=== PATIENT | female | born 1950 | race Caucasian/White ===

== ENCOUNTER 2023-07-23 10:47 | Outpatient (AMB) | payer OTHER, SELFPAY ==
--- NOTE | 2023-07-23 11:19 | HO.SPINEOV ---
Intake Intake Visit Reasons: Neck pain Intake Note: Mrs. Foy is here today c/o neck pain. MRI done @ [facility]/brought disc. Director Of Strategic Programs Required: No Assessment & Plan Assessment & Plan (1) Degenerative disc disease, cervical: Code(s): M50.30 - Other cervical disc degeneration, unspecified cervical region (2) Deformity of cervical vertebra: Code(s): M43.9 - Deforming dorsopathy, unspecified (3) Spondylolisthesis, cervical region: Code(s): M43.12 - Spondylolisthesis, cervical region Plan Dear colleague Thank you for referring Angella Foy to the office today with a chief complaint of chronic progressive neck pain and bilateral hand numbness HPI: This 72-year-old female is suffering from chronic neck pain that recently has significantly increased. She feels her head is falling off. She does not there to extend her neck as this will cause a severe electric shock across the spine. Acute rotation also produces severe neck pain. The best position is sitting forward with slight flexion of the neck. She denies weakness. She denies dexterity loss. The following conservative treatment options were tried without success antiinflammatories, tylenol, physician physical therapy, cortisone shots PMH: Diabetes mellitus, arthritis, chronic heart failure? Medications: Lasix, anti-inflammatory drugs, aspirin, metformin, atenolol, simvastatin Allergies: NKDA Social history: , nonsmoker Review of systems: Shortness of breath when walking up stairs. She scheduled to undergo an advanced stress test on September 05. She denies chest pain. Physical Exam: Pleasant female in agony. Extension of the neck is performed very carefully and limited. There is pain on palpation of the posterior cervical spine. Tinel is negative over the wrist. Normal strength and sensation. No pathological reflexes. Radiological Studies: MRI of the cervical spine done at [facility] on 06/27/2023 shows a cervical kyphosis caused by a grade 2 C3-C4 anterolisthesis and severe degenerative disc disease C4-5 C5-6 and C6-7 . A dynamic cervical x-ray today shows again the grade 2 C3-4 spondylolisthesis that increases with flexion. In the spondylolisthesis is also increased compared to an x-ray of 12/30/1999. Impression/Plan: This patient is suffering from severe neck pain, increasing with extension caused by a progressive C3-4 anterolisthesis the produces a cervical deformity with a reverse lordosis. I offered her an anterior diskectomy fusion C3-C4 and C4-C5 to reduce the anterolisthesis and improve the cervical deformity. I the procedure and expected intraoperative and postoperative course and she wants to proceed. She is scheduled for 10/07/2023. She will need preoperative clearance from her deployment engineer Dr. Pearson at [facility] and Cortney Stone, JULIETA. Thank you for allowing me to participate in your patients care. total time spent was 50 minutes in counseling ,coordination of plan, personal review of imaging, surgical decision making and subsequent plan Dominic Tompkins MD, PhD Spine Fellowship Trained Neurosurgeon Director, [facility] Orders: Orders XR cervical spine 4V Today M43.12 - Spondylolisthesis, cervical region, M43.9 - Deforming dorsopathy, unspecified, M50.30 - Other cervical disc degeneration, unspecified cervical region Coding Level of Care Code New Pt Level 4 (05020) Diagnoses Degenerative disc disease, cervical M50.30 Deformity of cervical vertebra M43.9 Spondylolisthesis, cervical region M43.12
== END 2023-07-23 12:29 | disposition home or self-care (01) ==
PROVIDERS: Visit Provider Neurological Surgery
DX: M50.30 Other cervical disc degeneration, unspecified cervical region (principal); M43.9 Deforming dorsopathy, unspecified; M43.12 Spondylolisthesis, cervical region
CPT/HCPCS: 99204

== ENCOUNTER 2023-07-23 10:47 | Outpatient (REF) | payer OTHER, SELFPAY ==
--- NOTE | ~2023-07-23 | XR_ITS ---
EXAMINATION: XR CERVICAL SPINE CLINICAL INFORMATION: Cervical spondylolisthesis. COMPARISON: None available. TECHNIQUE: Frontal and lateral (neutral, flexion and extension) views of the cervical spine were obtained. FINDINGS: Vertebral body heights are normal. At C2-C3, there is a 3 mm anterolisthesis. At C3-C4, there is moderate posterior disc space narrowing, with a 4 mm anterolisthesis. There is marked disc space narrowing at C4-C5 through C6-C7, with accompanying spondylosis. No acute fracture or spondylolisthesis is seen. There is no significant instability with flexion or extension. The posterior elements are intact. There is multi-level facet arthropathy. The paravertebral soft tissues are unremarkable. XR/XR cervical spine 4V IMPRESSION: 1. There is multi-level cervical degenerative disc disease, spondylosis and facet arthropathy. Degenerative disease is most pronounced at C4-C5 through C6-C7, where it is severe. 2. No instability with flexion or extension.
== END 2023-07-23 10:48 | disposition home or self-care (01) ==
LOC: HO.HOSX 10:47
PROVIDERS: Visit Provider Neurological Surgery
DX: M50.30 Other cervical disc degeneration, unspecified cervical region (principal); M43.9 Deforming dorsopathy, unspecified; M43.12 Spondylolisthesis, cervical region
CPT/HCPCS: 72050

== ENCOUNTER 2024-09-27 08:23 | Outpatient (AMB) | payer OTHER, SELFPAY ==
--- NOTE | 2024-09-27 08:59 | HO.SPINEOV ---
Vital Signs 09/27/24 09:01 Height 5 ft 2 in Weight 177 lb BMI 32.4 Intake Visit Reasons: Review sx Intake Note: Mrs. Foy is here today for a F/u. 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 She has a spondylolisthesis at C3-4 and C4-5, her original plan last year was to have surgery to correct this to help her neck pain as well as her arm numbness. She ended up getting COVID and was sick from that and had to postpone. Ultimately was very nervous about undergoing neck surgery so she waited until she was completely recovered. Now it has got to the point to where the pain is present daily and she is very uncomfortable all the time with any movement of her head. She still has the numbness of her arms. On my exam, she has no focal weakness and no hyperreflexia. I reviewed her x-rays with her again today. I did not have a copy of her MRI from her lying. We discussed the procedure at length, risks, benefits etc.. I told her to stop her Motrin and aspirin 7 days prior to surgery. I will get an updated set of x-rays. We talked about the fact that her MRI was from last May but her symptoms have really not changed much. I did propose the idea of getting a new MRI, but she thinks that if she postpone the surgery again she will never do it and she really would like to go ahead. She will bring us a copy of last year's MRI to review before surgery. Although the original note from Dr. Tompkins did not suggest a plate, I think after reviewing the x-rays we should at least have 1 available as an option. I will contact our vendors to make sure they have one. Pt was given risk and benefits of surgery including but not limited to infection, hematoma , nerve injury,durotomy, weakness,bowel/bladder injury, persistent pain, vocal hoarseness as well as the option to continue with conservative treatment and patient wishes to proceed with surgery. Pt is aware they should stop their motrin, aspirin 7 days prior to surgery. All questions were answered to the best of our ability. Total amount of time spent in this visit was 20 minutes in discussion of symptoms, x-ray an MRI imaging results and subsequent plan of care Elvin Tompkins MD,PhD [facility] Orders: Orders XR cervical spine 4V Today M50.30 - Other cervical disc degeneration, unspecified cervical region Coding Level of Care Code Est Pt Level 3 (83407) Diagnoses Degenerative disc disease, cervical M50.30
[2024-09-27 09:01] VITALS: BMI 32.4
== END 2024-09-27 09:52 | disposition home or self-care (01) ==
PROVIDERS: Visit Provider Physician Assistant
DX: M50.30 Other cervical disc degeneration, unspecified cervical region (principal)
CPT/HCPCS: 99213

== ENCOUNTER 2024-09-27 08:23 | Outpatient (REF) | payer OTHER, SELFPAY ==
--- NOTE | ~2024-09-27 | XR_ITS ---
EXAMINATION: XR CERVICAL SPINE CLINICAL INFORMATION: Other cervical disc degeneration, unspecified cervical region M50.30. COMPARISON: XR Cervical spine 07/23/2023 TECHNIQUE: 5 views of the cervical spine, inclusive of flexion and extension views, were obtained. FINDINGS: Submitted for interpretation on October 05, 2024. Craniocervical junction is intact. Grade 1 anterolisthesis C3-4 without reduction or worsening during flexion and/or extension position. Grade 1 anterolisthesis C4-5 in neutral position which worsens in flexion position and reduces in extension. Multilevel marginal osteophyte formation and endplate sclerosis decreased intervertebral disc height more conspicuous at C5-6, C6-7 and to a lesser extent C4-5 and C3-4 levels. No lytic or blastic lesions. XR/XR cervical spine 4V IMPRESSION: Multilevel cervical spondylosis resulting in grade 1 anterolisthesis C4-5 and C5-6 levels with instability at C4-5. Electronically signed by: Lobo Freed MD 10/05/2024 07:21 AM DAVID
== END 2024-09-27 08:24 | disposition home or self-care (01) ==
LOC: HO.HOSX 08:23
PROVIDERS: Visit Provider Physician Assistant
DX: M50.30 Other cervical disc degeneration, unspecified cervical region (principal)
CPT/HCPCS: 72050

== ENCOUNTER → 2024-09-27 09:33 | Outpatient (BNV) | payer OTHER, SELFPAY | PROVIDERS: Visit Provider Radiology Diagnostic Radiology | DX: M43.12 Spondylolisthesis, cervical region (principal) | CPT/HCPCS: 72050 ==

== ENCOUNTER 2024-10-05 05:56 | Day surgery (SDC) | payer MEDICARE, SELFPAY ==
[2024-09-27 10:11] VITALS: BP 124/62; PULSE 78; RESP 20; O2SAT 97; BMI 32.9
[2024-10-05] VITALS (16 sets, daily range): BP systolic 137–187; BP diastolic 56–99; PULSE 79–95; RESP 16; TEMP 36.6–37.3; O2SAT 93–98; BMI 32.9
[2024-10-05] MEDS: Gabapentin 300 MG CAPSULE PO (06:45)
[2024-10-05] MEDS: methocarbamoL 750 MG TABLET PO (06:45)
[2024-10-05] MEDS: Lactated Ringers 1,000 ML 100 ML IVCONT (06:52)
[2024-10-05 07:00] LABS: Glucose, Whole Blood 139 mg/dL (60-115)
--- NOTE | 2024-10-05 07:01 | MHC.SHP ---
Pre-Procedural Eval Section A - 24 Hr Update-Section A only Date of Service: 10/05/24 The patient is an INPATIENT: No Changes since office visit: No Cold of Flu in the past 2 weeks, No New Medical Problems, No Changes in Medication and No Patient answered all questions The patient has been examined within 24 hours of the surgical procedure. The History & Physical has been completed within 30 days and I have reviewed it.: No Section B - Complete if H&P > 30 days Chief Complaint: Spondylolisthesis, cervical region,disc degenerati Allergies: Allergies Allergy/AdvReac Type Severity Reaction Status Date / Time Sulfa (Sulfonamide Allergy Intermediate Swelling Verified 09/27/24 10:04 Antibiotics) indomethacin [From Indocin] Allergy Unknown happened Verified 09/27/24 10:05 long ago-reaction unknown Review of Systems Sugical H&P ROS: Negative: Constitution, Cardiovascular, Respiratory, Neurological, Psychiatric, Hem-Onc, Allergic/Immunologic, Gastrointestinal, Genitourinary, Musculoskeletal, Integumentary, Endocrine and Eyes/Ears/Nose/Throat Exam Surgical H&P Exam: Normal: HEENT, Normal: Heart, Normal: Lungs, Normal: Extremities, Normal: Abdomen, Normal: Skin and Normal: Neurological (awake, alert,oriented x 3 ) Plan Diagnosis/Plan: Unchanged C3-4, C4-5 Anterior cervical diskectomy and fusion Time Spent With Patient Time: Total time managing care of this patient today __5__ minutes.
--- NOTE | 2024-10-05 07:25 | HO.ANESPROP2 ---
Documented by User: Bertha Rivas NP 10/04/24 08:28 HPI - Anesthesia Eval Consult details Narrative: 74yo F for C3-4,C4-5 Ant Cerv Discectomy w/ fusion Anesthesia unavilable for 09/27/24 PAT Dysautonomia dx'd via CPET and managed by pulmo with pyridostigmine. SOB has improved since 2020. Still some KNOTT, but walks regularly. No SOB noted by RN during PAT assessment. Follows outside cardiology for nonobstructive CAD. Stable at 03/2024 - any SOB or CP attributed to dysautonomia Case reviewed with Dr Darrell GURROLA Active Problems Active Problems: All Active Problems Degenerative disc disease, cervical (Acute) Deformity of cervical vertebra (Acute) Spondylolisthesis, cervical region (Acute) Past Medical History Medical History (Updated 09/27/24 @ 10:54 by Roseanna Parker RN) Dysautonomia Pneumonia Poor historian Fatty liver Chronic renal insufficiency CAD (coronary artery disease) Diabetes Lichen sclerosus Memory deficit Osteoarthritis Depression Anxiety Asthma Hypothyroid GERD (gastroesophageal reflux disease) Elevated cholesterol HTN (hypertension) Degenerative disc disease, cervical Surgical History Surgical History (Updated 09/27/24 @ 10:03 by Roseanna Parker RN) Hx of bilateral cataract extraction History of esophagogastroduodenoscopy (EGD) H/O colonoscopy History of back surgery History of total left knee replacement Hx of cardiac catheterization Hx of salpingo-oophorectomy, bilateral Hx of hysterectomy Hx of breast biopsy History of total right knee replacement Social History Social History Are you a primary personal care attendant to a significant other at home: No Do you presently have visiting nurse or other home services: No Patient Tobacco Use Status: Former Tobacco user Tobacco use type: Cigarette Years Smoked: 20 Use of substances other than those prescribed or required for medical reasons: No Have you been hit, kicked, punched, or otherwise hurt by someone within the past year? If so, by whom?: No Spiritual Healthcare Practices: none Zoroastrian Healthcare Practices: Yazidism Cultural Healthcare Practices: none Are you DNR?: No Advance Directives Information Provided: Yes (as above noted-advised to bring copy DOS) Advance Directives on File: No Recently lost weight without trying: No Eating poorly because of decreased appetite: No Nutrition Risks: No Nutritional Risk FDLMP: n/a Poor oral hygiene: No (dental crowns) Meds Allergies Allergy/AdvReac Type Severity Reaction Status Date / Time Sulfa (Sulfonamide Allergy Intermediate Swelling Verified 09/27/24 10:04 Antibiotics) indomethacin [From Indocin] Allergy Unknown happened Verified 09/27/24 10:05 long ago-reaction unknown Home Medications ?Medication ?Instructions ?Recorded ?Confirmed ?Last Taken ?Type amlodipine 2.5 mg tablet 2.5 mg PO QAM 09/16/23 10/05/24 Unknown History fluoxetine 20 mg capsule 20 mg PO QAM 09/16/23 10/05/24 Unknown History levothyroxine 100 mcg tablet 100 mcg PO QAM 09/16/23 10/05/24 Unknown History (Synthroid) metformin 500 mg tablet,extended 500 mg PO QAM 09/16/23 10/05/24 Unknown History release 24 hr omeprazole 40 mg capsule,delayed 40 mg PO QAM 09/16/23 10/05/24 Unknown History release aspirin 81 mg tablet,delayed 81 mg PO BEDTIME 09/24/24 10/05/24 Unknown History release coenzyme Q10 200 mg capsule (Co 200 mg PO QAM 09/24/24 10/05/24 Unknown History Q-10) cyclobenzaprine 10 mg tablet 10 mg PO BID PRN Muscle Spasm 09/24/24 10/05/24 Unknown History furosemide 20 mg tablet 40 mg PO QAM 09/24/24 10/05/24 Unknown History magnesium oxide 200 mg PO QAM 09/24/24 10/05/24 Unknown History multivitamin 1 tab PO QAM 09/24/24 10/05/24 Unknown History pyridostigmine bromide 60 mg 60 mg PO BID 09/24/24 10/05/24 Unknown History tablet (Mestinon) solifenacin 10 mg tablet 10 mg PO QAM 09/24/24 10/05/24 Unknown History atorvastatin 20 mg tablet 20 mg PO BEDTIME 09/27/24 10/05/24 Unknown History Exam Height,Weight and Vital Signs: Height 5 ft 2 in Weight 81.647 kg Last Vital Signs Pulse 78 09/27/24 10:11 Resp 20 09/27/24 10:11 BP 124/62 09/27/24 10:11 Pulse Ox 97 09/27/24 10:11 O2 Del Method Room Air 09/27/24 10:11 Pertinent Lab Results Pertinent Lab Results: BMP and CBC 04/2024 from outsice facility [place] Narrative Narrative: EKG 03/2024 NSR @ 65 ECHO 2021 Nml LV sys function Mild LVH Mild Aortic stenosis with mild aortic insufficiency Nml RV function Assessment and Plan Assessment Anesthesia Assessment: Chart Reviewed Documented by User: Elaine Summers DO 10/05/24 07:26 HPI - Anesthesia Eval Consult details Narrative: 74yo F for C3-4,C4-5 Ant Cerv Discectomy w/ fusion Dysautonomia dx'd via CPET and managed by pulamol with pyridostigmine. SOB has improved since 2020. Still some KNOTT, but walks regularly. No SOB noted by RN during PAT assessment. Follows outside cardiology for nonobstructive CAD. Stable at 03/2024 - any SOB or CP attributed to dysautonomia. [facility] Past Medical History Medical History (Updated 09/27/24 @ 10:54 by Roseanna Parker RN) Dysautonomia Pneumonia Poor historian Fatty liver Chronic renal insufficiency CAD (coronary artery disease) Diabetes Lichen sclerosus Memory deficit Osteoarthritis Depression Anxiety Asthma Hypothyroid GERD (gastroesophageal reflux disease) Elevated cholesterol HTN (hypertension) Degenerative disc disease, cervical Family History Family history of problems with anesthesia: No Surgical History Surgical History (Updated 09/27/24 @ 10:03 by Roseanna Parker RN) Hx of bilateral cataract extraction History of esophagogastroduodenoscopy (EGD) H/O colonoscopy History of back surgery History of total left knee replacement Hx of cardiac catheterization Hx of salpingo-oophorectomy, bilateral Hx of hysterectomy Hx of breast biopsy History of total right knee replacement History of Problems with Anesthesia: No Social History Social History Are you a primary personal care attendant to a significant other at home: No Do you presently have visiting nurse or other home services: No Patient Tobacco Use Status: Former Tobacco user Tobacco use type: Cigarette Years Smoked: 20 Use of substances other than those prescribed or required for medical reasons: No Have you been hit, kicked, punched, or otherwise hurt by someone within the past year? If so, by whom?: No Spiritual Healthcare Practices: none Zoroastrian Healthcare Practices: Yazidism Cultural Healthcare Practices: none Are you DNR?: No Advance Directives Information Provided: Yes (as above noted-advised to bring copy DOS) Advance Directives on File: No Recently lost weight without trying: No Eating poorly because of decreased appetite: No Nutrition Risks: No Nutritional Risk FDLMP: n/a Poor oral hygiene: No (dental crowns) Meds Allergies Allergy/AdvReac Type Severity Reaction Status Date / Time Sulfa (Sulfonamide Allergy Intermediate Swelling Verified 09/27/24 10:04 Antibiotics) indomethacin [From Indocin] Allergy Unknown happened Verified 09/27/24 10:05 long ago-reaction unknown Home Medications ?Medication ?Instructions ?Recorded ?Confirmed ?Last Taken ?Type amlodipine 2.5 mg tablet 2.5 mg PO QAM 09/16/23 10/05/24 Unknown History fluoxetine 20 mg capsule 20 mg PO QAM 09/16/23 10/05/24 Unknown History levothyroxine 100 mcg tablet 100 mcg PO QAM 09/16/23 10/05/24 Unknown History (Synthroid) metformin 500 mg tablet,extended 500 mg PO QAM 09/16/23 10/05/24 Unknown History release 24 hr omeprazole 40 mg capsule,delayed 40 mg PO QAM 09/16/23 10/05/24 Unknown History release aspirin 81 mg tablet,delayed 81 mg PO BEDTIME 09/24/24 10/05/24 Unknown History release coenzyme Q10 200 mg capsule (Co 200 mg PO QAM 09/24/24 10/05/24 Unknown History Q-10) cyclobenzaprine 10 mg tablet 10 mg PO BID PRN Muscle Spasm 09/24/24 10/05/24 Unknown History furosemide 20 mg tablet 40 mg PO QAM 09/24/24 10/05/24 Unknown History magnesium oxide 200 mg PO QAM 09/24/24 10/05/24 Unknown History multivitamin 1 tab PO QAM 09/24/24 10/05/24 Unknown History pyridostigmine bromide 60 mg 60 mg PO BID 09/24/24 10/05/24 Unknown History tablet (Mestinon) solifenacin 10 mg tablet 10 mg PO QAM 09/24/24 10/05/24 Unknown History atorvastatin 20 mg tablet 20 mg PO BEDTIME 09/27/24 10/05/24 Unknown History Exam Exam Date and Time: 10/05/24 0725 Height,Weight and Vital Signs: Height 5 ft 2 in Weight 81.647 kg Last Vital Signs Pulse 78 09/27/24 10:11 Resp 20 09/27/24 10:11 BP 124/62 09/27/24 10:11 Pulse Ox 97 09/27/24 10:11 O2 Del Method Room Air 09/27/24 10:11 Vital Signs Pulse Rate 78 09/27/24 10:11 Respiratory Rate 20 09/27/24 10:11 Blood Pressure 124/62 09/27/24 10:11 Pulse Oximetry 97 09/27/24 10:11 Oxygen Delivery Method Room Air 09/27/24 10:11 Temperature 99.2 F 10/05/24 06:36 Pulse Rate 79 10/05/24 06:36 Respiratory Rate 16 10/05/24 06:36 Blood Pressure 137/63 10/05/24 06:36 Pulse Oximetry 98 10/05/24 06:36 Oxygen Delivery Method Room Air 10/05/24 06:36 Airway Mallampati Class: I TM Dist: >3cm Neck ROM: Limited Loose/Missing/Broken Teeth: Yes (broken crown right lower jaw) Heart: S1S2 Lungs: CTAB Assessment and Plan Assessment Anesthesia Assessment: Anesthesia Plan Discussed and Chart Reviewed Final Anesthetic Review Family History of Problems with Anesthesia: No History of Problems with Anesthesia: No NPO: Yes ASA Class: III Final Preanesthetic Review: No Changes in Pt Med Stat, Meds/Allgs Chart Reviewed, Consent Obtained/Reviewed and Anes Risks/Benef Reviewed Patient Risk: Intermediate Procedure Risk: Intermediate Anesthetic Plan Anesthetic Plan: MAC: and Agree w/ Assess. and Plan Disposition: Standard PACU
--- NOTE | 2024-10-05 07:32 | P.DS_ITS ---
DS: Providers Provider Date of Service: 10/05/24 Date of discharge: 10/05/24 Primary care physician: Unknown Physician Admitting clinician: Dominic Tompkins DS: Diagnosis Discharge Diagnosis (1) Degenerative disc disease, cervical: Status: Acute DS: Summary Time Attestation Discharge Coordination Time (in mins): 5 Quality: Safe Use of Opioids Does Pt have an Active Cancer Diagnosis on the Problem List?: No Quality: Stroke Does the patient have a stroke diagnosis?: No Physical Exam Vital Signs: Vital Signs: Last Vital Signs Temp 99.2 F 10/05/24 06:36 Pulse 79 10/05/24 06:36 Resp 16 10/05/24 06:36 BP 137/63 10/05/24 06:36 Pulse Ox 98 10/05/24 06:36 O2 Del Method Room Air 10/05/24 06:36 BMI result Body Mass Index 32.9 DS: Data Data Completed and Pending Labs on day of discharge: Laboratory Results - last 24 hr 10/05/24 06:56 POC Glucose 139 H Discharge Plan Discharge Patient Disposition: Home, Self-Care Referrals: Physician,Unknown J [Primary Care Provider] - 1 Week Discharge Medications: New docusate sodium [Colace] 100 mg capsule 100 mg PO BID Qty: 20 0RF oxycodone 5 mg tablet 5 mg PO Q4H PRN (Reason: pain) Qty: 40 0RF Rx Instructions: Partial Fill upon patient request. Continued amlodipine 2.5 mg tablet 2.5 mg PO QAM omeprazole 40 mg capsule,delayed release(DR/EC) 40 mg PO QAM levothyroxine [Synthroid] 100 mcg tablet 100 mcg PO QAM fluoxetine 20 mg capsule 20 mg PO QAM metformin 500 mg tablet extended release 24 hr 500 mg PO QAM furosemide 20 mg tablet 40 mg PO QAM solifenacin 10 mg tablet 10 mg PO QAM multivitamin Tablet 1 tab PO QAM cyclobenzaprine 10 mg Tablet 10 mg PO BID PRN (Reason: Muscle Spasm) coenzyme Q10 [Co Q-10] 200 mg Capsule 200 mg PO QAM pyridostigmine bromide [Mestinon] 60 mg Tablet 60 mg PO BID magnesium oxide 200 mg magnesium Tablet 200 mg PO QAM atorvastatin 20 mg Tablet 20 mg PO BEDTIME Held aspirin 81 mg Tablet,Delayed Release (Dr/Ec) 81 mg PO BEDTIME Hold Instructions: Resume on 10/12/24. You may resume aspirin 7 days after surgery Discharge Orders: Discharge Order (Routine); Ordered 10/05/24 Ordered By: Elvin Duke Diet: Advance to usual diet Activity on Discharge: As tolerated Activity Restrictions/Additional Instructions: After your spinal surgery we ask you to observe the following restrictions/guidelines: Activity: It is normal to feel some discomfort as you increase your activity, but that will improve with time. We ask you avoid heavy lifting or acitivities that cause pain. As a general rule, 8lbs is a safe limit for lifting right after surgery. Walk as much as you feel comfortable but not to exhaustion. You will feel extra tired the first few days after surgery. Stay well hydrated. It is OK to walk up and down stairs You may return to driving when you are off narcotics (such as vicodin, oxycodone, dilaudid, etc), and you are back to normal functional capacity. If you have any concerns please check with office before driving. Return to work is specific to each patient and each surgery, so please speak with your doctor/PA at first follow up. Please bring paperwork such as FMLA at that time if you need it filled out. Medications: You may resume asprin one week after surgery For optimum pain control, it is best to start with a combination of 500 mg of Tylenol every 4 hours with 600 mg of Motrin every 8 hours, and use narcotics as needed in between for breakthrough pain. We will give you a short supply of narcotics after surgery (usually one weeks worth). If you need more please call the office but do not use more than prescribed. You will need to give our office 48 hours notice if you need narcotics refilled and we do not fill narcotics on weekends or evenings. If you are on a narcotic, it is a good idea to take a stool softener such as colace or senna to avoid constipation If you take blood thinner such as aspirin, Plavix, Coumadin, Effient, Eliquis etc for conditions such as Afib, DVT, Pulmonary embolus, coronary disease, stents etc please speak with your surgeon about specific details as to when you can resume these medications. You can resume NSAIDs on post op day 1 (eg: Motrin, Naproxen, etc). Follow up: Please call the office, , after surgery to arrange a 3 week follow up for wound check. Wound Care: You may remove your dressing on the first day after surgery. ?You may ?leave open to air. Please do not remove the steri strips underneath. they will fall off on their own in one week. IT IS NORMAL FOR THE WOUND TO OOZE OR BE BLOODY FOR A FEW DAYS AFTER SURGERY. ?IF THIS HAPPENS JUST PLACE NEW DRESSING OVER IT TO AVOID STAINING CLOTHES. You may shower on post op day # 1 We ask that you do not let the water soak the wound. If it does get wet, just towel dry lightly. Please do not scrub your incision or place any type of chemical/ointment on the wound. No tub baths, pools or jacuzzis for one month. If you have any leaking or redness from your wound, or fevers, please call office Print Language: Maldivian
--- NOTE | 2024-10-05 09:40 | P.OP_ITS ---
Operative Note Operative Note Date of Service: 10/05/24 Narrative: Preoperative Diagnosis: C3-4 anterolisthesis, C4-5 degenerative disc disease; neck pain Procedure: C3-C4, C4-C5 Anterior discectomy, arthrodesis and implantation cage ; C3-C5 anterior instrumentation ; local autograft; microscope Informed Consent was obtained for this operation. I have explained the nature, purpose and benefits of the operation. I have discussed the risks and benefit of the operation including possible complications or adverse events with patient/family. Alternative(s) were discussed with the patient with their relative benefits and risks as well as the consequences of not accepting the operation were included in obtaining consent. Surgeon: NAYELY GIBSON MD, PHD Procedure Assisted By: Elvin arriaga Description of Procedure: This patient is suffering from severe neck pain. Imaging reviews a grade 2 C3-4 anterolisthesis and severe degenerative disc disease C4-5. The patient was offered an anterior diskectomy fusion C3-4 and C4-5 to restore the alignment. The procedure complications were explained. The patient was consented. The patient was brought to the operating room and endotracheally intubated. The patient was put in supine position with slight extension of the neck. Prep and drape was done followed by timeout. A mid cervical incision was made followed by opening of the platysma. The prevertebral fascia was reached following the natural planes while the physician environmental services assistant provided manual retraction. The prevertebral fascia was opened to expose the disc spaces. A spinal needle was placed in the C3-C4 disk space to confirm the correct level with xray. The longus colli muscles were released bilaterally and a self retaining retractor was inserted. Two Camden pins were placed in the C3 and C4 vertebral bodies and distraction was give over the interspace. The discectomy was completed toward the posterior annulus of the disc. The microscope was brought in. The remainder of the discectomy was completed. The posterior ligament was opened and resected to expose the underlying dura. Osteophytes were resected from the body of C3 and C4 and saved for autograft. The endplates were prepared after which a 6 mm cage filled with autograft was inserted into the disc space. A separate attached plate was locked down with 2 x 12 mm screws as anterior instrumentation. Then attention was turned to the C4-5 disc space. Severe degeneration was encountered. The diskectomy was completed and posterior osteophytes were resected and saved for autograft. Again a 6 mm cage was inserted after which a separate attached plate was locked with 2 x 12 mm screws. Finally a 12 mm plate was laid over the C3-4 disc space and locked down with 4 times 14 mm screws Final x-rays in AP and lateral projection showed a satisfactory position of the implants and anterior instrumentation. The physician environmental services assistant took over. The Camden pin was removed. Hemostasis was done. He closed the incision in 2 layers with a 3-0 Vicryl. Steri-Strips used to approximate incision. An OpSite with Tegaderm was used to cover the incision. All sponge and needle counts were correct. Patient was extubated and transported in stable is to recovery room. Anesthesia: General Estimated Blood Loss (ml): 25 mL Duration of Surgery: 90 minutes Postoperative Plan: Discharge home Complications: None
[2024-10-05] MEDS: Haloperidol Lactate 5 MG/ML VIAL IVPUSH (13:09)
[2024-10-05] MEDS: Ondansetron ODT 4 MG TAB.RAPDIS TRANSLINGU (13:46)
--- NOTE | 2024-10-05 14:07 | PC.NURSE ---
PATIENT GIVEN ZOFRAN SL PER ORDER FOR REPORT OF NAUSEA. PATIENT ADAMENT ABOUT WANTING TO GO HOME. AT SIDE AND AWARE.
== END 2024-10-05 14:10 | disposition home or self-care (01) ==
PROVIDERS: Visit Provider Neurological Surgery
PROC: (CPT 22551; principal; 2024-10-05 07:30)
DX: M43.12 Spondylolisthesis, cervical region (principal); G89.29 Other chronic pain; M50.321 Other cervical disc degeneration at C4-C5 level; M43.9 Deforming dorsopathy, unspecified; R20.0 Anesthesia of skin; I10 Essential (primary) hypertension; E78.00 Pure hypercholesterolemia, unspecified; E11.9 Type 2 diabetes mellitus without complications; J45.909 Unspecified asthma, uncomplicated; Z79.84 Long term (current) use of oral hypoglycemic drugs; Z79.82 Long term (current) use of aspirin; Z79.899 Other long term (current) drug therapy; Z88.8 Allergy status to other drugs, medicaments and biological substances; Z88.2 Allergy status to sulfonamides; Z98.890 Other specified postprocedural states; Z87.891 Personal history of nicotine dependence
CPT/HCPCS: 22551; 22552; 22853; 20936; 22845; 82947; C1713; C1889; J0131; J0690; J1100; J1171; J1630; J2003; J2250; J2371; J2405; J2704; J3010; L8699

== ENCOUNTER → 2024-10-05 05:56 | Outpatient (BNV) | payer MEDICARE, SELFPAY | PROVIDERS: Visit Provider Physician Assistant | DX: M50.820 Other cervical disc disorders, mid-cervical region, unspecified level (principal); M50.321 Other cervical disc degeneration at C4-C5 level | CPT/HCPCS: 20936; 22551; 22552; 22845; 22853; 99499 ==

== ENCOUNTER 2024-10-29 11:00 | Outpatient (REF) | payer OTHER, SELFPAY ==
--- NOTE | ~2024-10-29 | XR_ITS ---
EXAMINATION: XR CERVICAL SPINE 2-3 VIEWS HISTORY: Z98.1 - Arthrodesis status COMPARISON: Comparison is made with the prior examination dated 09/27/2024. FINDINGS: AP and lateral views of the cervical spine are submitted. In the interval since the prior study, the patient is status post anterior fusion of C3 and C4 with plate and screws. The patient is also status post arthrodesis at C3-4 and C4-5. The hardware is intact. Again seen is anterolisthesis of C3 on C4. There is severe degenerative disc disease at the C5-6 and C6-7 levels, with disc space narrowing and osteophyte formation. Calcifications in the neck bilaterally are likely related to the internal carotid arteries. There is no prevertebral soft tissue swelling. XR/XR cervical spine 2V IMPRESSION: Status post anterior fusion of C3 and C4, and arthrodesis at C3-4 and C4-5. Degenerative disc disease. Electronically signed by: Dutch Hanson MD 10/29/2024 03:46 PM DAVID
== END 2024-10-29 11:01 | disposition home or self-care (01) ==
LOC: HO.HOSX 11:00
PROVIDERS: Visit Provider Neurological Surgery
DX: Z98.1 Arthrodesis status (principal)
CPT/HCPCS: 72040

== ENCOUNTER 2024-10-29 11:00 | Outpatient (AMB) | payer OTHER, SELFPAY ==
--- NOTE | 2024-10-29 11:24 | HO.SPINEOV ---
Intake Visit Reasons: 1st post op Intake Note: Mrs. Foy is here today for her 1st post op visit. Hose Tender Required: No Allergies Sulfa (Sulfonamide Antibiotics) Allergy (Intermediate, Verified 10/29/24 11:25) Swelling indomethacin [From Indocin] Allergy (Unknown, Verified 10/29/24 11:25) happened long ago-reaction unknown Assessment & Plan Assessment & Plan (1) Status post cervical spinal fusion: Code(s): Z98.1 - Arthrodesis status Category: Medical Plan: Dear colleague, On 10/29/2024, I saw for 1st postoperative visit Angella Foy. She underwent a C3-4 and C4-5 anterior diskectomy and fusion to correct a cervical deformity on 10/05/2024. She is doing quite well. She has minor discomfort on the right side of her anterior neck, which is most likely related to the procedure. On exam, the incision is healed. Today's x-rays show a stable construct. Overall, she is recovering as expected. We would like to follow-up in 6 weeks. Thank you for allowing me take care of your patient. Dominic Tompkins MD, PhD Spine Fellowship Trained Neurosurgeon Director, [facility] (2) Spondylolisthesis, cervical region: Code(s): M43.12 - Spondylolisthesis, cervical region Category: Medical Plan: s Orders: Orders XR cervical spine 2V Today Z98.1 - Arthrodesis status Coding Level of Care Code Global (33055) Diagnoses Status post cervical spinal fusion Z98.1 Spondylolisthesis, cervical region M43.12
--- OUTSIDE RECORDS SUMMARY | 2024-10-29 11:47 | XMS_ITS | Encounter Summary ---
Author Organization [facility] Address [address] [place] [address] Care Team Providers Care Roll Edge Stitcher Hand Name Role Phone Cortney Stone NP Primary Care Provider [phone] Christina Estevez MD Primary Care Provider [phone] Encounter Details Date Type Department Care Team ([facility] st Contact Info) Description 04/09/2024 Orders Only [facility] Cardiology [address] [phone] Lolita Barnett MD [address] [place] [address] Social History Tobacco Use Types Packs/Day Years Used Date Smoking Tobacco: Former Cigarettes 2 17 0 03/02/1975 - 03/02/1992 Passive Smoke Exposure: Never Smokeless Tobacco: Never Alcohol Use Standard Drinks/Week Comments Yes 0 (1 standard drink = 0.6 oz pur e alcohol) rare PHQ-2 Answer Date Recorded PHQ-2 Score 0 01/07/2024 PHQ-9 Answer Date [facility] SE[facility]ITY SCORE (Range 0-27) 0 01/07/2024 Intimate Partner Violence Answer Date R ecorded Fear of Current or Ex-Partner Not on file Emotionally Abused Not on file 05/08/2023 Physically Abused Not on file 05/08/2023 Sexually Abused Not on file 05/08/2023 Feel Safe at Home Not on file 05/08/2023 Comments No Sex and Gender Information Value Date Recorded Sex Assigned at Female 03/06/2020 2:59 PM EDT Legal Sex Female 1:41 PM EST Gender Identity Female 03/06/2020 2:59 PM EDT Sexual Orientation Not on file documented as of this encounter Miscellaneous Notes * Result Encounter Note - Lolita Barnett MD - 04/09/2024 10:59 AM EDT The results of Your test are Stable and acceptable -- as always if you have any questions/problems please let me know - * Result Encounter Note - Lolita Barnett MD - 04/09/2024 10:59 AM EDT [facility] (List[facility])t message sent documented in this encounter Plan of Treatment Upcoming Encounters Date Type Department Care Team (Latest Contact Info) Description 01/10/2025 8:00 AM EDT Office Visit [facility] [address] [place] [phone] Christina Estevez MD [address] [place] [address] medication refill follow up 03/18/2025 1:15 PM EDT Office Visit [facility] Cardiology [address] [phone] Lolita Barnett MD [address] [place] [id number] routine f/u 04/05/2025 9:15 AM EDT Radiology [facility]. Mammography [address] [place] [address] 05/02/2025 1:00 PM EDT Office Visit [facility] Cardiology [address] [phone] Lolita Barnett MD [address] [place] [address] 1 year 06/07/2025 9:15 AM EDT CPE - Comprehensive Physical Exam [facility] [address] [place] [id number] Christina Estevez MD [address] [place] [address] NPP documented as of this encounter Goals Goal Patient Goal Type Associated Problems Recent Progress Patient-Stated? Author Blood Pressure < 140/90 Blood Pressure 134/79(08/06 2:38 PM EST) No Lashonda Ambrosio CMA Note: Above is your goal for blood pressure control. You may be able to prevent, reduce or eliminate the medication required for your blood pressure by regular measurement of your blood pressure at home, since home readings are often more reliable than measurements at the doctor? s office. You can also improve your blood pressure by getting regular exercise, keeping a normal weight, reducing your sodium/salt intake to 2000 mg/day, reducing caffeine and by limiting your alcohol intake. Men should limit consumption to no more than 2 drinks per day (beer, wine, or mixed drinks) and women should limit to one drink per day. Follow the DASH diet, a diet low in fat, cholesterol, red meat, and sweets. It emphasizes fruits, vegetables, and low-fat dairy foods. The DASH diet also includes whole-grain products, fish, poultry, and nuts. Quit smoking / using tobacco Lifestyle No Mirza Almanza Note: Smoking can cause cancer, heart attacks, hardening of the arteries, bronchitis, emphysema, cough, shortness of breath, wrinkles, and premature aging and premature births. Some benefits of quitting smoking begin right away. Your risk of heart disease begins to decrease as soon as you quit. Your general health may also start to improve immediately because you are not irritating your lungs and more oxygen gets to your body organs. Your blood circulation is likely to get better. Other benefits may include fewer colds and lung infections as well as reduced risk of high blood pressure, stroke, and cancer. Interested in quitting smoking? Discuss medication options with your provider or contact the Quit To Win program at . Any insurance accepted. Quit smoking resources-http://makesmoNutricate.org HEMOGLOBIN A1C % < 7 Result Component 6.3(03/22/20 7:57 AM EDT) Lashonda Alex CMA Note: Above is your goal for sugar control. Your risk for future diabetic complications such as blindness and amputation can be reduced by following your diabetic diet plan, and paying careful attention to self-monitoring your blood sugar and blood pressure at home. Please plan to check your blood sugar and blood pressure at the frequency suggested, and bring these numbers with you to your next scheduled visit. If you have difficulty reaching the goals which you have set for your diabetes your PCP can refer to one of our diabetes self-management support programs. A fasting blood sugar below 120 is ideal. documented as of this encounter Procedures * Due to [place] law, this organization might not be sharing negative HIV tests. Procedure Name Priority Date/Time Associated Diagnosis Comments B-TYPE NATRIURETIC PEPTIDE (BNP) ([facility]) Same Day Results 04/09/2024 10:59 AM EDT Shortness of breath PROBNP, N TERMINAL Routine 04/09/2024 10 :59 AM EDT Shortness of breath BASIC METABOLIC PANEL WITH (GFR) Routine 04/09/2024 10:59 AM EDT Shortness of breath documented in this encounter Results * Due to [place] law, this organization might not be sharing negative HIV tests. * (ABNORMAL) BASIC METABOLIC PANEL WITH (GFR) (04/09/2024 10:59 AM EDT) Glucose 128(H) 65 - 99 mg/dL [facility] Comment: ? Fasting reference interval For someone without known diabetes, a glucose value >125 mg/dL indicates that they may have diabetes and this should be confirmed with a follow-up test. Urea Nitrogen Blood (BUN) 19 7 - 25 mg/dL [facility] Creatinine 1.04(H) 0.60 - 1.00 mg/dL [facility] EGFR 57(L) > OR = 60 mL/min/1.7 3m2 [facility] BUN/Creatinine Ratio 18 6 - 22 (calc) [facility] Sodium 138 135 - 146 mmol/L [facility] Potassium 4.0 3.5 - 5.3 mmol/L [facility] Chloride 100 98 - 110 mmol/L [facility] Carbon dioxide 31 20 - 32 mmol/L [facility] Calcium 9.5 8.6 - 10.4 mg/dL [facility] 04/09/2024 10:5 9 AM EDT 04/09/2024 3:16 PM EDT Narrative [facility] - 04/09/2024 4:17 PM EDT Please note that this estimated GFR does not include an adjustment for the patient's height or weight, and can therefore, be viewed as reliable only for patients with heights between 60 and 72 . More precise quantification using a 24-hour urine sample or height-based algorithm is recommended for patients outside of this range of height and for those individuals with more precise needs for GFR calculation. Resulting Agency Comment [id number] us Lolita Barnett MD LABORATORY Final Result Performing Organization Address City/[facility] Co de Phone Number [facility] [address] [place] [address] * B-TYPE NATRIURETIC PEPTIDE (BNP) ([facility]) (04/09/2024 10:59 AM EDT) Pathologist [facility] Natriuretic peptide.B 32 <100 pg/mL [facility] Comment: BNP levels increase with age in the general population with the highest values seen in individuals greater than 75 years of age. Reference: J. Am. Claudia. Cardiol. 2002; 40:976-982. 04/09/2024 10:5 9 AM EDT 04/09/2024 3:16 PM EDT Narrative Resulting Agency Comment [id number] us Lolita Barnett MD LAB SAME DAY RESULT Final Result Performing Organization Address [facility]/ZIP Co de Phone Number [facility] [address] [place] [address] * (ABNORMAL) PROBNP, N TERMINAL (04/09/2024 10:59 AM EDT) Natriuretic peptide.B prohormone 197(H) <125 pg/mL [facility] 04/09/2024 10:5 9 AM EDT 04/09/2024 3:16 PM EDT Narrative Resulting Agency Comment [id number] Lolita Barnett MD LABORATORY Final Result [facility] [address] [place] [address] documented in this encounter Visit Diagnoses Diagnosis Shortness of breath documented in this encounter Care Teams Roll Edge Stitcher Hand Relationship Specialty Start Date End Date Cortney Stone NP [address] [place] [address] PCP - General Internal Medicine 03/29/22 09/15/24 Christina Estevez MD [address] [place] [address] PCP - General Family Medicine 09/16/24 documented as of this encounter
--- OUTSIDE RECORDS SUMMARY | 2024-10-29 11:47 | XMS_ITS | Encounter Summary ---
Author Organization [facility] Address [address] [place] [address] Care Team Providers Care Dog Behaviorist Name Role Phone Cortney Stone NP Primary Care Provider [phone] Chrsitina Estevez MD Primary Care Provider [phone] Encounter Details Date Type Department Care Team (Late st Contact Info) Description 01/27/2024 Orders Only [facility] [address] [place], [place] [id number] Cortney Stone NP [address] [place] [address] Social History Tobacco Use Types Packs/Day Years Used Date Smoking Tobacco: Former Cigarettes 2 17 0 03/02/1975 - 03/02/1992 Passive Smoke Exposure: Never Smokeless Tobacco: Never Alcohol Use Standard Drinks/Week Comments Yes 0 (1 standard drink = 0.6 oz pur e alcohol) rare PHQ-2 Answer Date Recorded PHQ-2 Score 0 01/07/2024 PHQ-9 Answer Date Recorded [facility] PHQ-9 SEVERITY SCORE (Range 0-27) 0 01/07/2024 [...] Miscellaneous Notes * Result Encounter Note - Cortney Stone NP - 01/27/2024 3:20 PM EDT Reward[employer] message sent documented in this encounter Plan of Treatment Upcoming Encounters Date Type Department Care Team (Latest Contact Info) Description 01/10/2025 8:00 AM EDT Office Visit [address] [address] Christina Estevez MD [address] [place] [address] medication refill follow up 03/18/2025 1:15 PM EDT Office Visit [facility] Cardiology [address] [facility] [address] [place] [address] Lolita Barnett MD [address] [place] [address] routine f/u 04/05/2025 9:15 AM EDT Radiology [facility]. [address] [address] 05/02/2025 1:00 PM EDT Office Visit [facility] Cardiology [address] [facility] [address] [place] [address] Lolita Barnett MD [address] [place] [address] 1 year 06/07/2025 9:15 AM EDT CPE - Comprehensive Physical Exam [address] [address] Christina Estevez MD [address] [place] [address] NPP documented as of this encounter Goals [...] at . Any insurance accepted. Quit smoking resources-[email or web address] HEMOGLOBIN A1C % < 7 Result Component [...] of this encounter Procedures * Due to [place] [employer] law, this organization might not be sharing negative HIV tests. Procedure Name Priority Date/Time Associated Diagnosis Comments PAIN MANAGEMENT PROFILE WITH FENTANYL, URINE (PAINM2+) STAT (All results called to provider) 01/27/2024 3:20 PM EDT Encounter for drug therapy documented in this encounter Results * Due to [place] [employer] law, this organization might not be sharing negative HIV tests. * (ABNORMAL) PAIN MANAGEMENT PROFILE WITH FENTANYL, URINE (PAINM2+) (01/27/2024 3:20 PM EDT) Fentanyl Screen (Urine) NEGATIVE <0.5 ng/mL [facility] Comment:See Note 1 COMMENT SEE NOTE [facility] Comment:See Note 2 Creatinine (Urine) 74.9 > or = 20.0 mg/dL [facility] pH (Urine) 5.3 4.5 - 9.0 [facility] OXIDANT NEGATIVE <200 mcg/mL [facility] Amphetamines (Screen) NEGATIVE <500 ng/mL [facility] Barbiturates (Urine) NEGATIVE <300 ng/mL [facility] Benzodiazepine And Metabolites, Urine NEGATIVE <100 ng/mL [facility] Buprenorphine (Suboxone) (Urine) NEGATIVE <5 ng/mL [facility] Benzoylecgonine (Cocaine Metabolite) (Urine) NEGATIVE <150 ng/mL [facility] 6-Monoacetylmorphine (Heroin Metabolite) (Urine) NEGATIVE <10 ng/mL [facility] Tetrahydrocannabinol (Urine) NEGATIVE <20 ng/mL [facility] MDMA/MDA NEGATIVE <500 ng/mL [facility] EDDP ( Methadone Metabolite) NEGATIVE <100 ng/mL [facility] Opiates (Urine) POSITIVE(A) <100 ng/mL [facility] Codeine (Urine) NEGATIVE <50 ng/mL [facility] Comment:See Note 1 Hydrocodone (Urine) 1264(H) <50 ng/mL [facility] Comment:See Note 1 Hydromorphone (Urine) NEGATIVE <50 ng/mL [facility] Comment:See Note 1 Morphine (Urine) NEGATIVE <50 ng/mL [facility] Comment:See Note 1 Norhydrocodone (Urine) 1233(H) <50 ng/mL [facility] Comment:See Note 1 Oxycodone (Urine) NEGATIVE <100 ng/mL [facility] Phencyclidine (Urine) NEGATIVE <25 ng/mL [facility] COMMENT SEE NOTE [facility] Comment: See Note 2 Note 1 This test was developed and its analytical performance characteristics have been determined by [facility]. It has not been cleared or approved by the FDA. This assay has been validated pursuant to the CLIA regulations and is used for clinical purposes. Note 2 This drug testing is for medical treatment only. ?? Analysis was performed as non-forensic testing and these results should be used only by healthcare providers to render diagnosis or treatment, or to monitor progress of medical conditions. For assistance with interpreting these drug results, please contact a [facility] Toxicology Specialist: [phone] ( ), M-F, 8am-6pm EST. 01/27/2024 3:20 PM EDT 01/27/2024 5:32 PM EDT Narrative Resulting Agency Comment [id number] Cortney Stone NP LABORATORY Final Resu lt [facility] [address] [place] [address] documented in this encounter Visit Diagnoses Diagnosis Encounter for drug therapy Encounter for long-term (current) use of other medications documented in this encounter Care Teams Dog Behaviorist Relationship Specialty Start Date End Date Cortney Stone NP [address] [place] [address] PCP - General Internal Medicine 03/29/22 09/15/24 Christina Estevez MD [address] [place] [address] PCP - General Family Medicine 09/16/24 documented as of this encounter
--- OUTSIDE RECORDS SUMMARY | 2024-10-29 11:47 | XMS_ITS | Encounter Summary ---
Author Organization [facility] Address [address] [place] [address] Care Team Providers Care Tree Trimming Line Technician Name Role Phone Cortney Stone NP Primary Care Provider [phone] Christina Estevez MD Primary Care Provider [phone] Reason for Visit * Reason Comments E-prescribing Refill Request Encounter Details Date Type Department Care Team (Late st Contact Info) Description 02/18/2024 Refill [facility] [address] [place] [address] Cortney Stone, REVENUE ENFORCEMENT AGENT [address] [place] [address] E-prescribing Refill Request Social History Tobacco Use Types Packs/Day Years Used Date Smoking Tobacco: Former Cigarettes 2 17 0 03/02/1975 - 03/02/1992 Passive Smoke Exposure: Never Smokeless Tobacco: Never Alcohol Use Standard Drinks/Week Comments Yes 0 (1 standard drink = 0.6 oz pur e alcohol) rare PHQ-2 Answer Date Recorded PHQ-2 Score 0 01/07/2024 PHQ-9 Answer Date [facility]ed [facility] SEVERITY SCORE (Range 0-27) 0 [...] as of this encounter Miscellaneous Notes * Telephone Encounter - Elo Robles, Pharmacy Navigator - 02/19/2024 11:35 AM EDT Concerns for Provider Review: None Pharmacy Confirmed? The most recent pharmacy on file was used. When is the medication needed? within 48 hours, will send routine message Past and Future Appointments in Auth Provider Departments: Recent Visits Date Type Provider Dept 01/27/24 Office Visit Cortney Stone, [facility] 01/07/24 CPE - Comprehensive Physical Exam Cortney Stone, [facility] 10/30/23 Office Visit Cortney Stone, REVENUE ENFORCEMENT AGENT [facility] 10/23/23 Office Visit Cortney Stone, REVENUE ENFORCEMENT AGENT [facility] 09/10/23 Office Visit Cortney Stone, REVENUE ENFORCEMENT AGENT [facility] 06/20/23 Office Visit Cortney Stone, REVENUE ENFORCEMENT AGENT [facility] 03/21/23 Office Visit Cortney Stone, REVENUE ENFORCEMENT AGENT [facility] 03/19/23 Appointment Cortney Stone, [facility] 01/16/23 Office Visit Cortney Stone, [facility] 09/05/22 CPE - Comprehensive Physical Exam Cortney Stone, REVENUE ENFORCEMENT AGENT [facility] Showing recent visits within past 720 days in an active department and meeting all other requirements Future Appointments Date Type Provider Dept 09/14/24 Appointment Cortney Stone, [facility] Showing future appointments within next 400 days in an active department and meeting all other requirements Requested Medication Details Requested NSAIDs: Diclofenac Sodium (VOLTAREN) 75 MG EC tablet [Pharmacy Med Name: DICLOFENAC SOD DR 75 MG TAB], TAKEONE TABLET BY MOUTH TWICE A DAY NEEDED FOR PAIN DO NOT TAKE WITH IBUPROFEN OR NAPROXEN Max Fill Guidance: Prescription should be prepared as previously filled (No Changes) if the previous fill is less than the maximum fill guidance. Max Fill: 9 month supply: 90 days plus 2 refills. If pharmacy requests a 100 Day Supply as covered by insurance, may fill [address] of 90 days. PRNs: If medication is PRN, Prescription should be prepared as previously filled (No Changes) if the previous fill is less than the maximum fill guidance. Visit Needs: None Lab Needs: None Pertinent Labs: Lab Results Component Value Date CREATININE 1.17 (H) 10/30/2023 GFR 50 (L) 10/30/2023 Estimated Creatinine Clearance: 41.9 mL/min (A) (by C-G formula based on SCr of 1.17 mg/dL (H)). Pertinent Lab Results and Recommendations Lab Results Component Value Date SODIUM 136 10/30/2023 POTASSIUM 3.7 10/30/2023 CHLOR 100 10/30/2023 CO2 26 10/30/2023 BUN 23 10/30/2023 CREATININE 1.17 (H) 10/30/2023 GFR 50 (L) 10/30/2023 GLUCOSE 162 (H) 10/30/2023 PALOMO 9.2 10/30/2023 Pended medication order(s) and sent to provider. Patient expects medication renewal unless notifiedotherwise. documented in this encounter Plan of Treatment Upcoming Encounters Date Type Department Care Team (Latest Contact Info) Description 01/10/2025 8:00 AM EDT Office Visit [facility] [address] [place] [address] Christina Estevez MD [address] [place] [address] medication refill follow up 03/18/2025 1:15 PM EDT Office Visit [facility] Cardiology [address] [facility] [address] [place] [address] Lolita Barnett MD [address] [place] [address] routine f/u 04/05/2025 9:15 AM EDT Radiology [facility]. Mammography [address] [place] [address] 05/02/2025 1:00 PM EDT Office Visit [facility] Cardiology [address] [facility] [address] [place] [address] Lolita Barnett MD [address] [place] [address] 1 year 06/07/2025 9:15 AM EDT CPE - Comprehensive Physical Exam [facility] [address] [place] [address] Christina Estevez MD [address] [place] [address] NPP documented as of this encounter Goals [...] nuts. Quit smoking / using tobacco Lifestyle Mirza Cottrell Note: Smoking can cause cancer, heart attacks, [...] at . Any insurance accepted. Quit smoking resources-http://[email or web address] HEMOGLOBIN A1C % < 7 Result Component [...] is ideal. documented as of this encounter Visit Diagnoses Not on filedocumented in this encounter Care Teams Tree Trimming Line Technician Relationship Specialty Start Date End Date Cortney Stone NP [address] [place] [address] PCP - General Internal Medicine 03/29/22 09/15/24 Christina Estevez MD [address] [place] [address] PCP - General Family Medicine 09/16/24 documented as of this encounter
--- OUTSIDE RECORDS SUMMARY | 2024-10-29 11:47 | XMS_ITS | Encounter Summary ---
Author Organization [facility] Address [address] [place] [address] Care Team Providers Care Laser Set Up Operator Name Role Phone Cortney Stone NP Primary Care Provider [phone] Christina Estevez MD Primary Care Provider [phone] Encounter Details Date Type Department Care Team (Late st Contact Info) Description 04/09/2024 Orders Only [facility] Pulmonary [address] [facility] [address] [place] [address] Ulisses Mackenzie MD [address] [place], [place] [phone] Social History Tobacco Use Types Packs/Day Years Used Date Smoking Tobacco: Former Cigarettes 2 17 0 03/02/1975 - 03/02/1992 Passive Smoke Exposure: Never Smokeless Tobacco: Never Alcohol Use Standard Drinks/Week Comments Yes 0 (1 standard drink = 0.6 oz pur e alcohol) rare PHQ-2 Answer Date Recorded PHQ-2 Score 0 01/07/2024 PHQ-9 Answer Date [facility] SEVERITY SCORE (Range 0-27) 0 [...] Miscellaneous Notes * Result Encounter Note - Ulisses Mackenzie MD - 04/09/2024 10:59 AM EDT Negative for vasculitis which is good news but doesn't answer anything * Result Encounter Note - Mary Daigle RN - 04/09/2024 10:59 AM EDT See tms documented in this encounter Plan of Treatment Upcoming Encounters Date Type Department Care Team (Latest Contact Info) Description 01/10/2025 8:00 AM EDT Office Visit [facility] [address] [place] [address] Christina Estevez MD [address] [place] [address] medication refill follow up 03/18/2025 1:15 PM EDT Office Visit [facility] Cardiology [address] [address] Lolita Barnett MD [address] [place] [address] routine f/u 04/05/2025 9:15 AM EDT Radiology [facility]. Mammography [address] [place] [address] 05/02/2025 1:00 PM EDT Office Visit [facility] Cardiology [address] [address] Lolita Barnett MD [address] [place] [address] 1 year 06/07/2025 9:15 AM EDT CPE - Comprehensive Physical Exam [facility] [address] [place] [phone] Christina Estevez MD [address] [place] [address] NPP documented as of this encounter Goals [...] at . Any insurance accepted. Quit smoking resources-http://makesAltobe[employer].org HEMOGLOBIN A1C % < 7 Result Component [...] of this encounter Procedures * Due to [place] [employer] law, this organization might not be sharing negative HIV tests. Procedure Name Priority Date/Time Associated Diagnosis Comments NEUTROPHIL CYTOPLASMIC ANTIBODY SCREEN WITH MPO AND PR3, WITH REFLEX TO ANCA TITER Routine 04/09/2024 10:59 AM EDT LPRD (laryngopharyngeal reflux disease) Subglottic stenosis documented in this encounter Results * Due to [place] [employer] law, this organization might not be sharing negative HIV tests. * NEUTROPHIL CYTOPLASMIC ANTIBODY SCREEN WITH MPO AND PR3, WITH REFLEX TO ANCA TITER (04/09/2024 10:59 AM EDT) ANCA Screen NEGATIVE NEGATIVE [facility] Comment: ANCA Screen includes evaluation for p-ANCA, c-ANCA and atypical p-ANCA. A positive ANCA screen reflexes to titer and pattern(s), e.g., cytoplasmic pattern (c-ANCA), perinuclear pattern (p-ANCA), or atypical p-ANCA pattern. ??c-ANCA and p-ANCA are observed in vasculitis, whereas atypical p-ANCA is observed in IBD (Inflammatory Bowel Disease). Atypical p-ANCA is detected in about 55% to 80% of patients with ulcerative colitis but only 5% to 25% of patients with Crohn's disease. Myeloperoxidase Ab <1.0 AI Q [facility] Comment: ? Value ?Interpretation ? ----- ? <1.0 ? No Antibody Detected ? > or = 1.0 ?? Antibody Detected Autoantibodies to myeloperoxidase (MPO) are commonly associated with the following small-vessel vasculitides: microscopic polyangiitis, polyarteritis nodosa, Churg-Janki syndrome, necrotizing and crescentic glomerulonephritis and occasionally granulomatosis with polyangiitis (GPA, Amy's). The perinuclear IFA pattern, (p-ANCA) is based largely on autoantibody to myeloperoxidase which serves as the primary antigen. These autoantibodies are present in active disease. Proteinase 3 Ab <1.0 [facility] Comment: ? Value ?Interpretation ? ----- ? <1.0 ? No Antibody Detected ? > or = 1.0 ?? Antibody Detected Autoantibodies to proteinase-3 (MS-3) are accepted as characteristic for granulomatosis with polyangiitis (GPA, Amy's), and are detectable in 95% of the histologically proven cases. The cytoplasmic IFA pattern, (c-ANCA), is based largely on autoantibody to MS-3 which serves as the primary antigen. These autoantibodies are present in active disease. 04/09/2024 10:5 9 AM EDT 04/09/2024 11:51 PM EDT Narrative Resulting Agency Comment [id number] Ulisses Mackenzie MD LABORATORY Final Result [employer] [address] [place] [address] documented in this encounter Visit Diagnoses Diagnosis LPRD (laryngopharyngeal reflux disease) Other diseases of larynx Subglottic stenosis Stenosis of larynx documented in this encounter Care Teams Laser Set Up Operator Relationship Specialty Start Date End Date Cortney Stone NP [address] [place] [address] PCP - General Internal Medicine 03/29/22 09/15/24 Christina Estevez MD [address] [place] [address] PCP - General Family Medicine 09/16/24 documented as of this encounter
--- OUTSIDE RECORDS SUMMARY | 2024-10-29 11:47 | XMS_ITS | Encounter Summary ---
Author Organization [facility] Address [address] [place] [address] Care Team Providers Care Nuclear Fuels Reclamation Engineer Name Role Phone Cortney Stone NP Primary Care Provider [phone] Christina Estevez MD Primary Care Provider [phone] Encounter Details Date Type Department Care Team (Late st Contact Info) Description 03/22/2024 Orders Only [facility] [address] [place], [place] [phone] Cortney Stone NP [address] [place] [address] Social History Tobacco Use Types Packs/Day Years Used Date Smoking Tobacco: Former Cigarettes 2 17 0 03/02/1975 - 03/02/1992 Passive Smoke Exposure: Never Smokeless Tobacco: Never Alcohol Use Standard Drinks/Week Comments Yes 0 (1 standard drink = 0.6 oz pur e alcohol) rare PHQ-2 Answer Date Recorded PHQ-2 Score 0 01/07/2024 PHQ-[address] [facility] PHQ-9 SEVERITY SCORE (Range 0-27) 0 01/07/2024 [...] Encounter Note - Cortney Stone NP - 03/22/2024 7:42 AM EDT Please let patient know that labs are overall normal/stable but she does have some changes in her liver function test. I would like to repeat this in 1 week. * Result Encounter Note - Nazia Ayers RN - 03/22/2024 7:42 AM EDT Telephone encounter initiated 03 23 24 documented in this encounter Plan of Treatment Upcoming Encounters Date Type Department Care Team (Latest Contact Info) Description 01/10/2025 8:00 AM EDT Office Visit [facility] [address] [place] [phone] Christina Estevez MD [address] [place] [address] medication refill follow up 03/18/2025 1:15 PM EDT Office Visit [facility] Cardiology [address] [address] Lolita Barnett MD [address] [place] [address] routine f/u 04/05/2025 9:15 AM EDT Radiology [facility] [address] [place] [address] 05/02/2025 1:00 PM EDT Office Visit [facility] Cardiology [address] [address] Lolita Barnett MD [address] [place] [address] 1 year 06/07/2025 9:15 AM EDT CPE - Comprehensive Physical Exam [facility] [address] [place] [phone] Christina Estevez MD [address] [place] [address] NPP documented as of this encounter Goals [...] at . Any insurance accepted. Quit smoking resources-http://TaDaweb.org HEMOGLOBIN A1C % < 7 Result Component 6.3(03/22/20 7:57 AM EDT) No Lashonda Ambrosio CMA Note: Above is [...] of this encounter Procedures * Due to [place] state law, this organization might not be sharing negative HIV tests. 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 * (ABNORMAL) HEMOGLOBIN A1C (03/22/2024 7:57 AM EDT) Hemoglobin A1C 6.3(H) <5.7 % of total Hgb [facility] Comment: For someone without known diabetes, a hemoglobin A1c value between 5.7% and 6.4% is consistent with prediabetes and should be confirmed with a follow-up test. For someone with known diabetes, a value <7% indicates that their diabetes is well controlled. A1c targets should be individualized based on duration of diabetes, age, comorbid conditions, and other considerations. This assay result is consistent with an increased risk of diabetes. Currently, no consensus exists regarding use of hemoglobin A1c for diagnosis of diabetes for children. Estimated Average Glucose 147 mg/dL (calc) [facility] 03/22/2024 7:57 AM EDT 03/22/2024 7:14 PM EDT Narrative Resulting Agency Comment [id number] us Cortney Stone EXCAVATOR OPERATOR LABORATORY Final Resu lt [facility] [address] [place] [address] * (ABNORMAL) HEPATIC FUNCTION PANEL (ALT,AST,ALK PH,BILI'S,TP,ALB) (03/22/2024 7:57 AM EDT) Protein Total (Serum) 5.8(L) 6.1 - 8.1 g/dL [facility] Albumin 4.0 3.6 - 5.1 g/dL [facility] Globulin 1.8(L) 1.9 - 3.7 g/dL (calc) [facility] Albumin/Globulin 2.2 1.0 - 2.5 (calc) [facility] Bilirubin Total 1.4(H) 0.2 - 1.2 mg/dL [facility] Bilirubin Direct 0.3(H) < OR = 0.2 mg/dL [facility] Bilirubin Indirect 1.1 0.2 - 1.2 mg/dL (calc) [facility] Alkaline phosphatase 53 37 - 153 U/L [facility] AST (SGOT) 16 10 - 35 U/L [facility] ALT (SGPT) 16 6 - 29 U/L [facility] 03/22/2024 7:57 AM EDT 03/22/2024 7:14 PM EDT Narrative Resulting Agency Comment [id number] Cortney Stone EXCAVATOR OPERATOR LABORATORY Final Resu lt Performing Organization Address [facility] de Phone Number [facility] [address] [place] [address] * (ABNORMAL) LIPID PANEL WITH REFLEX TO DIRECT LDL (03/22/2024 7:57 AM EDT) Cholesterol 149 <200 mg/dL [facility] HDL Cholesterol 47(L) > OR = 50 mg/dL [facility] Triglyceride 113 <150 mg/dL [facility] LDL Cholesterol 81 mg/dL (calc) [facility] Comment: Reference range: <100 Desirable range <100 mg/dL for primary prevention; ?? <70 mg/dL for patients with CHD or diabetic patients with > or = 2 CHD risk factors. LDL-C is now calculated using the Gurdeep-Brett calculation, which is a validated novel method providing better accuracy than the Friedewald equation in the estimation of LDL-C. Gurdeep SS et al. NANDO. 2013;310(19): 7341-7408 (http://education.Whisper.Vertishear/faq/UPE012) CHOL/HDL Ratio 3.2 <5.0 (calc) [facility] Cholesterol Non-HDL 102 <130 mg/dL (calc) [facility] Comment: For patients with diabetes plus 1 major ASCVD risk factor, treating to a non-HDL-C goal of <100 mg/dL (LDL-C of <70 mg/dL) is considered a therapeutic option. 03/22/2024 7:57 AM EDT 03/22/2024 7:14 PM EDT Narrative Resulting Agency Comment [id number] Cortney Stone EXCAVATOR OPERATOR LABORATORY Final Resu lt Performing Organization Address [facility] Co de Phone Number [facility] [address] [place] [address] * PARATHYROID HORMONE (PTH), INTACT WITH CALCIUM, SERUM (03/22/2024 7:57 AM EDT) Parathyroid Hormone (PTH), Intact 71 16 - 77 pg/mL [facility] Comment: Interpretive Guide ?Intact PTH ? Calcium ? ------- Normal Parathyroid ?Normal ? Normal Hypoparathyroidism ?Low or Low Normal ?Low Hyperparathyroidism ?? Primary ?Normal or High ? High ?? Secondary ?High ? Normal or Low ?? Tertiary ? High ? High Non-Parathyroid ?? 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
--- OUTSIDE RECORDS SUMMARY | 2024-10-29 11:47 | XMS_ITS | Encounter Summary ---
Author Organization [facility] Address [address] [place] [address] Care Team Providers Care Brim Edge Trimmer Name Role Phone Cortney Stone NP Primary Care Provider [phone] Christina Estevez MD Primary Care Provider [phone] Reason for Visit * Reason Comments Prescription Assistance Encounter Details Date Type Department Care Team (Late st Contact Info) Description 08/07/2024 Telephone [facility] Night Triage [address] [place] [address] Cortney Stone, JULIETA [address] [place] [address] Prescription Assistance Social History Tobacco Use Types Packs/Day Years Used Date Smoking Tobacco: Former Cigarettes 2 17 0 03/02/1975 - 03/02/1992 Passive Smoke Exposure: Never Smokeless Tobacco: Never Alcohol Use Standard Drinks/Week Comments Yes 0 (1 standard drink = 0.6 oz pur e alcohol) rare PHQ-2 Answer Date Recorded PHQ-2 Score 0 01/07/2024 PHQ-9 Answer Date Recorded [facility] PHQ-9 SEVERITY SCORE (Range 0-27) 0 01/07/2024 [...] encounter Miscellaneous Notes * Telephone Encounter - Jailyn Courtney - 08/07/2024 9:32 AM EST Pt was prescribed prednisone and levalbuterol tartrate inhaler yesterday in office and she is unable to get it filled at the pharmacy. When looking at the order, it appears the prescription was sent to the correct pharmacy. After calling the pharmacy to verify, they did receive the prescription butcannot fill it since it was originally sent to [facility] and they've already filed a claim for it with her insurance. Called pt back and advised to call [facility] and request to reverse the claim for those medications. Advised to call afterhours back if continuing to have issues with prescription after reversing claim. documented in this encounter Plan of Treatment Upcoming Encounters Date Type Department Care Team (Latest Contact Info) Description 01/10/2025 8:00 AM EDT Office Visit [facility] [address] [place] [phone] Christina Estevez MD [address] [place] [address] medication refill follow up 03/18/2025 1:15 PM EDT Office Visit [facility] Cardiology [address] [facility] [address] [place] [address] Lolita Barnett MD [address] [place] [address] routine f/u 04/05/2025 9:15 AM EDT Radiology [facility] [address] [place] [address] 05/02/2025 1:00 PM EDT Office Visit [facility] Cardiology [address] [facility] [address] [place] [address] Lolita Barnett MD [address] [place] [address] 1 year 06/07/2025 9:15 AM EDT CPE - Comprehensive Physical Exam [facility] [address] [place] [address] Christina Estevez MD [address] [place] [address] NPP documented as of this encounter Goals [...] at . Any insurance accepted. Quit smoking resources-[email or web address].org HEMOGLOBIN A1C % < 7 Result Component [...] on filedocumented in this encounter Care Teams Brim Edge Trimmer Relationship Specialty Start Date End Date Cortney Stone NP [address] [place] [address] PCP - General Internal Medicine 03/29/22 09/15/24 Christina Estevez MD [address] [place] [address] PCP - General Family Medicine 09/16/24 documented as of this encounter
--- OUTSIDE RECORDS SUMMARY | 2024-10-29 11:47 | XMS_ITS | Encounter Summary ---
Author Organization [facility] Address [address] [place] [address] Care Team Providers Care Nurse Advisor Name Role Phone Cortney Stone NP Primary Care Provider [phone] Christina Estevez MD Primary Care Provider [phone] Reason for Visit * Reason Comments Return Call Encounter Details Date Type Department Care Team ([facility] st Contact Info) Description 08/12/2024 Telephone [facility] Orthopedic Surgery [address] [facility] [address] [place] [phone] Jamin Pagan PA [address] [place] [address] Return Call Social History Tobacco Use Types Packs/Day Years Used Date Smoking Tobacco: Former Cigarettes 2 17 0 03/02/1975 - 03/02/1992 Passive Smoke Exposure: Never Smokeless Tobacco: Never Alcohol Use Standard Drinks/Week Comments Yes 0 (1 standard drink = 0.6 oz pur e alcohol) rare PHQ-2 Answer Date Recorded PHQ-2 Score 0 01/07/2024 PHQ-9 Answer Date Recorded [facility] PHQ-9 SEVERITY SCORE (Range 0-27) 0 01/07/2024 [...] encounter Miscellaneous Notes * Telephone Encounter - Lisandra Diaz - 08/18/2024 2:14 PM EST Patient already scheduled Future Appointments Date Time Provider Department Phone 08/24/24 7:45 AM Jamin Pagan PA [facility] Orthopedic Surgery [address] 09/14/24 9:00 AM Cortney Stone LUNCHROOM WORKER [facility] [phone] 09/14/24 1:00 PM Lolita Barnett MD [facility] [phone] 04/05/25 9:15 AM SEMI TRUCK DRIVER MAMMOGRAPHY [id number] [facility] Mammography [phone] 05/02/25 1:00 PM Lolita Barnett MD [facility] Cardiology [address] * Telephone Encounter - Luis Alberto Farley LVN LPN - 08/13/2024 9:56 AM EST Please assist with scheduling patient with provider for injection/ OV. * Telephone Encounter - Jamin Pagan PA - 08/13/2024 9:51 AM EST Ok for injection. Please assist with scheduling. * Telephone Encounter - Luis Alberto Farley LVN LPN - 08/13/2024 9:33 AM EST Informed patient of results, she stated her surgeon is not ok with her doing PT or pharmacy customer care specialist at this time but would be ok with a cortisone injection. She wants to know if provider would be inagreement to do this so she can have some pain relief as she cannot do the PT at this time. * Telephone Encounter - Jamin Pagan PA - 08/12/2024 11:04 AM EST Per my review and report, MRI of shoulder shows tendinosis (chronic wear and tear)/partial tear of rotator cuff tendon but does not suggest a full-thickness tear of the rotator cuff which may otherwise have indicated need for surgical repair. Tendinosis and partial tears can be appropriately addressed with physical therapy and, occasionally with cortisone injections if PT fails to influence earlyimprovements. She does have an upcoming surgery in September and may wish to pause on any further treatment for her shoulder. With that said, if she would like, we could place a referral to PT on her behalf. * Telephone Encounter - Luis Alberto Farley LVN LPN - 08/12/2024 9:58 AM EST MRI results in chart for review. * Telephone Encounter - Flavia Matos - 08/12/2024 9:56 AM EST The patient called to go over MRI results for right shoulder pain. Call back number is [phone]. documented in this encounter Plan of Treatment Upcoming Encounters Date Type Department Care Team (Latest Contact Info) Description 01/10/2025 8:00 AM EDT Office Visit [facility] [address] [place] [address] Christina Estevez MD [address] [place] [address] medication refill follow up 03/18/2025 1:15 PM EDT Office Visit [facility] Cardiology [address] [facility] [address] [place] [address] Lolita Barnett MD [address] [place] [address] routine f/u 04/05/2025 9:15 AM EDT Radiology [facility]. Mammography [address] [place] [address] 05/02/2025 1:00 PM EDT Office Visit [facility] Cardiology [address] [address] Lolita Barnett MD [address] [place] [address] 1 year 06/07/2025 9:15 AM EDT CPE - Comprehensive Physical Exam [facility] [address] [place] [address] Christina Estevez MD [address] [place] [address] NPP documented as of this encounter Goals Goal Patient Goal Type Associated Problems Recent Progress Patient-Stated? Author Blood Pressure < 140/90 Blood Pressure 134/79(08/06 2:38 PM EST) Lashonda Alex CMA Note: Above is your [...] at . Any insurance accepted. Quit smoking resources-[email or web address] HEMOGLOBIN A1C % < 7 Result Component [...] on filedocumented in this encounter Care Teams Nurse Advisor Relationship Specialty Start Date End Date Cortney Stone NP [address] [place] [address] PCP - General Internal Medicine 03/29/22 09/15/24 Christina Estevez MD [address] [place] [address] PCP - General Family Medicine 09/16/24 documented as of this encounter
--- OUTSIDE RECORDS SUMMARY | 2024-10-29 11:47 | XMS_ITS | Encounter Summary ---
Author Organization [facility] Address [address] [place] [address] Care Team Providers Care Payroll Accounting Specialist Name Role Phone Cortney Stone NP Primary Care Provider [phone] Christina Estevez MD Primary Care Provider [phone] Encounter Details Date Type Department Care Team (Late st Contact Info) Description 05/21/2024 Orders Only [facility] [address] [place], [place] [phone] Cortney Stone NP [address] [place] [address] Social History Tobacco Use Types Packs/Day Years Used Date Smoking Tobacco: Former Cigarettes 2 17 0 03/02/1975 - 03/02/1992 Passive Smoke Exposure: Never Smokeless Tobacco: Never Alcohol Use Standard Drinks/Week Comments Yes 0 (1 standard drink = 0.6 oz pur e alcohol) rare PHQ-2 Answer Date Recorded PHQ-2 Score 0 01/07/2024 PHQ-9 Answer Date Recorded [facility] PHQ-9 SEVERITY SCORE (Range 0-27) 0 [...] Miscellaneous Notes * Result Encounter Note - Cortnye Stone NP - 05/21/2024 7:34 AM EDT Normal/stable, mychart message sent. documented in this encounter Plan of Treatment Upcoming Encounters Date Type Department Care Team (Latest Contact Info) Description 01/10/2025 8:00 AM EDT Office Visit [address] [address] Christina Estevez MD [address] [place] [address] medication refill follow up 03/18/2025 1:15 PM EDT Office Visit [facility] Cardiology [address] [address] Lolita Barnett MD [address] [place] [address] routine f/u 04/05/2025 9:15 AM EDT Radiology [facility]. Mammography [address] [place] [phone] 05/02/2025 1:00 PM EDT Office Visit [facility] Cardiology [address] 123 [facility] [address] [place] [address] Lolita Barnett MD [address] [place] [address] 1 year 06/07/2025 9:15 AM EDT CPE - Comprehensive Physical Exam [address] [phone] Christina Estevez MD [address] [place] [address] NPP documented as of this encounter Goals [...] at . Any insurance accepted. Quit smoking resources-http://makesmoSweet [email or web address].org HEMOGLOBIN A1C % < 7 Result Component [...] of this encounter Procedures * Due to [place] [employer] law, this organization might not be sharing negative HIV tests. Procedure Name Priority Date/Time Associated Diagnosis Comments HEPATIC FUNCTION PANEL (ALT,AST,ALK PH,BILI'S,TP,ALB) Routine 05/21/2024 7:34 AM EDT Elevated bilirubin documented in this encounter Results * Due to [place] [employer] law, this organization might not be sharing negative HIV tests. * HEPATIC FUNCTION PANEL (ALT,AST,ALK PH,BILI'S,TP,ALB) (05/21/2024 7:34 AM EDT) Protein Total (Serum) 6.2 6.1 - 8.1 g/dL [facility] Albumin 4.3 3.6 - 5.1 g/dL [facility] Globulin 1.9 1.9 - 3.7 g/dL (calc) [facility] Albumin/Globulin 2.3 1.0 - 2.5 (calc) [facility] Bilirubin Total 1.1 0.2 - 1.2 mg/dL [facility] Bilirubin Direct 0.2 < OR = 0.2 mg/dL [facility] Bilirubin Indirect 0.9 0.2 - 1.2 mg/dL (calc) [facility] Alkaline phosphatase 65 37 - 153 U/L [facility] AST (SGOT) 12 10 - 35 U/L [facility] ALT (SGPT) 13 6 - 29 U/L [facility] 05/21/2024 7:34 AM EDT 05/21/2024 10:15 PM EDT Narrative Resulting Agency Comment [id number] Cortney Stone NP LABORATORY Final Resu lt [facility] [address] [place] [address] documented in this encounter Visit Diagnoses Diagnosis Elevated bilirubin Jaundice, unspecified, not of documented in this encounter Care Teams Payroll Accounting Specialist Relationship Specialty Start Date End Date Cortney Stone, JULIETA [address] [place] [address] PCP - General Internal Medicine 03/29/22 09/15/24 Christina Estevez MD [address] [place] [address] PCP - General Family Medicine 09/16/24 documented as of this encounter
--- OUTSIDE RECORDS SUMMARY | 2024-10-29 11:47 | XMS_ITS | Encounter Summary ---
Author Organization [facility] Address [address] [place] [address] Care Team Providers Care Channeling Machine Runner Name Role Phone Cortney Stone NP Primary Care Provider [phone] Christina Estevez MD Primary Care Provider [phone] Encounter Details Date Type Department Care Team ([facility] st Contact Info) Description 05/21/2024 Orders Only [facility] Cardiology [address] [address] Lolita Barnett MD [address] [place] [address] Social History Tobacco Use Types Packs/Day Years Used Date Smoking Tobacco: Former Cigarettes 2 17 0 03/02/1975 - 03/02/1992 Passive Smoke Exposure: Never Smokeless Tobacco: Never Alcohol Use Standard Drinks/Week Comments Yes 0 (1 standard drink = 0.6 oz pur e alcohol) rare PHQ-2 Answer Date Recorded PHQ-2 Score 0 01/07/2024 PHQ-9 Answer Date [facility] SEVERITY SCORE (Range 0-27) 0 [...] Encounter Note - Lolita Barnett MD - 05/21/2024 7:34 AM EDT The results of Your test are Stable and acceptable except glucose is high for which recommend follow-up with PCP-- as always if you have any questions/problems please let me know - documented in this encounter Plan of Treatment Upcoming Encounters Date Type Department Care Team (Latest Contact Info) Description 01/10/2025 8:00 AM EDT Office Visit [address] [address] Christina Estevez MD [address] [place] [address] medication refill follow up 03/18/2025 1:15 PM EDT Office Visit [facility] Cardiology [address] [address] Lolita Barnett MD [address] [place] [address] routine f/u 04/05/2025 9:15 AM EDT Radiology [facility]. [facility] [address] [place] [address] 05/02/2025 1:00 PM EDT Office Visit [facility] Cardiology [address] [address] Lolita Barnett MD [address] [place] [address] 1 year 06/07/2025 9:15 AM EDT CPE - Comprehensive Physical Exam [facility] [address] [place] [address] Christina Estevez MD [address] [place] [address] NPP documented as of this encounter Goals [...] at . Any insurance accepted. Quit smoking resources-http://makesmokinghistory.org HEMOGLOBIN A1C % < 7 Result Component [...] of this encounter Procedures * Due to [place] law, this organization might not be sharing negative HIV tests. Procedure Name Priority Date/Time Associated Diagnosis Comments CBC INCLUDES DIFFERENTIAL AND PLATELET COUNT Routine 05/21/2024 7:34 AM EDT SOB (shortness of breath) B-TYPE NATRIURETIC PEPTIDE (BNP) ([facility]) Same Day Results 05/21/2024 7:34 AM EDT SOB (shortness of breath) PROBNP, N TERMINAL Routine 05/21/2024 7: 34 AM EDT SOB (shortness of breath) BASIC METABOLIC PANEL WITH (GFR) Routine 05/21/2024 7:34 AM EDT SOB (shortness of breath) documented in this encounter Results * Due to [place] law, this organization might not be sharing negative HIV tests. * PROBNP, N TERMINAL (05/21/2024 7:34 AM EDT) Natriuretic peptide.B prohormone 79 <125 pg/mL [facility] 05/21/2024 7:34 AM EDT 05/21/2024 12:11 PM EDT Narrative Resulting Agency Comment [id number] Lolita Barnett MD LABORATORY Final Result [facility] [address] [place] [address] * B-TYPE NATRIURETIC PEPTIDE (BNP) ([facility]) (05/21/2024 7:34 AM EDT) Natriuretic peptide.B 12 <100 pg/mL [facility] Comment: BNP levels increase with age in the general population with the highest values seen in individuals greater than 75 years of age. Reference: J. Am. Claudia. Cardiol. 2002; 40:976-982. 05/21/2024 7:34 AM EDT 05/21/2024 12:11 PM EDT Narrative Resulting Agency Comment [id number] Lolita Barnett MD LAB SAME DAY RESULT Final Result [facility] [address] [place] [address] * CBC INCLUDES DIFFERENTIAL AND PLATELET COUNT (05/21/2024 7:34 AM EDT) Pathologist [facility] WBC 5.3 3.8 - 10.8 Thousand/u L [facility] RBC 4.07 3.80 - 5.10 Million/uL [facility] Hemoglobin 12.7 11.7 - 15.5 g/dL [facility] Hematocrit 37.4 35.0 - 45.0 % [facility] MCV 91.9 80.0 - 100.0 fL [facility] MCH 31.2 27.0 - 33.0 pg [facility] MCHC 34.0 32.0 - 36.0 g/dL [facility] RDW 11.7 11.0 - 15.0 % [facility] PLT 183 140 - 400 Thousand/u L [facility] MPV 9.8 7.5 - 12.5 fL [facility] Neutrophils # 3673 1500 - 7800 cells/uL [facility] Lymphocytes # 1171 850 - 3900 cells/uL [facility] Monocytes # 254 200 - 950 cells/uL [facility] Eosinophils # 170 15 - 500 cells/uL [facility] Basophils # 32 0 - 200 cells/uL [facility] Neutrophils % 69.3 % [facility] Lymphocytes % 22.1 % [facility] Monocytes % 4.8 % [facility] Eosinophils % 3.2 % [facility] Basophils % 0.6 % [facility] 05/21/2024 7:34 AM EDT 05/21/2024 12:11 PM EDT Narrative Resulting Agency Comment [id number] us Lolita Barnett MD LAB SAME DAY RESULT Final Result Performing Organization Address City/[facility]/ZIP Co de Phone Number [facility] [address] [place] [address] * (ABNORMAL) BASIC METABOLIC PANEL WITH (GFR) (05/21/2024 7:34 AM EDT) Glucose 138(H) 65 - 99 mg/dL [facility] Comment: ? Fasting reference interval For someone without known diabetes, a glucose value >125 mg/dL indicates that they may have diabetes and this should be confirmed with a follow-up test. Urea Nitrogen Blood (BUN) 22 7 - 25 mg/dL [facility] Creatinine 0.97 0.60 - 1.00 mg/dL [facility] EGFR 62 > OR = 60 mL/min/1. 73m2 [facility] BUN/Creatinine Ratio SEE NOTE: 6 - 22 (calc) [facility] Comment: ?? Not Reported: BUN and Creatinine are within ?? reference range. Sodium 138 135 - 146 mmol/L [facility] Potassium 4.1 3.5 - 5.3 mmol/L [facility] Chloride 104 98 - 110 mmol/L [facility] Carbon dioxide 28 20 - 32 mmol/L [facility] Calcium 9.1 8.6 - 10.4 mg/dL [facility] 05/21/2024 7:34 AM EDT 05/21/2024 12:11 PM EDT Narrative [facility] - 05/21/2024 12:39 PM EDT Please note that this estimated [...] needs for GFR calculation. Resulting Agency Comment [id number] us Lolita Barnett MD LABORATORY Final Result Performing Organization Address City/[facility]/ZIP Co de Phone Number [facility] [address] [place] [address] documented in this encounter Visit Diagnoses Diagnosis SOB (shortness of breath) Shortness of breath documented in this encounter Care Teams Channeling Machine Runner Relationship Specialty Start Date End Date Cortney Stone NP [address] [place] [address] PCP - General Internal Medicine 03/29/22 09/15/24 Christina Estevez MD [address] [place] [address] PCP - General Family Medicine 09/16/24 documented as of this encounter
--- OUTSIDE RECORDS SUMMARY | 2024-10-29 11:47 | XMS_ITS | Encounter Summary ---
Author Organization [facility] Address [address] [place] [address] Care Team Providers Care Yeast Tender Name Role Phone Cortney Stone NP Primary Care Provider [phone] Christina Estevez MD Primary Care Provider [phone] Encounter Details Date Type Department Care Team (Late st Contact Info) Description 03/31/2024 Orders Only [facility] [address] [place], [place] [phone] Cortney Stone NP [address] [place] [address] Social History Tobacco Use Types Packs/Day Years Used Date Smoking Tobacco: Former Cigarettes 2 17 0 03/02/1975 - 03/02/1992 Passive Smoke Exposure: Never Smokeless Tobacco: Never Alcohol Use Standard Drinks/Week Comments Yes 0 (1 standard drink = 0.6 oz pur e alcohol) rare PHQ-2 Answer Date Recorded PHQ-2 Score 0 01/07/2024 PHQ-9 Answer Date Recorded [facility] PHQ-9 SEVERITY SCORE (Range 0-27) [...] Encounter Note - Cortney Stone NP - 03/31/2024 7:49 AM EDT Please let patient know she continues to have a mild elevation in bilirubin which is happened in the past. For now I would recommend to repeat in 4 weeks. She did recently have a procedure which sometimes can allow for a spike. * Result Encounter Note - Hamida Yusuf RN - 03/31/2024 7:49 AM EDT TM initiated 04/02/24 documented in this encounter Plan of Treatment Upcoming Encounters Date Type Department Care Team (Latest Contact Info) Description 01/10/2025 8:00 AM EDT Office Visit [facility] [address] [place] [address] Christina Estevez MD [address] [place] [address] medication refill follow up 03/18/2025 1:15 PM EDT Office Visit [facility] Cardiology [address] [facility] [address] [place] [address] Lolita Barnett MD [address] [place] [address] routine f/u 04/05/2025 9:15 AM EDT Radiology [facility]. Mammography [address] [place] [address] 05/02/2025 1:00 PM EDT Office Visit [facility] Cardiology [address] [facility] [address] [place] [address] Lolita Barnett MD [address] [place] [address] 1 year 06/07/2025 9:15 AM EDT CPE - Comprehensive Physical Exam [facility] [address] [place] [phone] Christina Estevez MD [address] [place] [address] NPP documented as of this encounter Goals [...] at . Any insurance accepted. Quit smoking resources-[email or web address] HEMOGLOBIN A1C % < 7 Result Component [...] this encounter Procedures * Due to [place] [employer] law, this organization might not be sharing negative HIV tests. Procedure Name Priority Date/Time Associated Diagnosis Comments HEPATIC FUNCTION PANEL (ALT,AST,ALK PH,BILI'S,TP,ALB) Routine 03/31/2024 7:49 AM EDT Elevated bilirubin documented in this encounter Results * Due to [place] [employer] law, this organization might not be sharing negative HIV tests. * (ABNORMAL) HEPATIC FUNCTION PANEL (ALT,AST,ALK PH,BILI'S,TP,ALB) (03/31/2024 7:49 AM EDT) Protein Total (Serum) 6.3 6.1 - 8.1 g/dL [facility] Albumin 4.3 3.6 - 5.1 g/dL [facility] Globulin 2.0 1.9 - 3.7 g/dL (calc) [facility] Albumin/Globulin 2.2 1.0 - 2.5 (calc) [facility] Bilirubin Total 1.8(H) 0.2 - 1.2 mg/dL [facility] Bilirubin Direct 0.4(H) < OR = 0.2 mg/dL [facility] Bilirubin Indirect 1.4(H) 0.2 - 1.2 mg/dL (calc) [facility] Alkaline phosphatase 66 37 - 153 U/L [facility] AST (SGOT) 16 10 - 35 U/L [facility] ALT (SGPT) 14 6 - 29 U/L [facility] 03/31/2024 7:49 AM EDT 03/31/2024 11:56 PM EDT Narrative Resulting Agency Comment [id number] us Cortney Stone NP LABORATORY Final Resu lt [facility] [address] [place] [address] documented in this encounter Visit Diagnoses Diagnosis Elevated bilirubin Jaundice, unspecified, not of documented in this encounter Care Teams Yeast Tender Relationship Specialty Start Date End Date Cortney Stone NP [address] [place] [address] PCP - General Internal Medicine 03/29/22 09/15/24 Christina Estevez MD [address] [place] [address] PCP - General Family Medicine 09/16/24 documented as of this encounter
--- OUTSIDE RECORDS SUMMARY | 2024-10-29 11:47 | XMS_ITS | Encounter Summary ---
Author Organization [facility] Address [address] [place] [address] Care Team Providers Care Early Breastfeeding Care Specialist Name Role Phone Cortney Stone NP Primary Care Provider [phone] Christina Estevez MD Primary Care Provider [phone] Encounter Details Date Type Department Care Team (Latest Contact Info) Description 03/25/2024 Professional Billing [facility] Pulmonary [address] [facility] [address] [place] [address] Ulisses Mackenzie MD [address] [place] [address] LPRD (laryngopharyngeal reflux disease); Subglottic stenosis Social History Tobacco Use Types Packs/Day Years Used Date Smoking Tobacco: Former Cigarettes 2 17 0 03/02/1975 - 03/02/1992 Passive Smoke Exposure: Never Smokeless Tobacco: Never Alcohol Use Standard Drinks/Week Comments Yes 0 (1 standard drink = 0.6 oz pur e alcohol) rare PHQ-2 Answer Date Recorded PHQ-2 Score 0 01/07/2024 PHQ-9 Answer Date Recorded [facility] PHQ-9 SEVERITY SCORE (Range 0-27) 0 [...] on file documented as of this encounter Progress Notes * Ulisses Mackenzie MD - 03/25/2024 11:59 PM EDT She should probably see me sooner to discuss with the understanding that not all results will be back for 6-8 weeks. * Elisabet Figueroa - 03/25/2024 11:59 PM EDT See te 03/26 documented in this encounter Plan of Treatment Upcoming Encounters Date Type Department Care Team (Latest Contact Info) Description 01/10/2025 8:00 AM EDT Office Visit [facility] [address] [place] [phone] Christina Estevez MD [address] [place] [address] medication refill follow up 03/18/2025 1:15 PM EDT Office Visit [facility] Cardiology [address] [address] Lolita Barnett MD [address] [place] [address] routine f/u 04/05/2025 9:15 AM EDT Radiology [facility]. Mammography [address] [place] [address] 05/02/2025 1:00 PM EDT Office Visit [facility] Cardiology [address] [address] Lolita Barnett MD [address] [place] [address] 1 year 06/07/2025 9:15 AM EDT CPE - Comprehensive Physical Exam [facility] [address] [place] [phone] Christina Estevez MD [address] [place] [address] NPP documented as of this encounter Goals [...] at . Any insurance accepted. Quit smoking resources-[email or web address]://[email or web address] HEMOGLOBIN A1C % < 7 Result Component [...] documented as of this encounter Visit Diagnoses Diagnosis LPRD (laryngopharyngeal reflux disease) Other diseases of larynx Subglottic stenosis Stenosis of larynx documented in this encounter Care Teams Early Breastfeeding Care Specialist Relationship Specialty Start Date End Date Cortney Stone NP [address] [place] [address] PCP - General Internal Medicine 03/29/22 09/15/24 Christina Estevez MD [address] [place] [address] PCP - General Family Medicine 09/16/24 documented as of this encounter
--- OUTSIDE RECORDS SUMMARY | 2024-10-29 11:48 | XMS_ITS | Continuity of Care Document ---
Author Organization [facility] Address [address] [place] [address] Care Team Providers Care Chairman And Chief Executive Officer Name Role Phone Christina Estevez MD Primary Care Provider [phone] Encounters Date Type Department Care Team Description 10/25/[address] [address] Christina Estevez MD Refill Request 10/20/2024 Refill [facility] [address] [place] [address] Christina Estevez MD E-prescribing Refill Request; New Patient Visit ; Records 09/21/2024 Telephone [facility] Orthopedic Surgery [address] [place] [address] [place] [phone] Jamin Pagan PA Return Call 09/21/2024 Refill [facility] [address] [place] [address] Cortney Grant NP E-prescribing Refill Request 09/20/2024 Refill [facility] [address] [place] [address] Cortney Grant NP Refill Request 09/16/[address] [phone] Christina Estevez MD Refill Request 09/16/2024 Telephone [facility] [address] [place] [address] Cortney Grant NP Prescription Assistance (fesoterodine) 09/16/2024 Refill [facility] [address] [place] [address] Cortney Grant NP E-prescribing Refill Request 08/25/2024 Refill [facility] [address] [place] [address] Cortney Grant SANDER HAND Refill Request 08/24/2024 7:45 AM EST Office Visit [facility] Orthopedic Surgery [address] [place] [phone] Jamin Pagan PA Rotator cuff dysfunction, right (Primary Dx) 08/23/2024 Patient Outreach [facility] [address] [place] [address] Cortney Grant, JULIETA Diabetes (DM labs needed) 08/20/2024 Telephone [facility] [address] [place] [address] Cortney Grant NP Medication Check 08/16/2024 Refill [facility] [address] [place] [address] Cortney Grant, SANDER HAND Refill Request 08/14/2024 Refill [facility] [address] [place] [address] Cortney Grant NP E-prescribing Refill Request 08/12/2024 Telephone [facility] Orthopedic Surgery [address] [phone] Jamin Pagan PA Return Call 2024 10:15 PM EST Radiology [facility]. Magnetic Resonance Imaging [address] [place] [address] Chronic right shoulder pain 08/07/2024 Telephone [facility] Night Triage [address] [place] [address] Cortney Grant NP Prescription Assistance 08/06/2024 2:30 PM EST Office Visit [facility] [address] [place] [address] Cortney Grant NP Post-COVID chronic cough (Primary Dx); Bronchitis with bronchospasm 08/05/2024 Professional Billing [facility] Neurology [address] [facility] [address] [place] [address] Skyler Ren MD Carotid stenosis, bilateral 08/05/2024 Telephone [facility] [address] [place] [address] Cortney Grant NP Covid ; Sore Throat; Fatigue ; Cough 08/05/2024 Minor Procedure/Test NON [facility] [address] [place] [address] Cortney Grant NP Discharge Disposition: Discharged to home or self care (routine discharge) 08/05/2024 Minor Procedure/Test NON [facility] [address] [place] [address] [facility], Unknown Provider 08/03/2024 Telephone [facility] Rheumatology [address] [place] [phone] Jr Dandre Vasquez, DO Patient Questions 07/26/2024 Orders Only [facility] Orthopedic Surgery [address] [facility] [address] [place] [address] Jamin Pagan PA 07/26/2024 Telephone CALL [facility] [address] [place] [address] Jamin Pagan PA Other ; Imaging Study 07/23/2024 Refill [facility] Pulmonary [address] [facility] [address] [place] [address] Ulisses Mackenzie MD Refill Request 07/20/[address] [facility] [facility] [address] [place] [phone] Jr Dandre Vasquez, F/u From OV 07/19/2024 Orders Only [facility] Rheumatology [address] [place] [address] Jr Dandre Vasquez DO 07/19/2024 11:05 AM EDT Consult (Initial) [facility]ology [address] [place] [address] Jr Dandre Vasquez, Polyarthralgia (Primary Dx); Primary osteoarthritis involving multiple joints; Reactive arthritis, unspecified site (HCC); Myalgia 07/19/2024 5:00 PM EDT Office Visit [facility] Cardiology [address] [facility] [address] [place] [address] Lolita Ott MD Shortness of breath (Primary Dx); Hyperlipidemia, unspecified hyperlipidemia type; Hypertension, unspecified type; Aortic valve stenosis, etiology of cardiac valve disease unspecified 07/14/2024 Refill [facility] [address] [place] [address] Cortney Grant NP Refill Request 07/14/2024 10:40 AM EDT Radiology [facility] Xray 123 [facility] [address] [place] [address] Right shoulder pain, unspecified chronicity 07/14/2024 11:00 AM EDT Consult (Initial) [facility] Orthopedic Surgery [address] [facility] [address] [place] [address] Jamin Pagan PA Rotator cuff dysfunction, right (Primary Dx) 07/13/2024 Orders Only [facility] Orthopedic Surgery [address] 123 [facility] [address] [place] [address] Jamin Pagan PA 07/07/2024 Telephone [facility] [address] [place] [address] Cortney Grant NP Prescription Assistance 07/07/2024 3:00 PM EDT Office Visit [facility] [address] [place] [address] Praveena Sahu, JULIETA Thrush, oral (Primary Dx); Pneumonia due to infectious organism, unspecified laterality, unspecified part of lung 07/07/2024 Telephone [facility] [address] [place] [address] Cortney Grant, SANDER HAND Mouth Lesions 07/06/2024 Telephone [facility] [address] [place] [address] Cortney Grant, SANDER HAND Imm/Inj 07/05/2024 Telephone [facility] Cardiology [address] [facility] [address] [place] [address] Lolita Ott MD Results 07/02/2024 Minor Procedure/Test [facility] [address] [place] [address] Lolita Ott MD [facility], Unknown Provider 06/29/2024 Consult (Initial) DERMATOLOGY UNSPEC Gilda Billingsley MD 06/25/2024 Telephone [facility] [address] [place] [address] Cortney Grant, SANDER HAND Covid ; Cough ; Shortness of Breath 06/22/2024 Telephone [facility] Cardiology [address] [address] Lolita Ott MD Appointment 06/08/2024 Telephone [facility] Cardiology [address] [facility] [address] [place] [address] Lolita Ott MD Results (Echo and ZIO ) 06/07/2024 Telephone [facility] [address] [place] [address] Cortney Grant, SANDER HAND Refill Request 06/07/2024 Refill [facility] Cardiology [address] [facility] [address] [place] [address] Lolita Ott MD E-prescribing Refill Request 06/02/2024 Telephone [facility] Pulmonary [address] [facility] [address] [place] [address] Ulisses Mackenzie MD Patient Questions 06/02/2024 2:15 PM EDT Minor Procedure/Test [facility] [address] [place] [address] Jo Welsh, RDCS Shortness of breath (Primary Dx) 05/26/2024 11:30 AM EDT Telephone [facility] Cardiology [address] [facility] [address] [place] [address] Event Monitor 05/24/2024 Refill [facility] Pulmonary [address] [facility] [address] [place] [address] Ulisses Mackenzie MD E-prescribing Refill Request 05/21/2024 Orders Only [facility] [address] [place] [address] Cortney Grant, SANDER HAND 05/21/2024 Orders Only [facility] [address] [address] Lolita Ott MD 05/18/2024 Telephone [facility] [address] [place] [address] Cortney Grant, SANDER HAND Appointment 05/18/2024 Refill [facility] [address] [place] [address] Cortney Grant, SANDER HAND Refill Request 05/17/2024 Refill [facility] [address] [place] [address] Cortney Grant NP E-prescribing Refill Request 05/14/2024 3:00 PM EDT Office Visit [facility] Cardiology [address] [address] Lolita Ott MD SOB (shortness of breath) (Primary Dx); Hypertension, unspecified type; Nonrheumatic aortic valve stenosis; Coronary artery disease, unspecified vessel or lesion type, unspecified whether angina present, unspecified whether barrow or transplanted heart 05/07/2024 Telephone [facility] Pulmonary [address] [facility] [address] [place] [address] Ulisses Mackenzie MD Results 05/07/2024 Refill [facility] Pulmonary [address] [facility] [address] [place] [address] Ulisses Mackenzie MD Refill Request 05/05/2024 Erroneous Encounter [facility] Cardiology [address] [facility] [address] [place] [address] Lolita Ott MD 05/04/2024 Orders Only [facility] [address] [place] [address] Cortney Grant NP 05/03/2024 Telephone [facility] Cardiology [address] [facility] [address] [place] [address] Lolita Ott MD Follow Up; Medication Problem ; Chest Pain 04/26/2024 Refill [facility] [address] [place] [address] Cortney Grant NP E-prescribing Refill Request 04/09/2024 Orders Only [facility] Cardiology [address] [facility] [address] [place] [address] Lolita Ott MD 04/09/2024 Orders Only [facility] Pulmonary [address] [facility] [address] [place] [address] Ulisses Mackenzie MD 04/09/2024 9:45 AM EDT Office Visit [facility] Cardiology [address] [facility] [address] [place] [address] Lolita Ott MD Shortness of breath (Primary Dx); SOB (shortness of breath); Chest pain, unspecified type 04/07/2024 9:15 AM EDT Office Visit [facility] Pulmonary [address] [facility] [address] [place] [address] Ulisses Mackenzie MD Globus sensation (Primary Dx); LPRD (laryngopharyngeal reflux disease); Subglottic stenosis 04/02/2024 Telephone [facility] [address] [place] [address] Cortney Grant SANDER HAND Results 03/31/2024 Orders Only [facility] [address] [place] [address] Cortney Grant SANDER HAND 03/29/2024 Telephone [facility] [address] [place] [address] Cortney Grant SANDER HAND Labs/orders 03/26/2024 Telephone [facility] Pulmonary [address] [address] Ulisses Mackenzie MD Results 03/25/2024 Professional Billing [facility] Pulmonary [address] [address] Ulisses Mackenzie MD LPRD (laryngopharyngeal reflux disease); Subglottic stenosis 03/25/2024 Hospital/Inpatient NON FC [facility] [address] [place] [address] Ulisses Mackenzie MD Edema of larynx; Stenosis of larynx; Hypothyroidism, unspecified; Hormone replacement therapy; Personal history of nicotine dependence Discharge Disposition: Discharged to home or self care (routine discharge) 03/25/2024 Orders Only NON FC [facility] [address] [place] [address] Ulisses Mackenzie MD 03/23/2024 Telephone [facility] [address] [place] [address] Cortney Grant, SANDER HAND Results 03/22/2024 10:30 AM EDT Office Visit [facility]. Optometry [address] [place] [id number] Tomas Siu, OD Vitreous floaters of right eye; PVD (posterior vitreous detachment), right 03/22/2024 Orders Only [facility] [address] [place] [address] Cortney Grant NP 03/19/2024 Refill [facility] [address] [place] [address] Cortney Grant NP E-prescribing Refill Request 03/10/2024 Telephone [facility] Cardiology [address] [facility] [address] [place] [address] Lolita Ott MD Patient Questions 03/03/2024 Telephone [facility] [address] [place] [address] Cortney Grant SANDER HAND Letter/form Request 03/02/2024 Refill [facility] [address] [place] [address] Cortney Grant NP E-prescribing Refill Request 02/24/2024 Erroneous Encounter [facility] Pulmonary [address] [facility] [address] [place] [address] Ulisses Mackenzie MD 02/19/2024 Telephone [facility] Pulmonary [address] [facility] [address] [place] [address] Ulisses Mackenzie MD Procedure 02/19/2024 9:15 AM EDT Radiology [facility]. Mammography [address] [place] [phone] Breast cancer screening by mammogram 02/19/2024 10:30 AM EDT Office Visit [facility] Pulmonary [address] [facility] [address] [place] [address] Ulisses Mackenzie MD LPRD (laryngopharyngeal reflux disease) (Primary Dx) 02/18/2024 Refill [facility] [address] [place] [address] Cortney Grant SANDER HAND E-prescribing Refill Request 02/11/2024 10:20 AM EDT Radiology [facility]. CT Scan [address] [place] [address] Abnormal findings on diagnostic imaging of lung 01/27/2024 Orders Only [facility] [address] [place] [address] Cortney Grant NP 01/27/2024 2:30 PM EDT Office Visit [facility] [address] [place] [address] Cortney Grant, SANDER HAND Chronic neck pain (Primary Dx); Violation of narcotic use agreement; Encounter for drug therapy; Spondylolisthesis of cervical region; Spinal stenosis of lumbar region without neurogenic claudication 01/26/2024 Telephone [facility] [address] [place] [address] Cortney Grant, JULIETA Results 01/25/2024 Refill [facility] [address] [place] [address] Cortney Grant NP E-prescribing Refill Request 01/22/2024 Telephone [facility] [address] [place] [address] Cortney Grant NP Prescription Assistance (Diclofenac ) 01/21/[address] [address] Cortney Grant NP Refill Request 01/20/2024 Orders Only [facility] [address] [place] [address] Cortney Grant NP 01/20/2024 2:30 PM EDT Radiology [facility] [address] [place] [address] Chronic pain in right foot 01/20/2024 3:00 PM EDT Office Visit [facility] [address] [place] [address] Nancy Carr, SALMA Plantar fasciitis (Primary Dx) 01/19/2024 Orders Only [facility] [address] [place] [address] Nancy Carr DPM 01/17/2024 Telephone [facility] [address] [place] [address] Cortney Grant NP Drug Management Agreement (Due for Random Drug Screen) 01/16/2024 Refill [facility] Pulmonary [address] [facility] [address] [place] [address] Ulisses Mackenzei MD Refill Request 01/09/2024 Telephone [facility] [address] [facility], [address] Cortney Grant NP Letter/form Request 01/09/2024 Telephone [facility], [address] Cortney Grant NP Letter/form Request 01/09/2024 10:45 AM EDT Consult (Initial) [facility] Otolaryngology [address] [facility] [address] [place] [address] Durga Aceves MD Tongue lesion (Primary Dx) 01/07/2024 Telephone [facility] [address] [place] [address] Cortney Grant NP Letter/form Request 01/07/2024 9:30 AM EDT CPE - Comprehensive Physical Exam [facility] [address] [place] [address] Cortney Grant NP Routine history and physical examination of adult (Primary Dx); Tongue lesion; Chronic cough; Atypical mole; Bilateral carotid artery stenosis; Hypothyroidism, unspecified type; Essential hypertension; Mixed hyperlipidemia due to type 2 diabetes mellitus (HCC); Coronary artery disease, unspecified vessel or lesion type, unspecified whether angina present, unspecified whether barrow or transplanted heart; Type 2 diabetes mellitus with stage 3a chronic kidney disease, unspecified whether half-way insulin use (HCC); Cardiomyopathy, primary; Atherosclerosis of aorta; Gastroesophageal reflux disease with esophagitis, unspecified whether hemorrhage; Nonalcoholic fatty liver disease; Chronic kidney disease, stage 3a (HCC); Anxiety and depression; Other psychoactive substance dependence, uncomplicated (HCC); History of bilateral knee replacement; Renal angiomyolipoma; S/P lumbar laminectomy; Class 1 obesity with serious comorbidity and body mass index (BMI) of 34.0 to 34.9 in adult, unspecified obesity type 01/02/2024 Orders Only [facility] [address] [place] [address] Cortney Grant, SANDER HAND 01/01/2024 Refill [facility] Pulmonary [address] [facility] [address] [place] [address] Ulisses Mackenzie MD E-prescribing Refill Request 12/26/2023 Refill [facility] [address] [place] [address] Cortney Grant, SANDER HAND Refill Request 12/22/2023 Telephone [facility] [address] [place] [address] Cortney Grant, SANDER HAND Results 12/22/2023 Refill [facility] [address] [place] [address] Cortney Grant, SANDER HAND E-prescribing Refill Request 12/17/2023 Telephone [facility] [address] [place] [address] Cortney Grant, SANDER HAND Results 12/15/2023 Professional Billing [facility] Neurology [address] [facility] [address] [place] [address] Skyler Ren MD Carotid stenosis, left 12/15/2023 Minor Procedure/Test NON FC [facility] [address] [place] [address] [facility], Unknown Provider 12/15/2023 Minor Procedure/Test NON FC [facility] [address] [place] [address] Cortney Grant, SANDER HAND Discharge Disposition: Discharged to home or self care (routine discharge) 12/08/2023 Telephone [facility] [address] [place] [address] Cortney Grant, SANDER HAND Error 12/07/2023 Refill [facility] Pulmonary [address] [facility] [address] [place] [address] Ulisses Mackenzie MD E-prescribing Refill Request 12/05/2023 Orders Only [address] [address] Cortney Grant, SANDER HAND 12/04/2023 Telephone [facility] [address] [place] [address] Cortney Grant, SANDER HAND Cough ; Labs/orders 11/26/2023 Refill [facility] [address] [place] [address] Cortney Gratn, SANDER HAND Refill Request 11/26/[address] [address] Cortney Grant, SANDER HAND Cough 11/25/2023 Telephone [facility] [address] [place] [address] Cortney Grant, SANDER HAND Prescription Assistance 11/25/2023 Orders Only [address] [address] Cortney Grant, SANDER HAND 11/25/2023 Refill [facility] [address] [address] Cortney Grant, SANDER HAND E-prescribing Refill Request 11/24/2023 Refill [facility] [address] [place] [address] Cortney Grant, SANDER HAND Refill Request 11/18/2023 Telephone [facility] Pulmonary [address] [address] Ulisses Mackenzie MD Imaging Study 11/14/2023 Refill [facility] [address] [place] [address] Cortney Grant, SANDER HAND Refill Request 11/11/2023 Telephone [facility] Pulmonary [address] [facility] [address] [place] [address] Ulisses Mackenzie MD F/u From OV 11/11/2023 Telephone [facility] Neurology [address] [facility] [address] [place] [address] Vibha Casanova CRNP Medication Check (Mestinon) 11/10/2023 Refill [facility] Pulmonary [address] [facility] [address] [place] [address] Ulisses Mackenzie MD Refill Request 11/10/2023 Telephone [facility] [address] [place] [address] Cortney Grant, SANDER HAND Cough 11/05/2023 Telephone [facility] [address] [place] [address] Cortney Grant, SANDER HAND Results 11/05/2023 10:00 AM EST Radiology [facility]. CT Scan [address] [place] [address] Chronic cough 11/04/2023 Telephone [facility] [address] [place] [address] Cortney Grant, SANDER HAND Patient Questions 10/30/2023 Telephone [facility] [address] [place] [address] Cortney Grant, SANDER HAND Refill Request 10/30/2023 Refill [facility] [address] [place] [address] Cortney Grant, SANDER HAND Refill Request 10/30/2023 Orders Only [facility] Neurology [address] [facility] [address] [place] [address] Vibha Casanova CRNP 10/30/2023 Orders Only [facility] [address] [place] [address] Cortney Grant, SANDER HAND 10/30/2023 Refill [facility] [address] [place] [address] Cortney Grant NP Refill Request 10/30/2023 1:45 PM EST Office Visit [facility] [address] [place] [address] Cortney Grant NP Chronic cough (Primary Dx); Dry mouth; Mouth pain; Encounter for laboratory test 10/23/2023 12:45 PM EST Office Visit [facility] [address] [place] [address] Cortney Grant NP Community acquired pneumonia, unspecified laterality (Primary Dx); Chronic cough; Shortness of breath; CORONARY ARTERY DISEASE WITH STABLE Angina xx0.14xx; Cardiomyopathy, primary; Chronic kidney disease, stage 3a (HCC); Type 2 diabetes mellitus with stage 3a chronic kidney disease, unspecified whether half-way insulin use (HCC); Diabetes Type 2 associated with hyperlipidemia (HCC); Substance dependence (HCC); Mood disorder (HCC) 10/17/2023 Refill [facility] Pulmonary [address] [facility] [address] [place] [address] Ulisses Mackenzie MD Prescription Assistance 10/16/2023 Orders Only [facility] [address] [place] [address] Cortney Grant NP 10/16/2023 Orders Only [facility] Neurology [address] [facility] [address] [place] [address] Vihba Casanova CRNP 10/16/2023 8:30 AM EST Office Visit [facility] Neurology [address] [facility] [address] [place] [address] Vibha Casanova CRNP Neuropathy (Primary Dx); SOB (shortness of breath) on exertion; Cognitive deficits 10/14/2023 Telephone [facility] Pulmonary [address] [facility] [address] [place] [address] Ulisses Mackenzie MD Imaging Study 10/14/2023 Telephone [facility] Pulmonary [address] [facility] [address] [place] [address] Ulisses Mackenzie MD FYI 10/13/2023 Telephone [facility] [address] [place] [address] Cortney Grant, SANDER HAND E-prescribing Refill Request 10/10/2023 9:15 AM EST Office Visit [facility] Pulmonary [address] [facility] [address] [place] [address] Ulisses Mackenzie MD LPRD (laryngopharyngeal reflux disease) (Primary Dx); Abnormal findings on diagnostic imaging of lung 10/06/2023 Refill [facility] [address] [place] [address] Cortney Grant, SANDER HAND E-prescribing Refill Request 10/03/2023 Refill [facility] [address] [place], [place] [address] Cortney Grant, SANDER HAND E-prescribing Refill Request 09/28/2023 Refill [facility] [address] [place] [address] Cortney Grant, JULIETA E-prescribing Refill Request 09/24/2023 Refill [facility] [address] [place] [address] Cortney Grant, SANDER HAND Refill Request 09/15/2023 Letter/Form RADIOLOGY UNSPECIFIED Provider, Unknown 09/15/2023 Telephone [facility] [address] [place] [address] Cortney Grant, SANDER HAND Results 09/15/2023 3:40 PM EST Radiology [facility]. CT Scan [address] [place] [address] Abnormal respiratory function 09/11/2023 Telephone [facility] Cardiology [address] [facility] [address] [place] [address] Lolita Ott MD Results 09/10/2023 Telephone [facility] Night Triage [address] [place] [address] Cortney Grant NP Patient Questions 09/10/2023 2:45 PM EST Office Visit [facility] [address] [place] [address] Cortney Grant NP Acute bronchiolitis with bronchospasm (Primary Dx) 09/09/2023 Erroneous Encounter [facility] [address] [place] [address] Cortney Grant NP 09/08/2023 Telephone [facility] Cardiology [address] 123 [facility] 290 [place] [address] Lolita Ott MD Results 09/05/2023 4:00 PM EST Radiology [facility] Xray 123 [facility] [address] [place] [address] 09/05/2023 Orders Only [facility] Cardiology [address] [facility] [address] [place] [address] Lolita Ott MD 09/05/2023 Telephone [facility] Cardiology [address] [facility] [address] [place] [address] Lolita Ott MD Appointment 09/05/[address] [address] Cortney Grant NP Cough 09/05/2023 2:00 PM EST Office Visit [facility] Cardiology [address] [facility] [address] [place] [address] Lolita Ott MD SOB (shortness of breath) (Primary Dx); Hypertension, unspecified type; Hyperlipidemia, unspecified hyperlipidemia type; Aortic valve stenosis, etiology of cardiac valve disease unspecified 09/03/2023 Refill [facility] [address] [place] [address] Cortney Grant NP Refill Request 09/03/2023 Orders Only [facility] [address] [place] [address] Cortney Grant, SANDER HAND 09/01/2023 Refill [facility] [address] [place] [address] Cortney Grant, SANDER HAND Refill Request 08/29/2023 Telephone [facility] [address] [place] [address] Cortney Grant, JULIETA Pre Op Exam 08/26/2023 9:00 AM EST Radiology [facility] [address] [place] [address] Left foot pain 08/26/2023 9:40 AM EST Office Visit [facility] [address] [place] [address] Nancy Carr, DPM 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 (Primary Dx) 08/24/2023 Refill [facility] [address] [place] [address] Cortney Grant, SANDER HAND E-prescribing Refill Request 08/24/2023 Refill [facility] [address] [place] [address] Cortney Grant, SANDER HAND E-prescribing Refill Request 08/19/2023 Refill [facility] [address] [place] [address] Cortney Grant, SANDER HAND Refill Request 08/19/2023 Telephone [facility] [address] [place] [address] Cortney Grant SANDER HAND Labs/orders 08/14/2023 Minor Procedure/Test CARDI UNSPECIFIED Provider, Unknown 08/14/2023 Telephone [facility] Cardiology [address] [place] [address] [address] [place] [address] Lolita Ott MD Results 07/29/2023 Telephone [facility] [address] [place] [address] Cortney Grant NP Appointment 07/28/2023 Refill [facility] [address] [place] [address] Cortney Grant NP Refill Request 06/27/2023 9:15 PM EDT Radiology [facility]. Magnetic Resonance Imaging [address] [place] [address] Chronic neck pain; Cervical radiculopathy 06/25/2023 Minor Procedure/Test OPHTHAL UNSPECIFIED Mingo Vaughan 06/24/2023 Refill [facility] [address] [place] [address] Cortney Grant NP Refill Request 06/20/2023 Consult (Initial) DERMATOLOGY UNSPEC Gilda Billingsley MD 06/20/2023 1:45 PM EDT Office Visit [address] [address] Cortney Grant NP Chronic neck pain (Primary Dx); Cervical radiculopathy; Chronic pain syndrome; DDD (degenerative disc disease), cervical; Cervical spinal stenosis; Type 2 diabetes mellitus without complication, without long-term current use of insulin ([facility]) 06/17/2023 Telephone [facility] [address] [place] [address] Cortney Grant NP Neck Pain ; Imaging Study 05/23/2023 Refill [facility] [address] [place] [address] Mirza Almanza NP E-prescribing Refill Request 05/22/2023 Telephone [facility] Cardiology [address] [place] [phone] Lolita Ott MD Other ([facility] pulmonary referral) 05/22/2023 Refill [facility] [address] [place] [address] Cortney Grant NP Refill Request 04/29/2023 2:30 PM EDT Office Visit [facility] [address] [place] [address] Lolita Ott MD SOB (shortness of breath) (Primary Dx); Hypertension, unspecified type; Hyperlipidemia, unspecified hyperlipidemia type 04/25/2023 8:30 AM EDT Minor Procedure/Test [facility] [address] [facility] [address] [place] [address] Shannon Arroyo, CALVIN Aortic valve stenosis, etiology of cardiac valve disease unspecified (Primary Dx) 04/23/2023 Refill [facility] [address] [place] [address] Mirza Almanza NP E-prescribing Refill Request 04/21/2023 Refill [facility] [address] [place] [address] Cortney Grant NP Refill Request 04/18/2023 Telephone [facility] Cardiology [address] [address] Lolita Ott MD Appointment 04/17/2023 Professional Billing [facility] Cardiology [address] [address] Lolita Ott MD Chest pain, unspecified type; SOB (shortness of breath) 04/17/2023 Consult (Initial) NON FC [facility] [address] [place] [address] Durga Anaya MD 04/17/2023 Professional Billing [facility] Cardiology [address] [address] Durga Anaya MD Coronary artery disease, unspecified vessel or lesion type, unspecified whether angina present, unspecified whether barrow or transplanted heart 04/15/2023 Telephone [facility] Cardiology [address] [address] Lolita Ott MD Results (CTA) 04/15/2023 Telephone [facility] [address] [place] [address] Cortney Grant NP Imaging Study; Follow Up 04/15/2023 Telephone [facility] Cardiology [address] [phone] Lolita Ott MD Results 04/15/2023 Minor Procedure/Test NON FC [address] [address] Lolita Ott MD Discharge Disposition: Discharged to home or self care (routine discharge) 04/14/2023 10:40 AM EDT Office Visit [facility] Ophthalmology [address] [place] [phone] Bartolo Petit MD Presence of intraocular lens; Photopsia of left eye 04/11/2023 11:45 AM EDT Office Visit [facility] Cardiology [address] [place] [phone] Lolita Ott MD CORONARY ARTERY DISEASE WITH STABLE Angina xx0.14xx (Primary Dx); SOB (shortness of breath); Chest pain, unspecified type; Hypertension, unspecified type; Hyperlipidemia, unspecified hyperlipidemia type; Difficulty breathing 03/21/2023 Telephone [facility] [address] [place] [address] Cortney Grant NP Refill Request 03/21/2023 8:30 AM EDT Office Visit [facility] [address] [place] [address] Cortney Grant NP Synovial cyst of left popliteal space (Primary Dx); Pain of left calf; Leg swelling 03/20/2023 Minor Procedure/Test NON FC [facility] [address] [address] Sv, Unknown Provider 03/20/2023 Minor Procedure/Test NON FC [address] [address] Cortney Grant NP Discharge Disposition: Discharged to home or self care (routine discharge) 03/18/2023 Telephone [facility] [address] [place] [address] Cortney Grant NP Leg Pain (Calf ) 03/13/2023 7:10 AM EDT Office Visit [facility]. Ophthalmology [address] [place] [phone] Bartolo Petit MD Presence of intraocular lens 03/10/2023 Telephone [facility] [address] [phone] Bartolo Petit MD Prescription Assistance; Return Call ; Cataract Surgery 02/28/2023 Orders Only [facility] [address] [place] [phone] Nancy Carr, DPM 02/28/2023 Telephone [facility] [address] [place] [phone] Nancy Carr, DPM Appointment 02/28/2023 8:30 AM EDT Office Visit [facility] [address] [place] [phone] Nancy Carr, DPM 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 Ophthalmology [address] [place] [phone] Bartolo Petit MD Presence of intraocular lens 02/20/2023 Telephone [facility]. Ophthalmology [address] [place] [phone] Bartolo Petit MD Surgery 02/20/2023 7:30 AM EDT Office Visit [facility]. Ophthalmology [address] [place] [phone] Bartolo Petit MD Presence of intraocular lens 02/19/2023 8:15 AM EDT Office Visit [facility]. Optometry [address] [place] [phone] Poornima Mcnulty, OD Status post right cataract extraction (Primary Dx) 02/18/2023 1:30 PM EDT Office Visit [facility] [address] [place] [phone] Poornima Mcnulty, OD Status post right cataract extraction (Primary Dx); Abrasion of right cornea, initial encounter 02/18/2023 6:00 AM EDT Surgery/Major Procedure [facility] [address] [place] [address] Bartolo Petit MD Nuclear senile cataract of right eye 02/13/2023 Orders Only [facility] [address] [place] [address] Cortney Grant NP 02/13/2023 7:00 AM EDT Office Visit [facility] Ophthalmology [address] [place] [phone] Bartolo Petit MD Presence of intraocular lens 02/12/2023 Orders Only [facility] [address] [place] [address] Cortney Grant NP 02/12/2023 Refill [facility] [address] [place] [address] Cortney Grant, JULIETA Refill Request 02/06/2023 9:10 AM EDT Office Visit [facility] Ophthalmology [address] [place] [phone] Bartolo Petit MD Presence of intraocular lens 02/05/2023 6:15 AM EDT Surgery/Major Procedure [facility] [address] [place] [phone] Bartolo Petit MD Nuclear senile cataract of left eye 02/01/2023 Telephone [facility] [address] [place] [address] Cortney Grant, JULIETA Drug Management Agreement (Due for Random Drug Screen) 01/24/2023 8:30 AM EDT Radiology [facility]. Mammography [address] [place] [phone] Breast cancer screening by mammogram 01/21/2023 Minor Procedure/Test [facility]. Ophthalmology [address] [place] [phone] Bartolo Petit MD 01/21/2023 Telephone [facility] [address] [place] [address] Cortney Grant NP Prescription Assistance 01/21/2023 8:00 AM EDT Minor Procedure/Test [facility]. Ophthalmology [address] [place] [phone] Senile nuclear sclerosis, bilateral 01/20/2023 Refill [facility] [address] [place] [address] Cortney Grant NP Refill Request 01/17/2023 Telephone [facility] [address] [place] [address] Ligia Ghotra NP New Patient Visit 01/16/2023 Orders Only [facility] Cardiology [address] [place] [phone] Nancy Ojeda MD 01/16/2023 Refill [facility] [address] [place] [address] Cortney Grant SANDER HAND Prescription Assistance 01/16/2023 10:30 AM EDT Office Visit [facility] [address] [place] [address] Cortney Grant NP Preop examination (Primary Dx); Cataract of both eyes, unspecified cataract type; Essential hypertension; Mixed hyperlipidemia due to type 2 diabetes mellitus (HCC); CORONARY ARTERY DISEASE WITH STABLE Angina xx0.14xx; Cardiomyopathy, primary; Nonalcoholic fatty liver disease; Gastroesophageal reflux disease, unspecified whether esophagitis present; Hypothyroidism, unspecified type; Spondylolisthesis of cervical region; S/P lumbar laminectomy; Primary osteoarthritis involving multiple joints; Chronic, continuous use of opioids; Spinal stenosis of lumbar region without neurogenic claudication; Type 2 diabetes mellitus without complication, without long-term current use of insulin ([facility]); Other psychoactive substance dependence, uncomplicated ([facility]); Chronic kidney disease, stage 3a ([facility]); Mood disorder ([facility]); Neck tightness; Substance dependence ([facility]) 01/01/2023 Refill [facility] [address] [place] [phone] Jamal Bergman MD E-prescribing Refill Request 12/20/2022 Refill [facility] [address] [place] [address] Cortney Grant, JULIETA Refill Request 12/20/2022 Refill [facility] [address] [place] [phone] Cortney Grant NP Refill Request 12/19/2022 Telephone [facility] Ophthalmology [address] [place] [phone] Bartolo Petit MD Cataract Surgery 12/09/2022 7:10 AM EDT Consult (Initial) [facility] [address] [place] [phone] Bartolo Petit MD Senile nuclear sclerosis, bilateral; Type 2 diabetes mellitus without complication, without long-term current use of insulin ([facility]); Dermatochalasis of both upper eyelids; Dry eyes, bilateral; Floaters, bilateral; Cobblestone retinal degeneration, bilateral 11/25/2022 Telephone [facility] [address] [place] [phone] Bartolo Petit MD Appointment 11/22/2022 Telephone [facility] [address] [place] [address] Cortney Garnt NP Refill Request ; Prescription Assistance 11/22/2022 Orders Only [facility] [address] [place] [address] Cortney Grant NP 11/20/2022 Refill [facility] [address] [place] [address] Cortney Grant NP Refill Request 11/15/2022 Minor Procedure/Test OPHTHAL UNSPECIFIED Mingo Vaughan 11/15/2022 Orders Only [facility] [address] [address] Cortney Grant NP 11/05/2022 Orders Only [facility] [address] [place] [address] Cortney Grant NP 10/22/2022 Telephone [facility] [address] [place] [phone] Fernando Hinton PA Medication Check 10/16/[address] [phone] Cortney Grant NP E-prescribing Refill Request 10/10/2022 Refill [facility] [address] [place] [phone] Jamal Bergman MD Results 10/08/[address] [address] Mirza Almanza NP E-prescribing Refill Request 10/07/2022 Telephone [facility] [address] [place] [phone] Jamal Bergman MD Follow Up 10/04/2022 9:30 AM EST Minor Procedure/Test [facility] [address] [place] [phone] Jamal Bergman MD Abnormal radiographic examination (Primary Dx); Diarrhea, unspecified type; Internal hemorrhoids 10/02/2022 Refill [facility] [address] [address] Cortney Grant NP Refill Request 10/02/2022 Orders Only [facility] [address] [place] [address] Fernando Hinton PA Medications 10/02/2022 Telephone [facility] [address] [place] [phone] Fernando Hinton PA Medication Problem 10/02/2022 9:30 AM EST Consult (Initial) [facility] [address] [place] [address] Fernando Hinton PA Abnormal finding on GI tract imaging (Primary Dx) 09/30/2022 Refill [facility] Cardiology [address] [place] [address] [address] [place] [address] Lolita Ott MD E-prescribing Refill Request 09/24/2022 Refill [facility] [address] [place] [address] Cortney Grant NP E-prescribing Refill Request 09/20/2022 Telephone [facility] [address] [place] [address] Cortney Grant NP Results 09/19/2022 1:00 PM EST Radiology [facility]. CT Scan [address] [place] [address] LLQ pain; Bowel habit changes 09/16/2022 Telephone [facility] [address] [address] Cortney Grant NP Urinary incontinence 09/16/2022 Refill [facility] [address] [place] [address] Cortney Grant NP Refill Request 09/11/[address] [phone] Cortney Grant NP E-prescribing Refill Request 09/06/2022 Telephone [facility] [address] [place] [address] Cortney Grant NP Medication Check 09/05/2022 2:00 PM EST CPE - Comprehensive Physical Exam [facility] [address] [place] [address] Cortney Grant NP Routine history and physical examination of adult (Primary Dx); Bowel habit changes; LLQ pain; Gastroesophageal reflux disease, unspecified whether esophagitis present; Type 2 diabetes mellitus without complication, without long-term current use of insulin (HCC); Cardiomyopathy, primary; Mixed hyperlipidemia due to type 2 diabetes mellitus (HCC); Essential hypertension; Chronic right shoulder pain; Hypothyroidism, unspecified type; Mood disorder (HCC); Nonalcoholic fatty liver disease; CORONARY ARTERY DISEASE WITH STABLE Angina xx0.14xx; S/P lumbar laminectomy; Spinal stenosis of lumbar region without neurogenic claudication; Chronic kidney disease, stage 3a ([facility]); Chronic, continuous use of opioids 08/30/2022 Refill [facility] [address] [place] [address] Mirza Almanza NP E-prescribing Refill Request 08/28/2022 Orders Only [facility] [address] [place] [address] Cortney Grant NP 08/16/2022 Refill [facility] [address] [place] [address] Cortney Grant NP Refill Request 08/08/2022 Orders Only [facility] Cardiology [address] [facility] [address] [place] [address] Lolita Ott MD 08/07/2022 Refill [facility] Cardiology [address] [facility] [address] [place] [address] Lolita Ott MD E-prescribing Refill Request 08/07/2022 Refill [facility] [address] [place] [address] Mirza Almanza NP E-prescribing Refill Request 08/06/2022 [facility] [address] [phone] Cortney Grant NP Refill Request 08/02/[address] [facility] [address] [place] [phone] Cortney Grant, JULIETA Refill Request 07/12/2022 Refill [facility] Cardiology [address] [facility] [address] [place] [address] Lolita Ott MD E-prescribing Refill Request 07/12/2022 Refill [facility] [address] [place] [address] Cortney Grant NP Refill Request 07/09/2022 Refill [facility] [address] [place] [phone] Sarika Olivo, Pharmacy Navigator Refill Request 07/03/2022 9:45 AM EDT Radiology [facility] Xray [address] [facility] [address] [place] [address] Right shoulder pain, unspecified chronicity 07/03/2022 9:40 AM EDT Consult (Initial) [facility] Orthopedic Surgery [address] [facility] [address] [place] [address] Jamin Pagan PA Rotator cuff dysfunction, right (Primary Dx) 07/02/2022 Orders Only [facility] Orthopedic Surgery [address] [facility] [address] [place] [address] Jamin Pagan PA 06/14/2022 Minor Procedure/Test DERMATOLOGY UNSPEC Gilda Billingsley MD 06/10/2022 Refill [facility] [address] [place] [address] Cortney Grant NP Refill Request 05/28/2022 Refill [facility] [address] [place] [address] Mirza Almanza NP E-prescribing Refill Request 05/27/2022 4:00 PM EDT Office Visit [facility] Cardiology [address] [place] [address] 290 [place] [address] Lolita Ott MD Shortness of breath (Primary Dx); Nonrheumatic aortic valve stenosis; CORONARY ARTERY DISEASE WITH STABLE Angina xx0.14xx; Hyperlipidemia, unspecified hyperlipidemia type; Hypertension, unspecified type 05/13/2022 Refill [facility] [address] [place] [address] Cortney Grant, SANDER HAND Refill Request 04/29/2022 Refill [facility] [address] [address] Mirza Almanza NP E-prescribing Refill Request 04/16/2022 3:20 PM EDT Consult (Initial) [facility] [address] [place] [phone] Nancy Carr DPM 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 (Primary Dx) 04/15/2022 9:45 AM EDT Nurse Visit [address] [address] Janessa Gould RN Spinal stenosis of lumbar region without neurogenic claudication (Primary Dx) 04/11/[address] [address] Mirza Almanza NP E-prescribing Refill Request 04/09/2022 Refill [facility] [address] [place] [address] Cortney Grant, SANDER HAND Refill Request 04/03/2022 Refill [facility] [address] [place] [phone] Cortney Grant, SANDER HAND Refill Request 04/02/2022 Refill [facility] [address] [place] [address] Cortney Grant, SANDER HAND Refill Request 03/27/2022 Telephone [facility] [address] [place] [address] Charu Jimenez MD Change of PCP 03/22/2022 2:45 PM EDT Radiology [facility] [address] [place] [address] Left foot pain 03/22/2022 Orders Only [facility]. Podiatry [address] [place] [phone] Nancy Carr, DPM 03/22/[address] [address] Charu Jimenez MD Referral Request 03/12/[address] [address] Mirza Almanza, JULIETA Follow Up 03/12/[address] [address] Mirza Almanza, JULIETA Follow Up 03/11/2022 Telephone [facility] Otolaryngology [address] [place] [address] [address] [place] [address] Fernando Farmer MD Patient Questions 03/11/[address] [address] Mirza Almanza NP Results (UDS) 03/11/2022 Telephone [facility] [address] [address] Mirza Almanza NP Results 03/11/2022 Telephone [facility] [address] [address] Charu Jimenez MD Results 03/09/2022 Letter/Form RADIOLOGY UNSPECIFIED Provider, Unknown 03/09/2022 12:20 PM EDT Radiology [facility] [address] [place] [address] Neck mass 03/08/2022 Orders Only [facility] [address] [place] [address] Mirza Almanza NP 03/08/2022 Orders Only [facility] [address] [place] [address] Charu Jimenez MD 03/08/2022 3:00 PM EDT Office Visit [facility] [address] [address] Mirza Almanza, JULIETA Neck mass (Primary Dx); Chronic, continuous use of opioids; Chronic kidney disease, stage 3a (HCC); Mixed hyperlipidemia due to type 2 diabetes mellitus (HCC); Mood disorder (HCC); Diabetes Type 2 associated with hyperlipidemia (HCC); Other psychoactive substance dependence, uncomplicated (HCC) 03/07/2022 Telephone [facility] [address] [address] Charu Jimenez MD Mouth/Lip Problem 03/07/2022 Refill [facility] [address] [place] [address] Charu Jimenez MD Refill Request 03/05/2022 [facility]ill [facility] [address] [place] [address] Charu Jimenez MD Refill Request 02/26/2022 8:30 AM EDT Minor Procedure/Test [facility] [address] [place] [phone] Sonja Scales Tech Shortness of breath (Primary Dx) 02/22/2022 Refill [facility] [address] [place] [address] Charu Jimenez MD Refill Request 02/12/2022 Orders Only [facility] [address] [place] [address] Charu Jimenez MD 02/11/2022 Telephone [facility] Cardiology [address] [place] [phone] Lolita Ott MD Patient Questions ; Medication Check 02/06/2022 Refill [facility] [address] [place] [address] Charu Jimenez MD Refill Request 01/28/[address] [address] Charu Jimenez MD Covid ; Cough 01/22/2022 2:30 PM EDT Radiology [facility]. Mammography [address] [place] [address] Breast cancer screening by mammogram 12/28/[address] [address] Charu Jimenez MD Pain 12/27/[address] [address] Charu Jimenez MD Labs/orders 12/24/2021 9:00 AM EDT Office Visit [address] [address] Charu Jimenez MD Chronic pain syndrome (Primary Dx); Spinal stenosis of lumbar region without neurogenic claudication 12/10/2021 Refill [facility] [address] [address] Charu Jimenez MD Medication Problem 12/01/2021 Refill [facility] Cardiology [address] [facility] [address] [place] [address] Lolita Ott MD E-prescribing Refill Request 11/30/2021 Refill [facility] [address] [place] [address] Charu Jimenez MD Refill Request 11/26/2021 1:45 PM EST Office Visit [facility] Cardiology [address] [facility] [address] [place] [address] Lolita Ott MD Chest pain, unspecified type (Primary Dx); Cardiomyopathy, primary; Hyperlipidemia, unspecified hyperlipidemia type; Hypertension, unspecified type; SOB (shortness of breath); Nonrheumatic aortic valve stenosis 11/20/2021 Letter/Form RADIOLOGY UNSPECIFIED Provider, Unknown 11/19/2021 Orders Only [address] [address] Juanpablo Louis MD 11/09/2021 Telephone [facility] Cardiology [address] [address] Lolita Ott MD Medication Problem 11/06/2021 Orders Only [address] [address] Juanpablo Louis MD 11/05/2021 Refill [facility] [address] [place] [address] Mirza Almanza NP Refill Request 10/25/2021 Minor Procedure/Test NON [facility] [address] [place] [address] [facility], Unknown Provider 10/25/2021 Consult (Initial) NON [facility] [address] [place] [address] [facility], Unknown Provider 10/25/2021 [facility] Cardiology [address] [address] Lolita Ott MD Results 10/25/2021 Professional Billing [facility] Cardiology [address] [address] Lolita Ott MD CORONARY ARTERY DISEASE WITH STABLE Angina xx0.14xx; SOB (shortness of breath) 10/25/2021 Hospital/Inpatient NON [facility] [address] [place] [address] Lolita Ott MD 10/19/2021 Telephone [facility] Cardiology [address] [address] Lolita Ott MD Patient Questions 10/18/2021 Orders Only [facility] Cardiology [address] [address] Lolita Ott MD 10/12/2021 11:15 AM EST Office Visit [facility] Cardiology [address] 123 [facility] [address] [place] [address] Lolita Ott MD SOB (shortness of breath) (Primary Dx); Chest pain, unspecified type; CORONARY ARTERY DISEASE WITH STABLE Angina xx0.14xx; Hypertension, unspecified type; Hyperlipidemia, unspecified hyperlipidemia type 10/09/2021 Telephone [facility] Cardiology [address] [facility] [address] [place] [address] Lolita Ott MD Follow Up 10/05/2021 Refill [facility] [address] [place] [address] Mirza Almanza NP Refill Request 10/04/2021 9:00 AM EST Minor Procedure/Test [facility] Cardiology [address] 123 [facility] [address] [place] [address] Ling Foy Tech Palpitations (Primary Dx) 10/01/2021 8:00 AM EST Minor Procedure/Test [facility] Cardiology [address] [facility] [address] [place] [address] Andria Taylor PA Dyspnea, unspecified type (Primary Dx) 09/26/2021 Telephone [facility] Pulmonary [address] [facility] [address] [place] [address] Ulisses Mackenzie MD Unable To Schedule 09/14/2021 Orders Only [facility] [address] [place] [address] Mirza Almanza NP 09/14/2021 Orders Only [facility] Cardiology [address] 123 [facility] [address] [place] [address] Lolita Ott MD 09/13/2021 Orders Only [facility] Cardiology [address] [facility] [address] [place] [address] Lolita Ott MD 09/13/2021 Telephone [facility] Cardiology [address] 123 [facility] [address] [place] [address] Lolita Ott MD Back Pain (Neck pain) 09/03/2021 Telephone [facility] Cardiology [address] 123 [facility] [address] [place] [address] Lolita Ott MD Appointment 09/03/2021 Refill [facility] [address] [place] [address] Juanpablo Louis MD Refill Request 09/03/2021 2:00 PM EST Office Visit [facility] Cardiology [address] 123 [facility] [address] [place] [address] Lolita Ott MD SOB (shortness of breath) (Primary Dx); Hypertension, unspecified type; Hyperlipidemia, unspecified hyperlipidemia type; Bradycardia 08/15/2021 2:00 PM EST Consult (Initial) [facility] Pulmonary [address] 123 [facility] [address] [place] [address] Ulisses Mackenzie MD KNOTT (dyspnea on exertion) (Primary Dx); Cough 08/13/2021 Orders Only [facility] [address] [place] [address] Juanpablo Louis MD 08/10/2021 9:30 AM EST Office Visit [facility] Neurology [address] [facility] [address] [place] [address] Vibha Casanova CRNP MCI (mild cognitive impairment) (Primary Dx); Word finding difficulty; Sleep disturbance; Memory difficulties; Hallucinations, visual; Anxiety 08/03/2021 Telephone [facility] [address] [address] Mirza Almanza NP Patient Questions 08/03/2021 Telephone [facility] [address] [address] Juanpablo Louis MD Error 08/03/2021 9:20 AM EDT Office Visit [facility] [address] [place] [address] Mirza Almanza NP Type 2 diabetes mellitus without complication, without long-term current use of insulin (HCC) (Primary Dx); Hypothyroidism, unspecified type; Essential hypertension; Chronic kidney disease, stage 3a (HCC); Mood disorder (HCC); Need for vaccination; Chest pain, unspecified type; SOB (shortness of breath); Bruising 07/31/2021 Orders Only [facility] [address] [place] [address] Mirza Almanza NP 07/31/2021 Refill [facility] [address] [place] [address] Mirza Almanza NP Refill Request 07/30/2021 Telephone [facility] Cardiology [address] [facility] [address] [place] [address] Lolita Ott MD Results ; Shortness of Breath 07/26/2021 Telephone [facility] Cardiology [address] [facility] [address] [place] [address] Lolita Ott MD Results ; Shortness of Breath 07/24/2021 2:00 PM EDT Minor Procedure/Test [facility] Echo [address] [facility] [address] [place] [address] Alona Putnam, CALVIN Heart murmur (Primary Dx) 07/16/2021 Refill [facility] [address] [place] [address] Mirza Almanza NP Refill Request 07/16/2021 Orders Only [facility] [address] [place] [address] Mirza Almanza NP 07/09/2021 Telephone [facility] Cardiology [address] [facility] [address] [place] [address] Lolita Ott MD Shortness of Breath 07/03/2021 Refill [facility] [address] [place] [address] Mirza Almanza NP Refill Request 07/03/2021 [facility] [address] [address] Mirza Almanza NP Results 07/03/[address] [address] Juanpablo Louis MD Results 07/01/2021 Letter/Form RADIOLOGY UNSPECIFIED Provider, Unknown 07/01/2021 10:20 AM EDT Radiology [address] [address] Echogenic kidneys on renal ultrasound; Abnormal finding on radiology exam 06/27/2021 7:45 AM EDT Office Visit [facility] [address] [place] [address] Alondra Garcia MD Arthralgia, unspecified joint (Primary Dx) 06/21/[address] [address] Mirza Almanza NP Imaging Study 06/18/2021 Refill [facility] [address] [address] Juanpablo Louis MD Refill Request 06/11/[address] [address] Mirza Almanza NP Imaging Study 06/11/[address] [address] Mirza Almanza NP 06/08/[address] [address] Mirza Almanza NP Results ; Imaging Study 06/05/2021 Orders Only [facility] [address] [address] Mirza Almanza NP 06/01/2021 Refill [facility] [address] [place] [address] Juanpablo Louis MD Refill Request 05/31/2021 Telephone [facility] [address] [place] [address] Mirza Almanza NP Results 05/31/2021 Refill [facility] [address] [place] [address] Juanpablo Louis MD Refill Request 05/22/2021 Telephone [facility] Pulmonary [address] [facility] [address] [place] [address] Ulisses Mackenzie MD Appointment 05/21/2021 Refill [facility] [address] [place] [address] Mirza Almanza NP Refill Request 05/17/2021 Minor Procedure/Test GASTRO UNSPECIFIED Evangelina Taylor MD 05/12/2021 10:00 AM EDT Radiology [facility]. Ultrasound [address] [place] [address] Abdominal pain, LUQ 05/10/2021 Consult (Initial) GASTRO UNSPECIFIED Evangelina Taylor MD 05/03/2021 Refill [facility] [address] [address] Mirza Almanza NP Refill Request 04/16/2021 Refill [facility] [address] [place] [address] Mirza Almanza NP Refill Request 04/13/2021 1:15 PM EDT Office Visit [facility] Cardiology [address] [facility] [place] [address] Lolita Ott MD Nonspecific chest pain (Primary Dx); Hyperlipidemia, unspecified hyperlipidemia type; Hypertension, unspecified type; Nonrheumatic aortic valve insufficiency 04/12/2021 Telephone [facility] [address] [place] [address] Mirza Almanza, JULIETA Appointment 04/11/2021 Orders Only NON FC [facility] [address] [place] [address] Fernando Farmer MD 04/09/2021 Orders Only [facility] [address] [place] [address] Juanpablo Louis MD 04/09/2021 Telephone [facility] [address] [place] [address] Mirza Almanza, SANDER HAND Referrals 04/09/2021 Refill [facility] [address] [address] Mirza Almanza NP Refill Request 04/08/2021 Refill [facility] [address] [address] Mirza Almanza NP E-prescribing Refill Request 04/04/2021 Refill [facility] [address] [address] Mirza Almanza NP E-prescribing Refill Request 04/03/[address] [address] Mirza Almanza, SANDER HAND Results 04/03/2021 Telephone [facility] [address] [place] [address] Juanpablo Louis MD Appointment 04/03/2021 Telephone [facility] Otolaryngology [address] [facility] [address] [place] [address] Fernando Farmer MD Patient Questions 04/03/2021 Refill [facility] [address] [place] [address] Mirza Almanza, JULIETA E-prescribing Refill Request 03/30/2021 Telephone [facility] [address] [place] [address] Mirza Almanza NP Referral Request 03/29/2021 Refill [facility] [address] [place] [address] Mirza Almanza NP Refill Request 03/29/2021 Refill [facility] [address] [place] [address] Mirza Almanza NP E-prescribing Refill Request 03/29/2021 9:30 AM EDT Radiology [facility] Xray [address] [facility] [address] [place] [address] Cough 03/29/2021 9:00 AM EDT Consult (Initial) [facility] Otolaryngology [address] [facility] [address] [place] [address] Fernando Farmer MD Globus sensation (Primary Dx); Cough; Chronic seasonal allergic rhinitis; Hoarseness; LPRD (laryngopharyngeal reflux disease) 03/28/2021 Orders Only [facility]. Rheumatology [address] [place] [phone] Alondra Garcia MD 03/23/2021 Telephone [facility] [address] [place] [address] Mirza Almanza NP Cough 03/22/[address] [facility] [address] [place] [address] Alondra Garcia MD 03/21/2021 Orders Only [facility] [address] [place] [phone] Alondra Garcia MD 03/21/2021 7:45 AM EDT Office Visit [address] [address] Alondra Garcia MD Arthralgia, unspecified joint (Primary Dx) 03/12/[address] [address] Alondra Garcia MD E-prescribing Refill Request 03/05/2021 Telephone [facility] [address] [place] [address] Mirza Almanza NP Results 03/02/2021 4:15 PM EDT [facility] [address] [place] [address] Cough 03/02/2021 3:40 PM EDT Office Visit [facility] [address] [place] [address] Mirza Almanza NP Seasonal allergies (Primary Dx); Type 2 diabetes mellitus without complication, unspecified whether half-way insulin use (HCC) 03/02/2021 Travel 03/01/2021 Telephone [facility] [address] [place] [address] Mirza Almanza NP Cough ; Throat Problem 02/28/2021 Refill [facility] [address] [place] [address] Mirza Almanza NP E-prescribing Refill Request 02/20/2021 Refill [facility] [address] [place] [address] Juanpablo Louis MD Refill Request 02/19/2021 Refill [facility] [address] [place] [address] Mirza Almanza NP E-prescribing Refill Request 01/31/2021 6:45 AM EDT Minor Procedure/Test [facility] Cardiology [address] [facility] [address] [place] [address] Catalina Florez NP Nonspecific chest pain (Primary Dx) 01/29/2021 Travel 01/26/2021 Refill [facility] [address] [place] [address] Mirza Almanza NP Refill Request 01/25/2021 Orders Only [facility] Cardiology [address] 123 [facility] [address] [place] [address] Lolita Ott MD 01/25/2021 Refill [facility] [address] [place] [address] Juanpablo Louis MD Refill Request 01/23/2021 Telephone [facility] Cardiology [address] [facility] [address] [place] [address] Lolita Ott MD Appointment 01/22/2021 Refill [facility] [address] [place] [address] Juanpablo Louis MD Refill Request 01/17/2021 Travel 01/17/2021 8:05 AM EDT Office Visit [facility] [address] [place] [phone] Alondra Garcia MD Arthralgia, unspecified joint (Primary Dx) 01/15/2021 Refill [facility] [address] [address] Lolita Ott MD Refill Request 01/08/2021 Telephone [facility] [address] [address] Cher Richards [facility] 01/05/2021 Orders Only [facility] [address] [place] [address] Mirza Almanza NP 01/05/2021 10:40 AM EDT Office Visit [facility] [address] [place] [address] Mirza Almanza NP Spinal stenosis of lumbar region without neurogenic claudication (Primary Dx); Spondylolisthesis of cervical region; Primary osteoarthritis involving multiple joints; History of bilateral knee replacement; Protrusion of cervical intervertebral disc; Neural foraminal stenosis of cervical spine; S/P lumbar laminectomy; Mixed hyperlipidemia due to type 2 diabetes mellitus (HCC); Type 2 diabetes mellitus without complication, without long-term current use of insulin (HCC); Mood disorder (HCC) 01/05/2021 Travel 01/04/2021 Travel 01/03/2021 Refill [facility] [address] [place] [address] Mirza Almanza NP Refill Request ; Refill Request 12/18/2020 Orders Only [facility] Cardiology [address] [facility] [address] [place] [address] Lolita Ott MD 12/08/2020 Travel 12/06/2020 Telephone [facility] [address] [place] [phone] Alondra Garcia MD Results 12/06/2020 Travel 11/20/2020 Telephone [facility] [address] [place] [address] Mirza Almanza NP Results 11/20/[address] [address] Alondra Garcia MD Results 11/10/2020 Orders Only [facility] [address] [place] [phone] Alondra Garcia MD 11/10/2020 Orders Only [facility] [address] [place] [address] Juanpablo Louis MD 11/10/2020 Orders Only [facility] Cardiology [address] [facility] [address] [place] [address] Lolita Ott MD 11/10/2020 Orders Only [facility] [address] [place] [phone] Alondra Garcia MD 11/08/2020 Travel 11/08/2020 7:45 AM EST Consult (Initial) [facility] [address] [place] [phone] Alondra Garcia MD Arthralgia, unspecified joint (Primary Dx) 11/07/2020 Travel 11/02/2020 Orders Only [facility] [address] [place] [address] Juanpablo Louis MD 10/16/2020 Refill [facility] Cardiology [address] [facility] [address] [place] [address] Lolita Ott MD Refill Request 10/13/2020 Orders Only [facility] Cardiology [address] [address] Lolita Ott MD 10/13/2020 Orders Only [facility] [address] [place] [address] Ulisses Newman DO 10/13/2020 Orders Only [facility] [address] [place] [address] Mirza Almanza, JULIETA 09/06/2020 Refill [facility] [address] [place] [address] Juanpablo Louis MD Refill Request 08/31/2020 Orders Only [facility] Cardiology [address] [address] Lolita Ott MD 08/30/2020 Travel 08/28/2020 Telephone [facility] [address] [place] [address] Mirza Almanza, JULIETA Follow Up 08/28/2020 Travel 08/28/2020 Orders Only [facility] Cardiology [address] [address] Lolita Ott MD 08/28/2020 1:15 PM EST Office Visit [facility] Cardiology [address] [address] Lolita Ott MD Chest pain, unspecified type (Primary Dx); Hyperlipidemia, unspecified hyperlipidemia type; Hypertension, unspecified type; Preoperative clearance 08/04/2020 Travel 08/03/2020 Telephone [facility] [address] [place] [address] Mirza Almanza, JULIETA Patient Questions 07/28/2020 Travel 07/28/2020 10:45 AM EDT Radiology [facility] [place] [facility] [address] [place] [phone] Breast cancer screening by mammogram 07/27/[address] [address] Ulisses Newman DO Patient Questions 07/25/2020 Refill [facility] [address] [place] [address] Mirza Almanza NP Refill Request 07/25/2020 3:45 PM EDT Office Visit [address] [address] Mirza Almanza NP Cold feeling (Primary Dx); Type 2 diabetes mellitus without complication, without long-term current use of insulin (HCC); Chronic kidney disease, stage 3a (HCC); Mood disorder (HCC) 07/25/2020 Travel 07/19/2020 Orders Only [address] [address] Ulisses Newman DO 07/17/[address] [address] Ulisses Newman DO Cold; Thyroid Problem 06/27/2020 Orders Only [address] [address] Ulisses Newman DO 06/27/2020 Travel 06/27/2020 11:00 AM EDT Office Visit [address] [address] Ulisses Newman DO Chest pain, unspecified type (Primary Dx); Abnormal bruising; Need for vaccination; Need for hepatitis C screening test 06/23/2020 Telephone [facility] Neurology [address] [facility] [address] [place] [address] Vibha Casanova CRNP Results 06/19/2020 Minor Procedure/Test [facility] Neurology [address] [facility] [address] [place] [address] Vibha Casanova CRNP 06/14/2020 Refill [facility] Cardiology [address] [facility] [address] [place] [address] Lolita Ott MD Refill Request 06/13/2020 Telephone [facility] Cardiology [address] [facility] [address] [place] [address] Lolita Ott MD Medication Problem 06/07/2020 Minor Procedure/Test [facility] Cardiology [address] [facility] [address] [place] [address] Ling Foy Tech Palpitations (Primary Dx) 05/30/2020 Minor Procedure/Test OPHTHAL UNSPECIFIED Mingo Vaughan 05/16/2020 Orders Only [facility] [address] [address] Lolita Ott MD 05/05/2020 Telephone [facility] [address] [place] [address] Ulisses Newman DO Medication Problem ; Joint Pain 05/01/2020 11:00 AM EDT Office Visit [facility] [address] [address] Lolita Ott MD Chest pain, unspecified type (Primary Dx); Hyperlipidemia, unspecified hyperlipidemia type; Hypertension, unspecified type; Palpitations 04/25/2020 Travel 04/17/2020 Telephone [facility] Cardiology [address] [address] Lolita Ott MD Hospital F/U 04/17/2020 Travel 04/14/2020 Hospital/Inpatient NON [facility] [address] [place] [address] Lolita Ott MD 04/14/2020 Consult (Initial) NON [facility] [address] [place] [address] Lolita Ott MD 04/14/2020 Telephone [facility] CENTER [address] [address] Vibha Casanova CRNP 04/13/2020 Minor Procedure/Test Hospital Based Service Delivery Consultant Martha Gutierrez PA 04/13/2020 Orders Only NON FC SA [facility] [address] [place] [address] [facility], Unknown Provider 04/12/2020 Hospital/Inpatient NON FC [facility] [address] [place] [address] Rodriguez Frias MD 04/12/2020 Travel 04/12/2020 Telephone [facility] [address] [place] [address] Ulisses Newman DO Chest Pain 04/10/2020 Telephone [facility] Neurology [address] [facility] [address] [place] [address] Vibha Casanova CRNP Polysomnogram 04/10/2020 Telephone [facility] Neurology [address] [facility] [address] [place] [address] Vibha Casanova CRNP Prior Authorization Request 04/07/2020 Telephone [facility] Neurology [address] [facility] [address] [place] [address] Vibha Casanova CRNP Patient Questions (MRI) 04/07/2020 Orders Only [facility] [address] [place] [address] Ulisses Newman DO 04/07/2020 Orders Only [facility] Neurology [address] [facility] [address] [place] [address] Vibha Casanova CRNP 04/07/2020 8:00 AM EDT Consult (Initial) [facility] Neurology [address] [facility] [address] [place] [address] Vibha Casanova CRNP Memory difficulties; Headache disorder; Hallucinations, visual; Sleep disturbance 03/30/2020 Telephone [facility] [address] [place] [address] Ulisses Newman DO Results ; Patient Questions 03/29/2020 Telephone [facility] [address] [place] [address] Ulisses Newman DO Results 03/21/2020 Orders Only [facility] [address] [place] [id number] Ulisses Newman DO 03/21/2020 Orders Only [facility] [address] [place] [phone] Otoniel Churchill PA 03/20/2020 Travel 03/17/2020 Travel 03/14/2020 Minor Procedure/Test SHAREPOINT ADMINISTRATOR UNSPECIFIED Barrett Moore A 03/13/2020 Telephone [facility] [address] [place] [address] Elvin Espinoza MD Endoscopy Request (lower And/or Upper) 03/13/2020 [facility] [address] [place] [address] Unknown 03/10/2020 Orders Only [address] [address] Mirza Almanza, JULIETA Medications 03/09/[address] [address] Ulisses Newman DO Labs/orders 03/09/[address] [address] Ulisses Newman DO Prescription Assistance 03/09/2020 9:30 AM EDT CPE - Comprehensive Physical Exam [address] [address] Ulisses Newman DO Examination, medical, general (Primary Dx); Screening for endocrine disorder; Type 2 diabetes mellitus with complication, without long-term current use of insulin (HCC) 03/02/2020 Travel 03/01/2020 [facility] [address] [place] [address] Unknown 02/01/[address] [address] Cortney Grant NP New Patient Visit 01/19/[address] [address] Ulisses Newman DO Neurologic Problem 07/06/2019 Minor Procedure/Test SHAREPOINT ADMINISTRATOR UNSPECIFIED Barrett Moore 05/25/2019 Letter/Form [facility] [address] [place] [phone] Otoniel Churchill PA 04/25/2019 5:15 PM EDT Radiology [facility] Xray [address] [place] [address] 04/25/2019 5:00 PM EDT Office Visit [facility] [address] [place] [phone] Dalila Chatman PA Shortness of breath (Primary Dx) 01/04/2019 9:45 AM EDT Consult (Initial) [facility] Orthopedic Surgery [address] [phone] Andrez Garcia MD Facet arthropathy, cervical (Primary Dx) 12/25/2018 Orders Only [facility] [address] [place] [phone] Michael Cardona MD 12/25/2018 8:45 AM EDT Radiology [facility]. Bone Density [address] [place] [phone] Osteopenia of right hip 12/21/2018 Refill [facility] [address] [place] [phone] Otoniel Churchill PA E-prescribing Refill Request 12/18/2018 Telephone [facility] [address] [place] [phone] Michael Cardona MD Labs/orders 12/16/2018 Letter/Form [facility] [address] [place] [phone] Otoniel Churchill PA 12/15/2018 2:00 PM EDT Consult (Initial) [facility] Orthopedic Surgery [address] [facility] [address] [place] [phone] Lia Snyder MD Facet arthritis of cervical region (Primary Dx); Neck pain; Foraminal stenosis of cervical region 12/11/2018 9:15 AM EDT [facility] [address] [place] [address] Neck pain, chronic 12/11/2018 Orders Only [facility] [address] [place] [phone] Michael Cardona MD 12/09/2018 Telephone [facility] [address] [place] [phone] Michael Cardona MD Cough 12/07/2018 Orders Only [facility] Orthopedic Surgery [address] [place] [address] [address] [place] [address] Lai Snyder MD 12/07/2018 Telephone [facility] [address] [place] [phone] Michael Cardona MD Erroneous encounter-disregard 12/03/2018 Telephone [facility] [address] [place] [phone] Roslyn Norman RN Erroneous encounter-disregard 11/30/2018 Telephone [facility] [address] [place] [phone] Michael Cardona MD Erroneous encounter-disregard 11/30/2018 Telephone [facility] [address] [place] [phone] Micheal Cardona MD Results 11/25/2018 Orders Only [facility] [address] [place] [phone] Otoniel Churchill PA 11/25/2018 Orders Only [facility] [address] [place] [phone] Otoniel Churchill PA 11/25/2018 11:15 AM EST Office Visit [facility] [address] [place] [phone] Otoniel Churchill PA Cognitive deficits (Primary Dx); Other headache syndrome; Spondylolisthesis of cervical region; History of bilateral knee replacement; Osteopenia of right hip; Chronic right shoulder pain; Abnormal urine odor; Moderate persistent asthma without complication; Chronic diarrhea 11/20/2018 [facility] [address] [place] [address] Unknown 11/19/2018 11:15 AM EST Office Visit [facility] [address] [place] [phone] Otoniel Churchill PA Cough (Primary Dx); Acute upper respiratory infection; Hypothyroidism, unspecified type; Essential hypertension; Nonalcoholic fatty liver disease; Abnormal results of kidney function studies; Type 2 diabetes mellitus with complication, without long-term current use of insulin (HCC) 11/18/2018 1:00 PM EST Radiology [facility]. X-Ray [address] [place] [phone] 11/18/2018 Telephone [facility] [address] [place] [phone] Michael Cardona MD Cough 11/18/2018 Telephone [facility] [address] [place] [phone] Michael Cardona MD Cough 11/16/2018 [facility] [address] [place] [address] Unknown 10/11/2018 9:00 AM EST Office Visit [address] [address] Joy Rodriguez MD Community acquired pneumonia of right lower lobe of lung (HCC) (Primary Dx); Back spasm 09/13/2018 Orders Only INTER[facility] UNSPEC Mingo Perez 09/11/2018 Office Visit INTER[facility] UNSPEC Mingo Perez 07/17/2018 Minor Procedure/Test INTERNAL MED UNSPEC Mingo Perez 07/01/2018 Minor Procedure/Test SHAREPOINT ADMINISTRATOR UNSPECIFIED AversaBarrett 03/01/2018 Orders Only [facility] UNSPEC Mingo Perez 02/19/2018 Office Visit INTERNAL MED UNSPEC Mingo Perez 06/26/2017 Minor Procedure/Test SHAREPOINT ADMINISTRATOR UNSPECIFIED AversaBarrett 05/31/2017 Minor Procedure/Test NEPHRO UNSPECIFIED Deni Tompkins MD 02/10/2017 Minor Procedure/Test INTERNAL MED UNSPEC Igor Perezhussein Uriel 12/13/2016 Minor Procedure/Test INTERNAL MED UNSPEC Igor Perezhussein Uriel 06/25/2016 Minor Procedure/Test INTERNAL MED UNSPEC Mingo Perez 03/22/2016 Minor Procedure/Test INTERNAL MED UNSPEC Igor Perezhussein Uriel 01/02/2016 Minor Procedure/Test SHAREPOINT ADMINISTRATOR UNSPECIFIED Aversa, Barrett A 07/12/2015 Minor Procedure/Test SHAREPOINT ADMINISTRATOR UNSPECIFIED Aversa, Barrett A 06/23/2015 Minor Procedure/Test SHAREPOINT ADMINISTRATOR UNSPECIFIED Aversa, Barrett A 04/28/2015 Minor Procedure/Test INTERNAL MED UNSPEC Chris Mingo Trevino Allergies Active Allergy Reactions Criticality Noted Date Comments Sulfa Antibiotics 10/11/2018 Indomethacin 10/11/2018 Other reaction(s): Unknown Medications Clobetasol Propionate (TEMOVATE) 0.05 % ointment APPLY TWICE A DAY TO VULVA. 020 Active Acetaminophen 500 MG Cap Take 2 capsules by mouth if needed. Active Cyclobenzaprine HCl (FLEXERIL) 10 MG tablet Take one tablet (10 mg total) by mouth 2 (two) times a day if needed for muscle spasms 60 tablet 021 Active Magnesium 200 MG Tab One tablet daily 60 tablet 3 021 Active Aspirin (ST DURGA) 81 MG EC tablet Take one tablet (81 mg total) by mouth 1 (one) time each day 90 tablet 3 Active Coenzyme Q10 (CoQ10) 200 MG capsule Take one capsule (200 mg total) by mouth 1 (one) time each day 30 capsule 11 023 Active Multiple Vitamin (Multi Vitamin Daily) Tab Take by mouth 1 (one) time each day. Active Levothyroxine Sodium (SYNTHROID, LEVOTHROID) 100 MCG tablet TAKE 1 TABLET DAILY. 90 tablet 3 024 Active Atorvastatin Calcium (LIPITOR) 40 MG tabletIndication s:Mixed hyperlipidemia due to type 2 diabetes mellitus (HCC),Coronary artery disease, unspecified vessel or lesion type, unspecified whether angina present, unspecified whether barrow or transplanted heart Take one tablet (40 mg total) by mouth 1 (one) time each day (In place of simvastatin). 90 tablet 3 024 2024 Active metFORMIN ER (GLUCOPHAGE-XR) 500 MG 24 hr tablet TAKE ONE TABLET BY MOUTH EVERY MORNING AND AT BEDTIME 180 tablet 1 Active Empagliflozin (Jardiance) 10 MG tablet Take one tablet (10 mg total) by mouth 1 (one) time each day in the morning. 30 tablet 11 024 2024 Active Omeprazole (PriLOSEC) [address] capsuleIndicatio ns:Globus sensation,LPRD (laryngopharynge al reflux disease) Take one capsule (40 mg total) by mouth in the morning and at bedtime. 180 capsule 2 Active Sucralfate (CARAFATE) 1 g tablet Take one tablet (1 g total) by mouth 4 (four) times a day. 120 tablet 11 024 2024 Active Fluoxetine (PROzac) 20 MG capsule TAKE 1 CAPSULE DAILY IN THE MORNING 90 capsule 2 Active Furosemide (LASIX) 20 MG tablet take one tablet by mouth twice a day 60 tablet 11 Active Amoxicillin (AMOXIL) 500 MG tablet Take 4 tabs one hour prior to dental procedures.. 12 tablet Active Albuterol (PROVENTIL HFA;VENTOLIN HFA) 90 mcg/ACT inhaler Inhale 2 puffs every 4 hours by inhalation route. Active Naproxen (NAPROSYN) 500 MG tabletIndication s:Hypothyroidism , unspecified type TAKE ONE TABLET BY MOUTH TWICE A DAY NEEDED FOR MILD OR MODERATE PAIN. 60 tablet Active pyRIDostigmine [place] (MESTINON) 60 MG tablet Take one tablet (60 mg total) by mouth 2 (two) times a day. 60 tablet 3 Active Levalbuterol Tartrate (XOPENEX HFA) 45 MCG/ACT inhalerIndicatio ns:Post-COVID chronic cough Inhale two puffs every 4 (four) hours if needed for wheezing or shortness of breath. 1 each 024 2025 Active Spacer/Aero-Hold ing Chambers (AeroChamber MV) MiscIndications: Post-COVID chronic cough 1 Device - use as directed with inhalers. 1 each Active Ibuprofen (ADVIL,MOTRIN) 600 MG tablet Take one tablet (600 mg total) by mouth 3 (three) times a day if needed for mild pain or moderate pain. 60 tablet Active amLODIPine Besylate (NORVASC) 2.5 MG tablet Take one tablet (2.5 mg total) by mouth 1 (one) time each day. 90 tablet 3 024 Active Fesoterodine Fumarate 4 MG TABLET SR 24 HR TAKE 1 TABLET(4 MG) BY MOUTH 1 TIME EACH DAY 30 tablet Active Diclofenac Sodium (VOLTAREN) 75 MG EC tablet TAKE 1 TABLET BY MOUTH TWICE DAILY NEEDED FOR PAIN. DO NOT TAKE WITH IBUPROFEN OR NAPROXEN 60 tablet 1 Active Gabapentin (NEURONTIN) 300 MG capsuleIndicatio ns:Chronic neck pain Take one capsule (300 mg total) by mouth in the morning and at bedtime. 60 capsule 025 2024 Active COMPOUNDED MEDICATION:Indic ations:Thrush, oral SWITH, GARGLE AND SPIT 15CC EVERY 6 HOURS NEEDED FOR MOUTH PAIN 60 ml lidocaine, 60 ml Maalox, 60 ml diphenhydramine 12.5mg/5m. 180 mL 024 2024 Diclofenac Sodium (VOLTAREN) 75 MG EC tablet TAKE 1 TABLET BY MOUTH TWICE DAILY IF NEEDED FOR PAIN. DO NOT TAKE WITH IBUPROFEN OR NAPROXEN 60 tablet 024 2024 Discontinued Active Problems Patient Care Coordination No te Formatting of this note migh t be different from the original. Problem Noted Date Diagnosed Date Asymmetrical hearing loss 08/06/2024 Violation of narcotic use agreement 01/27/2024 Bilateral carotid artery stenosis 01/07/2024 Overview (01/07/2024): <50% right side, 50-69% left side. Repeat duplex in 1 year and testing ordered. Chronic cough 01/07/2024 Overview (01/07/2024): Past 6+ months. Treated with numerous medications including benzonatate, antibiotics x 2, prednisone, ICS/LABA & DEION inhaler, gabapentin, increase in PPI and magic mouth wash. Had abnormal CT chest in 08/2023 with resolution of consolidation in 10/2023. She was referred to pulmonary for management. Cough has improved but can have coughing fits throughout the day and wake her at night. She denies dyspnea or wheezing. Abdominal and chest wall muscles are sore with coughing. 1:1 support provided. She has follow up with pulmonary next month as well as follow up CT. Will trial lidocaine viscous as she found magic mouthwash to be helpful with some sleep. Coronary artery disease 01/07/2024 Overview (01/07/2024): Continues on simvastatin 40mg daily, furosemide 20mg BID and baby aspirin. Recent increase in LDL and not at goal of less than 70. Recommend transition to atorvastatin 40mg daily. Med sent. Follow up labs ordered. Reviewed conservative measures and lifestyle changes. Lab Results Component Value Date CHOLESTEROL 153 12/05/2023 HDL 49 (L) 12/05/2023 LDL 82 12/05/2023 CHOLNONHDL 104 12/05/2023 TRIGLYCERIDE 119 12/05/2023 Atherosclerosis of aorta 12/29/2023 Overview (01/07/2024): Found on imaging. On statin. Chronic neck pain 10/23/2023 Other psychoactive substance dependence, uncompl icated 01/16/2023 Overview (01/07/2024): On chronic hydrocodone/acetaminophen 5-325mg 1 tab BID for pain 56 tabs a month for many years. Chronic pain from disc disease throughout entire spine. Is awaiting cervical spine surgery but recently deferred due to persistent cough. Ultimate goal of decreasing use and other alternatives for management of pain. Due to current chronic cough I do not feel it would be appropriate to begin. Pain management agreement signed. Cardiomyopathy, primary 11/26/2021 Overview (01/07/2024): Follows with cardiology regularly. Echo 2022: Impression INTERPRETATION/IMPRESSION A complete two-dimensional transthoracic echocardiogram was performed (2D, M- mode, Doppler and color flow Doppler). See Echo narrative results for full report. Technical difficult study Compared to prior echocardiogram report from 02/26/2022 there is no significant change Normal left ventricular systolic function Mild LVH Mild aortic valve stenosis with trace aortic insufficiency. Normal RV function. Renal angiomyolipoma 07/03/2021 Overview (01/07/2024): US 2020: Likely 2 small angiomyolipomas in the right kidney. Repeat US in 2024. S/P lumbar laminectomy 01/05/2021 Overview (01/05/2021): Had initial surgery 2017 and another surgery in 2019. She has another disc protrusion now. Had done outside of [facility]. No records. Chronic kidney disease, stage 3a 11/26/2018 Overview (01/07/2024): Lab Results Component Value Date GFR 50 (L) 10/30/2023 GFR 51 (L) 09/05/2023 GFR 58 (L) 09/03/2023 Cognitive deficits 11/19/2018 Overview (01/24/2019): 11/25/2018 -- We reviewed the below findings in some detail. We agree that a referral to our neurology department for ongoing management is prudent. Consult placed today 11/19/2018 -- States she has noticed some progressive memory loss and word- finding difficulties over the past year. She was previous PCP for same in January 2018. She had an MRI through [facility] which is reviewed below. She saw neuro there in March 2018. She scored 26/30 on MOCA and there was some cogwheeling on exam. She had neuropsych eval with Dr. Catalina Medrano on 09/08/2018 (please refer to Neuropsych appt note in CareEverywhere). Plan to discuss further at upcoming visit, will need to refer to neuro Brain MRI [facility] 03/06/2018: FINDINGS: Few T2 and FLAIR hyperintensities in the cerebral white matter. Mild cerebral atrophy. No acute infarct, acute hemorrhage, intracranial neoplasm, or mass effect. Basilar cisterns are patent. The cervicomedullary junction is unremarkable. Major intracranial vessels are grossly unremarkable. Orbital and sellar/parasellar structures are unremarkable. Visualized paranasal sinuses are clear.The mastoid air cells are clear. IMPRESSION: 1. Few T2 and FLAIR hyperintensities in the cerebral white matter. This statistically represents chronic ischemic microvascular disease in this age group. 2. Mild cerebral atrophy. Neuro consult note 03/31/2018: She scores 26/30 on MOCA. Constructional ability and visual-spatial ability is intact. She was able to repeat 5 words on 2 trials and also I explained that the beginning of the trials that she needed to try to remember the words but not necessarily in order because I would ask her later, after we were done with the 2 trials she stated now I can forget these . After several minutes she was able to name 3 out of 5 and then remembered the fourth on a category cue. When asked for the body part which was face, she first said foot and then finger and when I said it was a word that started within half, it took her a delayed time to say face.. She was able to repeat 5 digits forward, but on repeating digits backward (742) she said 242 . She could not attend to a task of hearing letters. She culminated when a letter was not stated and then missed the last one. She did well on serial sevens except for one mistake. She was able to repeat 2 sentences correctly and name 11 words that started with F in 1 minute. However, after 7 she could not think of any when I told her to look around the room she brightly said phone . She did not catch her mistake. She correctly abstracted onto examples and she was oriented ? 6 , but when asked the year she first said 1918 , then corrected herself and said 2019 and quickly corrected herself and said '2018' COORDINATION: Finger to nose and heel to knee tapping are intact without dysmetria. However, on finger to nose she needed me to continuously repeat that she had to touch her nose. She became easily confused when I moved my finger and kept forgetting to touch her nose. This was especially difficult when she was using her left hand. Also, when asked to tap her knee 3 times with the opposite heel and then slide that he will down and upper perez, I needed to repeat and show her 3 times to maintain the heel along the perez. She was lifting it and not following. She had a noticeable hard time following my commands and understanding it. [facility] neuro consult note 06/30/2018: She scored 23/30 on SLUMS. It is a slightly different test than MOCA and she scored a few points lower. She is oriented to the day, year and the state. She could not repeat 5 words immediately always leaving out 1 but the same 1 on 2 occasions and a different word on the third occasion. After several minutes she was able to remember 4 of the 5 words. She added what was spent in a calculation problem, but then subtracted it wrong from 100. When I gave her a second chance, she was sure that she was correct with her incorrect answer. She was able to repeat 2 and 3 digits backward, but not for. She perseverated with the first number. She was able to name 23 animals in 1 minute and she was able to draw clock correctly and recognize shapes and sizes. On a short paragraph that was read aloud to her, she was able to answer 3 out of the 4 questions. The question was when the person went back to work and the answer would have been when the children were teenagers, she confused it and said when they were back in [place] and then when keep the kids went back to school . [T]his is not typical Alzheimer's dementia and there may be another type of dementia perhaps frontal temporal dementia or primary progressive aphasia. I did a different memory test today and she scored a little lower, but nothing significantly abnormal. Therefore, I think neuropsychology testing is going to be very helpful. It is scheduled for October 21 and she is very frightened that is going to show that she is stupid or needs to be locked away . I reassured her that that is not the issue and that we need to know what is going on so we can decide if there is treatment. I would rather not start her on acetylcholinesterase inhibitor because I am not sure that this is Alzheimer's dementia. Headache 11/19/2018 Overview (01/24/2019): 11/25/2018 -- See Cognitive deficits 11/19/2018 -- States headaches started around the same time as cognitive decline. She saw Dr. Catalina Torres, [facility] neuro, for same. She had been advised to continue OTC analgesics as they were mostly effective. At a f/up visit in June, neuro advised against daily preventive meds since they could accelerate confusion and cognitive decline. Will need neuro eval moving forward [facility] neuro consult note 03/31/2018: She also has been noticing headache in the past 7-8 months. It seems to start in the back of the head and then it comes around but stays mostly on the left side. It is a pressure sensation, there is sometimes nausea, but no vomiting. There is no photophobia or phonophobia and she can function. However she is getting at least one headache a day. She rarely takes medicine, but if she wanted to she would take ibuprofen. However it does not help. They will last a couple of hours. Sometimes they are there when she wakes up in the morning and other times they are there at the end of the day before she falls asleep. Hypothyroidism 11/19/2018 Overview (01/07/2024): Continue on levothyroxine 100mcg daily. Lab Results Component Value Date TSH 0.76 10/16/2023 Lumbar spinal stenosis 11/19/2018 Overview (09/06/2020): 11/25/2018 -- Reviewed as below. She reports drastic improvement s/p surgery. She was originally having pain and weakness with start-up but now she reports virtually no pain or weakness. She does state she was told there is a small bulging disc but this was not corrected during surgery. She presently denies any concerns. Will monitor 11/19/2018 -- Chronic issue. She had an MRI in November 2016 showing the same. A follow up MRI in May 2017 shows she is s/p bilateral L2-L3, L3-L4, L4-L5 laminotomy, partial facetectomy and foraminotomy L/S MRI May 2017: 1. Abnormal marrow signal sral L2-L3, L3-L4, L4-L5 laminotomy, partial faeen involving the inferior endplate of L2 and superior endplate of L3 with small amount of fluid seen in the intervertebral disc space and enhancement on the postcontrast sequences. In addition there is abnormal prevertebral soft tissue. 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 2. Patient is status bilatecetectomy and foraminotomy.There is postoperative soft tissue seen in the surgical bed with intense enhancement seen at the surgical site at L2-L3, L3-L4 and L4-L5 levels posteriorly, likely representing enhancing granulation tissue. 3. Multi level degenerative disc disease worst at L3-L4. Moderate vulvar dysplasia s/p vulvectomy 019 Overview (01/24/2019): 11/25/2018 -- Reviewed as below. She states that her lichen sclerosus was related to this. She had a vulvectomy through Dr. Moore, [facility], and the [facility] and states sx are well controlled. She continues to follow every 6 months for monitoring 11/19/2018 -- Noted by previous PCP. Unclear if this is related to lichen sclerosus. Will f/up with patient at next visit Spondylolisthesis of cervical region 11/19/2018 Overview (01/24/2019): 11/25/2018 -- Reviewed as below. She states the aforementioned injections were largely beneficial. She never had surgeries on her neck. She does still continue to struggle with neck pain. She is amenable to a referral to ortho surg/spine center to discuss injections again 11/19/2018 -- Chronic issue. Xrays and MRIs from [facility] show same. She had bilateral C3-4 intra-articular zygapophysial joint injection in May 2016 C-spine xray March 2016: FINDINGS:/ IMPRESSION: Moderate to severe degenerative changes at C4-C5, C5-C6 C6 and 7 and multiple facets. The mild anterior listhesis at the C2 and C3 is unchanged on flexion and extension. MIKA maintained at each motion. C-spine MRI February 2016: FINDINGS: There is cervical kyphosis. There is multilevel facet hypertrophy At the C2-C3 level, there is prominent asymmetric left facet hypertrophy associated with moderate to marked ipsilateral foraminal narrowing. At the C3-C4 level, there is advanced right facet arthropathy, with marrow and soft tissue edema. There is anterior subluxation of the right lateral mass of C3 with respect to C4. There is mild anterolisthesis of C3 vertebral body over C4 . There is approximately 0.2-0.3 cm of subluxation. There is moderate to severe bilateral foraminal narrowing. There is a left facet joint effusion. At the C4-C5 level, there is discogenic degeneration and anterior spurring. There is posterior disc osteophyte formation and uncovertebral spurring. There is severe bilateral foraminal narrowing. Disc osteophyte impresses the ventral thecal margin. At the C5-C6 level, there is discogenic degeneration and mild retrolisthesis of C5 over C6. There is anterior spurring. There is posterior disc osteophyte formation and uncovertebral spurring. There is severe bilateral foraminal narrowing. There is a small shallow broad-based protrusion contacting the ventral cord margin. There is mild central canal stenosis. At the C6-C7 level, there is slight retrolisthesis of C6 over C7. There is discogenic degeneration and anterior spurring. There is posterior disc osteophyte formation and uncovertebral spurring. There is severe left and moderate right foraminal narrowing. There is mild central canal stenosis. At the C7-T1 level, there is slight anterolisthesis of C7 over T1. There is a small shallow broad-based central protrusion. There is mild right and moderate to marked left foraminal narrowing. At the T1-T2 level, there are bilateral nerve root sleeve cysts within the intervertebral foramina. At the T2-T3 level, there are tiny bilateral foraminal protrusions At the T3-T4 level, there is bilateral facet hypertrophy associated with foraminal narrowing. No intramedullary signal abnormality is evident within the limitations of respiratory motion. History of bilateral knee replacement 11/19/2018 Overview (01/24/2019): 11/25/2018 -- Reviewed as below. Stable, will monitor 11/19/2018 -- Left knee in 2005 and right knee [place] [address] Rosa Anxiety and depression 11/19/2018 Overview (01/07/2024): Continues on fluoxetine 20mg daily. Generally beneficial but recent increased stress with health changes. 1:1 support provided. Essential hypertension 11/19/2018 Overview (01/24/2019): 11/25/2018 -- Remains stable. Will monitor 11/19/2018 -- On atenolol-chlorthalidone for same. Well controlled today. Will monitor BP Readings from Last 3 Encounters: 11/25/18 112/66 11/19/18 102/65 10/11/18 139/79 No results found for: SODIUM, POTASSIUM, CHLOR, CO2, BUN, CREATININE, GLUCOSE, PALOMO Type 2 diabetes mellitus 11/19/2018 Overview (01/07/2024): Recent spike in A1C but patients has had decrease in activity due to persistent cough. 1:1 support provided. Stressed importance of lifestyle changes. Follow up labs ordered. Continue on metformin ER 500mg BID. Lab Results Component Value Date A1C 6.3 (H) 12/05/2023 A1C 6.0 (H) 09/03/2023 A1C 5.7 (H) 11/22/2022 History of abnormal mammogram 11/19/2018 Overview (01/24/2019): 11/25/2018 -- Was re-examined by Dr. Moore, per patient, and felt benign. We briefly discussed risks of not following up on this. Will monitor with yearly mammograms and f/up accordingly 11/19/2018 -- States she has had multiple abnormal mammograms in the past requiring breast biopsies which were negative. She had a mammogram on 07/03/2018 which was normal. However, she reported a L sided lump for which u/s was recommended. When she received call back to book u/s, she declined stating lump had resolved. Will need to re-eval at f/up visit Mammogram 07/03/2018: FINDINGS The breasts are almost entirely fatty. Left Patient reports a palpable abnormality. There is no evidence of suspicious masses, calcifications, or other abnormal findings. Right There is no evidence of suspicious masses, calcifications, or other abnormal findings. IMPRESSION BI-RADS?? ATLAS category (left): 0 Need Additional Imaging Evaluation BI-RADS?? ATLAS category (right): 1 Negative MANAGEMENT Ultrasound is recommended for left Additional Projections is recommended for left Routine Screening Mammogram in 1 Year is recommended for right R breast biopsy pathology report 07/12/2015: Specimen #1 - Right Breast, Calcifications, Mammotomy: - Benign breast tissue with stromal fibrosis, fibroadenomatous changes and?associated microcalcifications. Specimen #2 - Right Breast, No Calcifications, Mammotomy: - Benign breast tissue, no specific pathologic change. Osteopenia of right hip 11/19/2018 Overview (01/24/2019): 11/25/2018 -- Reviewed as below, she is amenable to DEXA. Order placed 11/19/2018 -- Seen on R hip xray from [facility] on 09/08/2017. Will discuss DEXA at further visits Right shoulder pain 11/19/2018 Overview (01/24/2019): 01/24/2019 -- She does continue to have ongoing pains. Will refer to ortho for further management 11/19/2018 -- Noted by previous PCP. She had an xray in 2017 which was normal. She had a subacromial injection with Dr. Amor [place] on 08/03/2018. Since then she has noticed pains returning. Will discuss ortho surg referral at subsequent visits. She states she was told she has a small tear Xray R shoulder 06/19/2017: FINDINGS: The humeral head is well-rounded and properly located within the glenoid fossa.?The acromioclavicular joint surfaces appear smooth without spurring, no narrowing demonstrated.?There is no spur formation or soft tissue calcification.?The subjacent ribs appear intact. Osteopenia of right foot 11/19/2018 Overview (01/24/2019): 11/25/2018 -- As below. DEXA ordered today 11/19/2018 -- Seen on xray from [facility]. Reinforces need for DEXA R foot xray [facility] 08/19/2013: FINDINGS: Mild osteopenia and soft tissue swelling. Hallux valgus associated with the degenerative changes. Slightly progressive arthritic changes of the second and?the first tarsometatarsal region ,?more pronounced in the second tarsometatarsal region with the narrowing sclerosis and spurs and probable mild erosions and/or cystic changes in the medial cuneiform and mid cuneiform. Associated soft tissue swelling dorsally. No acute fractures dislocations or stress related changes. Mild valgus flatfoot Hallux valgus of right foot 11/19/2018 Overview (01/24/2019): 11/25/2018 -- As below 11/19/2018 -- Seen on xrays from [facility]. Apparently she was offered surgical correction but declined as it would require 4-6 weeks on a roller R foot xray [facility] 08/19/2013: FINDINGS: Mild osteopenia and soft tissue swelling. Hallux valgus associated with the degenerative changes. Slightly progressive arthritic changes of the second and?the first tarsometatarsal region ,?more pronounced in the second tarsometatarsal region with the narrowing sclerosis and spurs and probable mild erosions and/or cystic changes in the medial cuneiform and mid cuneiform. Associated soft tissue swelling dorsally. No acute fractures dislocations or stress related changes. Mild valgus flatfoot Primary osteoarthritis involving multiple joints 11/19/2018 Overview (01/24/2019): 01/24/2019 -- Stable, will monitor 11/19/2018 -- Multiple scans over the years showing OA in knees, R hip, R foot Hiatal hernia 11/19/2018 Overview (01/07/2024): Seen on barium swallow from 2008. Continues on omeprazole 40mg daily. Nonalcoholic fatty liver disease 11/19/2018 Overview (01/07/2024): Lab Results Component Value Date PROTEINTOTAL 6.2 09/05/2022 ALBUMIN 4.0 09/05/2022 BILI 0.8 09/05/2022 BILIDIRECT 0.2 09/05/2022 ALKPHOS 162 (H) 09/05/2022 AST 29 09/05/2022 ALT 12 04/11/2023 Lab Results Component Value Date FERRITIN 45 07/19/2020 U/S abdomen [facility] 2006: FINDINGS: There is diffuse fatty infiltration of the liver with some fatty sparing. There are no gallstones. The common bile duct is normal caliber. The pancreas appears normal. One notes an echogenic focus in the right kidney consistent with the previously described angiomyolipoma. Screening for colon cancer 11/19/2018 Overview (01/24/2019): 11/25/2018 -- Reviewed as below 11/19/2018 -- She had a colonoscopy 08/04/2018 at [facility] as part of w/up for chronic diarrhea which was normal and rec'd f/up in 10 yrs Colonoscopy [facility] 08/04/2018: Findings: The colon (entire examined portion) appeared normal. Biopsies were taken with a cold forceps for histology from right and left visually normal colon. Verification of patient identification for the specimen was done by the physician, nurse and collection systems technician using the patient's name, date and medical record number. Estimated blood loss: none. The exam was otherwise without abnormality on direct and retroflexion views. Impression - The entire examined colon is normal. Biopsied. - The examination was otherwise normal on direct and retroflexion views. Recommendation: - Repeat colonoscopy in 10 years for screening purposes, if average risk and no concerns on the bx's. Mixed hyperlipidemia due to type 2 diabetes rich itus 11/19/2018 Overview (01/07/2024): Continues on simvastatin 40mg daily. Recent increase in LDL and not at goal of less than 70. Recommend transition to atorvastatin 40mg daily. Med sent. Follow up labs ordered. Reviewed conservative measures and lifestyle changes. Lab Results Component Value Date CHOLESTEROL 153 12/05/2023 HDL 49 (L) 12/05/2023 LDL 82 12/05/2023 CHOLNONHDL 104 12/05/2023 TRIGLYCERIDE 119 12/05/2023 Presence of total knee joint prosthesis, right 0 11/07/2015 Reflux esophagitis 11/06/2005 Overview (01/07/2024): Continues on omeprazole 40mg daily. Resolved Problems Problem Noted Date Diagnosed Date Resolved Date Other chest pain 09/20/2020 01/07/2024 Overview (09/20/2020): Cath 03/2020 Showed only 30 % prox stenosis in rca .. other vessels clear Abnormal urine odor 01/24/2019 03/09/20 20 Overview (01/24/2019): 11/25/2018 -- Started within the past [id number]. No dysuria, hematuria, pyuria. Vague lower abdominal/suprapubic pressure but unclear if it's related to her GI sx. Will check urine panel and f/up accordingly Lichen sclerosus 11/19/2018 03/09/2020 Overview (01/24/2019): 11/25/2018 -- No complaints today, will monitor 11/19/2018 -- Noted by previous PCP. She is on clobetasol topical for same Gastroesophageal reflux disease 11/19/2018 01/07/2024 Overview (01/24/2019): 11/25/2018 -- As below. Remains on omeprazole with good control. 11/19/2018 -- Noted by previous PCP. She had a barium swallow with video fluoroscopy in 2012 which was normal. She had an EGD in 2008 which was also normal Barium swallow [facility] 09/02/2013: FINDINGS: The oral and pharyngeal phases of swallowing were normal. There was no aspiration, penetration, or nasal regurgitation identified. Esophageal motility was within the limits of normal. There was no gastroesophageal reflux noted during the course of the study by provocative maneuvers (siphon test). The esophagus was structurally normal. No intrinsic or extrinsic masses could be identified. The esophageal mucosa was unremarkable. IMPRESSION: Normal barium swallow examination with video fluoroscopy. EGD [facility] 09/11/2009: Findings: The examined esophagus was normal. Z line at 37 cm. The stomach was normal. The examined duodenum was normal. Impression: Normal esophagus, ... stomach, ... examined duodenum Chronic diarrhea 11/19/2018 03/09/2020 Overview (01/24/2019): 11/25/2018 -- States sx started about 1 year ago. Occurs intermittently. She has some baseline diarrhea but has spells where she has more frequent bowel movements. She has been having increased gassiness and bloating. No increased eructation. Stools are malodorous but non-bloody. No abdominal pain/cramping. She does have a sense of bowel urgency. She denies any bowel incontinence. Sx improve slightly after bowel movements. Given her frequent hospital courses, will check C. Diff. She will likely need GI moving forward 11/19/2018 -- States this has been a chronic issue. She had a colonoscopy for same in July which was normal. Will discuss further at upcoming visit Acute upper respiratory infection 11/19/2018 03/09/2020 Overview (01/24/2019): 11/25/2018 -- She is feeling much better. However, she stopped the prednisone about 3 days ago and she is feeling some heaviness and tightness in her chest. She does have a hx of asthma. She has been using Proair with good relief. Will add Qvar and monitor, likely just needs more time to continue healing 11/19/2018 -- She was seen at [facility] on 10/11/2018. She was noted to have rales on exam and was dx'd with CAP without CXR. She was given ZPack and supportive therapies but today she reports ongoing sx. She states cough has progressed. She now reports some worsening chest congestion and cough to the point where she feels she will gag and wants to vomit. She does state she has vomited at times because of it. Cough is rarely productive. She has moderate chest congestion. She reports associated ear pressure and R postauricular swelling, nasal congestion, SOB and wheezing. She does endorse some night sweats but no fever/chills. She has been using Robitussin OTC. She was given Tessalon and codeine-based cough syrup without much improvement. She does c/o diarrhea but states this is at baseline and denies worsening sx since onset of sx. CXR yesterday was normal. Plan doxy, pred taper, mucinex, robitussin DM and f/up in 1 week for re-eval Globus sensation 11/19/2018 01/07/2024 Overview (01/24/2019): 11/25/2018 -- No outright complaints today, will follow 11/19/2018 -- Noted by previous PCP. She had an air-barium swallow in 2008 which showed a mild defect and small hiatal hernia and a f/up EGD which was normal Barium swallow 2008: Findings: Following oral administration of effervescent granules and barium, the swallowing mechanism is noted to be intact. A slightly lobular filling defect is seen along the anterior the lower esophageal wall which may simply represent lacks mucosal folds over the ventral venous plexus. However, the patient planes of pressure in this area and if clinically indicated, further assessment with direct visualization is recommended. Small hiatal hernia was identified. Mild transient and distal esophageal spasm was observed. No gastroesophageal reflux was visualized. Positive MARITZA (antinuclear antibody) 11/19/2018 01/07/2024 Overview (01/24/2019): 11/25/2018 -- Not likely contributing to her overall clinical presentation, will follow 11/19/2018 -- She had MARITZA through Dr. Perez on 03/31/2018, positive 1:40 with centromere pattern. Will review further and consider rheum referral Immunizations Name Administration Dates Next Due COVID-19, mRNA (Pfizer Pre F all 2022) Monovalent, 30 mcg/0.3 ml 02/12/2022,07/03/2021,12/27/2020, 02 1 Covid-19, mRNA (Pfizer Pre F all 2022) Bivalent, 30 mcg/0.3 ml oscar-sucrose (12+) dose 08/06/2022 Influenza, Quad, Inactivated , Adjuvanted, Preser Fr 08/08/2022 Influenza,injectable,MDCK, P rsrv Fr,Quad 08/03/2021,06/27/2020 Family History Medical History Relation Name Comments Heart Disorder Father DC, CHF Cancer - Breast Maternal aunt 50'S Cancer - Breast Mother ONSET UNKNOW N Cancer - Breast Paternal grandmother PRE MEN Relation Name Status Comments Father Maternal aunt Maternal uncle Mother Paternal grandmother Social History Smoking Status as of 10/29/2024 Tobacco Use Types Packs/Day Years Used Date Smoking Tobacco: Never Assessed PHQ-2 Answer Date Recorded PHQ-2 Score 0 01/07/2024 PHQ-9 Answer Date [facility]ed [facility] SEVERITY SCORE (Range 0-27) 0 01/07/2024 Intimate Partner Violence Answer Date R ecorded Fear of Current or Ex-Partner Not on file Emotionally Abused Not on file 05/08/2023 Physically Abused Not on file 05/08/2023 Sexually Abused Not on file 05/08/2023 Feel Safe at Home Not on file 05/08/2023 Sex and Gender Information Value Date Recorded Sex Assigned at Female 03/06/2020 2:59 PM EDT Legal Sex Female 1:41 PM EST Gender Identity Female 03/06/2020 2:59 PM EDT Sexual Orientation Not on file Last Filed Vital Signs Vital Sign Reading Time Taken Comments Blood Pressure 134/79 08/06/2024 2:38 PM EST Pulse 82 08/06/2024 2:38 PM EST Temperature 36.7 ??C (98 ??F) 08/06/2024 2:38 PM EST Respiratory Rate 16 04/25/2019 4:40 PM EDT Oxygen Saturation 98% 04/09/2024 9:48 AM EDT Inhaled Oxygen Concentration - - Weight 80.7 kg (178 lb) 08/06/2024 2:38 PM EST Height 152.4 cm (5') 07/07/2024 2:27 PM EDT Body Mass Index 34.76 07/07/2024 2:27 PM EDT Plan of Treatment Upcoming Encounters Date Type Department Care Team (Latest Contact Info) Description 01/10/2025 8:00 AM EDT Office Visit [address] [phone] Christina Estevez MD [address] [place] [id number] medication refill follow up 03/18/2025 1:15 PM EDT Office Visit [facility] Cardiology [address] [facility] [address] [place] [address] Lolita Ott MD [address] [place] [address] routine f/u 04/05/2025 9:15 AM EDT Radiology [facility]. [address] [phone] 05/02/2025 1:00 PM EDT Office Visit [facility] Cardiology [address] [facility] [address] [place] [address] Lolita Ott MD [address] [place] [address] 1 year 06/07/2025 9:15 AM EDT CPE - Comprehensive Physical Exam [address] [phone] Christina Estevez MD [address] [place] [id number] NPP Procedures * Due to [place] state law, this organization might not be sharing negative HIV tests. Procedure Name Priority Date/Time Associated Diagnosis Comments MRI SHOULDER W/O CONTRAST - RIGHT MICHAEL (Only criticals called to provider) 2024 10:14 PM EST Chronic right shoulder pain CARDIOVASCULAR TEST/PROCEDURE, UNSPECIFIED 08/05/2024 CREATINE KINASE (CK), SERUM Routine 07/19/2024 11:33 AM EDT Reactive arthritis, unspecified site (HCC) Myalgia ALDOLASE Routine 07/19/2024 11:33 AM EDT Reactive arthritis, unspecified site (HCC) Myalgia RHEUMATOID FACTOR, SERUM Routine 024 11:33 AM EDT Polyarthralgia CYCLIC CITRULLINATEDPEPTIDE CCP AB IGG Routine 07/19/2024 11:33 AM EDT Polyarthralgia XRAY SHOULDER COMPLETE MIN 2 VWS- RIGHT (DX: SHOULDER PAIN *NO INJURY*) Routine 07/14/2024 10:39 AM EDT Right shoulder pain, unspecified chronicity CT FFRCT HEARTFLOW 07/03/2024 11:[address] LIMITED FOLLOW UP WO CONTRAST 07/02/2024 4:[address] CARDIAC CORONARY AND CALCIUM SCORING 07/02/2024 3:31 PM EDT EXTERNAL ECG RECORDING > 48 HRS < 7 DAYS BY CONTINUOUS RHYTHM RECORDING/STORAGE; REVIEW AND INTERP Routine 06/03/2024 SOB (shortness of breath) ECHOCARDIOGRAPHY, TRANSTHORACIC (TTE) WITH 2D IMAGE W/WO M-MODE RECORDING, COMPLETE, WITH DOPPLER Routine 06/02/2024 Shortness of breath HEPATIC FUNCTION PANEL (ALT,AST,ALK PH,BILI'S,TP,ALB) Routine 05/21/2024 7:34 AM EDT Elevated bilirubin PROBNP, N TERMINAL Routine 05/21/2024 7:34 AM EDT SOB (shortness of breath) B-TYPE NATRIURETIC PEPTIDE (BNP) ([facility]) Same Day Results 05/21/2024 7:34 AM EDT SOB (shortness of breath) CBC INCLUDES DIFFERENTIAL AND PLATELET COUNT Routine 05/21/2024 7:34 AM EDT SOB (shortness of breath) BASIC METABOLIC PANEL WITH (GFR) Routine 05/21/2024 7:34 AM EDT SOB (shortness of breath) BASIC METABOLIC PANEL WITH (GFR) Routine 04/09/2024 10:59 AM EDT Shortness of breath B-TYPE NATRIURETIC PEPTIDE (BNP) ([facility]) Same Day Results 04/09/2024 10:59 AM EDT Shortness of breath PROBNP, N TERMINAL Routine 04/09/2024 10:59 AM EDT Shortness of breath NEUTROPHIL CYTOPLASMIC ANTIBODY SCREEN WITH MPO AND PR3, WITH REFLEX TO ANCA TITER Routine 04/09/2024 10:59 AM EDT LPRD (laryngopharyngeal reflux disease) Subglottic stenosis EKG-USE ONLY IN READYMED/OCC MED/CARDIO Routine 04/09/2024 10:01 AM EDT Shortness of breath HEPATIC FUNCTION PANEL (ALT,AST,ALK PH,BILI'S,TP,ALB) Routine 03/31/2024 7:49 AM EDT Elevated bilirubin MANUAL DIFFERENTIAL BODY FLUID Routine 03/25/2024 9:50 AM EDT CELL COUNT BODY FLUID Routine 03/25/2024 9:50 AM EDT [facility] NON-MOLASSES COLORING OPERATOR CYTOLOGY REPORT Routine 03/25/2024 9:05 AM EDT FUNGAL CULTURE, CUTANEOUS Routine 2023 9:04 AM EDT AFB CULTURE Routine 03/25/2024 9:04 AM EDT RESPIRATORY CULTURE Routine 03/25/2024 9:04 AM EDT GLUCOSE POINT OF CARE Routine 03/25/2024 7:05 AM EDT BRONCHOSCOPY 03/25/2024 HEMOGLOBIN A1C Routine 03/22/2024 7:57 AM EDT Type 2 diabetes mellitus with stage 3a chronic kidney disease, unspecified whether half-way insulin use (HCC) HEPATIC FUNCTION PANEL (ALT,AST,ALK PH,BILI'S,TP,ALB) Routine 03/22/2024 7:57 AM EDT Mixed hyperlipidemia due to type 2 diabetes mellitus (HCC) Coronary artery disease, unspecified vessel or lesion type, unspecified whether angina present, unspecified whether barrow or transplanted heart LIPID PANEL WITH REFLEX TO DIRECT LDL Routine 03/22/2024 7:57 AM EDT Mixed hyperlipidemia due to type 2 diabetes mellitus (HCC) Coronary artery disease, unspecified vessel or lesion type, unspecified whether angina present, unspecified whether barrow or transplanted heart PARATHYROID HORMONE (PTH), INTACT WITH CALCIUM, SERUM Routine 03/22/2024 7:57 AM EDT Chronic kidney disease, stage 3a (HCC) MAMMOGRAM SCREENING TOMOSYNTHESIS, BILATERAL Routine 02/19/2024 9:48 AM EDT Breast cancer screening by mammogram CT CHEST W/O CONTRAST (DX: F/U ABNL CHEST CT) (3 MTHS FROM LAST) Routine 02/11/2024 10:06 AM EDT Abnormal findings on diagnostic imaging of lung PAIN MANAGEMENT PROFILE WITH FENTANYL, URINE (PAINM2+) STAT (All results called to provider) 01/27/2024 3:20 PM EDT Encounter for drug therapy XRAY FOOT COMPLETE MIN 3 VWS - RIGHT (DX: FOOT PAIN *NO INJURY*) Routine 01/20/2024 2:17 PM EDT Chronic pain in right foot PAIN MANAGEMENT PROFILE WITH FENTANYL, URINE (PAINM2+) Routine 01/20/2024 2:06 PM EDT Chronic neck pain CARDIOVASCULAR TEST/PROCEDURE, UNSPECIFIED 12/15/2023 ALBUMIN (MICROALBUMIN), RANDOM URINE, WITH CREATININE Routine 12/05/2023 8:33 AM EST Diabetes mellitus without complication LIPID PANEL WITH REFLEX TO DIRECT LDL Routine 12/05/2023 8:33 AM EST Diabetes mellitus without complication HEMOGLOBIN A1C Routine 12/05/2023 8:33 AM EST Diabetes mellitus without complication CT CHEST W/O CONTRAST STAT (All results called to provider) 11/05/2023 9:52 AM EST Chronic cough CREATINE KINASE (CK), SERUM Routine 10/30/2023 2:47 PM EST SOB (shortness of breath) on exertion BASIC METABOLIC PANEL WITH (GFR) STAT (All results called to provider) 10/30/2023 2:47 PM EST Chronic cough VITAMIN B12 (CYANOCOBALAMIN), SERUM Routine 10/16/2023 10:23 AM EST Neuropathy IMMUNOFIXATION, SERUM Routine 10/16/2023 10:23 AM EST Neuropathy SJOGRENS SYNDROME ANTIBODIES (SSA AND SSB) Routine 10/16/2023 10:23 AM EST Neuropathy MYASTHENIA GRAVIS PANEL 1 Routine 2023 10:23 AM EST SOB (shortness of breath) on exertion THYROID STIMULATING HORMONE (TSH) WITH FREE T4 REFLEX, SERUM Routine 10/16/2023 10:12 AM EST Hypothyroidism, unspecified type CTA CHEST W/ CONTRAST TO R/O PE (DX: SOB/CP) SAME DAY- CALL RADIOLOGY TO SCHED STAT (All results called to provider) 09/15/2023 3:19 PM EST Abnormal respiratory function XRAY CHEST, 2 VIEWS, PA & LATERAL (DX: DYSPNEA R06.00/ 786.09) FC Routine 09/05/2023 3:46 PM EST EKG-USE ONLY IN READYMED/OCC MED/CARDIO Routine 09/05/2023 3:21 PM EST SOB (shortness of breath) Hypertension, unspecified type Hyperlipidemia, unspecified hyperlipidemia type Aortic valve stenosis, etiology of cardiac valve disease unspecified BASIC METABOLIC PANEL WITH (GFR) Routine 09/05/2023 3:16 PM EST SOB (shortness of breath) Hyperlipidemia, unspecified hyperlipidemia type B-TYPE NATRIURETIC PEPTIDE (BNP) ([facility]) Same Day Results 09/05/2023 3:16 PM EST SOB (shortness of breath) Hyperlipidemia, unspecified hyperlipidemia type CBC INCLUDES DIFFERENTIAL AND PLATELET COUNT Routine 09/05/2023 3:16 PM EST SOB (shortness of breath) Hyperlipidemia, unspecified hyperlipidemia type PROBNP, N TERMINAL Routine 09/05/2023 3:16 PM EST SOB (shortness of breath) Hyperlipidemia, unspecified hyperlipidemia type BASIC METABOLIC PANEL WITH (GFR) Routine 09/03/2023 7:45 AM EST Type 2 diabetes mellitus without complication, without long-term current use of insulin (HCC) ALBUMIN (MICROALBUMIN), RANDOM URINE, WITH CREATININE Routine 09/03/2023 7:45 AM EST Type 2 diabetes mellitus without complication, without long-term current use of insulin (HCC) LIPID PANEL WITH REFLEX TO DIRECT LDL Routine 09/03/2023 7:45 AM EST Type 2 diabetes mellitus without complication, without long-term current use of insulin (HCC) HEMOGLOBIN A1C Routine 09/03/2023 7:45 AM EST Type 2 diabetes mellitus without complication, without long-term current use of insulin (HCC) XRAY FOOT COMPLETE MIN 3 VWS - LEFT Routine 08/26/2023 9:00 AM EST Left foot pain CARDIAC STRESS TEST 08/14/2023 MRI CERVICAL SPINE W/O CONTRAST Routine 06/27/2023 9:13 PM EDT Chronic neck pain Cervical radiculopathy COMPREHENSIVE EYE EXAM 06/25/2023 EKG-USE ONLY IN [facility]CC MED/CARDIO Routine 04/29/2023 2:24 PM EDT SOB (shortness of breath) ECHOCARDIOGRAPHY, TRANSTHORACIC (TTE) WITH 2D IMAGE W/WO M-MODE RECORDING, COMPLETE, WITH DOPPLER Routine 04/25/2023 Aortic valve stenosis, etiology of cardiac valve disease unspecified CARDIOVASCULAR TEST/PROCEDURE, UNSPECIFIED Routine 04/17/2023 12:29 PM EDT CARDIOVASCULAR TEST/PROCEDURE, UNSPECIFIED Routine 04/17/2023 12:29 PM EDT GLUCOSE POINT OF CARE Routine 04/17/2023 11:57 AM EDT CTA CHEST W/ CONTRAST Routine 04/15/2023 7:52 AM EDT CBC INCLUDES DIFFERENTIAL AND PLATELET COUNT Routine 04/11/2023 12:38 PM EDT CORONARY ARTERY DISEASE WITH STABLE Angina xx0.14xx ALANINE AMINOTRANSFERASE (ALT), SERUM Routine 04/11/2023 12:38 PM EDT CORONARY ARTERY DISEASE WITH STABLE Angina xx0.14xx BASIC METABOLIC PANEL WITH (GFR) Routine 04/11/2023 12:38 PM EDT CORONARY ARTERY DISEASE WITH STABLE Angina xx0.14xx LIPID PANEL WITH REFLEX TO DIRECT LDL Routine 04/11/2023 12:38 PM EDT CORONARY ARTERY DISEASE WITH STABLE Angina xx0.14xx B-TYPE NATRIURETIC PEPTIDE (BNP) ([facility]) Same Day Results 04/11/2023 12:38 PM EDT SOB (shortness of breath) EKG-USE ONLY IN [facility] MED/CARDIO Routine 04/11/2023 11:39 AM EDT CORONARY ARTERY DISEASE WITH STABLE Angina xx0.14xx CARDIOVASCULAR TEST/PROCEDURE, UNSPECIFIED 03/20/2023 CARDIOVASCULAR TEST/PROCEDURE, UNSPECIFIED 03/20/2023 OPHTHALMOLOGICAL TEST/PROCEDURE, UNSPECIFIED 03/13/2023 EXTRACAPSULAR CATARACT REMOVAL W/ INSERTION LENS PROSTHESIS W/O ENDOSCOPIC CYCLOPHOTOCOAG, REGULAR Routine 02/18/2023 7:47 AM EDT Nuclear senile cataract of right eye UNSPECIFIED MAJOR PROCEDURE 02/18/2023 UNSPECIFIED MAJOR PROCEDURE 02/18/2023 PAIN MANAGEMENT PROFILE WITH FENTANYL, URINE (PAINM2+) Routine 02/13/2023 11:51 AM EDT Spondylolisthesis of cervical region EXTRACAPSULAR CATARACT REMOVAL W/ INSERTION LENS PROSTHESIS W/O ENDOSCOPIC CYCLOPHOTOCOAG, REGULAR Routine 02/05/2023 9:56 AM EDT Nuclear senile cataract of left eye UNSPECIFIED MAJOR PROCEDURE 02/05/2023 MAMMOGRAM SCREENING TOMOSYNTHESIS, BILATERAL Routine 01/24/2023 8:29 AM EDT Breast cancer screening by mammogram OPHTHALMOLOGICAL TEST/PROCEDURE, UNSPECIFIED 01/21/2023 EKG-TO BE READ & BILLED BY ADULT OR PEDIATRIC CARDIOLOGY Routine 01/16/2023 10:18 AM EDT Essential hypertension OPHTHALMOLOGICAL TEST/PROCEDURE, UNSPECIFIED 12/09/2022 BASIC METABOLIC PANEL WITH (GFR) Routine 11/22/2022 7:58 AM EST Diabetes mellitus without complication ALBUMIN (MICROALBUMIN), RANDOM URINE, WITH CREATININE Routine 11/22/2022 7:58 AM EST Diabetes mellitus without complication LIPID PANEL WITH REFLEX TO DIRECT LDL Routine 11/22/2022 7:58 AM EST Diabetes mellitus without complication HEMOGLOBIN A1C Routine 11/22/2022 7:58 AM EST Diabetes mellitus without complication VITAMIN B12 (CYANOCOBALAMIN), SERUM Routine 11/22/2022 7:58 AM EST Type 2 diabetes mellitus without complication, without long-term current use of insulin (HCC) COMPREHENSIVE EYE EXAM 11/15/2022 COMPREHENSIVE EYE EXAM 11/15/2022 COLONOSCOPY, FLEXIBLE; WITH BIOPSY, SINGLE OR MULTIPLE Routine 10/04/2022 10:02 AM EST Abnormal radiographic examination Diarrhea, unspecified type Internal hemorrhoids TISSUE PATHOLOGY Routine 10/04/2022 GASTROENTEROLOGY TEST/PROCEDURE, UNSPECIFIED 10/04/2022 CT ABDOMEN AND PELVIS W/ CONTRAST (DX:CHRONIC ABDOMINAL PAIN) (WITHIN 1 MONTH) Routine 09/19/2022 1:11 PM EST LLQ pain Bowel habit changes CBC INCLUDES DIFFERENTIAL AND PLATELET COUNT Routine 09/05/2022 3:31 PM EST LLQ pain Bowel habit changes HEPATIC FUNCTION PANEL (ALT,AST,ALK PH,BILI'S,TP,ALB) Routine 09/05/2022 3:31 PM EST LLQ pain Bowel habit changes BASIC METABOLIC PANEL WITH (GFR) Routine 09/05/2022 3:31 PM EST LLQ pain Bowel habit changes THYROID STIMULATING HORMONE (TSH) WITH FREE T4 REFLEX, SERUM Routine 08/08/2022 8:41 AM EST Hyperlipidemia, unspecified hyperlipidemia type BASIC METABOLIC PANEL WITH (GFR) Routine 08/08/2022 8:41 AM EST Hyperlipidemia, unspecified hyperlipidemia type ALANINE AMINOTRANSFERASE (ALT), SERUM Routine 08/08/2022 8:41 AM EST Hyperlipidemia, unspecified hyperlipidemia type CBC INCLUDES DIFFERENTIAL AND PLATELET COUNT Routine 08/08/2022 8:41 AM EST Shortness of breath LIPID PANEL WITH REFLEX TO DIRECT LDL Routine 08/08/2022 8:41 AM EST Hyperlipidemia, unspecified hyperlipidemia type XRAY SHOULDER COMPLETE MIN 2 VWS - RIGHT Routine 07/03/2022 9:36 AM EDT Right shoulder pain, unspecified chronicity CYTOLOGY/PATHOLOGY/GENETI CS UNSPECIFIED 06/14/2022 EKG-USE ONLY IN [facility]CC MED/CARDIO Routine 05/27/2022 3:05 PM EDT Shortness of breath XRAY FOOT COMPLETE MIN 3 VWS - LEFT Routine 03/22/2022 2:53 PM EDT Left foot pain CT SOFT TISSUE NECK W/CONTRAST MICHAEL (Only criticals called to provider) 03/09/2022 12:07 PM EDT Neck mass VENIPUNCTURE Routine 03/08/2022 4:01 PM EDT Type 2 diabetes mellitus without complication, unspecified whether half-way insulin use (HCC) BASIC METABOLIC PANEL WITH (GFR) STAT (All results called to provider) 03/08/2022 3:59 PM EDT Neck mass PAIN MANAGEMENT PROFILE WITH FENTANYL, URINE (PAINM2+) Routine 03/08/2022 3:59 PM EDT Chronic, continuous use of opioids ECHOCARDIOGRAPHY, TRANSTHORACIC (TTE) WITH 2D IMAGE W/WO M-MODE RECORDING, COMPLETE, WITH DOPPLER Routine 02/26/2022 Shortness of breath MAMMOGRAPHY BILAT 3D MARKELL(DX:SCREENING FOR BREAST CA Z12.31)FC Routine 01/22/2022 2:30 PM EDT Breast cancer screening by mammogram ALBUMIN (MICROALBUMIN), RANDOM URINE, WITH CREATININE Routine 11/19/2021 7:40 AM EST Diabetes mellitus without complication LIPID PANEL WITH REFLEX TO DIRECT LDL Routine 11/19/2021 7:40 AM EST Diabetes mellitus without complication BASIC METABOLIC PANEL WITH (GFR) Routine 11/19/2021 7:40 AM EST Diabetes mellitus without complication VENIPUNCTURE Routine 11/19/2021 7:40 AM EST Diabetes mellitus without complication GLUCOSE Routine 10/25/2021 7:22 AM EST CARDIAC PROGRAM DIRECTOR SUBSTANCE ABUSE PROCEDURE 10/25/2021 CARDIAC PROGRAM DIRECTOR SUBSTANCE ABUSE PROCEDURE 10/25/2021 CARDIAC PROGRAM DIRECTOR SUBSTANCE ABUSE PROCEDURE 10/25/2021 SARS-COV-2, FLORENCIO Routine 10/23/2021 10:18 AM EST PROTHROMBIN TIME (PT) (INR), BLOOD Routine 10/18/2021 8:26 AM EST SOB (shortness of breath) CORONARY ARTERY DISEASE WITH STABLE Angina xx0.14xx CBC INCLUDES DIFFERENTIAL AND PLATELET COUNT Routine 10/18/2021 8:26 AM EST SOB (shortness of breath) CORONARY ARTERY DISEASE WITH STABLE Angina xx0.14xx VENIPUNCTURE Routine 10/18/2021 8:26 AM EST SOB (shortness of breath) CORONARY ARTERY DISEASE WITH STABLE Angina xx0.14xx EXTERNAL CONTINUOUS ECG RECORDING <=48 HRS W/ SCAN ANALYSIS REVIEW & INTERP BY SKILLED PROFESSIONAL Routine 10/08/2021 Palpitations CARDIOVASCULAR STRESS TEST W/TREADMILL, BICYCLE, AND/OR PHARMACOLOGICAL STRESS; W/ SUPERV/INTERP Routine 10/01/2021 Dyspnea, unspecified type HEMOGLOBIN A1C Routine 09/14/2021 9:04 AM EST Type 2 diabetes mellitus without complication, without long-term current use of insulin (HCC) THYROID STIMULATING HORMONE (TSH) WITH FREE T4 REFLEX, SERUM Routine 09/14/2021 9:04 AM EST SOB (shortness of breath) B-TYPE NATRIURETIC PEPTIDE (BNP) ([facility]) Same Day Results 09/14/2021 9:04 AM EST SOB (shortness of breath) VENIPUNCTURE Routine 09/14/2021 9:04 AM EST SOB (shortness of breath) EKG-TO BE READ & BILLED BY ADULT OR PEDIATRIC CARDIOLOGY Routine 09/03/2021 2:55 PM EST SOB (shortness of breath) PULMONARY FUNCTION TEST Routine 08/15/20 12:00 AM EST Cough SARS COV 2 RNA(COVID 19), QUALITATIVE NAAT Routine 08/13/2021 8:21 AM EST Encounter for preoperative screening laboratory testing for COVID-19 virus ECHOCARDIOGRAPHY, TRANSTHORACIC (TTE) WITH 2D IMAGE W/WO M-MODE RECORDING, COMPLETE, WITH DOPPLER Routine 07/24/2021 Heart murmur VENIPUNCTURE Routine 07/16/2021 8:[address] ABDOMEN W AND W/O CONTRAST Routine 07/01/2021 10:08 AM EDT Echogenic kidneys on renal ultrasound Abnormal finding on radiology exam HEMOGLOBIN A1C Routine 06/05/2021 12:20 PM EDT Type 2 diabetes mellitus without complication, unspecified whether buttermaker insulin use (HCC) VENIPUNCTURE Routine 06/05/2021 12:20 PM EDT Abnormal finding on radiology exam EGD (UPPER GI ENDOSCOPY) 05/17/2021 US ABDOMEN COMPLETE Routine 05/12/2021 10:09 AM EDT Abdominal pain, LUQ EKG-USE ONLY IN [facility]CC MED/CARDIO Routine 04/13/2021 1:29 PM EDT Nonspecific chest pain ESOPHAGUS Routine 04/11/2021 10:03 AM EDT XRAY SINUSES PARANASAL 3 OR MORE VWS - BILAT Routine 03/29/2021 9:40 AM EDT Cough LARYNGOSCOPY, FLEXIBLE; DIAGNOSTIC Routine 03/29/2021 9:23 AM EDT Cough VENIPUNCTURE Routine 03/28/2021 8:50 AM EDT Arthralgia, unspecified joint CBC INCLUDES DIFFERENTIAL AND PLATELET COUNT Routine 03/21/2021 8:14 AM EDT Arthralgia, unspecified joint VENIPUNCTURE Routine 03/21/2021 8:14 AM EDT Arthralgia, unspecified joint XRAY CHEST, 2 VIEWS, PA & LATERAL (DX: COUGH R05.9/ 786.2) FC Routine 03/02/2021 3:17 PM EDT Cough MYOCARDIAL PERFUSION TOMOGRAPY (SPECT)(INCLUDING EF IF DONE) MULTIPLE STUDIES AT REST AND/OR STRESS FOR CARDIOLOGY DEPT USE ONLY Routine 01/31/2021 7:40 AM EDT Nonspecific chest pain PAIN MANAGEMENT PROFILE WITH FENTANYL, URINE (PAINM2+) Routine 01/05/2021 11:50 AM EDT Spinal stenosis of lumbar region without neurogenic claudication Spondylolisthesis of cervical region Protrusion of cervical intervertebral disc Neural foraminal stenosis of cervical spine Primary osteoarthritis involving multiple joints LIPID PANEL WITH REFLEX TO DIRECT LDL Routine 12/18/2020 8:05 AM EDT Mixed hyperlipidemia due to type 2 diabetes mellitus (HCC) VENIPUNCTURE Routine 12/18/2020 8:05 AM EDT Mixed hyperlipidemia due to type 2 diabetes mellitus (HCC) CULTURE, BLOOD X 2 SETS/4 BOTTLES Routine 11/10/2020 7:57 AM EST Arthralgia, unspecified joint ALANINE AMINOTRANSFERASE (ALT), SERUM Routine 11/10/2020 7:57 AM EST Hyperlipidemia, unspecified hyperlipidemia type ALBUMIN (MICROALBUMIN), RANDOM URINE, WITH CREATININE Routine 11/10/2020 7:57 AM EST Diabetes mellitus without complication LIPID PANEL WITH REFLEX TO DIRECT LDL Routine 11/10/2020 7:57 AM EST Diabetes mellitus without complication BASIC METABOLIC PANEL WITH (GFR) Routine 11/10/2020 7:57 AM EST Diabetes mellitus without complication VENIPUNCTURE Routine 11/10/2020 7:57 AM EST Hyperlipidemia, unspecified hyperlipidemia type HLA-B27 ANITGEN Routine 11/10/2020 7:57 AM EST Arthralgia, unspecified joint RHEUMATOID ARTHRITIS DIAGNOSTIC PANEL Routine 11/10/2020 7:57 AM EST Arthralgia, unspecified joint ERYTHROCYTE SEDIMENTATION RATE (ESR) Routine 11/10/2020 7:57 AM EST Arthralgia, unspecified joint C-REACTIVE PROTEIN (CRP) - INFLAMMATION Routine 11/10/2020 7:57 AM EST Arthralgia, unspecified joint VENIPUNCTURE Routine 10/13/2020 8:08 AM EST Hyperlipidemia, unspecified hyperlipidemia type ASPARTATE AMINOTRANSFERASE (AST), SERUM Routine 10/13/2020 8:08 AM EST Mixed hyperlipidemia due to type 2 diabetes mellitus (HCC) ALANINE AMINOTRANSFERASE (ALT), SERUM Routine 10/13/2020 8:08 AM EST Mixed hyperlipidemia due to type 2 diabetes mellitus (HCC) HEMOGLOBIN A1C Routine 10/13/2020 8:08 AM EST Type 2 diabetes mellitus without complication, without long-term current use of insulin (HCC) VENIPUNCTURE Routine 08/28/2020 12:37 PM EST Mixed hyperlipidemia due to type 2 diabetes mellitus (HCC) MAMMOGRAM SCREENING , BILATERAL FC Routine 07/28/2020 10:47 AM EDT Breast cancer screening by mammogram THYROID STIMULATING HORMONE (TSH) WITH FREE T4 REFLEX, SERUM Routine 07/19/2020 9:13 AM EDT Hypothyroidism, unspecified type CBC INCLUDES DIFFERENTIAL AND PLATELET COUNT Routine 07/19/2020 9:13 AM EDT Cold intolerance IRON PROFILE (IRON/TIBC), SERUM Routine 07/19/2020 9:13 AM EDT Cold intolerance VENIPUNCTURE Routine 07/19/2020 9:13 AM EDT Cold intolerance HEPATITIS C AB WITH REFLEX TO RNA PCR, SERUM Routine 06/27/2020 12:00 PM EDT Need for hepatitis C screening test PROTHROMBIN TIME (PT) (INR), BLOOD Routine 06/27/2020 12:00 PM EDT Abnormal bruising VENIPUNCTURE Routine 06/27/2020 12:00 PM EDT Abnormal bruising MRI OF BRAIN W/WO CONTRAST 06/19/2020 MOBILE ECG TELEMETRY, 24+ HR PT-TRIGGERED EVENT RECORDING AND REMOTE REVIEW/INTERPRETATION <=30 DAYS Routine 06/07/2020 3:51 PM EDT Palpitations COMPREHENSIVE EYE EXAM 05/30/2020 LIPID PANEL WITH REFLEX TO DIRECT LDL Routine 05/16/2020 12:42 PM EDT Hyperlipidemia, unspecified hyperlipidemia type VENIPUNCTURE Routine 05/16/2020 12:42 PM EDT Hyperlipidemia, unspecified hyperlipidemia type EKG-USE ONLY IN [facility] MED/CARDIO Routine 05/01/2020 11:07 AM EDT Chest pain, unspecified type GLUCOSE Routine 04/14/2020 11:53 AM EDT GLUCOSE Routine 04/14/2020 6:33 AM EDT CARDIAC PROGRAM DIRECTOR SUBSTANCE ABUSE PROCEDURE 04/14/2020 GLUCOSE Routine 04/13/2020 11:48 PM EDT GLUCOSE Routine 04/13/2020 8:11 PM EDT GLUCOSE Routine 04/13/2020 4:23 PM EDT GLUCOSE Routine 04/13/2020 1:13 PM EDT MYOCARDIAL PERFUSION TOMOGRAPHY Routine 04/13/2020 12:13 PM EDT BASIC METABOLIC PANEL Routine 04/13/2020 8:35 AM EDT MAGNESIUM Routine 04/13/2020 8:35 AM EDT CPK Routine 04/13/2020 8:35 AM EDT GLUCOSE Routine 04/13/2020 6:04 AM EDT TROPONIN T Routine 04/13/2020 12:50 AM EDT ECHOCARDIOGRAM 04/13/2020 GLUCOSE Routine 04/12/2020 11:54 PM EDT GLUCOSE Routine 04/12/2020 8:18 PM EDT CPK Routine 04/12/2020 7:19 PM EDT TROPONIN T Routine 04/12/2020 7:19 PM EDT GLUCOSE Routine 04/12/2020 5:28 PM EDT BASIC METABOLIC PANEL Routine 04/12/2020 1:10 PM EDT CBC WITH 5 PART DIFF Routine 04/12/2020 1:10 PM EDT PHOSPHORUS Routine 04/12/2020 1:10 PM EDT MAGNESIUM Routine 04/12/2020 1:10 PM EDT CPK Routine 04/12/2020 1:10 PM EDT TROPONIN T Routine 04/12/2020 1:10 PM EDT VITAMIN D, 25-HYDROXY, TOTAL, IMMUNOASSAY Routine 04/07/2020 9:11 AM EDT Elevated parathyroid hormone VENIPUNCTURE Routine 04/07/2020 9:11 AM EDT Memory difficulties LIPID PANEL WITH REFLEX TO DIRECT LDL Routine 03/21/2020 8:24 AM EDT Type 2 diabetes mellitus with complication, without long-term current use of insulin (HCC) BASIC METABOLIC PANEL WITH (GFR) Routine 03/21/2020 8:24 AM EDT Type 2 diabetes mellitus with complication, without long-term current use of insulin (HCC) PARATHYROID HORMONE (PTH), INTACT WITH CALCIUM, SERUM Routine 03/21/2020 8:24 AM EDT Screening for endocrine disorder ALBUMIN (MICROALBUMIN), RANDOM URINE, WITH CREATININE Routine 03/21/2020 8:24 AM EDT Type 2 diabetes mellitus with complication, without long-term current use of insulin (HCC) HEMOGLOBIN A1C Routine 03/21/2020 8:24 AM EDT Type 2 diabetes mellitus with complication, without long-term current use of insulin (HCC) VENIPUNCTURE Routine 03/21/2020 8:24 AM EDT Hypothyroidism, unspecified type CT ABDOMEN W/O CONTRAST THEN W/CONTRAST AND MORE SECTIONS 03/14/2020 LIPID PANEL WITH REFLEX TO DIRECT LDL Routine 09/01/2019 SCREENING MAMMOGRAPHY BILATERAL, 2 VIEWS EACH BREAST, INCLUDING CAD 07/06/2019 COLONOSCOPY Routine 07/06/2019 HEMOGLOBIN A1C Routine 05/04/2019 EKG-USE ONLY IN [facility]CC MED/CARDIO STAT (All results called to provider) 04/25/2019 5:36 PM EDT Shortness of breath XRAY CHEST, 2 VIEWS, PA & LATERAL (DX: COUGH R05.9/ 786.2) FC STAT (All results called to provider) 04/25/2019 5:19 PM EDT DXA BONE DENSITY STUDY AXIAL (LSSPINE, HIP) (DX: OSTEOPENIA) Routine 12/25/2018 9:03 AM EDT Osteopenia of right hip BASIC METABOLIC PANEL WITH (GFR) Routine 12/25/2018 8:56 AM EDT Kidney disease XRAY SPINE, CERVICAL; 3 VIEWS OR LESS Routine 12/11/2018 9:23 AM EDT Neck pain, chronic BASIC METABOLIC PANEL WITH (GFR) Routine 12/11/2018 9:02 AM EDT Abnormal kidney function URINALYSIS, DIPSTICK ONLY STAT (All results called to provider) 11/25/2018 12:19 PM EST Abnormal urine odor CULTURE, URINE, ROUTINE Routine 11/25/19 19 12:19 PM EST Abnormal urine odor URINALYSIS, MICROSCOPIC Routine 11/25/19 19 12:19 PM EST Abnormal urine odor ALBUMIN (MICROALBUMIN), RANDOM URINE, WITH CREATININE Routine 11/25/2018 12:19 PM EST Type 2 diabetes mellitus with complication, without long-term current use of insulin (HCC) FERRITIN Routine 11/25/2018 12:19 PM EST Nonalcoholic fatty liver disease HEPATIC FUNCTION PANEL (ALT,AST,ALK PH,BILI'S,TP,ALB) Routine 11/25/2018 12:19 PM EST Nonalcoholic fatty liver disease BASIC METABOLIC PANEL WITH (GFR) Routine 11/25/2018 12:19 PM EST Abnormal results of kidney function studies XRAY CHEST, 2 VIEWS, PA & LATERAL (DX: COUGH R05.9/ 786.2) FC Routine 11/18/2018 12:52 PM EST UNSPECIFIED DIAGNOSTIC PROCE 09/13/2018 LIPID PANEL WITH REFLEX TO DIRECT LDL Routine 09/13/2018 SCREENING MAMMOGRAPHY BILATERAL, 2 VIEWS EACH BREAST, INCLUDING CAD 07/17/2018 SCREENING MAMMOGRAPHY BILATERAL, 2 VIEWS EACH BREAST, INCLUDING CAD 07/01/2018 UNSPECIFIED DIAGNOSTIC PROCE 03/01/2018 HEMOGLOBIN A1C Routine 03/01/2018 SCREENING MAMMOGRAPHY BILATERAL, 2 VIEWS EACH BREAST, INCLUDING CAD 06/26/2017 MRI SPINE 05/31/2017 XRAY CHEST 2 VIEWS PA & LAT 02/10/2017 MRI SPINE 12/13/2016 SCREENING MAMMOGRAPHY BILATERAL, 2 VIEWS EACH BREAST, INCLUDING CAD 06/25/2016 MRI SPINE 03/22/2016 MRI SPINE 03/22/2016 SCREENING MAMMOGRAPHY BILATERAL, 2 VIEWS EACH BREAST, INCLUDING CAD 01/02/2016 SCREENING MAMMOGRAPHY BILATERAL, 2 VIEWS EACH BREAST, INCLUDING CAD 07/12/2015 SCREENING MAMMOGRAPHY BILATERAL, 2 VIEWS EACH BREAST, INCLUDING CAD 06/23/2015 EKG 04/28/2015 Results * Due to [place] state law, this organization might not be sharing negative HIV tests. * MRI SHOULDER W/O CONTRAST - RIGHT (2024 10:14 PM EST) Anatomical Region Laterality Modality UPPER EXTREMITY Magnetic Resonan ce Narrative 08/12/2024 5:48 AM EST Patient History: chronic right shoulder rotator cuff dysfunction CONTRAST: MR right shoulder without gadolinium Comparison: None ?? Findings: No acute fractures. No pathologic bone lesions. Moderate acromioclavicular degenerative change. Type 2 acromion. Small amount of subdeltoid bursal fluid. Small joint effusion with synovitis. There is fraying of the undersurface of supraspinatus tendon with a probable interstitial tear distally near the footplate. Infraspinatus tendinopathy with probable partial bursal surface tear distally. Intact teres minor. Mild subscapularis tendinopathy. No tear. Tendinopathy of subscapularis and infraspinatus tendons. Torn long head of biceps tendon. Fluid in the tendon sheath. Short head biceps tendon is intact. Glenoid labrum is intact. IMPRESSION: 1. Torn long head of biceps tendon. 2. Partial tears of the supraspinatus and infraspinatus tendons. 3. Small joint effusion with synovitis. Small amount of subdeltoid fluid also noted. Procedure Note Riya Angel MD - 08/12/2024 Patient History: chronic right shoulder rotator cuff dysfunction CONTRAST: MR right shoulder without gadolinium Comparison: None Findings: No acute fractures. No pathologic bone lesions. Moderate acromioclavicular degenerative change. Type 2 acromion. Small amount of subdeltoid bursal fluid. Small joint effusion with synovitis. There is fraying of the undersurface of supraspinatus tendon with aprobable interstitial tear distally near the footplate. Infraspinatus tendinopathy with probable partial bursal surface teardistally. Intact teres minor. Mild subscapularis tendinopathy. No tear. Tendinopathy of subscapularis and infraspinatus tendons. Torn long head of biceps tendon. Fluid in the tendon sheath. Short head biceps tendon is intact. Glenoid labrum is intact. IMPRESSION: 1. Torn long head of biceps tendon. 2. Partial tears of the supraspinatus and infraspinatus tendons. 3. Small joint effusion with synovitis. Small amount of subdeltoid fluidalso noted. Electronically signed by: Riya Angel MD on 405:48:22 Jamin VUONG IMG MR NO CONTRAST ORDERABL ES Final Result * CARDIOVASCULAR TEST/PROCEDURE, UNSPECIFIED (08/05/2024) Only the most recent of5 resultswithin the time period is included. Narrative 08/05/2024 Ordered by an unspecified provider. Procedure Note Skyler Ren MD - 08/09/2024 9:11 AM EST Vascular Laboratory Report: Carotid [facility] History: Note: OP Indications: Stenosis Cerebrovascular Duplex Scan Report Right PSV EDV Spec Broa PlaqueStenosis CCA 72 16 CCA2 56 16 ICA 63 20 mild wall<50% ICA2 94 33 ECA 79 13 normal IC/CC Vert 49 18 Sub Left PSV EDV Spec Broa PlaqueStenosis CCA 67 16 CCA2 66 21 ICA 75 21 mild wall<50% ICA2 89 29 ECA 91 17 normal IC/CC Vert 50 19 Sub Plaque Morphology (Right): Plaque Morphology (Left): Surgery History: Impression: Common, internal, external carotid and vertebral arterieswere studied bilaterally. Doppler shows mild spectral broadening andvelocities compatible with a less than 50% stenosis in the internal carotidarteries bilaterally. The vertebral arteries are antegrade bilaterally. Final Comments: us Unknown Provider [facility] CARDIOVASCULAR-NO INBASKET RTG Final Result * RHEUMATOID FACTOR, SERUM (07/19/2024 11:33 AM EDT) Rheumatoid Factor (Quant) <10 <14 IU/mL [facility] 07/19/2024 11:3 3 AM EDT 07/19/2024 1:32 PM EDT Narrative Resulting Agency Comment [id number] Jr Dandre Vasquez DO LABORATORY Final Result [facility] [address] [place] [address] * CYCLIC CITRULLINATEDPEPTIDE CCP AB IGG (07/19/2024 11:33 AM EDT) CCP Ab, IgG <16 UNITS [facility] Comment: Reference Range Negative: ?<20 Weak Positive: ? 20-39 Moderate Positive: ?? 40-59 Strong Positive: ? >59 07/19/2024 11:3 3 AM EDT 07/19/2024 1:32 PM EDT Narrative Resulting Agency Comment [id number] Jr Dandre Vasquez DO LABORATORY Final Result Performing Organization Address [facility] Co de Phone Number [facility] [address] [place] [address] * CREATINE KINASE (CK), SERUM (07/19/2024 11:33 AM EDT) Only the most recent of2 resultswithin the time period is included. CPK 53 29 - 143 U/L [facility] 07/19/2024 11:3 3 AM EDT 07/19/2024 1:32 PM EDT Narrative Resulting Agency Comment [id number] Jr Dandre Vasquez DO LAB SAME DAY RESULT Final Resu lt Performing Organization Address [facility] Co de Phone Number [facility] [address] [place] [address] * ALDOLASE (07/19/2024 11:33 AM EDT) Aldolase 3.8 <=8.1 U/L [facility] 07/19/2024 11:3 3 AM EDT 07/19/2024 1:32 PM EDT Narrative Resulting Agency Comment [id number] Jr Dandre Carooso LABORATORY Final Result Performing Organization Address [facility] de Phone Number [facility] [address] [place] [address] * XRAY SHOULDER COMPLETE MIN 2 VWS- RIGHT (DX: SHOULDER PAIN *NO INJURY*) (07/14/2024 10:39 AM EDT) Anatomical Region Laterality Modality UPPER EXTREMITY Computed Radiogr aphy Narrative 07/16/2024 12:47 PM EDT Patient History: Shoulder Pain *No Injury* CONTRAST: 3 view right shoulder Comparison: CR/MT - XRAY SHOULDER COMPLETE MIN 2 VWS - RIGHT FC - 07/03/2022 09:36 AM EDT Findings: No fractures or dislocations. Moderate hypertrophic changes of the acromioclavicular joint. Moderate degenerative changes of the glenohumeral joint. No erosive or destructive osseous lesions. No erosions. No radiopaque foreign body. IMPRESSION: 1. No acute findings. Moderate degenerative changes of the shoulder. Procedure Note Ulisses Woodward MD - 07/16/2024 Patient History: Shoulder Pain *No Injury* CONTRAST: 3 view right shoulder Comparison: CR/MT - XRAY SHOULDER COMPLETE MIN 2 VWS - RIGHT FC -07/03/2022 09:36 AM EDT Findings: No fractures or dislocations. Moderate hypertrophic changes of the acromioclavicular joint. Moderatedegenerative changes of the glenohumeral joint. No erosive or destructiveosseous lesions. No erosions. No radiopaque foreign body. IMPRESSION: 1. No acute findings. Moderate degenerative changes of the shoulder. Jamin VUONG IMG XRAY NO CONTRAST ORDERA BLES Final Result * CT FFRCT HEARTFLOW (07/03/2024 11:13 AM EDT) 07/03/2024 11:1 3 AM EDT Narrative [facility] - 07/03/2024 11:13 AM EDT EXAM: ??FFRCT ANALYSIS FFRct analysis was performed on the original cardiac CT angiogram dataset. Diagrammatic representation of the FFRct analysis is provided in a separate PDF document ??in PACS. This dictation was created using the PDF document and an interactive 3D model of the analysis. 3D model is not available in the EMR/PACS. DETAILED FINDINGS: 1. ??Left Main - [normal FFRct extending to the distal segment with a value of ], [0.99 2. ??LAD - [normal FFRct extending to the distal segment with a value of ], [0.86 3. ??LCX - [normal FFRct extending to the distal segment with a value of ], [0.93 4. ??RCA - [normal FFRct extending to the distal segment with a value of ], [0.92 IMPRESSION: Normal FFRct analysis with no evidence for a hemodynamically significant lesion among the coronary artery stenosis If this radiology report contains a blank impression section, it is an incomplete radiology report. ??Please contact the interpreting radiologist or applicable radiology division as soon as possible to obtain the completed interpretation. ? Workstation ID: [id number] 5' 2 178 Procedure Note [facility], Unknown Provider - 07/04/2024 EXAM: FFRCT ANALYSIS FFRct analysis was performed on the original cardiac CT angiogram dataset.Diagrammatic representation of the FFRct analysis is provided in aseparate PDF document in PACS. This dictation was created using the PDFdocument and an interactive 3D model of the analysis. 3D model is not available in the EMR/PACS. DETAILED FINDINGS: 1. Left Main - [normal FFRct extending to the distal segment with a valueof ], [0.99 2. LAD - [normal FFRct extending to the distal segment with a value of ],[0.86 3. LCX - [normal FFRct extending to the distal segment with a value of ],[0.93 4. RCA - [normal FFRct extending to the distal segment with a value of ],[0.92 IMPRESSION: Normal FFRct analysis with no evidence for a hemodynamically significantlesion among the coronary artery stenosis If this radiology report contains a blank impression section, it is anincomplete radiology report. Please contact the interpreting radiologistor applicable radiology division as soon as possible to obtain thecompleted interpretation. Workstation ID: [id number] 5' 2 178 us Lolita Ott MD CARDIOVASCULAR IMAGING-[facility] Result [facility] [address] [place] [id number] * CT LIMITED FOLLOW UP WO CONTRAST (07/02/2024 4:04 PM EDT) Anatomical Region Laterality Modality Other 07/02/2024 4:04 PM EDT Narrative 07/02/2024 4:[address] LIMITED FOLLOW UP WO CONTRAST Indication: R06.02 - I10 - Shortness of breath. Technique: Prior to and during the administration of intravenous contrast material, ECG-gated CT of the heart was performed from the cardiac base to the apex without complication. ??A timing bolus was used. ??Please refer to the concurrent dictation for further details. Multiplanar and 3D reformatted images were rendered and reviewed on an advanced processing workstation to further define anatomy and possible pathology. ??Calcium scoring was performed. For radiation dose control at least one of the following techniques was used in this procedure (1) Automated exposure control (2) Adjustment of the mA and/or kV according to patient size (3) Use of iterative reconstruction technique. Comparison: 2 view chest x-ray 05/26/2019, CT chest without contrast 09/19/2009 Findings: Please refer to the high school social science teacher's dictation for further details on the coronary calcium score, CTA, and cardiac findings. EXTRA-CARDIAC FINDINGS: ?? Limited visualization of the thorax secondary to limited z-axis collimation. Included portion of the mediastinum and large vessels: ? Aorta Normal aortic diameter. Pulmonary arteries Unremarkable shape and diameter. Esophagus Nondilated. Other mediastinal findings No other abnormal mediastinal findings are present. INCLUDED LYMPH NODES: Mediastinal No enlarged lymph nodes. Hilar Normal sized lymph nodes, no enlarged lymph nodes. Others None. INCLUDED LUNG PARENCHYMA: Scattered bilateral peribronchiolar areas of focal groundglass and slight reticulation with some possible associated airway dilation. A few of these opacities are also in the peripheral aspects of the anterior lungs, with the most focal area near the lingula, as well as in the lower lobes. Included airways: Diffuse bronchiectasis with some areas of more focal airway dilation. Included pleura: No pleural effusion, thickening, or pneumothorax. Upper abdomen: No abnormality in the visualized upper abdominal structures, within the limitations of examination technique. Included portion of the chest wall and bones: Unremarkable chest wall. ??Moderate multilevel disc degeneration, otherwise normal thoracic vertebral body heights. IMPRESSION: Impression: * ??Diffuse bronchiectasis with multifocal peribronchiolar and peripheral groundglass opacities and slight reticulation. These opacities have features of organizing pneumonia. Please correlate with any more recent imaging and the prior workup with pulmonary medicine. Recommend at least short-term follow-up CT chest without contrast. * ??No other clinically significant extracardiac abnormality. If this radiology report contains a blank impression section, it is an incomplete radiology report. ??Please contact the interpreting radiologist or applicable radiology division as soon as possible to obtain the completed interpretation. ? Workstation ID: [id number] 5' 2 178 Procedure Note [facility], Unknown Provider - 07/02/2024 CT LIMITED FOLLOW UP WO CONTRAST Indication: R06.02 - I10 - Shortness of breath. Technique: Prior to and during the administration of intravenous contrastmaterial, ECG-gated CT of the heart was performed from the cardiac base tothe apex without complication. A timing bolus was used. Please refer tothe concurrent dictation for further details. Multiplanar and 3D reformatted images were rendered and reviewed on anadvanced processing workstation to further define anatomy and possiblepathology. Calcium scoring was performed. For radiation dose control at least one of the following techniques wasused in this procedure (1) Automated exposure control (2) Adjustment ofthe mA and/or kV according to patient size (3) Use of iterativereconstruction technique. Comparison: 2 view chest x-ray 05/26/2019, CT chest without guedyvwq09/22/2009 Findings: Please refer to the high school social science teacher's dictation for further details on thecoronary calcium score, CTA, and cardiac findings. EXTRA-CARDIAC FINDINGS: Limited visualization of the thorax secondary to limited z-axiscollimation. Included portion of the mediastinum and large vessels: Aorta Normal aortic diameter. Pulmonary arteries Unremarkable shape and diameter. Esophagus Nondilated. Other mediastinal findings No other abnormal mediastinal findings are present. INCLUDED LYMPH NODES: Mediastinal No enlarged lymph nodes. Hilar Normal sized lymph nodes, no enlarged lymph nodes. Others None. INCLUDED LUNG PARENCHYMA: Scattered bilateral peribronchiolar areas of focal groundglass and slightreticulation with some possible associated airway dilation. A few of theseopacities are also in the peripheral aspects of the anterior lungs, withthe most focal area near the lingula, as well as in the lower lobes. Included airways: Diffuse bronchiectasis with some areas of more focal airway dilation. Included pleura: No pleural effusion, thickening, or pneumothorax. Upper abdomen: No abnormality in the visualized upper abdominal structures, within thelimitations of examination technique. Included portion of the chest wall and bones: Unremarkable chest wall. Moderate multilevel disc degeneration, otherwisenormal thoracic vertebral body heights. IMPRESSION: Impression: * Diffuse bronchiectasis with multifocal peribronchiolar and peripheralgroundglass opacities and slight reticulation. These opacities havefeatures of organizing pneumonia. Please correlate with any more recentimaging and the prior workup with pulmonary medicine. Recommend at least short-term follow-up CT chestwithout contrast. * No other clinically significant extracardiac abnormality. If this radiology report contains a blank impression section, it is anincomplete radiology report. Please contact the interpreting radiologistor applicable radiology division as soon as possible to obtain thecompleted interpretation. Workstation ID: [id number] 5' 2 178 us Lolita Ott MD IMAGING-[facility] Final Result * CT CARDIAC CORONARY AND CALCIUM SCORING (07/02/2024 3:31 PM EDT) 07/02/2024 3:31 PM EDT Narrative [facility] - 07/02/2024 3:[address] CARDIAC CORONARY AND CALCIUM SCORING INDICATION: Shortness of breath [R06.02 (ICD-10-CM)] COMPARISON: None TECHNIQUE: Prior to and during the administration of intravenous contrast material, ECG-gated CT of the heart was performed from the cardiac base to the apex without complication using prospective gating. ??A timing bolus was used. ??The patient received the following medications prior to the coronary CTA acquisition: ??0.8 mg nitroglycerine SL Multiplanar and 3D reformatted images were rendered and reviewed on an advanced processing workstation to further define anatomy and possible pathology. ??Calcium scoring was performed. For radiation dose control at least one of the following techniques was used in this procedure (1) Automated exposure control (2) Adjustment of the mA and/or kV according to patient size (3) Use of iterative reconstruction technique. TECHNICAL QUALITY: excellent FINDINGS: Calcium Score: LMA=21.0 GUX=137.5 LCX=61.4 QQR=114.5 AWGFJ=839.[address] Coronary Calcium Score (Agatston Score): Utilizing data from the Multi-Ethnic Study of Atherosclerosis (https://www.walker-nhlbi.org/Calcium/input.aspx), based upon the patient's age, gender, and race/ethnicity: Percentage of people of the same gender, age and ethnicity/race with a calcium score greater than zero: 62 Percentage of people of the same gender, age and ethnicity/race with calcium scores less than the patient's: 96 Coronary CTA: The coronary arteries arise in normal position. There is right dominance. Left main: The left main coronary artery is patent. ??There is no ramus branch. LAD: The left anterior descending artery is patent. ??There is a mixed plaque after the first diagonal branch with at least moderate stenosis. It gives off 1 significant (>1.8 mm) diagonal branches. LCX: The left circumflex artery is patent. It gives off 1 significant (>1.8 mm) obtuse marginal branches. ??There is moderate stenosis in the circumflex due to calcified plaque. RCA: The right coronary artery is patent. ??There is a calcified plaque in the midportion with possible moderate stenosis. Other Cardiac Findings: Cardiac size Heart size is normal. Valves Mild aortic valve calcifications. Pericardium No abnormality. Extra-cardiac findings: ?? Please see separately reported limited CT of the chest for extra-cardiac findings. FFRct: FFRct coronary analysis will be ordered to define the extent of lesion-specific ischemia in the LAD . IMPRESSION: 1. CT coronary calcium score is ??906.4. 2. Moderate coronary atherosclerotic plaque identified with a maximal stenosis of 40-69% in the involved coronary arteries. 3. The study will be sent for FFRct analysis which will be reported separately. ?? I, Blu Meléndez, have reviewed the examination and concur with the findings as reported or so edited. Trainee: ??Sam Rider If this radiology report contains a blank impression section, it is an incomplete radiology report. ??Please contact the interpreting radiologist or applicable radiology division as soon as possible to obtain the completed interpretation. ? Workstation ID: [id number] 5' 2 178 Procedure Note [facility], Unknown Provider - 07/02/2024 CT CARDIAC CORONARY AND CALCIUM SCORING INDICATION: Shortness of breath [R06.02 (ICD-10-CM)] COMPARISON: None TECHNIQUE: Prior to and during the administration of intravenous contrastmaterial, ECG-gated CT of the heart was performed from the cardiac base tothe apex without complication using prospective gating. A timing boluswas used. The patient received the following medications prior to the coronary CTA acquisition: 0.8 mgnitroglycerine SL Multiplanar and 3D reformatted images were rendered and reviewed on anadvanced processing workstation to further define anatomy and possiblepathology. Calcium scoring was performed. For radiation dose control at least one of the following techniques wasused in this procedure (1) Automated exposure control (2) Adjustment ofthe mA and/or kV according to patient size (3) Use of iterativereconstruction technique. TECHNICAL QUALITY: excellent FINDINGS: Calcium Score: LMA=21.0 DKN=527.5 LCX=61.4 PTE=973.5 OVJOY=491.[address] Coronary Calcium Score (Agatston Score): Utilizing data from the Multi-Ethnic Study of Atherosclerosis(https://www.walker-nhlbi.org/Calcium/input.aspx), based upon the patient'sarahy, gender, and race/ethnicity: Percentage of people of the same gender, age and ethnicity/race with acalcium score greater than zero: 62 Percentage of people of the same gender, age and ethnicity/race withcalcium scores less than the patient's: 96 Coronary CTA: The coronary arteries arise in normal position. There is rightdominance. Left main: The left main coronary artery is patent. There is no ramusbranch. LAD: The left anterior descending artery is patent. There is a mixedplaque after the first diagonal branch with at least moderate stenosis. Itgives off 1 significant (>1.8 mm) diagonal branches. LCX: The left circumflex artery is patent. It gives off 1 significant(>1.8 mm) obtuse marginal branches. There is moderate stenosis in thecircumflex due to calcified plaque. RCA: The right coronary artery is patent. There is a calcified plaque inthe midportion with possible moderate stenosis. Other Cardiac Findings: Cardiac size Heart size is normal. Valves Mild aortic valve calcifications. Pericardium No abnormality. Extra-cardiac findings: Please see separately reported limited CT of the chest for extra- cardiacfindings. FFRct: FFRct coronary analysis will be ordered to define the extent oflesion- specific ischemia in the LAD . IMPRESSION: 1. CT coronary calcium score is 906.4. 2. Moderate coronary atherosclerotic plaque identified with a maximalstenosis of 40-69% in the involved coronary arteries. 3. The study will be sent for FFRct analysis which will be reportedseparately. I, Blu Meléndez, have reviewed the examination and concur with thefindings as reported or so edited. Trainee: Sma Rider If this radiology report contains a blank impression section, it is anincomplete radiology report. Please contact the interpreting radiologistor applicable radiology division as soon as possible to obtain thecompleted interpretation. Workstation ID: [id number] 5' 2 178 us Lolita Ott MD CARDIOVASCULAR IMAGING-[facility] Result [facility] [address] [place] [id number] * EXTERNAL ECG RECORDING > 48 HRS < 7 DAYS BY CONTINUOUS RHYTHM RECORDING/STORAGE; REVIEW AND INTERP (06/03/2024) Impressions Lolita Ott MD - 06/03/2024 Final impression: The monitoring was for 6 days and 18 hours starting on 05/20/2024. The predominant underlying rhythm was sinus rhythm with an average heart rate of 72 bpm, minimum heart rate of 85 bpm and a maximum heart rate of 130 bpm. There were 7 short episodes of PAT, the run with the fastest interval lasted 14.8 seconds with a maximum heart rate of 162 bpm and average heart rate of 134 bpm. ??This was also the longest. ??No symptoms were reported. ??The overall the fastest episode lasted for 14.8 seconds. ??It occurred on 05/22/2024 at 5:58 AM. There was no ventricular tachycardia or high-grade dysrhythmias seen. There is no pauses 3 seconds or longer or high-grade AV block seen. There is no atrial fibrillation seen. There were 7 total triggered events and 14 diary events which correlated with sinus rhythm with heart rate ranging from 62-106 bpm Symptoms included pounding shortness of breath and numbness, chest pain and pressure, lightheadedness, arm or neck pain tingling dizziness which all correlated with normal sinus rhythm. ??No significant dysrhythmias noted during the symptoms. Interpreted and electronically signed by: Dr. Lolita Black 06/04/2024 This note was produced using a voice recognition system. ??I have reviewed the notes but ??there may ??misrecognized words as well as grammatical errors that I did not see. Narrative Lolita Ott MD - 06/03/2024 Enrollment Period 05/20/24, 01:19pm to 05/27/24, 07:12am 6 days 18 hours Analysis Time 6 days 17 hours (after artifact removed) Overall Max 162 bpm 05:58am, 05/22 Min 55 bpm 04:47am, 05/22 Avg 72 bpm Sinus Max 130 bpm 08:36am, 05/25 Min 55 bpm 04:47am, 05/22 Avg 72 bpm Heart Rate Total Triggers: 7 Total Diaries: 14 Findings within ?? 45 sec of triggered events or diary entries: Range Trigger Diary Sinus 62-106 bpm Patient Events Patient had a min HR of 55 bpm, max HR of 162 bpm, and avg HR of 72 bpm. Predominant underlying rhythm was Sinus Rhythm. 7 Supraventricular Tachycardia runs occurred, the run with the fastest interval lasting 14.8 secs with a max rate of 162 bpm (avg 134 bpm); the run with the fastest interval was also the longest. Isolated SVEs were rare (<1.0%), SVE Couplets were rare (<1.0%), and SVE Triplets were rare (<1.0%). Isolated VEs were rare (<1.0%), and no VE Couplets or VE Triplets were present Lolita Ott MD CARDIOVASCULAR-WITH INBSKT RTG F inal Result * (ABNORMAL) ECHOCARDIOGRAPHY, TRANSTHORACIC (TTE) WITH 2D IMAGE W/WO M-MODE RECORDING, COMPLETE, WITH DOPPLER FOR CARDIOLOGY DEPT USE ONLY (06/02/2024) Only the most recent of4 resultswithin the time period is included. LV DIASTOLIC DIMENSION 3.9 3.8 - 5.2 cm LV SYSTOLIC DIMENSION 2.7 2.1 - 3.5 cm LV SEPTUM DIMENSION 1.2(A) 0.6 - 0.9 cm LV POSTERIOR WALL DIMENSION 1.2(A) 0.6 - 0.9 cm LV EJECTION FRACTION 56 54 - 74 % LA DIMENSION 3.6 2.7 - 3.8 cm LA VOLUME INDEX 25 16 - 34 ml/m2 RA VOLUME INDEX 25 15 - 27 ml/m2 RV BASAL DIMENSION RV TAPSE 2.0 RV s' 9.9 AORTIC ROOT DIAMETER 3.1 2.7 - 3.3 cm AORTIC ROOT INDEX ASCENDING AORTA DIAMETER 3.27 2.3 - 3.1 cm ASCENDING AORTA INDEX 1.77 1.3 - 1.9 cm/m2 LVOT DIAMETER 2.21 cm AV MAXIMUM VELOCITY 2.7 m/sec LVOT VELOCITY 0.95 m/sec V1/V2 RATIO 0.31 AV MAXIMUM GRADIENT 29 mmHg AV MEAN GRADIENT 17.7 mmHg AORTIC VALVE AREA 1.2 cm2 ECHO Stroke Volume ECHO Stroke Volume Index MV DIASTOLIC MEAN GRADIENT MV PRESSURE HALF-TIME MITRAL VALVE AREA TV REGURGITANT VELOCITY 1.8 <=2.8 m/sec PA PRESSURE 16 <=35 mmHg MITRAL E VELOCITY MITRAL DECELERATION TIME MITRAL E/A VELOCITY RATIO 0.8 SEPTAL E VELOCITY 5.9 cm/s SEPTAL E/E' VELOCITY RATIO 10 Impressions Lolita Ott MD - 06/02/2024 Impression INTERPRETATION/IMPRESSION A complete two-dimensional transthoracic echocardiogram was performed (2D, M- mode, Doppler and color flow Doppler). See Echo narrative results for full report. Technical difficult study Compared to prior echocardiogram report from 03/2023 there is no significant change. ??Minor progression of aortic valve disease but gradients were not much different Normal left ventricular systolic function. ?? Mild LVH Mild to moderate aortic valve stenosis with ??mild aortic insufficiency. Normal RV function. Mildly dilated ascending aorta, normal indexed to BSA Interpreted and electronically signed by: Dr. Lolita Black 06/06/2024 Narrative Lolita Ott MD - 06/02/2024 LEFT VENTRICLE: The left ventricle is normal in size. There is mild LVH left ventricular systolic function is normal. The LV ejection fraction is estimated to be 55 %. Diastolic function appears normal for age The left ventricular wall motion is normal. RIGHT VENTRICLE: The right ventricle is normal in size and function. TAPSE of 2.0 cm (normal > 1.7 cm) and S' of 9.9 cm/s (normal >9.5 cm/s) indicates normal RV systolic function. ATRIA: The left atrial size is grossly normal The right atrial size is grossly normal The interatrial septum is not well seen Limited Doppler examination did not reveal any significant shunt MITRAL VALVE: The mitral valve leaflets are mildly thickened. There is no mitral valve stenosis. There is trace mitral regurgitation. TRICUSPID VALVE: The tricuspid valve is normal in structure, leaflets appear thin and pliable.. There is no tricuspid valve stenosis. There is trace tricuspid regurgitation. Scribe l. ??Pulmonary artery systolic pressure could not be estimated because of incomplete tricuspid regurgitation Doppler jet envelope pressure AORTIC VALVE: The aortic valve is not well seen. The aortic cusps demonstrate nonspecific thickening.. Mild to moderate valvular aortic stenosis. ??The mean gradient is 17.7 mmHg and a calculated aortic valve area is 1.2 cm??. mild aortic valve regurgitation is present. PULMONIC VALVE: The pulmonic valve is not well seen-Doppler examination is limited There is no pulmonic valvular stenosis. There is no pulmonic valvular regurgitation. GREAT VESSELS: The aortic root is normal size. Ascending aorta is normal indexed to BSA - ??3.28 cm, 1.77 cm/m2 Inferior Vena Cava is normal suggesting a normal right atrial pressure. PERICARDIUM/PLEURAL: There is no pericardial effusion. ??Pericardial fat pad noted us Lolita Ott MD CARDIO-VASCULAR - OTHER Final Re sult * CBC INCLUDES DIFFERENTIAL AND PLATELET COUNT (05/21/2024 7:34 AM EDT) Only the most recent of8 resultswithin the time period is included. WBC 5.3 3.8 - 10.8 Thousand/u L [...] 12:11 PM EDT Narrative Resulting Agency Comment [id number] us Lolita Ott MD LAB SAME DAY RESULT Final Result Performing Organization Address [facility] de Phone Number [facility] [address] [place] [address] * B-TYPE NATRIURETIC PEPTIDE (BNP) (G) (05/21/2024 7:34 AM EDT) Only the most recent of5 resultswithin the time period is included. Natriuretic peptide.B 12 <100 pg/mL [facility] Comment: BNP levels increase with age in the general population with the highest values seen in individuals greater than 75 years of age. Reference: J. Am. Claudia. Cardiol. 2002; 40:976-982. 05/21/2024 7:34 AM EDT 05/21/2024 12:11 PM EDT Narrative Resulting Agency Comment [id number] us Lolita Ott MD LAB SAME DAY RESULT Final Result Performing Organization Address [facility] de Phone Number [facility] [address] [place] [address] * PROBNP, N TERMINAL (05/21/2024 7:34 AM EDT) Only the most recent of3 resultswithin the time period is included. Natriuretic peptide.B prohormone 79 <125 pg/mL [facility] 05/21/2024 7:34 AM EDT 05/21/2024 12:11 PM EDT Narrative Resulting Agency Comment [id number] us Lolita Ott MD LABORATORY Final Result Performing Organization Address [facility] Co de Phone Number [facility] [address] [place] [address] * HEPATIC FUNCTION PANEL (ALT,AST,ALK PH,BILI'S,TP,ALB) (05/21/2024 7:34 AM EDT) Only the most recent of5 resultswithin the time period is included. Protein Total (Serum) 6.2 6.1 - 8.1 [...] 10:15 PM EDT Narrative Resulting Agency Comment [id number] Cortney Grant [facility] Final Resu lt Performing Organization Address [facility] de Phone Number [facility] [address] [place] [address] * (ABNORMAL) BASIC METABOLIC PANEL WITH (GFR) (05/21/2024 7:34 AM EDT) Only the most recent of20 resultswithin the time period is included. Glucose 138(H) 65 - 99 mg/dL [facility] [...] needs for GFR calculation. Resulting Agency Comment [id number] Lolita Ott MD LABORATORY Final Result [facility] [address] [place] [address] * NEUTROPHIL CYTOPLASMIC ANTIBODY SCREEN WITH MPO [...] 1.0 ?? Antibody Detected Autoantibodies to proteinase-3 (MT-3) are accepted as characteristic for granulomatosis with polyangiitis (GPA, Amy's), and are detectable in 95% of the histologically proven cases. The cytoplasmic IFA pattern, (c-ANCA), is based largely on autoantibody to MT-3 which serves as the primary antigen. These autoantibodies are present in active disease. 04/09/2024 10:5 9 AM EDT 04/09/2024 11:51 PM EDT Narrative Resulting Agency Comment [id number] Ulisses Mackenzie MD LABORATORY Final Result [facility] [address] [place] [address] * EKG - READ BY ORDERING PROVIDER (04/09/2024 10:01 AM EDT) Only the most recent of8 resultswithin the time period is included. VENTRICULAR RATE 65 BPM MUS E EKG SYSTEM ATRIAL RATE 65 BPM MUSE EKG SYSTEM P-R INTERVAL 164 ms MUSE EK G SYSTEM QRS DURATION 84 ms MUSE EK G SYSTEM QT 404 ms MUSE EKG SYSTEM QTC 420 ms MUSE EKG SYSTEM P AXIS 52 degrees MUSE EKG SYSTEM R AXIS -18 degrees MUSE EKG SYSTEM T AXIS 8 degrees MUSE EKG SYSTEM EKG INTERPRETATION Normal sinus rhythm Normal ECG Confirmed by LOLITA OTT ([id number]), film editor STEPHANIE FOY ([id number]) on 04/12/2024 7:41:47 AM MUSE EKG SYSTEM 04/09/2024 10:0 1 AM EDT 04/12/2024 7:41 AM EDT Lolita Ott MD CARDIOVASCULAR-WITH INBSKT RTG F inal Result Performing Organization Address [facility]/ZIP Co de Phone Number MUSE EKG SYSTEM * (ABNORMAL) CELL COUNT BODY FLUID (03/25/2024 9:50 AM EDT) Fluid (Body fld) BAL-R upper L [facility] Appearance (Body fld) Clear Clear [facility] Color (Body fld) Colorless Colorless [facility] Erythrocytes (Body fld) <2000 [facility] Leukocytes other/100 leukocytes (Body fld) 149(H) 0 - 10 cells/mm3 [facility] Comment: May include White blood Cells, Mesothelial Cells, Histiocytes, Macrophages or Tumor Cells, if present. Please refer to Body Fluid differential for cell identification. 03/25/2024 9:50 AM EDT 03/25/2024 9:50 AM EDT Narrative [facility] - 03/25/2024 10:46 AM EDT PLEASE PERFORM DIFFERENTIAL NO MATTER HOW LOW CELL COUNT IS. DO NOT AUTOMATICALLY D/C DIFFERENTIAL. THANK YOU us Ulisses Mackenzie MD LABORATORY Final Result Performing Organization Address [facility]/ZIP Co de Phone Number [facility] [address] [place] [address] * (ABNORMAL) MANUAL DIFFERENTIAL BODY FLUID (03/25/2024 9:50 AM EDT) Cells counted.total (Body fld) 100 [facility] Neutrophils, % (Body Fluid) 2(H) 0 - 1 % [facility] Lymphocytes % (Body Fluid) 12(H) 0 - 1 % [facility] Monocytes+Macrop hages (Body fld) 84 % [facility] Eosinophils, % (Body Fluid) 0 0 - 1 % [facility] Other cells (Body fld) 2 % [facility] Comment: Bronchial lining cells. 03/25/2024 11:50:09 EDT 03/25/2024 9:50 AM EDT 03/25/2024 9:50 AM EDT us Ulisses Mackenzie MD LABORATORY Final Result [facility] [address] [place] [address] * [facility] NON-MOLASSES COLORING OPERATOR CYTOLOGY REPORT (03/25/2024 9:05 AM EDT) NON-MOLASSES COLORING OPERATOR CYTOLOGY REPORT Patient Name: ?ANUP ANGELLA : ??1950 ?Sex:Female ?Location: ??[facility] ?Medical ?Director(s): [address] [place] [address]. ?[place] [address]- Ordering Physician: ?ULISSES MACKENZIE MD ?Anatomic Pathology Results Accession: ?[id number] ?Collected ?03/25/2024 09:05 ?date/time: ? EDT Responsible ? CLAUDIA PANDYA, PRUDENCIO ?Received ? 03/25/2024 13:41 Pathologist: ?Date/Time: ? EDT ? NON-MOLASSES COLORING OPERATOR CYTOLOGY REPORT - 03/26/2024 13:55 EDT - Auth (Verified) DIAGNOSIS: LUNG, RIGHT UPPER LOBE, BRONCHOALVEOLAR LAVAGE: NEGATIVE FOR MALIGNANCY. Benign bronchial cells. Numerous alveolar macrophages. Player Development Executive:R B, ??YC ?03.26.2024 Signed on: ? PRUDENCIO TAYLOR MD ? (Electronic signature) ? 03.26.2024 13:55 EDT SPECIMEN(S) RECEIVED: right upper lobe BAL CLINICAL HISTORY: Clinical History/Pre-op Diagnosis: chronic cough, pulm micronodules Procedure: BAL GROSS DESCRIPTION: Received: ??42 mL clear colorless fluid in CytoLyt Cell Block: ??1 ThinPrep: ??1 Special Stains: [facility] 03/25/2024 9:05 AM EDT us Ulisses Mackenzie MD LABORATORY Final Result [facility] [address] [place] [address] * AFB CULTURE (03/25/2024 9:04 AM EDT) AFB CULTURE Patient Name: ? ANGELLA HEBERT : ??1950 ?Sex:Female ?Location: [facility] ? Medical ? Director(s): [address] [place] [address] ? [place] [address]- Ordering Physician: ?ULISSES MACKENZIE MD ? Microbiology Procedure: ?Acid Fast Bacilli ?? Accession: ? [id number] ?Culture [*1] Source: ? Bronchial Alveolar ??Body Site: ? Bronchial ?Lavage Collected ? 03/25/2024 09:04 ? Received ? 03/25/2024 10:11 Date/Time: ?EDT ? Date/Time: ? EDT Start Date/Time: ?03/25/2024 10:11 ? Free Text Source: ??rul ?EDT FINAL REPORTS Final Report ??[] Verified Date/Time: 05/25/2024 11:22 EDT Culture negative after 60 days incubation Drug susceptiblity testing will not be done on this culture STAINS ARS ??[] Verified Date/Time: 03/31/2024 07:38 EDT Method: Fluorochrome (250x): Acid-fast bacilli not found. __ TEST PERFORMED BY: ??[facility] Mycobacteriology Laboratory [address] [place] [address] AFS ??[] Verified Date/Time: 03/26/2024 10:10 EDT No Acid Fast Bacilli seen on direct smear. Performing Locations *1: ?? This test was performed at: ?[facility], [address] [place] [address], [address], , ?[phone] Legend: A = Abnormal, H = High, L = Low, ! = Critical, f = Footnote, r = Refere = Corrected, I = Interpretation [facility] 03/25/2024 9:04 AM EDT 03/25/2024 10:11 AM EDT us Ulisses Mackenzie MD LABORATORY Final Result [facility] [address] [place] [address] * FUNGAL CULTURE, CUTANEOUS (03/25/2024 9:04 AM EDT) FUNGAL CULTURE Patient Name: ? ANGELLA HEBERT : ??1950 ?Sex:Female ?Location: [facility] ? Medical ? Director(s): [address] [place] [address]. ? [place] [address]- Ordering Physician: ?GURDEEP PANDYA, ULISSES Oden ? Microbiology Procedure: ?Fungal Culture ?Accession: ? [id number] ?[*1] Source: ? Bronchial Alveolar ??Body Site: ? Bronchial ?Lavage Collected ? 03/25/2024 09:04 ? Received ? 03/25/2024 10:11 Date/Time: ?EDT ? Date/Time: ? EDT Start Date/Time: ?03/25/2024 10:11 ? Free Text Source: ??rul ?EDT FINAL REPORTS Final Report ??[] Verified Date/Time: 04/30/2024 13:20 EDT No fungus isolated at 4 weeks. PRELIMINARY REPORTS Preliminary Report ??[] Verified Date/Time: 04/22/2024 10:31 EDT No fungus isolated at 3 weeks. Preliminary Report ??[] Verified Date/Time: 04/15/2024 10:17 EDT No fungus isolated at 2 weeks. Preliminary Report ??[] Verified Date/Time: 04/08/2024 11:46 EDT No fungus isolated at 1 week. Preliminary Report ??[] Verified Date/Time: 03/31/2024 14:05 EDT No Fungus isolated after 2 days incubation Preliminary Report ??[] Verified Date/Time: 03/26/2024 13:35 EDT Culture in progress STAINS BRITTANY Prep ??[] Verified Date/Time: 03/26/2024 13:35 EDT No yeast or fungal elements seen. Performing Locations *1: ?? This test was performed at: ?[facility], [address] [place] [address], [address], [place], ?[phone] Legend: A = Abnormal, H = High, L = Low, ! = Critical, f = Footnote, r = Refere = Corrected, I = Interpretation [facility] 03/25/2024 9:04 AM EDT 03/25/2024 10:11 AM EDT us Ulisses Mackenzie MD LABORATORY Final Result [facility] [address] [place] [address] * RESPIRATORY CULTURE (03/25/2024 9:04 AM EDT) RESPRATORY CULT Patient Name: ? ANGELLA HEBERT : ??1950 ?Sex:Female ?Location: [facility] ? Medical ? Director(s): [address] [place] [address] ? [place] [address]- Ordering Physician: ?ULISSES MACKENZIE MD ? Microbiology Procedure: ?Respiratory ? Accession: ? [id number] ?Culture [*1] Source: ? Bronchial Alveolar ??Body Site: ? Bronchial ?Lavage Collected ? 03/25/2024 09:04 ? Received ? 03/25/2024 10:11 Date/Time: ?EDT ? Date/Time: ? EDT Start Date/Time: ?03/25/2024 10:11 ? Free Text Source: ??rul ?EDT FINAL REPORTS Final Report ??[] Verified Date/Time: 03/28/2024 07:40 EDT Rare growth of Usual respiratory pramod PRELIMINARY REPORTS Preliminary Report ??[] Verified Date/Time: 03/27/2024 11:22 EDT Culture in progress Preliminary Report ??[] Verified Date/Time: 03/26/2024 12:16 EDT Culture in progress STAINS GS ??[] Verified Date/Time: 03/25/2024 14:34 EDT Moderate White Blood Cells Rare epithelial cells No organisms seen. Performing Locations *1: ?? This test was performed at: ?[facility], [address] [place] [address], [address], , ?[phone] Legend: A = Abnormal, H = High, L = Low, ! = Critical, f = Footnote, r = Refere = Corrected, I = Interpretation [facility] 03/25/2024 9:04 AM EDT 03/25/2024 10:11 AM EDT Ulisses Mackenzie MD LABORATORY Final Result [facility] [address] [place] [address] * (ABNORMAL) GLUCOSE POINT OF CARE (03/25/2024 7:05 AM EDT) Only the most recent of2 resultswithin the time period is included. Glucose (Capillary Blood) 175(H) 70 - 105 mg/dL [facility] 03/25/2024 7:05 AM EDT 03/25/2024 7:05 AM EDT Ulisses Mackenzie MD LABORATORY Final Result [facility] [address] [place] [address] * BRONCHOSCOPY (03/25/2024) Narrative Procedure Note Ulisses Mackenzie MD - 03/26/2024 5:41 PM EDT Patient: ANGELLA HEBERT Age: 73 years Sex: Female : 1950 Associated Diagnoses: Laryngeal edema determined by laryngoscopy;Subglottic stenosis Author: ULISSES MACKENZIE MD Date of Service: 03/25/24 Procedure Bronchoscopy procedure: Indication, Bronchoscopy (diagnostic). . Performed by: Ulisses Mackenzie. Preparation: Pre-medications given ( Local anesthesia, (viscous lidocaine, benzocaine, 2% lidocaine) ), Midazolam 8 mg, fentanyl 100mcg. Moderate sedation began with first administration at 0829; please seenursing flowsheet for medications and dosage. Procedure completed at 0857.. During pre-op preparation period all mechanical & medical equipment was checked for proper function. Hand hygiene and appropriate measures for infection prevention was taken. After the risks, benefits and alternativesof the procedure were thoroughly explained, Informed consent was verified, confirmed and timeout was successfully executed by the treatment team. Technique and Findings: The patient received midazolam and fentanyl andwhen adequate sedation was achieved the flexible bronchoscope was introduced through the right nostril. Periarytenoid tissue was noted to moderately edematous with posterior cricoid bar. Local analgesia was applied to thevocal cords and the tracheobronchial tree. All lobes and segments of both lungswere then examined. There was mild smooth subglottic stenosis noted.Otherwise, normal airways were observed throughout. Broncho-alveolar lavage wasperformed or the right upper lobe x 80 cc of sterile saline and sent forchemistry, microbiology and cytology. The instrument was then slowly withdrawn and removed. Images Notes: See [facility] record. Post-Procedure Complications: none. Estimated blood loss: none. Specimens: micro and cytology. Impression and Plan Diagnosis Laryngeal edema determined by laryngoscopy : QRT04-FM J38.4, Discharge, Medical. 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 Counseled: Family. Patient Instructions: Flexible Bronchoscopy, Care After(VENICE),ULISSES MACKENZIE Within As scheduled. Discharge when criteria met. us Ulisses Mackenzie MD PROCEDURES Final Result * PARATHYROID HORMONE (PTH), INTACT WITH CALCIUM, SERUM (03/22/2024 7:57 AM EDT) Only the most recent of2 resultswithin the time period is included. Parathyroid Hormone (PTH), Intact 71 16 - 77 pg/mL [employer] [facility] Comment: Interpretive Guide ?Intact PTH ? Calcium ? ------- Normal Parathyroid ?Normal ? Normal Hypoparathyroidism ?Low or Low Normal ?Low Hyperparathyroidism ?? Primary ?Normal or High ? High ?? Secondary ?High ? Normal or Low ?? Tertiary ? High ? High Non-Parathyroid ?? Hypercalcemia ?Low or Low Normal ?High Calcium 9.1 8.6 - 10.4 mg/dL [facility] 03/22/2024 7:57 AM EDT 03/22/2024 7:14 PM EDT Narrative Resulting Agency Comment [id number] Cortney Grant [facility] Final Resu lt Performing Organization Address [facility] de Phone Number [facility] [address] [place] [address] * (ABNORMAL) HEMOGLOBIN A1C (03/22/2024 7:57 AM EDT) Only the most recent of13 resultswithin the time period is included. Hemoglobin A1C 6.3(H) <5.7 % of total [...] 7:14 PM EDT Narrative Resulting Agency Comment [id number] Cortney Vickie Grant [facility] Final Resu lt Performing Organization Address [facility] de Phone Number [facility] [address] [place] [address] * (ABNORMAL) LIPID PANEL WITH REFLEX TO DIRECT LDL (03/22/2024 7:57 AM EDT) Only the most recent of15 resultswithin the time period is included. Cholesterol 149 <200 mg/dL [facility] HDL [...] factors. LDL-C is now calculated using the Gurdeep-West calculation, which is a validated novel method providing better accuracy than the Friedewald equation in the estimation of LDL-C. Gurdeep SS et al. NANDO. 2013;310(19): 2543-0609 (http://education.[employer] Hero/faq/VYS260) CHOL/HDL Ratio 3.2 <5.0 (calc) [facility] Cholesterol Non-HDL 102 <130 mg/dL (calc) [facility] Comment: For patients with diabetes plus 1 major ASCVD risk factor, treating to a non-HDL-C goal of <100 mg/dL (LDL-C of <70 mg/dL) is considered a therapeutic option. 03/22/2024 7:57 AM EDT 03/22/2024 7:14 PM EDT Narrative Resulting Agency Comment [id number] Cortney Grant NP LABORATORY Final Resu lt [facility] [address] [place] [address] * MAMMOGRAM SCREENING TOMOSYNTHESIS, BILATERAL FC (02/19/2024 9:48 AM EDT) Only the most recent of2 resultswithin the time period is included. Anatomical Region Laterality Modality BREAST Bilateral Mammography Impressions 02/23/2024 1:21 PM EDT : No mammographic evidence of malignancy BI-RADS: 2 - Benign (overall) RECOMMENDATION: ?- Routine Screening Mammogram. A result letter has been sent to the patient. Narrative 02/23/2024 1:21 PM EDT EXAMINATION: SCREENING MAMMOGRAM HISTORY: Screening, mother, maternal aunt and paternal grandmother had breast cancer. ??Bilateral excisional biopsies. TECHNIQUE: Standard Bilateral 2D digital mammography and tomosynthesis were obtained and interpreted with CAD COMPARISON: Comparison is made to prior exams dated back to 2019 BREAST COMPOSITION: The breasts are almost entirely fatty. FINDINGS: There are no suspicious masses, calcifications or areas of unexplained architectural distortion. us Cortney Grant NP IMG MAMMO ORDERABLES Final Result * CT CHEST W/O CONTRAST (DX: F/U ABNL CHEST CT) (3 MTHS FROM LAST) (02/11/2024 10:06 AM EDT) Anatomical Region Laterality Modality CHEST Computed Tomogra phy 02/14/2024 11:2 4 AM EDT Narrative 02/14/2024 11:24 AM EDT Patient History: F/U Abnl Chest CT CONTRAST: CT chest without contrast Comparison: ??CT/SR - CT CHEST W/O CONTRAST FC - 11/05/23 09:[address]/SR - CTA CHEST W/ CONTRAST TO R/O PE (DX: SOB/CP 786.09) SAME DAY-MUS - 09/15/23 15:[address]/KO/OT/SR - CTA CHEST W/ CONTRAST - 04/15/23 07:42 EDT ?? Findings: Moderate coronary arterial calcifications. Heart size normal. The visualized thyroid and mediastinum are unremarkable. A few pulmonary micronodules, mostly in the right upper lobe and no larger than 3 mm ( example image 52 laterally), are unchanged on prior exams. No consolidation, effusion, or pneumothorax. Cholelithiasis. The bones are intact. IMPRESSION: 1. Pulmonary micronodules stable 4 approximately 10 months. Any further follow- up can be based on clinical assessment. 2. Cholelithiasis without acute cholecystitis. Procedure Note Riya Angel MD - 02/14/2024 Patient History: F/U Abnl Chest CT CONTRAST: CT chest without contrast Comparison: CT/SR - CT CHEST W/O CONTRAST - 11/05/23 09:[address]/SR - CTA CHEST W/ CONTRAST TO R/O PE (DX: SOB/CP 786.09) SAME DAY-MUS - 09/15/23 15:[address]/KO/OT/SR - CTA CHEST W/ CONTRAST - 04/15/23 07:42 EDT Findings: Moderate coronary arterial calcifications. Heart size normal. The visualized thyroid and mediastinum are unremarkable. A few pulmonary micronodules, mostly in the right upper lobe and no largerthan 3 mm ( example image 52 laterally), are unchanged on prior exams. No consolidation, effusion, or pneumothorax. Cholelithiasis. The bones are intact. IMPRESSION: 1. Pulmonary micronodules stable 4 approximately 10 months. Any furtherfollow-up can be based on clinical assessment. 2. Cholelithiasis without acute cholecystitis. Electronically signed by: Riya Angel MD on 1:24:35 Ulisses Mackenzie MD IMG CT NO CONTRAST ORDERABLES Fi nal Result * (ABNORMAL) PAIN MANAGEMENT PROFILE WITH FENTANYL, URINE (PAINM2+) (01/27/2024 3:20 PM EDT) Only the most recent of5 resultswithin the time period is included. Fentanyl Screen (Urine) NEGATIVE <0.5 ng/mL [facility] [...] <25 ng/mL [facility] COMMENT SEE NOTE [facility] Comment: See Note 2 Note 1 This test was developed and its analytical performance characteristics have been determined by [facility]. It has not been cleared or approved [...] interpreting these drug results, please contact a [facility] Toxicology Specialist: [phone] ( ), M-F, 8am-6pm EST. 01/27/2024 3:20 PM EDT 01/27/2024 5:32 PM EDT Narrative Resulting Agency Comment [id number] Cortney Grant [facility] Final Resu lt [facility] [address] [place] [address] * XRAY FOOT COMPLETE MIN 3 VWS - RIGHT (DX: FOOT PAIN *NO INJURY*) (01/20/2024 2:17 PM EDT) Anatomical Region Laterality Modality LOWER EXTREMITY Computed Radiogr aphy 01/22/2024 12:5 6 AM EDT Narrative 01/22/2024 12:56 AM EDT Patient History: Foot Pain *No Injury* CONTRAST: 3 ??view right foot Comparison: None ?? Findings: Bones intact. No dislocations. Hallux valgus 25 degrees. Small bunion. Mild 1st metatarsophalangeal degenerative change. Mild tarsometatarsal degenerative changes. Small calcaneal spurs. No erosions. No ankle effusion. No radiopaque foreign body. Small calcifications along the expected plantar fascia. IMPRESSION: Small calcaneal spurs, and small calcifications along the expected plantar fascia. Correlate with prior plantar fasciitis. Procedure Note Riya Angel MD - 01/22/2024 Patient History: Foot Pain *No Injury* CONTRAST: 3 view right foot Comparison: None Findings: Bones intact. No dislocations. Hallux valgus 25 degrees. Small bunion. Mild 1st metatarsophalangeal degenerative change. Mild tarsometatarsal degenerative changes. Small calcaneal spurs. No erosions. No ankle effusion. No radiopaque foreign body. Small calcifications along the expected plantar fascia. IMPRESSION: Small calcaneal spurs, and small calcifications along the expected plantarfascia. Correlate with prior plantar fasciitis. Electronically signed by: Riya Angel MD on 400:56:04 us Nancy Carr DPM IMG XRAY NO CONTRAST ORDERAB LES Final Result * ALBUMIN (MICROALBUMIN), RANDOM URINE, WITH CREATININE (12/05/2023 8:33 AM EST) Only the most recent of7 resultswithin the time period is included. Creatinine (Urine) 144 20 - 275 mg/dL [facility] Albumin (Urine) 0.6 mg/dL [facility] Comment: Reference Range Not established Albumin/Creatinine (Urine) 4 <30 mcg/mg creat [facility] Comment: The ADA defines abnormalities in albumin excretion as follows: Albuminuria Category ?Result (mcg/mg creatinine) Normal to Mildly increased ?? <30 Moderately increased ? 30-299 Severely increased ? > OR = 300 The ADA recommends that at least two of three specimens collected within a 3-6 month period be abnormal before considering a patient to be within a diagnostic category. 12/05/2023 8:33 AM EST 12/05/2023 7:30 PM EST Narrative Resulting Agency Comment [id number] us Cortney Grant [facility] Final Resu lt [facility] [address] [place] [address] * CT CHEST W/O CONTRAST (11/05/2023 9:52 AM EST) Anatomical Region Laterality Modality CHEST Computed Tomogra phy 11/05/2023 10:1 9 AM EST Narrative 11/05/2023 10:19 AM EST CONTRAST: CT chest without contrast. Comparison: CT/SR - CTA CHEST W/ CONTRAST TO R/O PE (DX: SOB/CP 786.09) SAME DAY-[facility] - 09/15/2023 03:17 PM EST Findings: The heart is not enlarged. Aortic annular calcifications. Calcific atherosclerosis, including the coronary arteries. No intrathoracic lymphadenopathy. Minimal centrilobular emphysema. The subsegmental airspace disease within the basilar left lower lobe has resolved. Bilateral sub 6 mm pulmonary nodules. No suspicious pulmonary nodules. The upper abdomen is unremarkable. Degenerative change of the spine. IMPRESSION: 1. Resolution of the left lower lobe basilar airspace disease. No suspicious pulmonary nodules. Procedure Note Buddy Ruby DO - 11/05/2023 CONTRAST: CT chest without contrast. Comparison: CT/SR - CTA CHEST W/ CONTRAST TO R/O PE (DX: SOB/CP 786.09)SAME DAY- [facility] - 09/15/2023 03:17 PM EST Findings: The heart is not enlarged. Aortic annular calcifications. Calcific atherosclerosis, including thecoronary arteries. No intrathoracic lymphadenopathy. Minimal centrilobular emphysema. The subsegmental airspace disease withinthe basilar left lower lobe has resolved. Bilateral sub 6 mm pulmonarynodules. No suspicious pulmonary nodules. The upper abdomen is unremarkable. Degenerative change of the spine. IMPRESSION: 1. Resolution of the left lower lobe basilar airspace disease. Nosuspicious pulmonary nodules. us Cortney Grant [facility] IMG CT NO CONTRAST ORDERAB LES Final Result * IMMUNOFIXATION, SERUM (10/16/2023 10:23 AM EST) Interpretation SEE NOTE [facility] Comment:Normal pattern. No m onoclonal proteins detected. 10/16/2023 10:2 3 AM EST 10/16/2023 6:19 PM EST Narrative Resulting Agency Comment [id number] Vibha [facility] Final Resul t Performing Organization Address [facility] de Phone Number [facility] [address] [place] [address] * SJOGRENS SYNDROME ANTIBODIES (SSA AND SSB) (10/16/2023 10:23 AM EST) Sjogrens syndrome-A extractable nuclear Ab <1.0 NEG <1.0 NEG AI [facility] Sjogrens syndrome-B extractable nuclear Ab <1.0 NEG <1.0 NEG AI [facility] 10/16/2023 10:2 3 AM EST 10/16/2023 6:19 PM EST Narrative Resulting Agency Comment [id number] Vibha [facility] Final Resul t Performing Organization Address [facility] Phone Number [facility] [address] [place] [address] * MYASTHENIA GRAVIS PANEL 1 (10/16/2023 10:23 AM EST) Striated Muscle AB NEGATIVE NEGATIVE [facility] Comment: This test was developed and its analytical performance characteristics have been determined by [facility]. It has not been cleared or approved by FDA. This assay has been validated pursuant to the CLIA regulations and is used for clinical purposes. Striated muscle Ab - Titer CANCELED titer [facility] Comment: Test Not Performed. Screening test Negative or Not Detected. Titer not performed. Result canceled by the ancillary. Acetylcholine Receptor Binding AB <0.30 nmol/L [facility] Comment: Reference Ranges for Acetylcholine Receptor ??Binding Antibody: Negative: < or =0.30 nmol/L Equivocal: ??0.31-0.49 nmol/L Positive: > or =0.50 nmol/L 10/16/2023 10:2 3 AM EST 10/16/2023 6:19 PM EST Narrative Resulting Agency Comment [id number] Vibha [facility] Final Resul t Performing Organization Address [facility] Co de Phone Number [facility] [address] [place] [address] * VITAMIN B12 (CYANOCOBALAMIN), SERUM (10/16/2023 10:23 AM EST) Only the most recent of3 resultswithin the time period is included. Vitamin B12 (Cobalamins) 676 200 - 1100 pg/mL [facility] 10/16/2023 10:2 3 AM EST 10/16/2023 6:19 PM EST Narrative Resulting Agency Comment [id number] [facility] Final Resul t Performing Organization Address [facility] de Phone Number [facility] [address] [place] [address] * THYROID STIMULATING HORMONE (TSH) WITH FREE T4 REFLEX, SERUM (10/16/2023 10:12 AM EST) Only the most recent of5 resultswithin the time period is included. TSH 0.76 0.40 - 4.50 mIU/L [facility] 10/16/2023 10:1 2 AM EST 10/16/2023 6:19 PM EST Narrative Resulting Agency Comment [id number] Cortney Grant [facility] Final Resu lt Performing Organization Address [facility] de Phone Number [facility] [address] [place] [address] * CTA CHEST W/ CONTRAST TO R/O PE (DX: SOB/CP) SAME DAY- CALL RADIOLOGY TO SCHED (09/15/2023 3:19 PM EST) Anatomical Region Laterality Modality CHEST Computed Tomogra phy 09/15/2023 3:46 PM EST Narrative 09/15/2023 3:46 PM EST CONTRAST: 100 mL Omnipaque 350 Exam: Contrast-enhanced chest CT pulmonary angiogram with coronal reformats. ?? Comparison: 04/15/2023. ?? Findings: There is no pulmonary embolism or thoracic aortic dissection. ??No mediastinal or hilar masses or adenopathy are appreciated. ??No pleural or pericardial effusions. ??Images below the diaphragms reveal no acute abnormalities. ?? Lungs reveal a new irregular left lower lobe nodular or consolidative opacity, measuring up to 16 x 12 mm (measured on 5; 160). ??Based on size criteria, consider follow-up CT in 3 months. There is trace left base atelectasis. No other focal consolidation or pulmonary parenchymal lesions. ??Airways are patent. ?? Osseous structures reveal no destructive osseous lesions. Impression: 1. No pulmonary embolism or aortic dissection. ?? 2. Irregular nodular or consolidative opacity within left lower lobe measuring up to 16 mm. This could represent small infectious/pneumonic focus. ??However, based on size criteria, three-month follow-up chest CT recommended. Procedure Note Aurelio Smyth MD - 09/15/2023 CONTRAST: 100 mL Omnipaque 350 Exam: Contrast-enhanced chest CT pulmonary angiogram with coronalreformats. Comparison: 04/15/2023. Findings: There is no pulmonary embolism or thoracic aortic dissection.No mediastinal or hilar masses or adenopathy are appreciated. No pleural or pericardial effusions. Images below the diaphragms reveal no acute abnormalities. Lungs reveal a new irregular left lower lobe nodular or consolidativeopacity, measuring up to 16 x 12 mm (measured on 5; 160). Based on size criteria, consider follow-up CT in 3 months. There is trace left base atelectasis.No other focal consolidation or pulmonary parenchymal lesions. Airways are patent. Osseous structures reveal no destructive osseous lesions. Impression: 1. No pulmonary embolism or aortic dissection. 2. Irregular nodular or consolidative opacity within left lower lobemeasuring up to 16 mm. This could represent small infectious/pneumonic focus.However, based on size criteria, three-month follow-up chest CT recommended. us Cortney Grant [facility] IMG CT WITH CONTRAST ORDER DIOGO Final Result * XRAY CHEST, 2 VIEWS, PA & LATERAL (DX: DYSPNEA R06.00/ 786.09) FC (09/05/2023 3:46 PM EST) Anatomical Region Laterality Modality CHEST Radiographic Janett ging 09/08/2023 12:0 9 PM EST Narrative 09/08/2023 12:09 PM EST CONTRAST: EXAM: ??CHEST, PA AND LATERAL Comparison: CR/MT - XRAY CHEST 2 VIEWS PA ??- 03/02/2021 02:50 PM EDT CR - XRAY CHEST 2 VIEWS PA ??- 04/25/2019 05:24 PM EDT FINDINGS: Frontal and lateral views of the chest show no evidence of air space consolidation. There is no pneumothorax, pleural effusion, or congestive changes. The cardiovascular silhouette is normal. No free air is seen beneath the diaphragm. The visualized soft tissue and osseous structures are unremarkable. IMPRESSION: No acute cardiopulmonary abnormality is identified. Procedure Note Elaina Reyes MD - 09/08/2023 CONTRAST: EXAM: CHEST, PA AND LATERAL Comparison: CR/MT - XRAY CHEST 2 VIEWS PA - 03/02/2021 02:50 PM EDT CR - XRAY CHEST 2 VIEWS PA - 04/25/2019 05:24 PM EDT FINDINGS: Frontal and lateral views of the chest show no evidence of air space consolidation. There is no pneumothorax, pleural effusion, or congestive changes. The cardiovascular silhouette is normal. No free air is seenbeneath the diaphragm. The visualized soft tissue and osseous structures are unremarkable. IMPRESSION: No acute cardiopulmonary abnormality is identified. Lolita Ott MD IMG XRAY NO CONTRAST ORDERABLES Final Result * XRAY FOOT COMPLETE MIN 3 VWS - LEFT FC (08/26/2023 9:00 AM EST) Only the most recent of2 resultswithin the time period is included. Anatomical Region Laterality Modality LOWER EXTREMITY Radiographic Janett ging 08/26/2023 12:5 4 PM EST Narrative 08/26/2023 12:54 PM EST CONTRAST: 3 views left foot Comparison: ??None. Findings: No fractures or dislocations. No joint effusion. There are tarsal metatarsal joint sclerotic degenerative changes with dorsal articular margin bone spurs. No radiopaque foreign body. Impression: Mild degenerative tarsal metatarsal sclerosis, otherwise unremarkable Procedure Note Jamal Garner MD - 08/26/2023 CONTRAST: 3 views left foot Comparison: None. Findings: No fractures or dislocations. No joint effusion. There are tarsal metatarsal joint sclerotic degenerative changes withdorsal articular margin bone spurs. No radiopaque foreign body. Impression: Mild degenerative tarsal metatarsal sclerosis, otherwise unremarkable us Nancy Carr DPM IMG XRAY NO CONTRAST ORDERAB LES Final Result * CARDIAC STRESS TEST (08/14/2023) us Unknown Provider CARDIOVASCULAR-NO INBASKET RTG Final Result * MRI CERVICAL SPINE W/O CONTRAST FC (06/27/2023 9:13 PM EDT) Anatomical Region Laterality Modality Spine Magnetic Resonan ce 06/30/2023 3:33 PM EDT Narrative 06/30/2023 3:33 PM EDT CONTRAST: MRI Cervical Spine without contrast Comparison: CR - SPINE CERVICAL-AP / LAT XRAY - 12/11/2018 09:13 AM EDT Findings: Severe multilevel disc space narrowing from C4-5 to C6-7, moderate C3-4 and mild C7-T1 disc space narrowing with multilevel anterior wedging and endplate spurring. Retrolisthesis of C4 through C6 and minimal anterolisthesis of C7. C4 through C7 degenerative endplate and vertebral body marrow edema. ??No destructive or suspicious bone lesions. ??No cerebellar tonsillar herniation, spinal cord lesions or syrinx. Paraspinal soft tissues are unremarkable. C2-3: Severe left facet arthropathy and neural foraminal stenosis. C3-4: C4 retrolisthesis mild right and severe left facet arthropathy. ??Severe left neural foraminal stenosis and mild right neural foraminal stenosis. Mild canal stenosis. C4-5: C5 retrolisthesis, endplate spurring, mild canal stenosis, moderate left facet arthropathy with severe left and moderate right neural foraminal stenosis due to spurring. C5-6: Generalized disc osteophyte complex. ??Moderate canal stenosis. Moderate right and severe left neural foraminal stenosis due to spurring. C6-7: C6 retrolisthesis, endplate spurring, mild canal stenosis mild right and moderate left neural foraminal stenosis. C7-T1: Small central disc protrusion and annular tear. Moderate bilateral facet arthropathy with small left facet joint synovial cysts impinging upon the canal. Mild canal stenosis. Mild bilateral neural foraminal stenosis. Impression: 1. Advanced multilevel degenerative disc disease as outlined above. Procedure Note Michael Irizarry MD - 06/30/2023 CONTRAST: MRI Cervical Spine without contrast Comparison: CR - SPINE CERVICAL-AP / LAT XRAY - 12/11/2018 09:13 AM EDT Findings: Severe multilevel disc space narrowing from C4-5 to C6-7, moderate C3-4and mild C7-T1 disc space narrowing with multilevel anterior wedging andendplate spurring. Retrolisthesis of C4 through C6 and minimal anterolisthesis ofC7. C4 through C7 degenerative endplate and vertebral body marrow edema. No destructive or suspicious bone lesions. No cerebellar tonsillarherniation, spinal cord lesions or syrinx. Paraspinal soft tissues are unremarkable. C2-3: Severe left facet arthropathy and neural foraminal stenosis. C3-4: C4 retrolisthesis mild right and severe left facet arthropathy.Severe left neural foraminal stenosis and mild right neural foraminal stenosis.Mild canal stenosis. C4-5: C5 retrolisthesis, endplate spurring, mild canal stenosis, moderateleft facet arthropathy with severe left and moderate right neural foraminalstenosis due to spurring. C5-6: Generalized disc osteophyte complex. Moderate canal stenosis.Moderate right and severe left neural foraminal stenosis due to spurring. C6-7: C6 retrolisthesis, endplate spurring, mild canal stenosis mild rightand moderate left neural foraminal stenosis. C7-T1: Small central disc protrusion and annular tear. Moderate bilateralfacet arthropathy with small left facet joint synovial cysts impinging upon the canal. Mild canal stenosis. Mild bilateral neural foraminal stenosis. Impression: 1. Advanced multilevel degenerative disc disease as outlined above. us Cortney Grant [facility] MR NO CONTRAST ORDERAB LES Final Result * COMPREHENSIVE EYE EXAM (06/25/2023) Only the most recent of4 resultswithin the time period is included. us Mingo Vaughan MINOR PROCEDURE Final Result * CTA CHEST W/ CONTRAST (04/15/2023 7:52 AM EDT) RADRPT Patient Name: ? ANGELLA HEBERT ?Location: [facility] - [address] ?[place] [id number]- ? Radiology ACCESSION ? EXAM DATE/TIME ??PROCEDURE ? ORDERING ? STATUS ?PROVIDER [id number] ??04/15/2023 ? CTA Chest w/ ?Lolita Ott MD Auth 03 ?08:08 EDT ? Contrast ? (Verified) Reason For Exam (CTA Chest w/ Contrast) DIFFICULT BREATHING Report CT CHEST WITH INTRAVENOUS CONTRAST, PULMONARY ARTERY EMBOLISM DETECTION PROTOCOL TECHNIQUE: CT scan of the chest was performed WITH intravenous contrast utilizing the pulmonary artery embolism detection protocol. 100 cc of Isovue 370 was rapidly administered. ??Coronal and sagittal reformatted images were generated, together with axial maximum intensity projection images of the lungs. Adaptive Iterative Dose Reduction (AIDR) and NEMA XR 25 DOSE Check software, were used to reduce radiation dose to the patient. COMPARISON: Chest radiograph, 04/12/2020. INDICATION: Difficulty breathing. FINDINGS: Pulmonary Arteries: This is ??a high quality study for evaluation of pulmonary embolism with good contrast bolus. No focal filling defect is seen in the pulmonary arteries up to subsegmental levels. Lungs and Large Airways: Patent central airways. Dependent subsegmental atelectasis. No consolidation. There are a few 2 to 3 mm pulmonary micronodules. Pleura: No pleural effusion. No pneumothorax. Mediastinum and Freida: Scattered subcentimeter mediastinal and hilar lymph nodes, without lymphadenopathy by size criteria. Small hiatal hernia small hiatal hernia. Homogeneous thyroid, without discrete nodule. Heart and Vessels: The heart is normal in size. Left ventricular hypertrophy. Trace pericardial effusion, likely physiological. Classic 3 vessel aortic arch anatomy. Nonaneurysmal thoracic aorta. Calcific atherosclerosis, including the aorta and coronary arteries. Normal caliber main pulmonary artery trunk. Admitting: ?Lolita Ott MD Consulting: Patient Name: ? ANGELLA HEBERT ?Location: [facility] - [address] [place] [address] [address] ?[place] [address]- ? Radiology Report Upper Abdomen: Cholelithiasis without signs of cholecystitis. Small hiatal hernia. Bones and Soft Tissues: No acute soft tissue abnormality. Multilevel degenerative changes of the visualized spine. IMPRESSION: 1.No evidence of pulmonary arterial embolism. 2.No acute intrathoracic abnormality to account for patient's symptoms. process. 3. Few 2 to 3 mm pulmonary nodules. See before for recommendations. According to 2017 Fleischner Society Guidelines for Incidental Pulmonary Nodules: ??New multiple solid pulmonary nodules measuring <6 mm in low risk patients do not require further imaging studies. ??However, patients with a history of smoking/asbestos/ra diation exposure or a 1st degree relative with lung cancer should consider having a follow-up non-contrast CT in 1 year. ??If unchanged, no further follow-up studies would be indicated. Recommendations do not apply to cancer screening, patient with immunosuppression or known primary cancer. One or more significant or potentially significant incidental findings are present on this study. ##FUP## Attending review by Dr. Silvestre Chirinos M.D. I have personally reviewed the study and agree with the reported findings. Final Report Dictated: 04/15/2023 8:03 am ?Dictated By: Giovani Brown Electronic Signature: ??04/15/2023 8:59 am ?? Signed By: Silvestre Chirinos MD Admitting: ?Lolita Ott MD Consulting: [facility] 04/15/2023 7:52 AM EDT Lolita Ott MD [facility] Final Result Performing Organization Address City/State/[facility] Co de Phone Number [facility] [address] [place] [address] * ALANINE AMINOTRANSFERASE (ALT), SERUM (04/11/2023 12:38 PM EDT) Only the most recent of6 resultswithin the time period is included. ALT (SGPT) 12 6 - 29 U/L [facility] 04/11/2023 12:3 8 PM EDT 04/12/2023 12:20 AM EDT us Lolita Ott MD LAB SAME DAY RESULT Final Result Performing Organization Address [facility]/State/ZIP Co de Phone Number [facility] [address] [facility] [address] * OPHTHALMOLOGICAL TEST/PROCEDURE, UNSPECIFIED (03/13/2023) Result Zane Petit MD PROCEDURES Final Result * UNSPECIFIED MAJOR PROCEDURE (02/18/2023) Result Zane Petit MD PROCEDURES Final Result * UNSPECIFIED MAJOR PROCEDURE (02/18/2023) Result Zane Petit MD PROCEDURES Final Result * UNSPECIFIED MAJOR PROCEDURE (02/05/2023) Result Zane Petit MD PROCEDURES Final Result * OPHTHALMOLOGICAL TEST/PROCEDURE, UNSPECIFIED (01/21/2023) Result Zane Petit MD PROCEDURES Final Result * EKG-TO BE READ & BILLED BY ADULT OR PEDIATRIC CARDIOLOGY (01/16/2023 10:18 AM EDT) Only the most recent of2 resultswithin the time period is included. VENTRICULAR RATE 67 BPM MUS E EKG SYSTEM ATRIAL RATE 67 BPM MUSE EKG SYSTEM P-R INTERVAL 172 ms MUSE EK G SYSTEM QRS DURATION 80 ms MUSE EK G SYSTEM QT 410 ms MUSE EKG SYSTEM QTC 433 ms MUSE EKG SYSTEM P AXIS 55 degrees MUSE EKG SYSTEM R AXIS -13 degrees MUSE EKG SYSTEM T AXIS -1 degrees MUSE EKG SYSTEM EKG INTERPRETATION Normal sinus rhythm Normal ECG When compared with ECG of 27-MAY-2022 15:05, No significant change was found Confirmed by Marleen OJEDA, NANCY Prakash ([id number]) on 01/16/2023 5:37:04 PM MUSE EKG SYSTEM 01/16/2023 10:1 8 AM EDT 01/16/2023 5:37 PM EDT us Cortney Grant NP CARDIOVASCULAR-WITH INBSKT RTG Final Result MUSE EKG SYSTEM * OPHTHALMOLOGICAL TEST/PROCEDURE, UNSPECIFIED (12/09/2022) Bartolo Petit MD PROCEDURES Final Result * TISSUE PATHOLOGY (10/04/2022) COLLECTION DATE 10/04/2022 [facility] SPECIMEN SOURCE . A . Colon RANDOM BX [facility] DIAGNOSIS . A . MILD-MODERATE CHRONIC ACTIVE COLITIS WITH ACUTE CRYPTITIS. SEE NOTE NOTE: THE CHANGES ARE SEEN IN SOME PIECES OF THE BIOPSY SUBMITTED. THE MOST LIKELY DIFFERENTIAL DIAGNOSIS IS IBD VS INFECTION. CLINICAL CORRELATION IS RECOMMENDED. [facility] Comment: REPORT COMMENTS: CC:CORTNEY GRANT Clinical Information None given [employer] Pathologist Gretel Tariq M.D. Board Certified in Anatomic Pathology and Dermatopathology (electronic signature) [facility] GROSS DESCRIPTION . A . SEE NOTE [facility] Comment: The container is labeled with patient's name and source random colon BX . ??Specimen is received in formalin and consists of 6 light felix pieces of soft tissue ranging from 0.2 x 0.2 x 0.1 cm up to 0.4 x 0.4 x 0.1 cm in size. ??The tissue is left intact and submitted entirely in cassettes A1-A2. KT 10/07/2022 ??Gross exam(s) performed at: [facility] [facility] ??[address] [place] [id number] ??Back Order Clerk: CRISTOPHER OTERO MD 10/04/2022 10/07/2022 3:5 4 AM EST Narrative [facility] - 10/09/2022 4:10 PM EST Report Comments: CC:CORTNEY GRANT The container is labeled with patient's name and source random colon BX . ??Specimen is received in formalin and consists of 6 light felix pieces of soft tissue ranging from 0.2 x 0.2 x 0.1 cm up to 0.4 x 0.4 x 0.1 cm in size. ??The tissue is left intact and submitted entirely in cassettes A1-A2. KT 10/07/2022 Gross exam(s) performed at: [facility] [address] [place] [phone] Back Order Clerk: CRISTOPHER OTERO MD Jamal Bergman MD PATHOLOGY-INTERFACED Final Re sult [facility] [address] [place] [address] * GASTROENTEROLOGY TEST/PROCEDURE, UNSPECIFIED (10/04/2022) Jamal Bergman MD PROCEDURES Final Result * CT ABDOMEN AND PELVIS W/ CONTRAST (DX: ABDOMINAL PAIN R10.9/ 789.00) (WITHIN 1 WK) FC (09/19/2022 1:11 PM EST) Anatomical Region Laterality Modality Computed Tomogra phy 09/20/2022 5:07 AM EST Narrative 09/20/2022 5:07 AM EST CONTRAST: [address] abdomen pelvis with contrast COMPARISON: None FINDINGS: Imaged heart is normal. ??Lung bases clear. Spleen, liver, pancreas and adrenal glands are normal. ??Chronic cholelithiasis. No acute findings or biliary dilatation. ??Chronic moderate diffuse atherosclerosis. ??No AAA or acute findings. ??Chronic small hiatal hernia. ??Mild diffuse colonic stool volume. ??Chronic mild right colonic wall thickening which is of low density suggestive of chronic colitis. ??No acute findings. ??No lymphadenopathy, ascites or fluid collections. ??Stable small right mid pole cortical cyst. ??Bladder is normal. ??Hysterectomy. ??No pelvic masses. ?? Incidental pelvic phleboliths. Chronic osteopenia, severe multilevel thoracic and lumbar spine disease with extensive reactive lumbar spine vertebral body sclerosis with facet arthropathy and moderate sized L3-4 calcified disc herniation. ??Moderate bilateral SI joint osteoarthritis. ??No destructive bone lesions. IMPRESSION: 1. ??No acute abdominal or pelvic findings. 2. ??Multiple chronic findings as above. Procedure Note Michael Irizarry MD - 09/20/2022 CONTRAST: [address] abdomen pelvis with contrast COMPARISON: None FINDINGS: Imaged heart is normal. Lung bases clear. Spleen, liver, pancreas and adrenal glands are normal. Chroniccholelithiasis. No acute findings or biliary dilatation. Chronic moderate diffuse atherosclerosis. No AAA or acute findings. Chronic small hiatal hernia.Mild diffuse colonic stool volume. Chronic mild right colonic wall thickeningwhich is of low density suggestive of chronic colitis. No acute findings. No lymphadenopathy, ascites or fluid collections. Stable small right midpole cortical cyst. Bladder is normal. Hysterectomy. No pelvic masses. Incidental pelvic phleboliths. Chronic osteopenia, severe multilevel thoracic and lumbar spine diseasewith extensive reactive lumbar spine vertebral body sclerosis with facetarthropathy and moderate sized L3-4 calcified disc herniation. Moderate bilateral SIjoint osteoarthritis. No destructive bone lesions. IMPRESSION: 1. No acute abdominal or pelvic findings. 2. Multiple chronic findings as above. Cortney Grant SANDER HAND IMG CT WITH CONTRAST ORDER DIOGO Final Result * XRAY SHOULDER COMPLETE MIN 2 VWS - RIGHT FC (07/03/2022 9:36 AM EDT) Anatomical Region Laterality Modality UPPER EXTREMITY Radiographic Janett ging 07/04/2022 5:28 PM EDT Narrative 07/04/2022 5:28 PM EDT CONTRAST: 3 view right shoulder Comparison: None Findings: No fractures or dislocations. Mild degenerative changes. No erosions. No radiopaque foreign body. IMPRESSION: Calcifications alongside the superior humeral head. Consider calcific tendinitis of the rotator cuff. Procedure Note Riya Angel MD - 07/04/2022 CONTRAST: 3 view right shoulder Comparison: None Findings: No fractures or dislocations. Mild degenerative changes. No erosions. No radiopaque foreign body. IMPRESSION: Calcifications alongside the superior humeral head. Consider calcific tendinitis of the rotator cuff. Electronically signed by: Riya Angel MD on 7:28:47 Jamin VUONG IMG XRAY NO CONTRAST ORDERA BLES Final Result * CYTOLOGY/PATHOLOGY/GENETICS UNSPECIFIED (06/14/2022) Gilda Billingsley MD PATHOLOGY Final Result * CT SOFT TISSUE NECK W/CONTRAST FC (03/09/2022 12:07 PM EDT) Anatomical Region Laterality Modality HEAD/BRAIN Computed Tomogra phy 03/09/2022 2:10 PM EDT Narrative 03/09/2022 2:10 PM EDT CONTRAST: [address] soft tissue neck with IV contrast. ?? COMPARISON: None FINDINGS: In the region of concern along the inferior aspect of the mandible on the right there are several adjacent normal sized lymph nodes. ??No enhancing mass or foreign body. ??No organizing fluid collection. No areas of abnormal enhancement. The major vascular structures enhance normally. Normal thyroid gland. Normal submandibular and parotid glands. Visualized orbital soft tissues are unremarkable. Parapharyngeal fat pads are normal bilaterally. Visualized paranasal sinuses are unremarkable. Abernathy tonsils are normal in size. ??No peritonsillar fluid collection or edema. ??Dental amalgams obscures portions of the oral cavity. Normal epiglottis. Visualized portions of the trachea and esophagus are unremarkable. No supraclavicular lymphadenopathy. Normal sized lymph nodes along the anterior and posterior internal jugular chain. Grade 1 anterolisthesis of C3 on C4 measuring 3 mm. ??Advanced mid to lower cervical spondylosis. Minimal patchy air trapping present at the lung apices. Visualized intracranial structures are unremarkable. IMPRESSION: 1. ??Several adjacent normal-sized right submandibular lymph nodes in the region of concern. ??Submandibular glands appear symmetric and normal in appearance. ?? No enhancing mass or organizing fluid collection. 3. ??Advanced mid to lower cervical spondylosis with grade 1 anterolisthesis of C3 on C4. Procedure Note Michael Mcnulty MD - 03/09/2022 CONTRAST: [address] soft tissue neck with IV contrast. COMPARISON: None FINDINGS: In the region of concern along the inferior aspect of the mandible on theright there are several adjacent normal sized lymph nodes. No enhancing mass or foreign body. No organizing fluid collection. No areas of abnormal enhancement. The major vascular structures enhance normally. Normal thyroid gland. Normal submandibular and parotid glands. Visualized orbital soft tissues are unremarkable. Parapharyngeal fat pads are normal bilaterally. Visualized paranasalsinuses are unremarkable. Abernathy tonsils are normal in size. No peritonsillar fluid collection or edema. Dental amalgams obscures portions of the oral cavity. Normal epiglottis. Visualized portions of the trachea and esophagus are unremarkable. No supraclavicular lymphadenopathy. Normal sized lymph nodes along the anterior and posterior internal jugular chain. Grade 1 anterolisthesis of C3 on C4 measuring 3 mm. Advanced mid to lower cervical spondylosis. Minimal patchy air trapping present at the lung apices. Visualized intracranial structures are unremarkable. IMPRESSION: 1. Several adjacent normal-sized right submandibular lymph nodes in theregion of concern. Submandibular glands appear symmetric and normal inappearance. No enhancing mass or organizing fluid collection. 3. Advanced mid to lower cervical spondylosis with grade 1anterolisthesis of C3 on C4. Mirza Almanza SANDER HAND IMG CT WITH CONTRAST ORDERA BLES Final Result * MAMMOGRAPHY BILAT 3D MARKELL (DX: SCREENING FOR BREAST CANCER Z12.31) (1 YR FROM LAST) FC (01/22/2022 2:30 PM EDT) Anatomical Region Laterality Modality BREAST Bilateral Mammography Impressions 01/23/2022 10:44 AM EDT : No specific mammographic evidence of malignancy. RECOMMENDATION: ? - Routine Screening Mammogram in 1 Year for both breasts. BI-RADS: 1 - Negative (overall) RESULTS COMMUNICATED TO PATIENT: In a letter Narrative 01/23/2022 10:44 AM EDT EXAMINATION: SCREENING MAMMOGRAM HISTORY: Routine screening mammogram. TECHNIQUE: Digital Bilateral, CAD ,tomosynthesis COMPARISON: Comparison is made to prior mammograms. BREAST COMPOSITION: ??The breasts have scattered areas of fibroglandular density. FINDINGS:No suspicious dominant mass lesions, clustered microcalcifications, or areas of unexplained architectural distortion are seen in either breast(s). us Mirza Almanza NP IMG MAMMO ORDERABLES Final Result * (ABNORMAL) GLUCOSE (10/25/2021 7:22 AM EST) Only the most recent of11 resultswithin the time period is included. Glucose (POC) 137(H) 70 - 99 mg/dL [facility] 10/25/2021 7:22 AM EST 10/25/2021 7:22 AM EST Lolita Ott MD LABORATORY Final Result [facility] [address] [place] [address] * CARDIAC PROGRAM DIRECTOR SUBSTANCE ABUSE PROCEDURE (10/25/2021) Only the most recent of4 resultswithin the time period is included. 10/25/2021 Narrative 10/25/2021 Ordered by an unspecified provider. Unknown Provider CARDIO-VASCULAR - OTHER Final R esult * SARS-COV-2, FLORENCIO (10/23/2021 10:18 AM EST) SARS-COV-2, FLORENCIO Not Detected Not Detected [facility] Comment: This nucleic acid amplification test was developed and its performance characteristics determined by [employer]. Nucleic acid amplification tests include RT-PCR and TMA. This test has not been FDA cleared or approved. This test has been authorized by FDA under an Emergency Use Authorization (EUA). This test is only authorized for the duration of time the declaration that circumstances exist justifying the authorization of the emergency use of in vitro diagnostic tests for detection of SARS-CoV-2 virus and/or diagnosis of COVID-19 infection under section 564(b)(1) of the Act, 21 U.S.C. 360bbb-3(b) (1), unless the authorization is terminated or revoked sooner. When diagnostic testing is negative, the possibility of a false negative result should be considered in the context of a patient's recent exposures and the presence of clinical signs and symptoms consistent with COVID-19. An individual without symptoms of COVID-19 and who is not shedding SARS-CoV-2 virus would expect to have a negative (not detected) result in this assay. 10/23/2021 10:1 8 AM EST 10/23/2021 10:18 AM EST Lolita Ott MD LABORATORY Final Result Performing Organization Address [facility]/ZIP Co de Phone Number [facility] [address] [place] [address] * PROTHROMBIN TIME (PT) (INR), BLOOD (10/18/2021 8:26 AM EST) Only the most recent of2 resultswithin the time period is included. INR 1.0 [facility] Comment: Reference Range ? 0.9-1.1 Moderate-intensity Warfarin Therapy 2.0-3.0 Higher-intensity Warfarin Therapy ?? 3.0-4.0 PT 10.5 9.0 - 11.5 sec [facility] Comment: For additional information, please refer to http://education.SellAnyCar.ru/faq/WWB228 (This link is being provided for informational/ educational purposes only.) 10/18/2021 8:26 AM EST 10/18/2021 2:06 PM EST Narrative Resulting Agency Comment [id number] Lolita Ott MD LAB SAME DAY RESULT Final Result [facility] [address] [place] [address] * EXTERNAL CONTINUOUS ECG RECORDING <=48 HRS W/ SCAN ANALYSIS REVIEW & INTERP BY SKILLED PROFESSIONAL (10/08/2021) Impressions Lolita Ott MD - 10/08/2021 IMPRESSION: A sinus mechanism averaging 82 beats per minute was recorded throughout the bulk of the monitoring period with a rate range of 63 to 132 BPM.. Single run of PAT was seen lasting for 13 beats at a heart rate about 60 bpm Rare PACs were seen. Single atrial couplet was seen Frequent premature ventricular complexes were noted, comprising 2% of total QRS complexes 1944 isolated PVCs were seen. 10 ventricular couplets were noted. No ST segment depression was seen. There were no prolonged pauses. There were no higher grades of dysrhythmia. The patient reported symptoms of heart pounding, tired, legs hurting, swollen During the monitoring period. ?? Her cardiac rhythm showed ??normal sinus rhythm, sinus tachycardia andat times single PVC during these periods of symptomology. Heart pounding correlated with sinus tachycardia with a maximum heart rate of 110bpm Interpreting Flavoring Maker: Lolita Ott MD on 10/10/2021 Lolita Peters MD - 10/08/2021 Angella Boles Anup completed a 24-hour holter monitor test. us Lolita Ott MD CARDIOVASCULAR-WITH INBSKT RTG F inal Result * CARDIOVASCULAR STRESS TEST W/TREADMILL, BICYCLE, AND/OR PHARMACOLOGICAL STRESS; W/ SUPERV/INTERP FOR CARDIOLOGY DEPT USE ONLY (10/01/2021) ETT BASELINE HR 72 beats/min ETT BASELINE SYSTOLIC BP 130 mmHg ETT BASELINE DIASTOLIC BP 70 mmHg ETT EXERCISE TIME MINUTES 4 minutes ETT EXERCISE TIME SECONDS 28 secs ETT METS 7.0 METS ETT PEAK HR 139 beats/min ETT % MAXIMAL PEAK HR 92 % ETT PEAK SYSTOLIC BP 160 mmHg ETT PEAK DIASTOLIC BP 70 [address] E[address] RESOLUTION OF ST SEGMENTS ETT RESOLUTION OF SYMPTOMS ETT PERSANTINE DOSE ETT LEXISCAN DOSE Impressions Lolita Ott MD - 10/01/2021 IV. Impression: Below average aerobic capacity for age. Exaggerated heart rate response to exercise. Normal BP response to exercise. There is symptomatic evidence of ischemia (chest pain correlating with sinus tachycardia) but no diagnostic electrocardiographic evidence of ischemia ??at moderate workload. ??Baseline EKG had nonspecific changes making it difficult to interpret peak EKG. ??If clinical suspicion is high please consider doing a stress test with imaging Sanders Treadmill Score: negative 3.5 - Intermediate Risk Interpreted and electronically signed by: Dr. Lolita Ott MDon 10/02/2021 Lolita Peters MD - 10/01/2021 I. Patient Overview Referring Physician: Juanpablo Louis MD ??Interpreting Flavoring Maker: Dr. Lolita Ott Performing Provider: CAROLANN Burrows ?? Type of Stress Test: Exercise Treadmill with Nathanael Protocol Indication for Test: dyspnea Baseline ECG: Normal Sinus Rhythm nonspecific ST-T wave changes Patient has been assessed by PA and is appropriate to proceed with testing and has consented to same- Yes. II. Exercise Test Data Reason Test Terminated:patient with chest pain ECG Response: No ECG changes ??Symptoms:chest pain correlating with sinus tachycardia at peak exercise, no diagnostic ekg changes. Arrhythmias: frequent PVC's and ventricular bigeminy III. ??Disposition: Patient was discharged in stable condition. us Lolita Ott MD CARDIOVASCULAR-WITH INBSKT RTG F inal Result * PULMONARY FUNCTION TEST (08/15/2021 12:00 AM EST) [facility] Pulmonary Function Test Report Test Interpretation ? Spirometry within normal limits. Response to inhaled albuterol does not meet criteria to be called significant. ??(This does not preclude the use of inhaled bronchodilators, if felt to be clinically indicated.) ? SPIROMETRY +/- ? Predicted Range ? Pre-Bronchodilato r ? Post-Bronchodilat or ? BRONCHODILATOR ? Mean ?LL ?UL ?Actual ?%Pred ?Actual ? %Pred ? %Change ? FVC ?2.40 ?1.54 ?3.26 ?2.05 (N) ?85 ? 2.39 (N) ? 100 ? 17 ? FEV 0.5 ?1.52 ?0.66 ?2.38 ?1.54 ?101 ?1.62 ? 107 ? 5 ? FEV1 ? 1.68 ?0.90 ?2.46 ?1.79 (N) ?107 ?1.98 (N) ? 118 ? 11 ? FEV3 ? 2.10 ?0.86 ?3.34 ?2.00 ?95 ? 2.25 ? 107 ? 13 ? FEV6 ? 2.05 ? 2.39 ? 17 ? FEV1/FVC ? 72 ?61 ?87 (N) ?121 ?83 (N) ? 115 ? -5 ? FEV1/FEV6 ?87 ? 83 ? -5 ? FET ?8.12 ? 7.57 ? -7 ? [id number] ? 2.08 ?0.63 ?3.53 ?2.62 ?126 ?2.27 ? 109 ? -13 ? FEF25 ?4.68 ?1.96 ?7.40 ?4.72 ?101 ?4.60 ? 98 ?-3 ? FEF50 ?1.48 ?3.08 ?2.70 ?182 ?2.57 ? 174 ? -5 ? FEF75 ?0.79 ?1.86 ?0.91 ?115 ?0.84 ? 106 ? -8 ? PEFR ? 4.99 ?2.14 ?7.84 ?5.02 ?101 ?4.75 ? 95 ?-5 ? PIFR ? 3.33 ?2.29 ?69 ? 2.46 ? 74 ?7 ? FEF50/FIF50 ?1.36 ? 1.09 ? -20 ? FIVC ? 2.40 ?1.54 ?3.26 ?2.04 ?85 ? 2.17 ? 90 ?6 ? [employer] [facility] FVC - Pre-Bronchodilato r 2.05 1.54 - 3.26 L [employer] FVC - Post-Bronchodilat or 2.39 1.54 - 3.26 L [facility] FVC - % Change Post-Bronchodilat or 17 % [employer] FVC - Lower Limit Predicted 1.54 L [employer] FVC - Mean Predicted 2.40 L [employer] FVC - Upper Limit Predicted 3.26 L [employer] FVC - % Predicted Pre-Bronchodilato r 85 % [employer] FVC - % Predicted Post-Bronchodilat or 100 % [employer] FEV0.5 - Pre-Bronchodilato r 1.54 0.66 - 2.38 L [facility] FEV0.5 - Post-Bronchodilat or 1.62 0.66 - 2.38 L [employer] FEV0.5 - % Change Post-Bronchodilat or 5 % [employer] FEV0.5 - Lower Limit Predicted 0.66 L [facility] FEV0.5 - Mean Predicted 1.52 L [employer] [facility] FEV0.5 - Upper Limit Predicted 2.38 L [employer] SPIR[employer] SYSTEM FEV0.5 - % Predicted Pre-Bronchodilato r 101 % [employer] [facility] FEV0.5 - % Predicted Post-Bronchodilat or 107 % [employer] [facility] FEV1 - Pre-Bronchodilato r 1.79 0.90 - 2.46 L [employer] [facility] FEV1 - Post-Bronchodilat or 1.98 0.90 - 2.46 L [employer] [facility] FEV1 - % Change Post-Bronchodilat or 11 % [employer] FEV1 - Lower Limit Predicted 0.90 L [employer] [facility] FEV1 - Mean Predicted 1.68 L [employer] [facility] [facility] FEV1 - Upper Limit Predicted 2.46 L [employer] [facility] FEV1 - % Predicted Pre-Bronchodilato r 107 % [employer] FEV1 - % Predicted Post-Bronchodilat or 118 % [employer] FEV3 - Pre-Bronchodilato r 2.00 0.86 - 3.34 L [employer] [facility] FEV3 - Post-Bronchodilat or 2.25 0.86 - 3.34 L [employer] [facility] FEV3 - % Change Post-Bronchodilat or 13 % [employer] FEV3 - Lower Limit Predicted 0.86 L [employer] [facility] FEV3 - Mean Predicted 2.10 L [employer] [facility] FEV3 - Upper Limit Predicted 3.34 L [employer] [facility] FEV3 - % Predicted Pre-Bronchodilato r 95 % [employer] FEV3 - % Predicted Post-Bronchodilat or 107 % [employer] FEV6 - Pre-Bronchodilato r 2.05 L [employer] FEV6 - Post-Bronchodilat or 2.39 L [employer] FEV6 - % Change Post-Bronchodilat or 17 % [employer] FEV1/FVC - Pre-Bronchodilato r 87 61- % [employer] FEV1/FVC - Post-Bronchodilat or 83 61- % [employer] FEV1/FVC - % Change Post-Bronchodilat or -5 % [employer] FEV1/FVC - Lower Limit Predicted 61 % [employer] FEV1/FVC - Mean Predicted 72 % [employer] FEV1/FVC - % Predicted Pre-Bronchodilato r 121 % [employer] FEV1/FVC - % Predicted Post-Bronchodilat or 115 % [employer] FEV1/FVC6 - Pre-Bronchodilato r 87 % [employer] FEV1/FVC6 - Post-Bronchodilat or 83 % [employer] FEV1/FVC6 - % Change Post-Bronchodilat or -5 % [employer] [id number] - Pre-Bronchodilato r 2.62 0.63 - 3.53 L/s [employer] [id number] - Post-Bronchodilat or 2.27 0.63 - 3.53 L/s [employer] [id number] - % Change Post-Bronchodilat or -13 % [employer] [id number] - Lower Limit Predicted 0.63 L/s [facility] [facility] [id number] - Mean Predicted 2.08 L/s [employer] [id number] - Upper Limit Predicted 3.53 L/s [employer] [id number] - % Predicted Pre-Bronchodilato r 126 % [employer] [id number] - % Predicted Post-Bronchodilat or 109 % [employer] FEF25 - Pre-Bronchodilato r 4.72 1.96 - 7.40 L/s [employer] FEF25 - Post-Bronchodilat or 4.60 1.96 - 7.40 L/s [employer] FEF25 - % Change Post-Bronchodilat or -3 % [employer] FEF25 - Lower Limit Predicted 1.96 L/s [employer] FEF25 - Mean Predicted 4.68 L/s [employer] FEF25 - Upper Limit Predicted 7.40 L/s [employer] FEF25 - % Predicted Pre-Bronchodilato r 101 % [employer] FEF25 - % Predicted Post-Bronchodilat or 98 % [employer] FEF50 - Pre-Bronchodilato r 2.70 -3.08 L/s [employer] FEF50 - Post-Bronchodilat or 2.57 -3.08 L/s [employer] FEF50 - % Change Post-Bronchodilat or -5 % [employer] FEF50 - Mean Predicted 1.48 L/s [employer] FEF50 - Upper Limit Predicted 3.08 L/s [employer] FEF50 - % Predicted Pre-Bronchodilato r 182 % [employer] FEF50 - % Predicted Post-Bronchodilat or 174 % [employer] FEF75 - Pre-Bronchodilato r 0.91 -1.86 L/s [employer] FEF75 - Post-Bronchodilat or 0.84 -1.86 L/s [employer] FEF75 - % Change Post-Bronchodilat or -8 % [employer] FEF75 - Mean Predicted 0.79 L/s [facility] [facility] FEF75 - Upper Limit Predicted 1.86 L/s [facility] [facility] SPIR[employer]RY SYSTEM FEF75 - % Predicted Pre-Bronchodilato r 115 % [employer] FEF75 - % Predicted Post-Bronchodilat or 106 % [employer] PEFR - Pre-Bronchodilato r 5.02 2.14 - 7.84 L/s [employer] PEFR - Post-Bronchodilat or 4.75 2.14 - 7.84 L/s [employer] PEFR - % Change Post-Bronchodilat or -5 % [employer] PEFR - Lower Limit Predicted 2.14 L/s [employer] PEFR - Mean Predicted 4.99 L/s [employer] PEFR - Upper Limit Predicted 7.84 L/s [employer] PEFR - % Predicted Pre-Bronchodilato r 101 % [employer] PEFR - % Predicted Post-Bronchodilat or 95 % [employer] FEF50/FIF50 - Pre-Bronchodilato r 1.36 [employer] FEF50/FIF50 - Post-Bronchodilat or 1.09 [employer] FEF50/FIF50 - % Change Post-Bronchodilat or -20 % [employer] FET - Pre-Bronchodilato r 8.12 s [employer] FET - Post-Bronchodilat or 7.57 s [employer] FET - % Change Post-Bronchodilat or -7 % [employer] FIVC - Pre-Bronchodilato r 2.04 1.54 - 3.26 L [employer] FIVC - Post-Bronchodilat or 2.17 1.54 - 3.26 L [employer] FIVC - % Change Post-Bronchodilat or 6 % [employer] FIVC - Lower Limit Predicted 1.54 L [employer] FIVC - Mean Predicted 2.40 L [employer] FIVC - Upper Limit Predicted 3.26 L [employer] FIVC - % Predicted Pre-Bronchodilato r 85 % [employer] FIVC - % Predicted Post-Bronchodilat or 90 % [employer] PIFR - Pre-Bronchodilato r 2.29 L/s [employer] PIFR - Post-Bronchodilat or 2.46 L/s [employer] PIFR - % Change Post-Bronchodilat or 7 % [employer] PIFR - Mean Predicted 3.33 L/s [employer] PIFR - % Predicted Pre-Bronchodilato r 69 % [employer] PIFR - % Predicted Post-Bronchodilat or 74 % [employer] Pulmonary Function Test Interpretation Spirometry within normal limits. Response to inhaled albuterol does not meet criteria to be called significant. (This does not preclude the use of inhaled bronchodilators, if felt to be clinically indicated.) [employer] [facility] [facility] 08/15/2021 us Ulisses Mackenzie MD PROCEDURES Final Result [employer] [facility] [facility] * SARS COV 2 RNA(COVID 19), QUALITATIVE NAAT (08/13/2021 8:21 AM EST) [facility] SARS-COV-2 RNA NOT DETECTED NOT DETECTED [facility] Comment: A Not Detected result means that SARS-CoV-2 RNA was not present in the specimen above the limit of detection. Test Method: Nucleic Acid Amplification Test including reverse strainer cleaner polymerase chain reaction (RT-PCR) and strainer cleaner mediated amplification (TMA). The test method meets the [place] Centers for Disease Control and prevention (CDC) pre departure and arrival requirement for viral test for COVID-19 dated October 26, 2020. Testing requirements for traveling may change with time. The patient is responsible for determining the test requirements for each nation while they are traveling. This test has been authorized by the FDA under an Emergency Use Authorization (EUA) for use by authorized laboratories. This patient specimen was tested using an FDA EUA pooling method. Patient specimens with low viral loads may not be detected in sample pools due to the decreased sensitivity of pooled testing. Please review the Fact Sheets and FDA authorized labeling available for health care providers and patients using the following websites: https://www.[employer]/home/Covid-19/HCP/QuestLDTP/ fact-sheet https://www.S[employer]Any[employer].ru/home/Covid-19/Patients/QuestLDTP/ fact-sheet.html A Not Detected result does not rule out the possibility of COVID-19 and should not be used as the sole basis for treatment or patient management decisions. If COVID-19 is still suspected, based on exposure history together with other clinical findings, re-testing should be considered in the context of clinical observations and epidemiological data for patient management decisions. Due to the current public health emergency, [facility] is accepting samples from appropriate clinical sources collected using wide variety of swabs and transport media for COVID-19. Not detected test results derived from specimens received in non- commercially manufactured viral collection kits or those not yet authorized by FDA for COVID-19 testing should be cautiously evaluated and take extra precautions such as additional clinical monitoring, including collection of an additional specimen. ?? Additional information about COVID-19 can be found at the [facility] website: www.[email or web address]/Covid19. [employer] 08/13/2021 8: 21 AM EST 08/13/2021 11:32 PM EST Narrative Resulting Agency Comment [id number] us Juanpablo Louis MD LABORATORY Final Result [facility] [address] [place] [address] * CT ABDOMEN W AND W/O CONTRAST FC (07/01/2021 10:08 AM EDT) Anatomical Region Laterality Modality Abdomen Computed Tomogra phy 07/02/2021 12:2 4 PM EDT Narrative 07/02/2021 12:24 PM EDT CONTRAST: [address] abdomen without and with intravenous contrast Comparison: ??US MT SD SR ??- GEN ABDOMEN MULT ORGAN SCAN ??- 05/12/2021 09:41 AM EDT Findings: The included thorax is unremarkable. The liver is unremarkable. ??Gas-containing gallstones are noted throughout the gallbladder. ??No biliary ductal dilatation. ??The spleen is unremarkable. The pancreas is within normal limits. The adrenal glands are unremarkable. There is a 14 mm fat density lesion in the upper to midportion of the right kidney on axial image 72 consistent with the angiomyolipoma described on recent ultrasonography. ??There is a 4 mm similar appearing lesion anteriorly in the right kidney on image 76. ??The lesion described in the upper pole the left kidney on sonography is not definitively visualized on the CT. ??There is no hydronephrosis or nephrolithiasis. There is a large amount of stool noted throughout the colon. ??The appendix is seen and is normal. The pelvic structures are unremarkable. No acute fracture or dislocation. ??Degenerative disc disease is noted at multiple lumbar levels. ??Mild levoconvex scoliosis. Impression: 1. 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 2. ??The left-sided lesion described on recent ultrasonography is not visualized on CT. 3. ??Cholelithiasis. 4. ??Other details as above. Procedure Note Carlos Crane MD - 07/02/2021 CONTRAST: [address] abdomen without and with intravenous contrast Comparison: US MT SD SR - GEN ABDOMEN MULT ORGAN SCAN - 109:41 AM EDT Findings: The included thorax is unremarkable. The liver is unremarkable. Gas-containing gallstones are noted throughoutthe gallbladder. No biliary ductal dilatation. The spleen is unremarkable.The pancreas is within normal limits. The adrenal glands are unremarkable. There is a 14 mm fat density lesion in the upper to midportion of theright kidney on axial image 72 consistent with the angiomyolipoma described onrecent ultrasonography. There is a 4 mm similar appearing lesion anteriorly inthe right kidney on image 76. The lesion described in the upper pole the left kidney on sonography is not definitively visualized on the CT. There isno hydronephrosis or nephrolithiasis. There is a large amount of stool noted throughout the colon. The appendixis seen and is normal. The pelvic structures are unremarkable. No acute fracture or dislocation. 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 Mild levoconvex scoliosis. Impression: 1. 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 2. The left-sided lesion described on recent ultrasonography is notvisualized on CT. 3. Cholelithiasis. 4. Other details as above. us Mirza Almanza SANDER HAND IMG CT WITH CONTRAST ORDERA BLES Final Result * EGD (UPPER GI ENDOSCOPY) (05/17/2021) Evangelina Taylor MD PROCEDURES Final Result * US ABDOMEN COMPLETE FC (05/12/2021 10:09 AM EDT) Anatomical Region Laterality Modality Abdomen Ultrasound 05/13/2021 1:24 PM EDT Narrative 05/13/2021 1:24 PM EDT CONTRAST: EXAM: COMPLETE ABDOMINAL ULTRASOUND Comparison: None FINDINGS: The liver is normal in size and echotexture. No masses are seen. The gallbladder is physiologically distended and demonstrates no evidence of cholelithiasis, sludge or wall abnormalities. ??No sonographic Abebe sign. ??The common duct is normal in diameter, and measures 3 mm. The pancreas appears normal where seen. The tail is obscured by bowel gas. The right kidney measures 9.8 cm. ??The right kidney appears without evidence of hydronephrosis or calculus. ??Echogenic structure within the midpole measuring 1.2 x 1.1 x 1.2 cm. The left kidney measures 9.5 cm. The left kidney appears without evidence of hydronephrosis, calculus, or mass. ??Indeterminate, hypoechoic structure within the upper pole measuring 1.3 x 1.4 x 1.3 cm. The spleen is normal in size and echotexture. ??No masses are seen. The aorta and vena cava appear normal. ??No free fluid or adenopathy is seen. IMPRESSION: Echogenic structure within the midpole of the right kidney, likely an angiomyolipoma. Indeterminant, hypoechoic structure within the upper pole of the left kidney. ?? Recommend renal mass protocol CT or MRI for further evaluation. No sonographic features of acute cholecystitis or obstructive uropathy. Procedure Note Elaina Reyes MD - 05/13/2021 CONTRAST: EXAM: COMPLETE ABDOMINAL ULTRASOUND Comparison: None FINDINGS: The liver is normal in size and echotexture. No masses are seen. The gallbladder is physiologically distended and demonstrates no evidenceof cholelithiasis, sludge or wall abnormalities. No sonographic Abebe sign.The common duct is normal in diameter, and measures 3 mm. The pancreas appears normal where seen. The tail is obscured by bowel gas. The right kidney measures 9.8 cm. The right kidney appears withoutevidence of hydronephrosis or calculus. Echogenic structure within the midpolemeasuring 1.2 x 1.1 x 1.2 cm. The left kidney measures 9.5 cm. The left kidney appears without evidenceof hydronephrosis, calculus, or mass. Indeterminate, hypoechoic structurewithin the upper pole measuring 1.3 x 1.4 x 1.3 cm. The spleen is normal in size and echotexture. No masses are seen. The aorta and vena cava appear normal. No free fluid or adenopathy isseen. IMPRESSION: Echogenic structure within the midpole of the right kidney, likely an angiomyolipoma. Indeterminant, hypoechoic structure within the upper pole of the leftkidney. Recommend renal mass protocol CT or MRI for further evaluation. No sonographic features of acute cholecystitis or obstructive uropathy. us Evangelina Taylor MD [facility] ORDERABLES Final Result * ESOPHAGUS (04/11/2021 10:03 AM EDT) RADIOLOGY REPORT [facility] Department of Radiology [address] [place] [address], [address] Name: ANGELLA HEBERT : 54 Date of Service: 04/11/21 1111 [facility] [id number] Order Number: ??[id number] ?Location: [facility] Report Number: [id number] ?Service: REG REF/ Requesting Physician: Fernando Farmer MD ([facility] [place] Category: FLUOROSCOPY ??[facility] Exam: ESOPHAGUS ?? Signs/Symptoms:GLOB US SENSATION, COUGH Report Status: Signed Study: Double contrast barium swallow Indication: Globus sensation Comparison: None Discussion: The patient swallowed gas-containing granules and barium without any difficulty. There is a prominent cricopharyngeal bar suggestive of gastroesophageal reflux. Initial swallowing otherwise appears unremarkable. The esophagus is normal in course and contour. There are tertiary contractions with weak primary peristalsis. 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 No hiatal hernia. No gastroesophageal reflux was elicited. In the visualized gastric fundus, the last retroverted. It mildly thickened. A 12 mm barium capsule passed easily and was visualized within the stomach. Total fluoroscopic time was 2:19 minutes. A total of 17 fluoroscopy spot images and cine sequences were saved in PACS. Impression: ?? 1. ??Prominent cricopharyngeal bar suggestive of reflux. 2. ??Findings in keeping with the reflux esophagitis. 3. ??Presbyesophagus. 4. ??Findings suggestive of gastritis. Correlate clinically. If indicated, endoscopy can be performed for further evaluation. Date/Time of Dictation: 04/11/21 0909 Cooler Deliverer (if applicable): Approved By Attending Radiologist: Malka Win MD 04/11/21 1139 [facility] Department of Radiology [address] [place] [address], [address] ? [phone] ? [facility] RAD Anatomical Region Laterality Modality Other 04/11/2021 10:0 3 AM EDT Narrative 04/11/2021 11:39 AM EDT Reason for Study/History: Department of Radiology TEST(S) PROCESSED BY [facility] XRAY Fernando Farmer MD IMAGING-[facility] Final Result * XRAY SINUSES PARANASAL 3 OR MORE VWS - BILAT FC (03/29/2021 9:40 AM EDT) Anatomical Region Laterality Modality HEAD/BRAIN Radiographic Janett ging 03/30/2021 4:56 PM EDT Narrative 03/30/2021 4:56 PM EDT CONTRAST: 3-view sinuses Comparison: None Findings: Paranasal sinuses and mastoid air cells are clear. No fractures. Impression: 1. Normal paranasal sinuses. Procedure Note Aurelio Smyth MD - 03/30/2021 CONTRAST: 3-view sinuses Comparison: None Findings: Paranasal sinuses and mastoid air cells are clear. No fractures. Impression: 1. Normal paranasal sinuses. Fernando Farmer MD IMG XRAY NO CONTRAST ORDERABLES Final Result * (ABNORMAL) COMPREHENSIVE METABOLIC PANEL WITH GFR (03/28/2021 8:50 AM EDT) Only the most recent of2 resultswithin the time period is included. Glucose 154(H) 65 - 99 mg/dL [facility] Comment: ? Fasting reference interval For someone without known diabetes, a glucose value >125 mg/dL indicates that they may have diabetes and this should be confirmed with a follow-up test. Urea Nitrogen Blood (BUN) 20 7 - 25 mg/dL [facility] Creatinine 1.16(H) 0.50 - 0.99 mg/dL [facility] Comment: For patients >49 years of age, the reference limit for Creatinine is approximately 13% higher for people identified as -Nepalese. EGFR 48(L) > OR = 60 mL/min/1. 73m2 [facility] GFR () 56(L) > OR = 60 mL/min/1. 73m2 [facility] BUN/Creatinine Ratio 17 6 - 22 (calc) [facility] Sodium 136 135 - 146 mmol/L [facility] Potassium 3.9 3.5 - 5.3 mmol/L [facility] Chloride 101 98 - 110 mmol/L [facility] Carbon dioxide 28 20 - 32 mmol/L [facility] Calcium 9.3 8.6 - 10.4 mg/dL [facility] Protein Total (Serum) 6.4 6.1 - 8.1 g/dL [facility] Albumin 4.4 3.6 - 5.1 g/dL [facility] Globulin 2.0 1.9 - 3.7 g/dL (calc) [facility] Albumin/Globulin 2.2 1.0 - 2.5 (calc) [facility] Bilirubin Total 1.4(H) 0.2 - 1.2 mg/dL [facility] Alkaline phosphatase 47 37 - 153 U/L [facility] AST (SGOT) 17 10 - 35 U/L [facility] ALT (SGPT) 14 6 - 29 U/L [facility] 03/28/2021 8:50 AM EDT 03/28/2021 10:35 AM EDT Narrative [facility] - 03/28/2021 5:35 PM EDT Please note that this estimated [...] needs for GFR calculation. Resulting Agency Comment [id number] us Alondra Garcia MD LABORATORY Final Result [facility] [address] [place] [address] * XRAY CHEST, 2 VIEWS, PA & LATERAL (DX: COUGH R05/ 786.2) FC (03/02/2021 3:17 PM EDT) Only the most recent of3 resultswithin the time period is included. Anatomical Region Laterality Modality CHEST Radiographic Janett ging 03/04/2021 2:15 PM EDT Narrative 03/04/2021 2:15 PM EDT CONTRAST: Chest radiograph PA and lateral views Comparison: ??CR ??- XRAY CHEST 2 VIEWS PA ?? - 04/25/2019 05:24 PM EDT Findings: Cardiomediastinal silhouette normal. ??Hypoinflation. ??Linear density left lung base. ??No consolidations. No pleural effusion. ??No pneumothorax. No free air under the diaphragms. No acute fracture. ??Mild degenerative changes of thoracic spine. Soft tissue is unremarkable. Impression: Hypoinflation without acute cardiopulmonary finding. Linear atelectasis or scarring of the left lung base. Procedure Note Diana Silva MD - 03/04/2021 CONTRAST: Chest radiograph PA and lateral views Comparison: CR - XRAY CHEST 2 VIEWS PA - 04/25/2019 05:24 PM EDT Findings: Cardiomediastinal silhouette normal. Hypoinflation. Linear density leftlung base. No consolidations. No pleural effusion. No pneumothorax. No free air under the diaphragms. No acute fracture. Mild degenerative changes of thoracic spine. Soft tissue is unremarkable. Impression: Hypoinflation without acute cardiopulmonary finding. Linear atelectasis or scarring of the left lung base. us Mirza Almanza NP IMG XRAY NO CONTRAST ORDERA BLES Final Result * MYOCARDIAL PERFUSION TOMOGRAPY (SPECT)(INCLUDING EF IF DONE) MULTIPLE STUDIES AT REST AND/OR STRESS(01/31/2021 7:40 AM EDT) ETT BASELINE HR 62 beats/min ETT BASELINE SYSTOLIC BP 140 mmHg ETT BASELINE DIASTOLIC BP 70 mmHg ETT EXERCISE TIME MINUTES 5 minutes ETT EXERCISE TIME SECONDS 0 secs ETT METS 7.0 METS ETT PEAK HR 125 beats/min ETT % MAXIMAL PEAK HR 82 % ETT PEAK SYSTOLIC BP 180 mmHg ETT PEAK DIASTOLIC BP [address]UTION OF ST SEGMENTS ETT RESOLUTION OF SYMPTOMS ETT PERSANTINE DOSE ETT LEXISCAN DOSE ETT AMINOPHYLINE DOSE ETT RESTING DOSE [id number] 10.1 mci ETT STRESS DOSE [id number] 30.6 mci ETT LV EJECTION FRACTION 58 55 - 75 % Impressions Durga Anaya MD - 01/31/2021 7:40 AM EDT IV. Impression: Average aerobic capacity for age. Blunted heart rate response to exercise. Normal BP response to exercise. Patient had symptoms of chest pressure without ECG evidence of ischemia at moderate workload at 82% MPHR Intermediate Risk Sanders Treadmill Score Myocardial perfusion imaging is normal. No evidence of inducible ischemia on exercise myocardial perfusion imaging. Normal systolic contractility-LVEF 58% Interpreted and electronically signed by: Durga Anaya MD on 01/31/2021 Narrative Durga Anaya MD - 01/31/2021 7:40 AM EDT I. Patient Overview Referring Physician: Juanpablo Louis MD ??Interpreting Flavoring Maker: Dr. Durga Anaya Performing Provider: Catalina Florez NP ?? Type of Stress Test: Exercise Nuclear Myocardial Perfusion Study Indication for Test: chest pain Baseline ECG: Normal Sinus Rhythm, nonspecific T abnormalities Patient has been assessed by [facility] and is appropriate to proceed with testing and has consented to same- Yes. II. Exercise Test Data Reason Test Terminated:SOB and patient fatigue ECG Response: Difficult to evaluate due to baseline wandering and motion artifact, however no EKG changes noted ??Symptoms:chest pressure Arrhythmias: none Sanders Treadmill Score: 1 ?? Patient was injected with TC-99m Sestamibi (I.V.) at rest and at peak stress and was studied with gated tomographic perfusion imaging resulting in processed short, vertical long, and horizontal long axis. The overall quality of the study is good. Left ventricular cavity is noted to be normal size on the rest and stress studies. The TID ratio is 0.97. LV end diastolic volume is 77 ml. SPECT images demonstrate physiologic tracer distribution throughout the myocardium. No evidence of inducible ischemia or myocardial infarction. Summed stress score = 0. ??Summed difference score = 0. ??TPD = 0% Gated SPECT imaging reveals preserved myocardial thickening and left ventricle wall motion. The left ventricular ejection fraction was calculated to be 58%. III. ??Disposition: Patient was discharged in stable condition. Lolita Ott MD CARDIOVASCULAR-WITH INBSKT RTG F inal Result * CULTURE, BLOOD X 2 SPECIMENS (11/10/2020 7:57 AM EST) Bacteria culture SEE NOTE [facility] Comment: ??CULTURE, BLOOD ??Micro Number: ?[id number] ??Test Status: ? Final ??Specimen Source: ?? BLOOD ??Specimen Quality: ??Adequate ??Result: ?No growth after 5 days ??TRANSPORT MEDIA: ?? Aerobic and anaerobic bottle received. Bacteria culture SEE NOTE [facility] Comment: ??CULTURE, BLOOD NO.2 ??Micro Number: ?[id number] ??Test Status: ? Final ??Specimen Source: ?? BLOOD ??Specimen Quality: ??Adequate ??Result: ?No growth after 5 days ??TRANSPORT MEDIA: ?? Aerobic and anaerobic bottle received. 11/10/2020 7:57 AM EST 11/10/2020 2:52 PM EST Narrative Resulting Agency Comment [id number] Alondra Garcia MD LABORATORY Final Result Performing Organization Address [facility] de Phone Number [facility] [address] [place] [address] * HLA-B27 ANITGEN (11/10/2020 7:57 AM EST) HLA-B27 Negative Negative [facility] 11/10/2020 7:57 AM EST 11/10/2020 2:52 PM EST Narrative Resulting Agency Comment [id number] Alondra Garcia MD LABORATORY Final Result Performing Organization Address [facility] de Phone Number [facility] [address] [place] [address] * (ABNORMAL) RHEUMATOID ARTHRITIS DIAGNOSTIC PANEL (11/10/2020 7:57 AM EST) Rheumatoid Factor (Quant) <14 <14 IU/mL [facility] CCP Ab, IgG 23(H) UNITS [facility] Comment: Reference Range Negative: ?<20 Weak Positive: ? 20-39 Moderate Positive: ?? 40-59 Strong Positive: ? >59 INTERPRETATION SEE NOTE [facility] Comment: Consistent with rheumatoid arthritis in a patient with polyarthritis. A positive anti-CCP result is frequently found in patients with early rheumatoid arthritis and may be associated with progression of joint destruction. 11/10/2020 7:57 AM EST 11/10/2020 2:52 PM EST Narrative Resulting Agency Comment [id number] us Alondra Garcia MD LABORATORY Final Result Performing Organization Address [facility] de Phone Number [facility] [address] [place] [address] * C-REACTIVE PROTEIN (CRP) - INFLAMMATION (11/10/2020 7:57 AM EST) C reactive protein 0.8 <8.0 mg/L [facility] 11/10/2020 7:57 AM EST 11/10/2020 2:52 PM EST Narrative Resulting Agency Comment [id number] us Alondra Garcia MD LABORATORY Final Result Performing Organization Address [facility] Co de Phone Number [facility] [address] [place] [address] * ERYTHROCYTE SEDIMENTATION RATE (ESR), WESTERGREN (11/10/2020 7:57 AM EST) Sedimentation Rate [place] (ESR) 9 < OR = 30 mm/h [facility] 11/10/2020 7:57 AM EST 11/10/2020 2:52 PM EST Narrative Resulting Agency Comment [id number] us Alondra Garcia MD LAB SAME DAY RESULT Final Result Performing Organization Address [facility]/ZIP Co de Phone Number [facility] [address] [place] [address] * ASPARTATE AMINOTRANSFERASE (AST), SERUM (10/13/2020 8:08 AM EST) AST (SGOT) 14 10 - 35 U/L [facility] 10/13/2020 8:08 AM EST 10/13/2020 8:36 AM EST Narrative Resulting Agency Comment [id number] Mirza Almanza [facility] LAB SAME DAY RESULT Final R esult Performing Organization Address [facility] Co de Phone Number [facility] [address] [place] [address] * MAMMOGRAM SCREENING , BILATERAL FC (07/28/2020 10:47 AM EDT) Anatomical Region Laterality Modality BREAST Bilateral Mammography Impressions 08/03/2020 1:32 PM EST : No specific mammographic evidence of malignancy. RECOMMENDATION: ? - Routine Screening Mammogram in 1 Year for both breasts. BI-RADS: 1 Negative (overall) RESULTS COMMUNICATED TO PATIENT: In a letter Narrative 08/03/2020 1:32 PM EST EXAMINATION: SCREENING MAMMOGRAM HISTORY: Routine screening mammogram. TECHNIQUE: Digital Bilateral, CAD ?? COMPARISON: Comparison is made to prior [facility] mammograms. BREAST COMPOSITION: ??The breasts are almost entirely fatty. FINDINGS:No suspicious dominant mass lesions, clustered microcalcifications, or areas of unexplained architectural distortion are seen in either breast(s). Ulisses Newman DO IMG MAMMO ORDERABLES Final Res ult * IRON PROFILE (IRON/TIBC), SERUM (07/19/2020 9:13 AM EDT) Iron 86 45 - 160 mcg/dL [facility] Iron binding capacity 305 250 - 450 mcg/dL (calc) [facility] Iron saturation 28 16 - 45 % (calc) [facility] 07/19/2020 9:13 AM EDT 07/19/2020 10:04 AM EDT Narrative Resulting Agency Comment [id number] [employer] DO LABORATORY Final Result Performing Organization Address City/[facility]/ZIP Co de Phone Number [facility] [facility] [address] [place] [address] * FERRITIN (07/19/2020 9:13 AM EDT) Only the most recent of2 resultswithin the time period is included. Ferritin 45 16 - 288 ng/mL [facility] 07/19/2020 9:13 AM EDT 07/19/2020 10:04 AM EDT Narrative Resulting Agency Comment [id number] [employer] DO LABORATORY Final Result Performing Organization Address [facility] de Phone Number [employer] [address] [place] [address] * HEPATITIS C AB WITH REFLEX TO RNA PCR, SERUM (06/27/2020 12:00 PM EDT) [facility] Hepatitis C virus Ab NON-REACT SIMIN NON-REACT SIMIN [employer] Hepatitis C virus Ab Signal/Cutoff 0.01 <1.00 [employer] [facility] Comment: HCV antibody was non-reactive. There is no laboratory evidence of HCV infection. In most cases, no further action is required. However, if recent HCV exposure is suspected, a test for HCV RNA (test code 52412) is suggested. For additional information please refer to http://education.[employer]Any[employer].ru/faq/LCE19a7 (This link is being provided for informational/ educational purposes only.) 06/27/2020 12:0 0 PM EDT 06/27/2020 5:11 PM EDT Narrative Resulting Agency Comment [id number] [employer] DO LABORATORY Final Result Performing Organization Address [facility] Co de Phone Number [employer] [address] [place] [address] * (ABNORMAL) ACTIVATED PARTIAL THROMBOPLASTIN TIME (APTT), PLASMA (06/27/2020 12:00 PM EDT) Pathologist [facility] Thromboplastin Time 36(H) 22 - 34 sec [employer] Comment: This test has not been validated for monitoring unfractionated heparin therapy. For testing that is validated for this type of therapy, please refer to the Heparin Anti-Xa assay (test code 56101). For additional information, please refer to http://education.[employer]/faq/GDQ956 (This link is being provided for informational/educational purposes only.) 06/27/2020 12:0 0 PM EDT 06/27/2020 5:11 PM EDT Narrative Resulting Agency Comment [id number] us Ulisses Trent DO LAB SAME DAY RESULT Final Resu lt [facility] [address] [place] [address] * MRI OF BRAIN W/WO CONTRAST (06/19/2020) 06/19/2020 Narrative 06/19/2020 Ordered by an unspecified provider. us Unknown Provider CONTRAST STUDY- OTHER Final Res ult * MOBILE ECG TELEMETRY, 24+ HR PT-TRIGGERED EVENT RECORDING AND REMOTE REVIEW/INTERPRETATION <=30 DAYS (06/07/2020 3:51 PM EDT) Impressions Lolita Ott MD - 06/07/2020 3:51 PM EDT Impression The monitoringWas 26 days 8 hours and 53 minutes. The baseline date was 05/06/2020 End date was 06/04/2020 Rhythm during the monitoring Was sinus rhythm with an average heart rate of 61 bpm and lowest heart rate of 42 bpm and the highest heart rate was 140 bpm 30 events were transmitted 5 were ??symptomatic and 25 events were device triggered Less than 1% PACs were seen 1% PVCs were seen. Patient reported of shortness of breath and chest pain and heart racing which correlated with sinus rhythm, sinus tachycardia and with a single PVC. ??The heart rate ranged from 60 to 98 bpm. The auto triggered events correlated with sinus rhythm and sinus bradycardia with heart rate ranging from 50 bpm to 77 bpm Could not comment on ST segment changes. ??As they were variable No significant dysrhythmias were noted Interpreted and electronically signed by: Dr. Lolita Black 06/08/2020 Narrative Lolita Ott MD - 06/07/2020 3:51 PM EDT Angella Hebert completed a 30-day event monitor us Lolita Ott MD CARDIO-VASCULAR - OTHER Final Re sult * MYOCARDIAL PERFUSION TOMOGRAPHY (04/13/2020 12:13 PM EDT) RADIOLOGY REPORT [facility] Department of Radiology [address] [place] [address], [address] Name: ANGELLA HEBERT : 54 Date of Service: 04/13/20 1159 Acct Number: [id number] Order Number: ??[id number] ?Location: [facility] Report Number: [id number] ?Service: ADM Carine/MED Requesting Physician: Martha Gutierrez PA-C ([facility] [place]) Category: NUCLEAR MEDICINE Exam: MYOCARD PERF MARKELL MULTI ?? Signs/Symptoms: ??CHEST PAIN Report Status: Signed Myocardial Perfusion Imaging with Stress SPECT and Rest SPECT Imaging Isotope: Tc-99m Tetrofosmin; 27mCi stress and 9mCi rest doses. The patient was injected with Tc-99m tetrofosmin at rest 9 mCi and 30 minute delayed SPECT imaging was performed. ??The patient then underwent Exercise treadmill ??stress ??test as below. I. Patient Overview Interpreting Flavoring Maker: Lolita Ott MD Performing Provider: Vamshi mullins ?? Referring Provider:dr Zarate Type of Stress Test: Exercise treadmill Indication for Test: Chest pain II. Baseline Data Height: 63inches Weight: 187 lbs MPHR: 153 Target HR 130 Protocol : Standard Nathanael. Baseline ECG: Normal sinus rhythm Baseline heart rate : 56BPM Baseline blood pressure:164/80mm Hg Patient has been assessed by provider and is appropriate to proceed with testing and has consented to same- informed consent was signed. II. Exercise Test Data Protocol :Standard Nathanael Exercise Time :5min and 06seconds. Mets:6.4 Peak HR :119BPM ??%MPHR:78% Peak BP:160/70mm Hg EKG response:Nondiagnos tic borderline abnormal with 0.[address] segment depression in 2 3 aVF and V5 and V6 Reason test terminated :Chest pressure and dyspnea Symptoms:Chest pressure and dyspnea Arrhythmias:Ventric ular bigeminy and frequent isolated PVCs Sanders Treadmill score: -6.5 which is intermediate risk. Aerobic capacity: Average At peak exercise 27 mCi of technetium 99m tetrofosmin was injected intravenously. ??1 hour delayed gated SPECT imaging was performed. III. SCINTIGRAPHIC FINDINGS: The overall quality of the study is fair. Left ventricular cavity is noted to be normal sized on the rest and stress studies. LV end diastolic volume is 82ml. The TID ratio is 0.98which isnormal. A medium to large perfusion abnormality of moderate intensity is present in the inferior, inferolateral and septal wall on the stress and rest images with evidence of reversibility. . Gated SPECT imaging reveals normal myocardial thickening and left ventricle wall motion. The left ventricular ejection fraction was normal and calculated to be 65%. IV. FINAL CONCLUSION Average exercise tolerance Less than adequatecardiac stress Blunted and abnormal blood pressure response to exercise There were symptoms of chest pain suspicious for ischemia as well as abnormal EKG suspicious for ischemia. EKG changes were nondiagnostic. SANDERS treadmill score is -6.5, consistent with intermediaterisk There is a small area of infarction involving the inferior, septal, inferolateral wall of the left ventricle with medium area of superimposed ischemia. Overall left ventricular systolic function was normal without regional wall motion abnormalities as noted above. LVEF 65%. Based on the ACC Non invasive risk stratification, the above findings represent high risk for future cardiac events,. Patient had an abnormal blood pressure response as well as chest pain and borderline abnormal EKG and abnormal nuclear stress test. Interpreting Flavoring Maker: Lolita Ott MD. Date/Time of Dictation: 04/13/20 1327 Cooler Deliverer (if applicable): Approved By Attending Radiologist: Lolita Ott MD ([facility] [place]) 04/13/20 7925 [facility] Department of Radiology [address] [place] [address], [address] ? [phone] ? [facility] 04/13/2020 12:1 3 PM EDT Narrative [facility] - 04/13/2020 1:24 PM EDT Reason for Study/History: Department of Radiology TEST(S) PROCESSED BY [facility] XRAY us Unknown Provider [facility] CV IMAGING-[facility] Final Resul t Performing Organization Address [facility] Co de Phone Number [facility] [address] [place] [address] * MAGNESIUM (04/13/2020 8:35 AM EDT) Only the most recent of2 resultswithin the time period is included. MAGNESIUM 1.9 1.6 - 2.6 mg/dL [facility] COMMENT [facility] Comment: Specimen is slightly hemolyzed. The following tests may be affected: AST, LDH, DBili, and UIBC. 04/13/2020 8:35 AM EDT 04/13/2020 8:35 AM EDT us Rodriguez Frias MD LABORATORY Final Result Performing Organization Address [facility] Co de Phone Number [facility] [address] [place] [address] * CPK (04/13/2020 8:35 AM EDT) Only the most recent of3 resultswithin the time period is included. CK (CREATINE KINASE) 68 24 - 173 U/L [facility] 04/13/2020 8:35 AM EDT 04/13/2020 8:35 AM EDT us Rodriguez Frias MD LABORATORY Final Result Performing Organization Address [facility] Co de Phone Number [facility] [address] [place] [address] * (ABNORMAL) BASIC METABOLIC PANEL (04/13/2020 8:35 AM EDT) Only the most recent of2 resultswithin the time period is included. Glucose 157(H) 65 - 99 mg/dL [facility] BUN 9 5 - 26 mg/dL [facility] CREATININE 0.99 0.5 - 1.5 mg/dL [facility] BUN/Creatinine Ratio 9 8 - 27 [facility] GLOM FILT RATE, EST 59.0 >59 mL/min [facility] IF -HUI N 68.3 >59 mL/min [facility] SODIUM 140 134 - 144 mEq/L [facility] POTASSIUM 4.2 3.6 - 5.6 mEq/L [facility] CHLORIDE 103 96 - 109 mEq/L [facility] CARBON DIOXIDE 27 20 - 32 mEq/L [facility] ANION GAP 10.0 8 - 15 [facility] CALCIUM 9.3 8.3 - 10.0 mg/dL [facility] COMMENT [facility] Comment: Specimen is slightly hemolyzed. The following tests may be affected: AST, LDH, DBili, and UIBC. 04/13/2020 8:35 AM EDT 04/13/2020 8:35 AM EDT Rodriguez Frias MD LABORATORY Final Result Performing Organization Address [facility]/ZIP Co de Phone Number [facility] [address] [place] [address] * TROPONIN T (04/13/2020 12:50 AM EDT) Only the most recent of3 resultswithin the time period is included. Pathologist [facility] Troponin T <0.030 ng/mL [facility] Comment: Reference Range: <0.030 ??Negative >= 0.1 ??Indicative of myocardial necrosis 04/13/2020 12:5 0 AM EDT 04/13/2020 12:50 AM EDT us Rodriguez Frias MD LABORATORY Final Result Performing Organization Address [facility]/ZIP Co de Phone Number [facility] [address] [place] [address] * ECHOCARDIOGRAM (04/13/2020) us Martha VUONG CARDIOVASCULAR-NO INBASKET R TG Final Result * (ABNORMAL) CBC WITH 5 PART DIFF (04/12/2020 1:10 PM EDT) WHITE BLOOD COUNT 5.6 3.9 - 11.0 x1000/uL [facility] RBC 3.77 3.70 - 5.10 mil/ul [facility] Hemoglobin 11.6 11.5 - 15.0 g/dL [facility] HCT (HEMATOCRIT) 33.3(L) 34.0 - 44.0 % [facility] MCV 88 80 - 100 fL [facility] MCH 31 27 - 33 pg [facility] MCHC 35 31 - 36 g/dL [facility] RDW 12.4 11.4 - 14.4 % [facility] PLATELETS 172 150 - 450 x1000/uL [facility] MPV 9.8 7.0 - 11.0 fL [facility] NEUTROPHILS 66 % [facility] LYMPHOCYTE % 26 % [facility] MONOCYTE % 4 % [facility] EOSINOPHIL % 3 % [facility] BASOPHIL % 1 % [facility] NEUTROPHILS (#) 3.7 1.8 - 7.0 x1000/uL [facility] LYMPHOCYTES # 1.5 0.7 - 4.5 x1000/uL [facility] MONOCYTES # 0.2 0.1 - 0.8 x1000/uL [facility] EOSINOPHILS # 0.2 0.0 - 0.4 x1000/uL [facility] BASOPHILS # 0.1 0.0 - 0.2 x1000/uL [facility] 04/12/2020 1:10 PM EDT 04/12/2020 1:10 PM EDT us Rodriguez Frias MD LABORATORY Final Result [facility] [address] [place] [address] * PHOSPHORUS (04/12/2020 1:10 PM EDT) PHOSPHATE 4.1 2.5 - 4.5 mg/dL [facility] 04/12/2020 1:10 PM EDT 04/12/2020 1:10 PM EDT us Dameron Rodriguez MD LABORATORY Final Result Performing Organization Address [facility] Co de Phone Number [facility] [address] [place] [address] * VITAMIN D, 25-HYDROXY, TOTAL, IMMUNOASSAY (04/07/2020 9:11 AM EDT) Vitamin D, 25-OH, Total 35 30 - 100 ng/mL [employer] Comment: Vitamin D Status ? 25-OH Vitamin D: Deficiency: ?<20 ng/mL Insufficiency: ? 20 - 29 ng/mL Optimal: ? > or = 30 ng/mL For 25-OH Vitamin D testing on patients on D2-supplementation and patients for whom quantitation of D2 and D3 fractions is required, the QuestAssureD(TM) 25-OH VIT D, (D2,D3), LC/MS/MS is recommended: order code 31106 (patients >2yrs). COMMENT SEE NOTE [employer] Comment: See Note 1 Note 1 For additional information, please refer to [email or web address] (This link is being provided for informational/ educational purposes only.) 04/07/2020 9:11 AM EDT 04/08/2020 12:58 AM EDT Narrative Resulting Agency Comment [id number] us Mirza Almanza NP LABORATORY Final Resul t [facility] [address] [place] [address] * CT ABDOMEN W/O CONTRAST THEN W/CONTRAST AND MORE SECTIONS (03/14/2020) 03/14/2020 Narrative 03/14/2020 Ordered by an unspecified provider. us Unknown Provider CONTRAST STUDY- OTHER Final Res ult * SCREENING MAMMOGRAPHY BILATERAL, 2 VIEWS EACH BREAST, INCLUDING CAD (07/06/2019) Only the most recent of8 resultswithin the time period is included. 07/06/2019 Narrative 07/06/2019 Ordered by an unspecified provider. us Unknown Provider GENERAL IMAGING- OTHER Final Re sult * COLONOSCOPY (07/06/2019) Colonscopy, Result us Unknown Provider PROCEDURES Final Result * DXA BONE DENSITY STUDY AXIAL (LSSPINE, HIP) (DX: OSTEOPENIA M85.80/ 733.90) FC (12/25/2018 9:03 AM EDT) Anatomical Region Laterality Modality BONE DENSITY Impressions 12/28/2018 10:46 AM EDT : As this patient's BMD is normal, no pharmacologic therapy is advised. FOLLOWUP: Approximately 7-10 years or as clinically indicated. Narrative 12/28/2018 10:46 AM EDT DUAL-ENERGY X-RAY ABSORPTIOMETRY (DXA) SCAN: ?? DXA MODEL: [employer] SL in fast scan mode RISK FACTORS: The patient reports none. TREATMENT: The patient reports multivitamin. RESULTS: Lumbar Spine L1,L4: 1.125 g/cm2, T-score 0.8, Z-score 1.2 Left Femoral Neck: 0.810 g/cm2, ??T-score -0.3, Z-score 0.2 LeftTotal Hip: 0.957 g/cm2, ??T-score 0.1, Z-score 0.0 LIMITATIONS: Degenerative changes appear to be present in the lumbar spine which may cause an artifactual increase in BMD. DIAGNOSIS: Normal bone mineral density us Otoniel VUONG IMG DEXA IMAGING Final Result * XRAY SPINE, CERVICAL; 3 VIEWS OR LESS FC (12/11/2018 9:23 AM EDT) Anatomical Region Laterality Modality Spine Radiographic Janett ging 12/12/2018 12:1 0 PM EDT Narrative 12/12/2018 12:10 PM EDT 2 views of the cervical spine. Comparison: None. Findings: Minimal anterolisthesis of C3 on C4. Moderate C4-C7 degenerative disc disease with osteophytes. Normal prevertebral soft tissues. Bilateral facet arthropathy is [id number] Impression: Minimal anterolisthesis of C3 on C4 with moderate C4-C7 degenerative disc disease. No acute osseous abnormality. Procedure Note Dionisio Borges MD - 12/12/2018 2 views of the cervical spine. Comparison: None. Findings: Minimal anterolisthesis of C3 on C4. Moderate C4-C7 degenerative disc disease with osteophytes. Normal prevertebral soft tissues. Bilateral facet arthropathy is [id number] Impression: Minimal anterolisthesis of C3 on C4 with moderate C4-C7 degenerative disc disease. No acute osseous abnormality. us Lai Snyder MD IMG XRAY NO CONTRAST ORDERABLES Final Result * CULTURE, URINE, ROUTINE (11/25/2018 12:19 PM EST) Bacteria culture (Urine) SEE NOTE [facility] Comment: ??CULTURE, URINE, ROUTINE ??MICRO NUMBER: ?[id number] ??TEST STATUS: ? FINAL ??SPECIMEN SOURCE: ?? URINE, CLEAN CATCH ??SPECIMEN QUALITY: ??ADEQUATE ??RESULT: ?Multiple organisms present, each less than 10,000 ? CFU/mL. These organisms, commonly found on ? external and internal genitalia, are considered ? to be colonizers. No further testing performed. 11/25/2018 12:1 9 PM EST 11/25/2018 1:05 PM EST Narrative Resulting Agency Comment [id number] us Otoniel VUONG LABORATORY Final Result Performing Organization Address [facility] de Phone Number [facility] [address] [place] [address] * URINALYSIS, MICROSCOPIC (11/25/2018 12:19 PM EST) WBC (Urine) NONE SEEN < OR = 5 /HPF [facility] RBC (Urine Sed) NONE SEEN < OR = 2 /HPF [facility] Bacteria (Urine) NONE SEEN NONE SEEN /HPF [facility] Hyaline casts (Urine sed) NONE SEEN NONE SEEN /LPF [facility] 11/25/2018 12:1 9 PM EST 11/25/2018 1:05 PM EST Narrative Resulting Agency Comment [id number] Result [facility] SAME DAY RESULT Final Result Performing Organization Address [facility] de Phone Number [facility] [address] [place] [address] * (ABNORMAL) URINALYSIS, DIPSTICK ONLY (11/25/2018 12:19 PM EST) Color (Urine) YELLOW YELLOW [facility] Appearance (Urine) CLEAR CLEAR [facility] Specific gravity (Urine) 1.020 1.001 - 1.035 [facility] pH (Urine) 5.5 5.0 - 8.0 [facility] Glucose (Urine) NEGATIVE NEGATIVE [facility] Bilirubin (Urine) NEGATIVE NEGATIVE [facility] Ketones (Urine) 1+(A) NEGATIVE [facility] Hemoglobin (Urine) NEGATIVE NEGATIVE [facility] Protein (Urine) NEGATIVE NEGATIVE [facility] Nitrite (Urine) NEGATIVE NEGATIVE [facility] Leukocyte esterase (Urine) 2+(A) NEGATIVE [facility] 11/25/2018 12:1 9 PM EST 11/25/2018 1:05 PM EST Result [facility] SAME DAY RESULT Final Result Performing Organization Address [facility] de Phone Number [facility] [address] [place] [address] * UNSPECIFIED DIAGNOSTIC PROCE (09/13/2018) Only the most recent of2 resultswithin the time period is included. Result [facility] Mingo Perez LABORATORY Final Result * MRI SPINE (05/31/2017) Only the most recent of4 resultswithin the time period is included. 05/31/2017 Deni Tompkins MD CONTRAST STUDY- OTHER Fin al Result * XRAY CHEST 2 VIEWS PA & LAT (02/10/2017) 02/10/2017 Mingo Perez GENERAL IMAGING- OTHER Final R esult * EKG (04/28/2015) Mingo Perez CARDIOVASCULAR-NO INBASKET RTG Final Result Visit Diagnoses Diagnosis Start Date Community acquired pneumonia of right lower lobe of lung 10/11/2018 Back spasm Other symptoms referable to back 10/11/2018 Cough 11/18/2018 Cough 11/19/2018 Acute upper respiratory infection Acute upper respiratory infections of unspecified site 11/19/2018 Hypothyroidism, unspecified type 11/19/2018 Essential hypertension 11/19/2018 Nonalcoholic fatty liver disease Other chronic nonalcoholic liver disease 11/19/2018 Abnormal results of kidney function studies Nonspecific abnormal results of kidney function study 11/19/2018 Type 2 diabetes mellitus with complication, without long-term current use of insulin (HCC) 11/19/2018 Chronic diarrhea Diarrhea 11/25/2018 Abnormal urine odor Other nonspecific finding on examination of urine 11/25/2018 Abnormal results of kidney function studies Nonspecific abnormal results of kidney function study 11/25/2018 Nonalcoholic fatty liver disease Other chronic nonalcoholic liver disease 11/25/2018 Type 2 diabetes mellitus with complication, without long-term current use of insulin (HCC) 11/25/2018 Chronic diarrhea Diarrhea 11/25/2018 Cognitive deficits Unspecified persistent mental disorders due to conditions classified elsewhere 11/25/2018 Other headache syndrome 11/25/2018 Spondylolisthesis of cervical region Acquired spondylolisthesis 11/25/2018 History of bilateral knee replacement 11/25/2018 Osteopenia of right hip 11/25/2018 Chronic right shoulder pain Pain in joint, shoulder region 11/25/2018 Abnormal urine odor Other nonspecific finding on examination of urine 11/25/2018 Moderate persistent asthma without complication (HHS) Unspecified asthma 11/25/2018 Chronic diarrhea Diarrhea 11/25/2018 Abnormal kidney function Unspecified disorder of kidney and ureter 11/30/2018 Neck pain, chronic Cervicalgia 12/07/2018 Acute upper respiratory infection Acute upper respiratory infections of unspecified site 12/09/2018 Neck pain, chronic Cervicalgia 12/11/2018 Abnormal kidney function Unspecified disorder of kidney and ureter 12/11/2018 Facet arthritis of cervical region Cervical spondylosis without myelopathy 12/15/2018 Neck pain Cervicalgia 12/15/2018 Foraminal stenosis of cervical region Spinal stenosis in cervical region 12/15/2018 Kidney disease Unspecified disorder of kidney and ureter 12/18/2018 Moderate persistent asthma without complication (HHS) Unspecified asthma 12/21/2018 Kidney disease Unspecified disorder of kidney and ureter 12/25/2018 Osteopenia of right hip 12/25/2018 Facet arthropathy, cervical Cervical spondylosis without myelopathy 01/04/2019 Shortness of breath 04/25/2019 Examination, medical, general Unspecified general medical examination 03/09/2020 Screening for endocrine disorder 03/09/2020 Type 2 diabetes mellitus with complication, without long-term current use of insulin (HCC) 03/09/2020 Type 2 diabetes mellitus with complication, without long-term current use of insulin (HCC) 03/21/2020 Screening for endocrine disorder 03/21/2020 Hypothyroidism, unspecified type 03/21/2020 Mixed hyperlipidemia due to type 2 diabetes mellitus (HCC) 03/29/2020 Elevated parathyroid hormone Unspecified endocrine disorder 03/29/2020 Memory difficulties Memory loss 04/07/2020 MCI (mild cognitive impairment) Mild cognitive impairment, so stated 04/07/2020 Hallucinations 04/07/2020 Elevated parathyroid hormone Unspecified endocrine disorder 04/07/2020 Memory difficulties Memory loss 04/07/2020 Memory difficulties Memory loss 04/07/2020 Headache disorder Headache 04/07/2020 Hallucinations, visual Psychophysical visual disturbances 04/07/2020 Sleep disturbance Sleep disturbance, unspecified 04/07/2020 Chest pain, unspecified type 05/01/2020 Hyperlipidemia, unspecified hyperlipidemia type 05/01/2020 Hypertension, unspecified type 05/01/2020 Palpitations 05/01/2020 Hyperlipidemia, unspecified hyperlipidemia type 05/16/2020 Palpitations 06/07/2020 Mixed hyperlipidemia due to type 2 diabetes mellitus (HCC) 06/13/2020 Abnormal bruising Other symptoms involving skin and integumentary tissues 06/27/2020 Need for hepatitis C screening test Special screening examination for other specified viral diseases 06/27/2020 Chest pain, unspecified type 06/27/2020 Abnormal bruising Other symptoms involving skin and integumentary tissues 06/27/2020 Need for vaccination Need for prophylactic vaccination and inoculation against unspecified single disease 06/27/2020 Need for hepatitis C screening test Special screening examination for other specified viral diseases 06/27/2020 Hypothyroidism, unspecified type 07/17/2020 Cold intolerance Other general symptoms 07/17/2020 Cold intolerance Other general symptoms 07/19/2020 Hypothyroidism, unspecified type 07/19/2020 Cold feeling Other general symptoms 07/25/2020 Type 2 diabetes mellitus without complication, without long-term current use of insulin (HCC) 07/25/2020 Chronic kidney disease, stage 3a (HCC) 07/25/2020 Mood disorder Unspecified episodic mood disorder 07/25/2020 Breast cancer screening by mammogram 07/28/2020 Spinal stenosis of lumbar region without neurogenic claudication Spinal stenosis, lumbar region, without neurogenic claudication 08/03/2020 Spondylolisthesis of cervical region Acquired spondylolisthesis 08/03/2020 Primary osteoarthritis involving multiple joints 08/03/2020 Cold feeling Other general symptoms 08/28/2020 Mixed hyperlipidemia due to type 2 diabetes mellitus (HCC) 08/28/2020 Chest pain, unspecified type 08/28/2020 Hyperlipidemia, unspecified hyperlipidemia type 08/28/2020 Hypertension, unspecified type 08/28/2020 Preoperative clearance Preoperative examination, unspecified 08/28/2020 Hyperlipidemia, unspecified hyperlipidemia type 08/31/2020 Hyperlipidemia, unspecified hyperlipidemia type 10/13/2020 Mixed hyperlipidemia due to type 2 diabetes mellitus (HCC) 10/13/2020 Type 2 diabetes mellitus without complication, without long-term current use of insulin (HCC) 10/13/2020 Diabetes mellitus without complication (HCC) Type II or unspecified type diabetes mellitus without mention of complication, not stated as uncontrolled 11/02/2020 Arthralgia, unspecified joint 11/08/2020 Arthralgia, unspecified joint 11/10/2020 Diabetes mellitus without complication (HCC) Type II or unspecified type diabetes mellitus without mention of complication, not stated as uncontrolled 11/10/2020 Hyperlipidemia, unspecified hyperlipidemia type 11/10/2020 Arthralgia, unspecified joint 11/10/2020 Mixed hyperlipidemia due to type 2 diabetes mellitus (HCC) 12/18/2020 Spinal stenosis of lumbar region without neurogenic claudication Spinal stenosis, lumbar region, without neurogenic claudication 01/05/2021 Spondylolisthesis of cervical region Acquired spondylolisthesis 01/05/2021 Protrusion of cervical intervertebral disc 01/05/2021 Neural foraminal stenosis of cervical spine Spinal stenosis in cervical region 01/05/2021 Primary osteoarthritis involving multiple joints 01/05/2021 Spinal stenosis of lumbar region without neurogenic claudication Spinal stenosis, lumbar region, without neurogenic claudication 01/05/2021 Spondylolisthesis of cervical region Acquired spondylolisthesis 01/05/2021 Primary osteoarthritis involving multiple joints 01/05/2021 History of bilateral knee replacement 01/05/2021 Protrusion of cervical intervertebral disc 01/05/2021 Neural foraminal stenosis of cervical spine Spinal stenosis in cervical region 01/05/2021 S/P lumbar laminectomy Other postprocedural status 01/05/2021 Mixed hyperlipidemia due to type 2 diabetes mellitus ([facility]) 01/05/2021 Type 2 diabetes mellitus without complication, without long-term current use of insulin ([facility]) 01/05/2021 Mood disorder Unspecified episodic mood disorder 01/05/2021 Arthralgia, unspecified joint 01/17/2021 Chest pain, unspecified type 01/25/2021 Nonspecific chest pain Chest pain, unspecified 01/31/2021 Cough 03/01/2021 Cough 03/02/2021 Type 2 diabetes mellitus without complication, unspecified whether half-way insulin use ([facility]) 03/02/2021 Seasonal allergies Allergic rhinitis, cause unspecified 03/02/2021 Arthralgia, unspecified joint 03/21/2021 Arthralgia, unspecified joint 03/21/2021 Arthralgia, unspecified joint 03/22/2021 Cough 03/23/2021 Arthralgia, unspecified joint 03/28/2021 Cough 03/29/2021 Globus sensation Gastrointestinal malfunction arising from mental factors 03/29/2021 Cough 03/29/2021 Chronic seasonal allergic rhinitis 03/29/2021 Hoarseness Dysphonia 03/29/2021 LPRD (laryngopharyngeal reflux disease) Other diseases of larynx 03/29/2021 Hiatal hernia Diaphragmatic hernia without mention of obstruction or gangrene 03/30/2021 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] 04/09/2021 Hiatal hernia Diaphragmatic hernia without mention of obstruction or gangrene 04/12/2021 Gastroesophageal reflux disease, unspecified whether esophagitis present 04/12/2021 Nonspecific chest pain Chest pain, unspecified 04/13/2021 Hyperlipidemia, unspecified hyperlipidemia type 04/13/2021 Hypertension, unspecified type 04/13/2021 Nonrheumatic aortic valve insufficiency Aortic valve disorders 04/13/2021 Globus sensation Gastrointestinal malfunction arising from mental factors 05/03/2021 LPRD (laryngopharyngeal reflux disease) Other diseases of larynx 05/03/2021 Abdominal pain, LUQ Abdominal pain, left upper quadrant 05/12/2021 Abnormal finding on radiology exam Other nonspecific (abnormal) findings on radiological and other examinations of body structure 05/31/2021 Abnormal finding on radiology exam Other nonspecific (abnormal) findings on radiological and other examinations of body structure 06/05/2021 Type 2 diabetes mellitus without complication, unspecified whether buttermaker insulin use (HCC) 06/05/2021 Hyponatremia Hyposmolality and/or hyponatremia 06/08/2021 Echogenic kidneys on renal ultrasound Nonspecific (abnormal) findings on radiological and other examination of genitourinary organs 06/21/2021 Abnormal finding on radiology exam Other nonspecific (abnormal) findings on radiological and other examinations of body structure 06/21/2021 Arthralgia, unspecified joint 06/27/2021 Echogenic kidneys on renal ultrasound Nonspecific (abnormal) findings on radiological and other examination of genitourinary organs 07/01/2021 Abnormal finding on radiology exam Other nonspecific (abnormal) findings on radiological and other examinations of body structure 07/01/2021 Hyponatremia Hyposmolality and/or hyponatremia 07/16/2021 Heart murmur Undiagnosed cardiac murmurs 07/24/2021 Breast cancer screening by mammogram 07/31/2021 Type 2 diabetes mellitus without complication, without long-term current use of insulin (HCC) 08/03/2021 Hypothyroidism, unspecified type 08/03/2021 Essential hypertension 08/03/2021 Chronic kidney disease, stage 3a (HCC) 08/03/2021 Mood disorder Unspecified episodic mood disorder 08/03/2021 Need for vaccination Need for prophylactic vaccination and inoculation against unspecified single disease 08/03/2021 Chest pain, unspecified type 08/03/2021 SOB (shortness of breath) Shortness of breath 08/03/2021 Bruising Contusion of unspecified site 08/03/2021 MCI (mild cognitive impairment) Mild cognitive impairment, so stated 08/10/2021 Word finding difficulty Problems with communication (including speech) 08/10/2021 Sleep disturbance Sleep disturbance, unspecified 08/10/2021 Memory difficulties Memory loss 08/10/2021 Hallucinations, visual Psychophysical visual disturbances 08/10/2021 Anxiety Anxiety state, unspecified 08/10/2021 Encounter for preoperative screening laboratory testing for COVID-19 virus 08/13/2021 Cough 08/15/2021 KNOTT (dyspnea on exertion) Other dyspnea and respiratory abnormality 08/15/2021 SOB (shortness of breath) Shortness of breath 09/03/2021 Hypertension, unspecified type 09/03/2021 Hyperlipidemia, unspecified hyperlipidemia type 09/03/2021 Bradycardia Other specified cardiac dysrhythmias 09/03/2021 SOB (shortness of breath) Shortness of breath 09/13/2021 Type 2 diabetes mellitus without complication, without long-term current use of insulin (HCC) 09/14/2021 SOB (shortness of breath) Shortness of breath 09/14/2021 Dyspnea, unspecified type 10/01/2021 Palpitations 10/04/2021 SOB (shortness of breath) Shortness of breath 10/12/2021 Chest pain, unspecified type 10/12/2021 Coronary Artery Disease with Stable Angina (I25.119) 10/12/2021 Hypertension, unspecified type 10/12/2021 Hyperlipidemia, unspecified hyperlipidemia type 10/12/2021 SOB (shortness of breath) Shortness of breath 10/18/2021 Coronary Artery Disease with Stable Angina (I25.119) 10/18/2021 SOB (shortness of breath) Shortness of breath 10/25/2021 Coronary Artery Disease with Stable Angina (I25.119) 10/25/2021 Coronary Artery Disease with Stable Angina (I25.119) 10/25/2021 SOB (shortness of breath) Shortness of breath 10/25/2021 Diabetes mellitus without complication (HCC) Type II or unspecified type diabetes mellitus without mention of complication, not stated as uncontrolled 11/06/2021 Diabetes mellitus without complication (HCC) Type II or unspecified type diabetes mellitus without mention of complication, not stated as uncontrolled 11/19/2021 Chest pain, unspecified type 11/26/2021 Cardiomyopathy, primary (HCC) Other primary cardiomyopathies 11/26/2021 Hyperlipidemia, unspecified hyperlipidemia type 11/26/2021 Hypertension, unspecified type 11/26/2021 SOB (shortness of breath) Shortness of breath 11/26/2021 Nonrheumatic aortic valve stenosis Aortic valve disorders 11/26/2021 Spinal stenosis of lumbar region without neurogenic claudication Spinal stenosis, lumbar region, without neurogenic claudication 11/30/2021 Spinal stenosis of lumbar region without neurogenic claudication Spinal stenosis, lumbar region, without neurogenic claudication 12/10/2021 Spinal stenosis of lumbar region without neurogenic claudication Spinal stenosis, lumbar region, without neurogenic claudication 12/24/2021 Chronic pain syndrome 12/24/2021 Spinal stenosis of lumbar region without neurogenic claudication Spinal stenosis, lumbar region, without neurogenic claudication 12/28/2021 Breast cancer screening by mammogram 01/22/2022 Spinal stenosis of lumbar region without neurogenic claudication Spinal stenosis, lumbar region, without neurogenic claudication 02/06/2022 Shortness of breath 02/26/2022 Spinal stenosis of lumbar region without neurogenic claudication Spinal stenosis, lumbar region, without neurogenic claudication 03/07/2022 Type 2 diabetes mellitus without complication, unspecified whether half-way insulin use (HCC) 03/07/2022 Chronic, continuous use of opioids Opioid type dependence, continuous 03/08/2022 Neck mass Swelling, mass, or lump in head and neck 03/08/2022 Type 2 diabetes mellitus without complication, unspecified whether half-way insulin use (HCC) 03/08/2022 Neck mass Swelling, mass, or lump in head and neck 03/08/2022 Chronic, continuous use of opioids Opioid type dependence, continuous 03/08/2022 Chronic kidney disease, stage 3a (HCC) 03/08/2022 Mixed hyperlipidemia due to type 2 diabetes mellitus (HCC) 03/08/2022 Mood disorder Unspecified episodic mood disorder 03/08/2022 Diabetes Type 2 associated with hyperlipidemia (HCC) 03/08/2022 Other psychoactive substance dependence, uncomplicated (HCC) 03/08/2022 Neck mass Swelling, mass, or lump in head and neck 03/09/2022 Left foot pain Pain in limb 03/22/2022 Left foot pain Pain in limb 03/22/2022 Left foot pain Pain in limb 03/22/2022 Spinal stenosis of lumbar region without neurogenic claudication Spinal stenosis, lumbar region, without neurogenic claudication 04/09/2022 Spinal stenosis of lumbar region without neurogenic claudication Spinal stenosis, lumbar region, without neurogenic claudication 04/15/2022 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 04/16/2022 Globus sensation Gastrointestinal malfunction arising from mental factors 04/29/2022 LPRD (laryngopharyngeal reflux disease) Other diseases of larynx 04/29/2022 Spinal stenosis of lumbar region without neurogenic claudication Spinal stenosis, lumbar region, without neurogenic claudication 05/13/2022 Shortness of breath 05/27/2022 Nonrheumatic aortic valve stenosis Aortic valve disorders 05/27/2022 Coronary Artery Disease with Stable Angina (I25.119) 05/27/2022 Hyperlipidemia, unspecified hyperlipidemia type 05/27/2022 Hypertension, unspecified type 05/27/2022 Spinal stenosis of lumbar region without neurogenic claudication Spinal stenosis, lumbar region, without neurogenic claudication 06/10/2022 Right shoulder pain, unspecified chronicity 07/02/2022 Right shoulder pain, unspecified chronicity 07/03/2022 Rotator cuff dysfunction, right 07/03/2022 Spinal stenosis of lumbar region without neurogenic claudication Spinal stenosis, lumbar region, without neurogenic claudication 07/09/2022 Hyperlipidemia, unspecified hyperlipidemia type 08/08/2022 Shortness of breath 08/08/2022 Spinal stenosis of lumbar region without neurogenic claudication Spinal stenosis, lumbar region, without neurogenic claudication 08/16/2022 Diabetes mellitus without complication (HCC) Type II or unspecified type diabetes mellitus without mention of complication, not stated as uncontrolled 08/28/2022 Diabetes Type 2 associated with hyperlipidemia (HCC) 08/30/2022 Routine history and physical examination of adult Routine general medical examination at a health care facility 09/05/2022 Bowel habit changes Other symptoms involving digestive system 09/05/2022 LLQ pain Abdominal pain, left lower quadrant 09/05/2022 Gastroesophageal reflux disease, unspecified whether esophagitis present 09/05/2022 Type 2 diabetes mellitus without complication, without long-term current use of insulin ([facility]) 09/05/2022 Cardiomyopathy, primary ([facility]) Other primary cardiomyopathies 09/05/2022 Mixed hyperlipidemia due to type 2 diabetes mellitus ([facility]) 09/05/2022 Essential hypertension 09/05/2022 Chronic right shoulder pain Pain in joint, shoulder region 09/05/2022 Hypothyroidism, unspecified type 09/05/2022 Mood disorder Unspecified episodic mood disorder 09/05/2022 Nonalcoholic fatty liver disease Other chronic nonalcoholic liver disease 09/05/2022 Coronary Artery Disease with Stable Angina (I25.119) 09/05/2022 S/P lumbar laminectomy Other postprocedural status 09/05/2022 Spinal stenosis of lumbar region without neurogenic claudication Spinal stenosis, lumbar region, without neurogenic claudication 09/05/2022 Chronic kidney disease, stage 3a ([facility]) 09/05/2022 Chronic, continuous use of opioids Opioid type dependence, continuous 09/05/2022 Spinal stenosis of lumbar region without neurogenic claudication Spinal stenosis, lumbar region, without neurogenic claudication 09/16/2022 LLQ pain Abdominal pain, left lower quadrant 09/19/2022 Bowel habit changes Other symptoms involving digestive system 09/19/2022 Colitis Other and unspecified noninfectious gastroenteritis and colitis 09/20/2022 Spinal stenosis of lumbar region without neurogenic claudication Spinal stenosis, lumbar region, without neurogenic claudication 10/02/2022 Abnormal finding on GI tract imaging Nonspecific (abnormal) findings on radiological and other examination of gastrointestinal tract 10/02/2022 Abnormal radiographic examination Other nonspecific (abnormal) findings on radiological and other examinations of body structure 10/04/2022 Diarrhea, unspecified type 10/04/2022 Internal hemorrhoids Internal hemorrhoids without mention of complication 10/04/2022 Type 2 diabetes mellitus without complication, without long-term current use of insulin ([facility]) 11/05/2022 Cataract, unspecified cataract type, unspecified laterality 11/15/2022 Spinal stenosis of lumbar region without neurogenic claudication Spinal stenosis, lumbar region, without neurogenic claudication 11/20/2022 Spinal stenosis of lumbar region without neurogenic claudication Spinal stenosis, lumbar region, without neurogenic claudication 11/22/2022 Type 2 diabetes mellitus without complication, without long-term current use of insulin ([facility]) 11/22/2022 Diabetes mellitus without complication (HCC) Type II or unspecified type diabetes mellitus without mention of complication, not stated as uncontrolled 11/22/2022 Senile nuclear sclerosis, bilateral 12/09/2022 Type 2 diabetes mellitus without complication, without long-term current use of insulin (HCC) 12/09/2022 Dermatochalasis of both upper eyelids 12/09/2022 Dry eyes, bilateral Tear film insufficiency, unspecified 12/09/2022 Floaters, bilateral 12/09/2022 Cobblestone retinal degeneration, bilateral 12/09/2022 Diabetes Type 2 associated with hyperlipidemia (HCC) 12/20/2022 Essential hypertension 01/16/2023 Preop examination Preoperative examination, unspecified 01/16/2023 Cataract of both eyes, unspecified cataract type 01/16/2023 Essential hypertension 01/16/2023 Mixed hyperlipidemia due to type 2 diabetes mellitus ([facility]) 01/16/2023 Coronary Artery Disease with Stable Angina (I25.119) 01/16/2023 Cardiomyopathy, primary (HCC) Other primary cardiomyopathies 01/16/2023 Nonalcoholic fatty liver disease Other chronic nonalcoholic liver disease 01/16/2023 Gastroesophageal reflux disease, unspecified whether esophagitis present 01/16/2023 Hypothyroidism, unspecified type 01/16/2023 Spondylolisthesis of cervical region Acquired spondylolisthesis 01/16/2023 S/P lumbar laminectomy Other postprocedural status 01/16/2023 Primary osteoarthritis involving multiple joints 01/16/2023 Chronic, continuous use of opioids Opioid type dependence, continuous 01/16/2023 Spinal stenosis of lumbar region without neurogenic claudication Spinal stenosis, lumbar region, without neurogenic claudication 01/16/2023 Type 2 diabetes mellitus without complication, without long-term current use of insulin (HCC) 01/16/2023 Other psychoactive substance dependence, uncomplicated ([facility]) 01/16/2023 Chronic kidney disease, stage 3a ([facility]) 01/16/2023 Mood disorder Unspecified episodic mood disorder 01/16/2023 Neck tightness Unspecified musculoskeletal disorders and symptoms referable to neck 01/16/2023 Substance dependence ([facility]) Unspecified drug dependence, unspecified 01/16/2023 Senile nuclear sclerosis, bilateral 01/21/2023 Breast cancer screening by mammogram 01/24/2023 Nuclear senile cataract of left eye 02/05/2023 Presence of intraocular lens Lens replaced by other means 02/06/2023 Spondylolisthesis of cervical region Acquired spondylolisthesis 02/12/2023 Spondylolisthesis of cervical region Acquired spondylolisthesis 02/13/2023 Presence of intraocular lens Lens replaced by other means 02/13/2023 Status post right cataract extraction Cataract extraction status 02/18/2023 Abrasion of right cornea, initial encounter 02/18/2023 Nuclear senile cataract of right eye 02/18/2023 Status post right cataract extraction Cataract extraction status 02/19/2023 Presence of intraocular lens Lens replaced by other means 02/20/2023 Presence of intraocular lens Lens replaced by other means 02/25/2023 Left foot pain Pain in limb 02/28/2023 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 02/28/2023 Presence of intraocular lens Lens replaced by other means 03/13/2023 Swelling of calf Swelling of limb 03/18/2023 Left leg swelling 03/18/2023 Synovial cyst of left popliteal space Synovial cyst of popliteal space 03/21/2023 Pain of left calf Pain in limb 03/21/2023 Leg swelling Swelling of limb 03/21/2023 Coronary Artery Disease with Stable Angina (I25.119) 04/11/2023 SOB (shortness of breath) Shortness of breath 04/11/2023 Chest pain, unspecified type 04/11/2023 Hypertension, unspecified type 04/11/2023 Hyperlipidemia, unspecified hyperlipidemia type 04/11/2023 Difficulty breathing Other dyspnea and respiratory abnormality 04/11/2023 Presence of intraocular lens Lens replaced by other means 04/14/2023 Photopsia of left eye 04/14/2023 Pulmonary nodules Other nonspecific abnormal finding of lung field 04/15/2023 Chest pain, unspecified type 04/17/2023 SOB (shortness of breath) Shortness of breath 04/17/2023 Coronary artery disease, unspecified vessel or lesion type, unspecified whether angina present, unspecified whether barrow or transplanted heart 04/17/2023 Globus sensation Gastrointestinal malfunction arising from mental factors 04/23/2023 LPRD (laryngopharyngeal reflux disease) Other diseases of larynx 04/23/2023 Aortic valve stenosis, etiology of cardiac valve disease unspecified 04/25/2023 SOB (shortness of breath) Shortness of breath 04/29/2023 Hypertension, unspecified type 04/29/2023 Hyperlipidemia, unspecified hyperlipidemia type 04/29/2023 Chronic neck pain Cervicalgia 06/20/2023 Cervical radiculopathy Brachial neuritis or radiculitis nos 06/20/2023 Chronic pain syndrome 06/20/2023 DDD (degenerative disc disease), cervical Degeneration of cervical intervertebral disc 06/20/2023 Cervical spinal stenosis Spinal stenosis in cervical region 06/20/2023 Type 2 diabetes mellitus without complication, without long-term current use of insulin (HCC) 06/20/2023 Chronic neck pain Cervicalgia 06/27/2023 Cervical radiculopathy Brachial neuritis or radiculitis nos 06/27/2023 Chronic neck pain Cervicalgia 07/28/2023 Dizziness Dizziness and giddiness 08/14/2023 Spinal stenosis of lumbar region without neurogenic claudication Spinal stenosis, lumbar region, without neurogenic claudication 08/19/2023 Left foot pain Pain in limb 08/26/2023 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 08/26/2023 Type 2 diabetes mellitus without complication, without long-term current use of insulin (HCC) 09/01/2023 Type 2 diabetes mellitus without complication, without long-term current use of insulin ([facility]) 09/03/2023 SOB (shortness of breath) Shortness of breath 09/05/2023 Hyperlipidemia, unspecified hyperlipidemia type 09/05/2023 SOB (shortness of breath) Shortness of breath 09/05/2023 Hypertension, unspecified type 09/05/2023 Hyperlipidemia, unspecified hyperlipidemia type 09/05/2023 Aortic valve stenosis, etiology of cardiac valve disease unspecified 09/05/2023 Acute bronchiolitis with bronchospasm Acute bronchiolitis due to other infectious organisms 09/10/2023 Abnormal respiratory function Respiratory abnormality, unspecified 09/15/2023 Spinal stenosis of lumbar region without neurogenic claudication Spinal stenosis, lumbar region, without neurogenic claudication 09/24/2023 Hypothyroidism, unspecified type 10/03/2023 Acute bronchiolitis with bronchospasm Acute bronchiolitis due to other infectious organisms 10/06/2023 LPRD (laryngopharyngeal reflux disease) Other diseases of larynx 10/10/2023 Abnormal findings on diagnostic imaging of lung Other nonspecific abnormal finding of lung field 10/10/2023 Hypothyroidism, unspecified type 10/16/2023 SOB (shortness of breath) on exertion Shortness of breath 10/16/2023 Neuropathy Mononeuritis of unspecified site 10/16/2023 Neuropathy Mononeuritis of unspecified site 10/16/2023 SOB (shortness of breath) on exertion Shortness of breath 10/16/2023 Cognitive deficits Unspecified persistent mental disorders due to conditions classified elsewhere 10/16/2023 Community acquired pneumonia, unspecified laterality 10/23/2023 Chronic cough Cough 10/23/2023 Shortness of breath 10/23/2023 Coronary Artery Disease with Stable Angina (I25.119) 10/23/2023 Cardiomyopathy, primary (HCC) Other primary cardiomyopathies 10/23/2023 Chronic kidney disease, stage 3a ([facility]) 10/23/2023 Type 2 diabetes mellitus with stage 3a chronic kidney disease, unspecified whether buttermaker insulin use ([facility]) 10/23/2023 Diabetes Type 2 associated with hyperlipidemia ([facility]) 10/23/2023 Substance dependence ([facility]) Unspecified drug dependence, unspecified 10/23/2023 Mood disorder Unspecified episodic mood disorder 10/23/2023 Dry mouth Disturbance of salivary secretion 10/30/2023 Mouth pain Other and unspecified diseases of the oral soft tissues 10/30/2023 Spinal stenosis of lumbar region without neurogenic claudication Spinal stenosis, lumbar region, without neurogenic claudication 10/30/2023 Dry mouth Disturbance of salivary secretion 10/30/2023 Mouth pain Other and unspecified diseases of the oral soft tissues 10/30/2023 Spinal stenosis of lumbar region without neurogenic claudication Spinal stenosis, lumbar region, without neurogenic claudication 10/30/2023 SOB (shortness of breath) on exertion Shortness of breath 10/30/2023 Chronic cough Cough 10/30/2023 Spinal stenosis of lumbar region without neurogenic claudication Spinal stenosis, lumbar region, without neurogenic claudication 10/30/2023 Chronic cough Cough 10/30/2023 Dry mouth Disturbance of salivary secretion 10/30/2023 Mouth pain Other and unspecified diseases of the oral soft tissues 10/30/2023 Encounter for laboratory test Laboratory examination, unspecified 10/30/2023 Chronic cough Cough 11/05/2023 Chronic cough Cough 11/05/2023 Abnormal findings on diagnostic imaging of lung Other nonspecific abnormal finding of lung field 11/18/2023 Hypothyroidism, unspecified type 11/24/2023 Diabetes mellitus without complication (HCC) Type II or unspecified type diabetes mellitus without mention of complication, not stated as uncontrolled 11/25/2023 Chronic cough Cough 11/25/2023 Spinal stenosis of lumbar region without neurogenic claudication Spinal stenosis, lumbar region, without neurogenic claudication 11/26/2023 Coronary artery disease, unspecified vessel or lesion type, unspecified whether angina present, unspecified whether barrow or transplanted heart 11/26/2023 Diabetes mellitus without complication (HCC) Type II or unspecified type diabetes mellitus without mention of complication, not stated as uncontrolled 12/05/2023 Carotid stenosis, left Occlusion and stenosis of carotid artery without mention of cerebral infarction 12/15/2023 Chronic cough Cough 12/22/2023 Hypothyroidism, unspecified type 12/22/2023 Spinal stenosis of lumbar region without neurogenic claudication Spinal stenosis, lumbar region, without neurogenic claudication 12/26/2023 Diabetes mellitus without complication (HCC) Type II or unspecified type diabetes mellitus without mention of complication, not stated as uncontrolled 01/02/2024 Routine history and physical examination of adult Routine general medical examination at a health care facility 01/07/2024 Tongue lesion Other specified conditions of the tongue 01/07/2024 Chronic cough Cough 01/07/2024 Atypical mole Benign neoplasm of skin, site unspecified 01/07/2024 Bilateral carotid artery stenosis Occlusion and stenosis of multiple and bilateral precerebral arteries without mention of cerebral infarction 01/07/2024 Hypothyroidism, unspecified type 01/07/2024 Essential hypertension 01/07/2024 Mixed hyperlipidemia due to type 2 diabetes mellitus (HCC) 01/07/2024 Coronary artery disease, unspecified vessel or lesion type, unspecified whether angina present, unspecified whether barrow or transplanted heart 01/07/2024 Type 2 diabetes mellitus with stage 3a chronic kidney disease, unspecified whether buttermaker insulin use (HCC) 01/07/2024 Cardiomyopathy, primary (HCC) Other primary cardiomyopathies 01/07/2024 Atherosclerosis of aorta 01/07/2024 Gastroesophageal reflux disease with esophagitis, unspecified whether hemorrhage 01/07/2024 Nonalcoholic fatty liver disease Other chronic nonalcoholic liver disease 01/07/2024 Chronic kidney disease, stage 3a (HCC) 01/07/2024 Anxiety and depression Dysthymic disorder 01/07/2024 Other psychoactive substance dependence, uncomplicated (HCC) 01/07/2024 History of bilateral knee replacement 01/07/2024 Renal angiomyolipoma Benign neoplasm of kidney, except pelvis 01/07/2024 S/P lumbar laminectomy Other postprocedural status 01/07/2024 Class 1 obesity with serious comorbidity and body mass index (BMI) of 34.0 to 34.9 in adult, unspecified obesity type 01/07/2024 Tongue lesion Other specified conditions of the tongue 01/09/2024 Chronic neck pain Cervicalgia 01/17/2024 Chronic pain in right foot Pain in limb 01/19/2024 Chronic neck pain Cervicalgia 01/20/2024 Chronic pain in right foot Pain in limb 01/20/2024 Plantar fasciitis Plantar fascial fibromatosis 01/20/2024 Hypothyroidism, unspecified type 01/25/2024 Encounter for drug therapy Encounter for long-term (current) use of other medications 01/27/2024 Chronic neck pain Cervicalgia 01/27/2024 Violation of narcotic use agreement Reserved for inherently not codable concepts WITHOUT codable children 01/27/2024 Encounter for drug therapy Encounter for long-term (current) use of other medications 01/27/2024 Spondylolisthesis of cervical region Acquired spondylolisthesis 01/27/2024 Spinal stenosis of lumbar region without neurogenic claudication Spinal stenosis, lumbar region, without neurogenic claudication 01/27/2024 Abnormal findings on diagnostic imaging of lung Other nonspecific abnormal finding of lung field 02/11/2024 Breast cancer screening by mammogram 02/19/2024 LPRD (laryngopharyngeal reflux disease) Other diseases of larynx 02/19/2024 Vitreous floaters of right eye 03/22/2024 PVD (posterior vitreous detachment), right 03/22/2024 Chronic kidney disease, stage 3a (HCC) 03/22/2024 Mixed hyperlipidemia due to type 2 diabetes mellitus (HCC) 03/22/2024 Coronary artery disease, unspecified vessel or lesion type, unspecified whether angina present, unspecified whether barrow or transplanted heart 03/22/2024 Type 2 diabetes mellitus with stage 3a chronic kidney disease, unspecified whether half-way insulin use (HCC) 03/22/2024 Elevated bilirubin Jaundice, unspecified, not of 03/23/2024 LPRD (laryngopharyngeal reflux disease) Other diseases of larynx 03/25/2024 Subglottic stenosis Stenosis of larynx 03/25/2024 Edema of larynx 03/25/2024 Stenosis of larynx 03/25/2024 Hypothyroidism, unspecified 03/25/2024 Hormone replacement therapy 03/25/2024 Personal history of nicotine dependence Personal history of tobacco use, presenting hazards to health 03/25/2024 Elevated bilirubin Jaundice, unspecified, not of 03/31/2024 Elevated bilirubin Jaundice, unspecified, not of 04/02/2024 Globus sensation Gastrointestinal malfunction arising from mental factors 04/07/2024 LPRD (laryngopharyngeal reflux disease) Other diseases of larynx 04/07/2024 Subglottic stenosis Stenosis of larynx 04/07/2024 Shortness of breath 04/09/2024 LPRD (laryngopharyngeal reflux disease) Other diseases of larynx 04/09/2024 Subglottic stenosis Stenosis of larynx 04/09/2024 Shortness of breath 04/09/2024 SOB (shortness of breath) Shortness of breath 04/09/2024 Chest pain, unspecified type 04/09/2024 Globus sensation Gastrointestinal malfunction arising from mental factors 04/26/2024 LPRD (laryngopharyngeal reflux disease) Other diseases of larynx 04/26/2024 Diabetes mellitus without complication (HCC) Type II or unspecified type diabetes mellitus without mention of complication, not stated as uncontrolled 05/04/2024 Globus sensation Gastrointestinal malfunction arising from mental factors 05/07/2024 LPRD (laryngopharyngeal reflux disease) Other diseases of larynx 05/07/2024 SOB (shortness of breath) Shortness of breath 05/14/2024 Hypertension, unspecified type 05/14/2024 Nonrheumatic aortic valve stenosis Aortic valve disorders 05/14/2024 Coronary artery disease, unspecified vessel or lesion type, unspecified whether angina present, unspecified whether barrow or transplanted heart 05/14/2024 Elevated bilirubin Jaundice, unspecified, not of 05/21/2024 SOB (shortness of breath) Shortness of breath 05/21/2024 SOB (shortness of breath) Shortness of breath 05/26/2024 Shortness of breath 06/02/2024 Chronic cough Cough 06/25/2024 Thrush, oral Candidiasis of mouth 07/07/2024 Thrush, oral Candidiasis of mouth 07/07/2024 Pneumonia due to infectious organism, unspecified laterality, unspecified part of lung 07/07/2024 Right shoulder pain, unspecified chronicity 07/13/2024 Hypothyroidism, unspecified type 07/14/2024 Right shoulder pain, unspecified chronicity 07/14/2024 Rotator cuff dysfunction, right 07/14/2024 Polyarthralgia Pain in joint, multiple sites 07/19/2024 Reactive arthritis, unspecified site (HCC) 07/19/2024 Myalgia Mylagia and myositis, unspecified 07/19/2024 Primary osteoarthritis involving multiple joints 07/19/2024 Reactive arthritis, unspecified site (HCC) 07/19/2024 Polyarthralgia Pain in joint, multiple sites 07/19/2024 Myalgia Mylagia and myositis, unspecified 07/19/2024 Shortness of breath 07/19/2024 Hyperlipidemia, unspecified hyperlipidemia type 07/19/2024 Hypertension, unspecified type 07/19/2024 Aortic valve stenosis, etiology of cardiac valve disease unspecified 07/19/2024 Chronic right shoulder pain Pain in joint, shoulder region 07/26/2024 Carotid stenosis, bilateral Occlusion and stenosis of multiple and bilateral precerebral arteries without mention of cerebral infarction 08/05/2024 Post-COVID chronic cough 08/06/2024 Bronchitis with bronchospasm Acute bronchitis 08/06/2024 Chronic right shoulder pain Pain in joint, shoulder region 2024 Rotator cuff dysfunction, right 08/24/2024 Nonalcoholic fatty liver disease Other chronic nonalcoholic liver disease 10/20/2024 Type 2 diabetes mellitus without complication, without long-term current use of insulin (HCC) 10/20/2024 Chronic cough Cough 10/25/2024 Chronic neck pain Cervicalgia 10/25/2024 Goals Goal Patient Goal Type Associated Problems [...] at . Any insurance accepted. Quit smoking resources-[email or web address] HEMOGLOBIN A1C % < 7 Result Component 6.3(03/22/20 7:57 AM EDT) No Lasohnda Ambrosio CMA Note: Above is your goal [...] fasting blood sugar below 120 is ideal. Care Teams Chairman And Chief Executive Officer Relationship Specialty Start Date End Date Estevez, Christina K, MD [address] [place] [address] PCP - General Family Medicine 09/16/24
--- OUTSIDE RECORDS SUMMARY | 2024-10-29 11:48 | XMS_ITS | Encounter Summary ---
Author Organization [facility] Address [address] [place] [address] Care Team Providers Care Assistant Professor Of Sociology Name Role Phone Cortney Stone NP Primary Care Provider [phone] Christina Estevez MD Primary Care Provider [phone] Encounter Details Date Type Department Care Team (Late st Contact Info) Description 07/19/2024 Orders Only [facility]. Rheumatology [address] [place] [id number] Jr Dandre Vasquez DO [address] [place] [address] Social History Tobacco Use Types Packs/Day Years Used Date Smoking Tobacco: Former Cigarettes 2 17 0 03/02/1975 - 03/02/1992 Passive Smoke Exposure: Never Smokeless Tobacco: Never Alcohol Use Standard Drinks/Week Comments Yes 0 (1 standard drink = 0.6 oz pur e alcohol) rare PHQ-2 Answer Date Recorded PHQ-2 Score 0 01/07/2024 PHQ-9 Answer Date Recorded [facility] PHQ-9 SEVERITY SCORE (Range 0-27) 0 [...] Miscellaneous Notes * Result Encounter Note - Jr Dandre Vasquez DO - 07/19/2024 11:33 AM EDT Asad Perales, Your rheumatoid arthritis markers are notably negative and muscle enzyme numbers are normal, which is great news and go along with what we discussed during your visit. Dr. Vasquez documented in this encounter Plan of Treatment Upcoming Encounters Date Type Department Care Team (Latest Contact Info) Description 01/10/2025 8:00 AM EDT Office Visit [facility] [address] [place] [address] Christina Estevez MD [address] [place] [address] medication refill follow up 03/18/2025 1:15 PM EDT Office Visit [facility] Cardiology [address] [place] [address] Lolita Barnett MD [address] [place] [address] routine f/u 04/05/2025 9:15 AM EDT Radiology [facility]. Mammography [address] [place] [address] 05/02/2025 1:00 PM EDT Office Visit [facility] Cardiology [address] [address] Lolita Barnett MD [address] [place] [address] 1 year 06/07/2025 9:15 AM EDT CPE - Comprehensive Physical Exam [facility] [address] [place] [phone] Christina Estevez MD [address] [place] [address] NPP documented as of this encounter Goals [...] at . Any insurance accepted. Quit smoking resources-[email or web address] HEMOGLOBIN A1C % < 7 Result Component [...] of this encounter Procedures * Due to [place] [employer] law, this organization might not be sharing negative HIV tests. Procedure Name Priority Date/Time Associated Diagnosis Comments RHEUMATOID FACTOR, SERUM Routine 024 11:33 AM EDT Polyarthralgia CYCLIC CITRULLINATEDPEPTIDE CCP AB IGG Routine 07/19/2024 11:33 AM EDT Polyarthralgia CREATINE KINASE (CK), SERUM Routine 06/30 11:33 AM EDT Reactive arthritis, unspecified site (HCC) Myalgia ALDOLASE Routine 07/19/2024 11:33 AM EDT Reactive arthritis, unspecified site (HCC) Myalgia documented in this encounter Results * Due to [place] [employer] law, this organization might not be sharing negative HIV tests. * CREATINE KINASE (CK), SERUM (07/19/2024 11:33 AM EDT) CPK 53 29 - 143 U/L [facility] 07/19/2024 11:3 3 AM EDT 07/19/2024 1:32 PM EDT Narrative Resulting Agency Comment [id number] us Jr Dandre Vasquez DO LAB SAME DAY RESULT Final Resu lt [facility] [address] [place] [address] * ALDOLASE (07/19/2024 11:33 AM EDT) Aldolase 3.8 <=8.1 U/L [facility] 07/19/2024 11:3 3 AM EDT 07/19/2024 1:32 PM EDT Narrative Resulting Agency Comment [id number] Jr Dandre Vasquez DO LABORATORY Final Result Performing Organization Address [facility] Co de Phone Number [facility] [address] [place] [address] * RHEUMATOID FACTOR, SERUM (07/19/2024 11:33 AM EDT) Rheumatoid Factor (Quant) <10 <14 IU/mL [facility] 07/19/2024 11:3 3 AM EDT 07/19/2024 1:32 PM EDT Narrative Resulting Agency Comment [id number] Jr Dandre Vasquez DO LABORATORY Final Result Performing Organization Address [facility] de Phone Number [facility] [address] [place] [address] * CYCLIC CITRULLINATEDPEPTIDE CCP AB IGG (07/19/2024 11:33 AM EDT) CCP Ab, IgG <16 UNITS [facility] Comment: Reference Range Negative: ?<20 Weak Positive: ? 20-39 Moderate Positive: ?? 40-59 Strong Positive: ? >59 07/19/2024 11:3 3 AM EDT 07/19/2024 1:32 PM EDT Narrative Resulting Agency Comment [id number] Jr Dandre Vasquez DO LABORATORY Final Result Performing Organization Address [facility] Co de Phone Number [facility] [address] [place] [address] documented in this encounter Visit Diagnoses Diagnosis Polyarthralgia Pain in joint, multiple sites Reactive arthritis, unspecified site (HCC) Myalgia Mylagia and myositis, unspecified documented in this encounter Care Teams Assistant Professor Of Sociology Relationship Specialty Start Date End Date Cortney Stone NP [address] [place] [address] PCP - General Internal Medicine 03/29/22 09/15/24 Christina Estevez MD [address] [place] [address] PCP - General Family Medicine 09/16/24 documented as of this encounter
--- OUTSIDE RECORDS SUMMARY | 2024-10-29 11:49 | XMS_ITS | Encounter Summary ---
Author Organization [facility] Address [address] [place] [address] Care Team Providers Care Fire Sprinkler Installer Name Role Phone Ulisses Newman DO Primary Care Provider [phone] Mirza Almanza BORDER PATROL OFFICER Unavailable [phone] Juanpablo Louis MD Primary Care Provider [phone] Charu Jimenez MD Primary Care Provider Lori noahilaCortney Garcia NP Primary Care Provider + [phone] Unknown Pcp, Non [facility]mg Unavailable Unavailable Christina Estevez MD Primary Care Provider [phone] Encounter Details Date Type Department Care Team (Late st Contact Info) Description 04/07/2020 Orders Only [facility] Neurology [address] [facility] [address] [place] [address] Vibha Casanova CRNP [address] [place] [address] Social History Tobacco Use Types Packs/Day Years Used Date Smoking Tobacco: Former Smokeless Tobacco: Never Alcohol Use Standard Drinks/Week Comments No 0 (1 standard drink = 0.6 oz pur e alcohol) PHQ-2 Answer Date Recorded PHQ-2 Score 0 03/09/2020 Comments No Sex and Gender Information Value Date Recorded Sex Assigned at Female 03/06/2020 2:59 PM EDT Legal Sex Female 1:41 PM EST Gender Identity Female 03/06/2020 2:59 PM EDT Sexual Orientation Not on file COVID-19 Exposure Response Date Recorded In the last month, have you been in contact with someone who was confirmed or suspected to have Coronavirus / COVID-19? Unable to assess 03/20/2020 10:16 AM EDT documented as of this encounter Progress Notes * Vibha Casanova CRNP - 04/07/2020 9:11 AM EDT Released to My Chart documented in this encounter Plan of Treatment Upcoming Encounters Date Type Department Care Team (Latest Contact Info) Description 01/10/2025 8:00 AM EDT Office Visit [address] [address] Christina Estevez MD [address] [place] [address] medication refill follow up 03/18/2025 1:15 PM EDT Office Visit [facility] Cardiology [address] [facility] [address] [place] [address] Lolita Barnett MD [address] [place] [address] routine f/u 04/05/2025 9:15 AM EDT Radiology [facility]. [facility] [address] [place] [address] 05/02/2025 1:00 PM EDT Office Visit [facility] Cardiology [address] [facility] [address] [place] [address] Lolita Barnett MD [address] [place] [address] 1 year 06/07/2025 9:15 AM EDT CPE - Comprehensive Physical Exam [address] [address] Christina Estevez MD [address] [place] [address] NPP documented as of this encounter Goals [...] includes whole-grain products, fish, poultry, and nuts. HEMOGLOBIN A1C % < 7 Result Component [...] of this encounter Procedures * Due to [place] state law, this organization might not be sharing negative HIV tests. Procedure Name Priority Date/Time Associated Diagnosis Comments VENIPUNCTURE Routine 04/07/2020 9:11 AM EDT Memory difficulties documented in this encounter Results * Due to [place] state law, this organization might not be sharing negative HIV tests. * VITAMIN B12 (CYANOCOBALAMIN), SERUM (04/07/2020 9:11 AM EDT) Vitamin B12 (Cobalamins) 871 200 - 1100 pg/mL [facility] 04/07/2020 9:11 AM EDT 04/08/2020 12:59 AM EDT Narrative Resulting Agency Comment [id number] us V[facility] Final Resul t [facility] [address] [place] [address] documented in this encounter Visit Diagnoses Diagnosis Memory difficulties Memory loss documented in this encounter Care Teams Fire Sprinkler Installer Relationship Specialty Start Date End Date Ulisses Newman DO PCP - General Internal Medicine 01/18/20 07/27/20 Mirza Almanza, JULIETA PCP - Backup PCP Internal Medicine 07/28/20 05/29/22 Juanpablo Louis MD [address] [place] [address] PCP - General Internal Medicine 07/28/20 11/11/21 Charu Jimenez MD [address] [place] [address] PCP - General Family Medicine 11/12/21 03/28/22 Cortney Stone NP [address] [place] [address] PCP - General Internal Medicine 03/29/22 09/15/24 Unknown Pcp, Non Rmg PCP - Backup PCP 05/30/22 07/07/22 Christina Estevez MD [address] [place] [address] PCP - General Family Medicine 09/16/24 documented as of this encounter
--- OUTSIDE RECORDS SUMMARY | 2024-10-29 11:49 | XMS_ITS | Encounter Summary ---
Author Organization [facility] Address [address] [place] [address] Care Team Providers Care Senior Fund Accountant Name Role Phone Cortney Stone MANAGER REGIONAL SALES Primary Care Provider [phone] Encounter Details Date Type Department Care Team (Late st Contact Info) Description 10/04/2016 Orders Only [facility] [address] [place] [address] Kecia Case, DO [address] [facility] Obstetrics & [place] [address] Social History Tobacco Use Types Packs/Day Years Used Date Smoking Tobacco: Never Assessed Comments Unknown Sex and Gender Information Value Date Recorded Sex Assigned at Female 07/01/2024 9:28 AM EDT Legal Sex Female 4:10 AM EDT Gender Identity Female 07/01/2024 9:28 AM EDT Sexual Orientation Straight 07/01/2024 9: 28 AM EDT documented as of this encounter Plan of Treatment Not on file documented as of this encounter Visit Diagnoses Not on filedocumented in this encounter Care Teams Senior Fund Accountant Relationship Specialty Start Date End Date Cortney Stone NP [address] [place] [address] PCP - General 05/27/24 documented as of this encounter
--- OUTSIDE RECORDS SUMMARY | 2024-10-29 11:49 | XMS_ITS | Encounter Summary ---
Author Organization [facility] Address [phone] [facility] [place] [address] Care Team Providers Care Special Education Superintendent Name Role Phone Mirza Almanza NP Primary Care Provider [phone] Reason for Referral * MRI/CAT Scan - Closed Specialty Diagnoses / Procedures Referred By Contac t Referred To Contact Radiology Diagnoses SOB (shortness of breath) Procedures CT Angio Coronary Arteries Lolita Barnett MD [address] [place] [address] Referral ID Status Reason Start Date Expiration Date Visits Re quested Visits Authorized [id number] Closed 09/14/2021 09/14/2022 1 1 Encounter Details Date Type Department Care Team (Late st Contact Info) Description 09/14/2021 Ancillary Orders [facility] Radiology Department [address] [facility] [address] [place] [address] Lolita Barnett MD [address] [place] [phone] SOB (shortness of breath) Social History Tobacco Use Types Packs/Day Years Used Date Smoking Tobacco: Never Assessed Sex and Gender Information Value Date Recorded Sex Assigned at Female 08/04/2020 5:06 PM EST Gender Identity Female 08/04/2020 5:06 PM EST Sexual Orientation Choose not to disclose 2019 5:06 PM EST documented as of this encounter Plan of Treatment Not on file documented as of this encounter Results * CT ANGIO CORONARY ARTERIES WITH CONTRAST (10/08/2021 3:00 PM EST) Anatomical Region Laterality Modality Heart Computed Tomogra phy 10/09/2021 7:35 AM EST Impressions 10/09/2021 12:18 PM EST * ??CAD-RADS 4A - (70-99%) Severe stenosis of the mid right coronary artery and at least moderate stenosis (50-69%) of the distal RCA. * ??Overall, there is a large amount of calcified and non-calcified plaque in a multivessel distribution. There is moderate stenosis (50-69%) of the proximal LCX and mild stenosis (25-49%) of the proximal LAD. RECOMMENDATIONS: 1. ??Consider ICA or functional assessment. Consider symptom-guided anti- ischemic and preventive pharmacotherapy as well as risk factor modification per guideline- directed care. ATTESTATION: IMiles, as teaching physician have reviewed the images, if any, for this patient's exam, and if necessary, have edited the report originally created by Lashonda Abebe. Narrative 10/09/2021 12:[address] ANGIO CORONARY ARTERIES WITH CONTRAST Review of the Electronic Medical Record reveals an additional history of: Patient referred with shortness of breath and CV risk factors: T2DM, HLD, increased BMI. TECHNIQUE: Contrast enhanced ECG-synchronized CT angiography of the heart and coronary arteries was performed, including 3D image postprocessing. Multiphase data was acquired at multiple phases of the R-R interval: mid- to late-diastole. Multiplanar post processing and 3D volume rendering were performed and interpreted. ??A maximum width full field of view was also reconstructed and reviewed. COMPARISON: None FINDINGS: Coronary CTA: The quality of the exam is?good. The left and right coronaries have normal origins. ? The coronary circulation is?right dominant. Left Main: The left main coronary artery trifurcates into the LAD, LCx, and Ramus Intermedius. There is no plaque or stenosis. Left Anterior Descending (LAD): The LAD wraps around the apex and gives rise to one diagonal branch. There is medium amount of partially calcified plaque in the proximal LAD resulting in mild stenosis (25-49%). There is a short segment of superficial bridging in the distal LAD. The diagonal is a medium sized branching vessel with a small amount of calcified plaque proximally resulting in minimal stenosis (1-24%). Ramus Intermedius: The Ramus is a small vessel and is patent. Left Circumflex (LCX): The left circumflex is a medium sized vessel that gives rise to one OM branch and is a diminutive vessel after the OM. ?? There is a medium amount of calcified plaque in the proximal LCX resulting in moderate stenosis (50-69%). There is medium amount of mostly non-calcified plaque in the proximal OM resulting in mild stenosis (25-49%). Right Coronary Artery (RCA): The RCA is a dominant vessel that gives rise to the PDA and PLV branches. There is large amount of calcified and non-calcified plaque throughout the RCA resulting minimal stenosis (1-24%) proximally and a focal severe stenosis (70- 99%) in the mid RCA and at least moderate stenosis (>50%) in the distal RCA. The PDA is a small vessel with a small amount of calcified plaque proximally resulting in minimal stenosis (1-24%). The PLV is a medium vessel with a small amount of predominantly calcified plaque in the proximal vessel resulting in mild stenosis (25-49%). Total Coronary Plaque Fairchance: Overall, there is a large amount of ??coronary plaque. NON-CORONARY CARDIAC FINDINGS: Chambers: The left atrium is mildly dilated. The right atrium is normal in size. The right ventricle is mildly enlarged. Normal left ventricular size. There is no evidence of left atrial or other intracardiac thrombus. Myocardium:?Normal left ventricular thickness. ? Valves:?Trileaflet aortic valve with mild leaflet thickening and calcifications. Mildly thickened anterior mitral valve leaflet. Pericardium:?No pericardial effusion, calcification or thickening. Aorta: Normal size. Diffuse atherosclerotic plaque of the descending thoracic aorta. Pulmonary arteries: Normal size. No central pulmonary embolism. INCIDENTAL FINDINGS: Small hiatal hernia. Scattered subsegmental atelectasis. Chronic degenerative changes of the visualized spine. Procedure Note Elvin Mott MD - 10/09/2021 CT ANGIO CORONARY ARTERIES WITH CONTRAST Review of the Electronic Medical Record reveals an additional history of:Patient referred with shortness of breath and CV risk factors: T2DM, HLD,increased BMI. TECHNIQUE: Contrast enhanced ECG-synchronized CT angiography of the heartand coronary arteries was performed, including 3D image postprocessing.Multiphase data was acquired at multiple phases of the R-R interval: mid-to late-diastole. Multiplanar post processing and 3D volume rendering wereperformed and interpreted. A maximum width full field of view was alsoreconstructed and reviewed. COMPARISON: None FINDINGS: Coronary CTA: The quality of the exam is?good. The left and right coronaries have normal origins. ? The coronary circulation is?right dominant. Left Main: The left main coronary artery trifurcates into the LAD, LCx, and RamusIntermedius. There is no plaque or stenosis. Left Anterior Descending (LAD): The LAD wraps around the apex and gives rise to one diagonal branch. There is medium amount of partially calcified plaque in the proximal LADresulting in mild stenosis (25-49%). There is a short segment ofsuperficial bridging in the distal LAD. The diagonal is a medium sizedbranching vessel with a small amount of calcified plaque proximallyresulting in minimal stenosis (1-24%). Ramus Intermedius: The Ramus is a small vessel and is patent. Left Circumflex (LCX): The left circumflex is a medium sized vessel that gives rise to one OMbranch and is a diminutive vessel after the OM. There is a medium amount of calcified plaque in the proximal LCX resultingin moderate stenosis (50-69%). There is medium amount of mostlynon-calcified plaque in the proximal OM resulting in mild stenosis(25-49%). Right Coronary Artery (RCA): The RCA is a dominant vessel that gives rise to the PDA and PLVbranches. There is large amount of calcified and non-calcified plaque throughout theRCA resulting minimal stenosis (1-24%) proximally and a focal severestenosis (70- 99%) in the mid RCA and at least moderate stenosis (>50%) inthe distal RCA. The PDA is a small vessel with a small amount of calcifiedplaque proximally resulting in minimal stenosis (1-24%). The PLV is amedium vessel with a small amount of predominantly calcified plaque in theproximal vessel resulting in mild stenosis (25-49%). Total Coronary Plaque Fairchance: Overall, there is a large amount of coronary plaque. NON-CORONARY CARDIAC FINDINGS: Chambers: The left atrium is mildly dilated. The right atrium is normal insize. The right ventricle is mildly enlarged. Normal left ventricularsize. There is no evidence of left atrial or other intracardiacthrombus. Myocardium:?Normal left ventricular thickness. ? Valves:?Trileaflet aortic valve with mild leaflet thickening andcalcifications. Mildly thickened anterior mitral valve leaflet. Pericardium:?No pericardial effusion, calcification or thickening. Aorta: Normal size. Diffuse atherosclerotic plaque of the descendingthoracic aorta. Pulmonary arteries: Normal size. No central pulmonary embolism. INCIDENTAL FINDINGS: Small hiatal hernia. Scattered subsegmental atelectasis. Chronic degenerative changes of the visualized spine. IMPRESSION: * CAD-RADS 4A - (70-99%) Severe stenosis of the mid right coronary arteryand at least moderate stenosis (50-69%) of the distal RCA. * Overall, there is a large amount of calcified and non-calcified plaquein a multivessel distribution. There is moderate stenosis (50-69%) of theproximal LCX and mild stenosis (25-49%) of the proximal LAD. RECOMMENDATIONS: 1. Consider ICA or functional assessment. Consider whpkmri-vutivciclf-unimmxoz and preventive pharmacotherapy as well as risk factormodification per guideline- directed care. ATTESTATION: Miles Jacobs, as teaching physician have reviewed theimages, if any, for this patient's exam, and if necessary, have edited thereport originally created by Lashonda Abebe. Lolita Barnett MD IMG CT CARDIAC documented in this encounter Visit Diagnoses Diagnosis SOB (shortness of breath) Shortness of breath SOB (shortness of breath) Shortness of breath documented in this encounter Care Teams Special Education Superintendent Relationship Specialty Start Date End Date Mirza Almanza NP [address] [address] [email or web address] PCP - General Nurse Practitioner 08/10/20 documented as of this encounter Additional Source Comments The information contained in this document represents components of the legal health record. It is not the complete legal health record.[facility]
--- OUTSIDE RECORDS SUMMARY | 2024-10-29 11:49 | XMS_ITS | Encounter Summary ---
Author Organization [facility] Address [address] [place] [address] Care Team Providers Care Artillery Specialist Name Role Phone Mirza Almanza COMPUTER CONSULTANT Unavailable [phone] Charu Jimenez MD Primary Care Provider Lori noahilaCortney Garcia NP Primary Care Provider [phone] Unknown Pcp, Non Rmg Unavailable Unavailable Christina Estevez MD Primary Care Provider [phone] Encounter Details Date Type Department Care Team (Late st Contact Info) Description 03/08/2022 Orders Only [facility] [address] [place] [address] Mirza Almanza NP [facility] [address] [address] Social History Tobacco Use Types Packs/Day Years Used Date Smoking Tobacco: Former Cigarettes 2 17 0 03/02/1975 - 03/02/1992 Smokeless Tobacco: Never Alcohol Use Standard Drinks/Week [...] Miscellaneous Notes * Result Encounter Note - Shahrzad Farias - 03/08/2022 3:59 PM EDT Please review and advise thank you * Result Encounter Note - Mirza Almanza - 03/08/2022 3:59 PM EDT Patient is prescribed Vicodin, her urine drug screen is negative. Please check HEAVY LIFT RIGGER to check the frequency of her Vicodin refill. Basic metabolic panel is overall stable, renal function is stable compared with previous labs. * Result Encounter Note - Poly Ordoñez LPN - 03/08/2022 3:59 PM EDT See tms. documented in this encounter Plan of Treatment Upcoming Encounters Date Type Department Care Team (Latest Contact Info) Description 01/10/2025 8:00 AM EDT Office Visit [facility] [address] [place] [address] Christina Estevez MD [address] [place] [address] medication refill follow up 03/18/2025 1:15 PM EDT Office Visit [facility] Cardiology [address] [facility] [address] [place] [address] Lolita Barnett MD [address] [place] [address] routine f/u 04/05/2025 9:15 AM EDT Radiology [facility]. Mammography [address] [place] [address] 05/02/2025 1:00 PM EDT Office Visit [facility] Cardiology [address] 123 [facility] [address] [place] [address] Lolita Barnett MD [address] [place] [address] 1 year 06/07/2025 9:15 AM EDT CPE - Comprehensive Physical Exam [facility] [address] [place] [phone] Christina Estevez MD [address] [place] [address] NPP documented as of this encounter Goals [...] at . Any insurance accepted. Quit smoking resources-[email or web address].[email or web address] Glue HEMOGLOBIN A1C % < 7 Result Component [...] of this encounter Procedures * Due to [place] law, this organization might not be sharing negative HIV tests. Procedure Name Priority Date/Time Associated Diagnosis Comments PAIN MANAGEMENT PROFILE WITH FENTANYL, URINE (PAINM2+) Routine 03/08/2022 3:59 PM EDT Chronic, continuous use of opioids BASIC METABOLIC PANEL WITH (GFR) STAT (All results called to provider) 03/08/2022 3:59 PM EDT Neck mass documented in this encounter Results * Due to [place] law, this organization might not be sharing negative HIV tests. * (ABNORMAL) BASIC METABOLIC PANEL WITH (GFR) (03/08/2022 3:59 PM EDT) Glucose 110(H) 65 - 99 mg/dL [facility] Comment: ? Fasting reference interval For someone without known diabetes, a glucose value between 100 and 125 mg/dL is consistent with prediabetes and should be confirmed with a follow-up test. Urea Nitrogen Blood (BUN) 24 7 - 25 mg/dL [facility] Creatinine 1.08(H) 0.50 - 0.99 mg/dL [facility] Comment: For patients >49 years of age, the reference limit for Creatinine is approximately 13% higher for people identified as -Montenegrin. EGFR 52(L) > OR = 60 mL/min/1. 73m2 [facility] GFR () 61 > OR = 60 mL/min/1. 73m2 [facility] BUN/Creatinine Ratio 22 6 - 22 (calc) [facility] Sodium 135 135 - 146 mmol/L [facility] Potassium 3.7 3.5 - 5.3 mmol/L [facility] Chloride 99 98 - 110 mmol/L [facility] Carbon dioxide 27 20 - 32 mmol/L [facility] Calcium 9.4 8.6 - 10.4 mg/dL [facility] 03/08/2022 3:59 PM EDT 03/08/2022 6:23 PM EDT Narrative [facility] - 03/08/2022 7:01 PM EDT Please note that this estimated [...] needs for GFR calculation. Resulting Agency Comment [id number] Mirza Almanza NP LABORATORY Final Resul t [facility] [address] [place] [address] * PAIN MANAGEMENT PROFILE WITH FENTANYL, URINE (PAINM2+) (03/08/2022 3:59 PM EDT) Fentanyl Screen (Urine) NEGATIVE <0.5 ng/mL [facility] Comment:See Note 1 COMMENT SEE NOTE [facility] Comment:See Note 2 Creatinine (Urine) 72.7 > or = 20.0 mg/dL [facility] pH (Urine) 5.4 4.5 - 9.0 [facility] OXIDANT NEGATIVE [...] NEGATIVE <100 ng/mL [facility] Opiates (Urine) NEGATIVE <100 ng/mL [facility] Oxycodone (Urine) NEGATIVE <100 ng/mL [facility] Phencyclidine (Urine) NEGATIVE <25 ng/mL [facility] COMMENT SEE NOTE [facility] Comment: See Note 2 Note 1 This test was developed and its analytical performance characteristics have been determined by [facility]. It has not been cleared or approved [...] interpreting these drug results, please contact a [facility] Toxicology Specialist: [phone] ( ), M-F, 8am-6pm EST. 03/08/2022 3:59 PM EDT 03/08/2022 6:23 PM EDT Narrative Resulting Agency Comment [id number] Mirza Almanza NP LABORATORY Final Resul t [facility] [address] [place] [address] documented in this encounter Visit Diagnoses Diagnosis Chronic, continuous use of opioids Opioid type dependence, continuous Neck mass Swelling, mass, or lump in head and neck documented in this encounter Care Teams Artillery Specialist Relationship Specialty Start Date End Date Mirza Almanza NP PCP - Backup PCP Internal Medicine 07/28/20 05/29/22 Charu Jimenez MD PCP - General Family Medicine 11/12/21 03/28/22 Cortney Stone NP [address] [place] [address] PCP - General Internal Medicine 03/29/22 09/15/24 Unknown Pcp, Non Rmg PCP - Backup PCP 05/30/22 07/07/22 Christina Estevez MD [address] [place] [address] PCP - General Family Medicine 09/16/24 documented as of this encounter
--- OUTSIDE RECORDS SUMMARY | 2024-10-29 11:49 | XMS_ITS | Encounter Summary ---
Author Organization [facility] Address [address] [place] [address] Care Team Providers Care Grinder And Honer Operator Automatic Name Role Phone Ulisses Newman DO Primary Care Provider [phone] Mirza Almanza ICER HAND Unavailable [phone] Juanpablo Louis MD Primary Care Provider [phone] Charu Jimenez MD Primary Care Provider Lori vailable Cortney Stone NP Primary Care Provider + [phone] Unknown Pcp, Non Rmg Unavailable Unavailable Christina Estevez MD Primary Care Provider [phone] Encounter Details Date Type Department Care Team (Late st Contact Info) Description 04/07/2020 Orders Only [facility] [address] [facility] [place] [place] [address] Ulisses Newman DO [facility] [address] [place] [address] Social History Tobacco Use Types Packs/Day Years [...] as of this encounter Progress Notes * Lashonda Simmons RN - 04/07/2020 9:11 AM EDT The patients lab results are at a normal/stable level by the protocol guidelines. The result letterwas completed and sent to patient. documented in this encounter Plan of Treatment Upcoming Encounters Date Type Department Care Team (Latest Contact Info) Description 01/10/2025 8:00 AM EDT Office Visit [address] [address] Christina Estevez MD [address] [place] [address] medication refill follow up 03/18/2025 1:15 PM EDT Office Visit [facility] Cardiology [address] [address] Lolita Barnett MD [address] [place] [address] routine f/u 04/05/2025 9:15 AM EDT Radiology [facility]. Mammography [address] [place] [address] 05/02/2025 1:00 PM EDT Office Visit [facility] Cardiology [address] [address] Lolita Barnett MD [address] [place] [address] 1 year 06/07/2025 9:15 AM EDT CPE - Comprehensive Physical Exam [address] [place] [address] Christina Estevez MD [address] [place] [address] NPP documented as of this encounter Goals [...] this encounter Procedures * Due to [place] state law, this organization might not be sharing negative HIV tests. Procedure Name Priority Date/Time Associated Diagnosis Comments VITAMIN D, 25-HYDROXY, TOTAL, IMMUNOASSAY Routine 04/07/2020 9:11 AM EDT Elevated parathyroid hormone documented in this encounter Results * Due to [place] state law, this organization might not be sharing negative HIV tests. * VITAMIN D, 25-HYDROXY, TOTAL, IMMUNOASSAY (04/07/2020 9:11 AM EDT) Vitamin D, 25-OH, Total 35 30 - 100 ng/mL [facility] Comment: Vitamin D Status ? 25-OH Vitamin D: Deficiency: ?<20 ng/mL Insufficiency: ? 20 - 29 ng/mL Optimal: ? > or = 30 ng/mL For 25-OH Vitamin D testing on patients on D2-supplementation and patients for whom quantitation of D2 and D3 fractions is required, the QuestAssureD(TM) 25-OH VIT D, (D2,D3), LC/MS/MS is recommended: order code 83181 (patients >2yrs). COMMENT SEE NOTE [facility] Comment: See Note 1 Note 1 For additional information, please refer to http://education.[employer]/faq/PJN923 (This link is being provided for informational/ educational purposes only.) 04/07/2020 9:11 AM EDT 04/08/2020 12:58 AM EDT Narrative Resulting Agency Comment [id number] us Mirza Almanza NP LABORATORY Final Resul t [facility] [address] [place] [address] documented in this encounter Visit Diagnoses Diagnosis Elevated parathyroid hormone Unspecified endocrine disorder documented in this encounter Care Teams Grinder And Honer Operator Automatic Relationship Specialty Start Date End Date Ulisses Newman DO PCP - General Internal Medicine 01/18/20 07/27/20 Mirza Almanza NP PCP - Backup PCP Internal Medicine 07/28/20 05/29/22 Juanpablo Louis MD [address] [place] [address] PCP - General Internal Medicine 07/28/20 11/11/21 Charu Jimenez MD [address] [place] [address] PCP - General Family Medicine 11/12/21 03/28/22 Cortney Stone NP [address] [place] [address] PCP - General Internal Medicine 03/29/22 09/15/24 Unknown Pcp, Non Rmg PCP - Backup PCP 05/30/22 07/07/22 Christina Estevez MD [address] [place] [address] PCP - General Family Medicine 09/16/24 documented as of this encounter
--- OUTSIDE RECORDS SUMMARY | 2024-10-29 11:49 | XMS_ITS | Encounter Summary ---
Author Organization [facility] Address [address] [place] [address] Care Team Providers Care Insurance Coder Name Role Phone Michael Cardona MD Primary Care Provider Unavaila ble Mingo Perez Primary Care Provider [phone] Ulisses Newman DO Primary Care Provider [phone] Mirza Almanza SAP [employer] SECURITY Unavailable [phone] Juanpablo Louis MD Primary Care Provider [phone] Charu Jimenez MD Primary Care Provider Lori Cortney Melgar [employer] SECURITY Primary Care Provider + [phone] Unknown Pcp, Non Rmg Unavailable Unavailable Christina Estevez MD Primary Care Provider [phone] Encounter Details Date Type Department Care Team (Late st Contact Info) Description 11/25/2018 Orders Only [facility] [address] [place] [address] Otoniel Churchill PA [address] [place] [address] Social History Tobacco Use Types Packs/Day Years Used Date Smoking Tobacco: Former Smokeless Tobacco: Never Alcohol Use Standard Drinks/Week Comments No 0 (1 standard drink = 0.6 oz pur e alcohol) Comments Unknown Sex and Gender Information Value Date Recorded Sex Assigned at Female 03/06/2020 2:59 PM EDT Legal Sex Female 1:41 PM EST Gender Identity Female 03/06/2020 2:59 PM EDT Sexual Orientation Not on file documented as of this encounter Plan of Treatment Upcoming Encounters Date Type Department Care Team (Latest Contact Info) Description 01/10/2025 8:00 AM EDT Office Visit [address] [address] Christina Estevez MD [address] [place] [address] medication refill follow up 03/18/2025 1:15 PM EDT Office Visit [facility] Cardiology [address] [address] Lolita Barnett MD [address] [place] [address] routine f/u 04/05/2025 9:15 AM EDT Radiology [address] [address] 05/02/2025 1:00 PM EDT Office Visit [facility] Cardiology [address] [address] Lolita Barnett MD [address] [place] [address] 1 year 06/07/2025 9:15 AM EDT CPE - Comprehensive Physical Exam [address] [address] Christina Estevez MD [address] [place] [address] NPP documented as of this encounter Goals [...] as of this encounter Visit Diagnoses Diagnosis Chronic diarrhea Diarrhea documented in this encounter Care Teams Insurance Coder Relationship Specialty Start Date End Date Michael Cardona MD PCP - General Internal Medicine 11/10/18 01/03/19 Mingo Perez [address] [address] PCP - General Internal Medicine 01/04/19 01/17/20 Ulisses Newman DO [place] [address] [place] [address] PCP - General Internal Medicine 01/18/20 07/27/20 Mirza Almanza NP [address] [address] PCP - Backup PCP Internal Medicine 07/28/20 05/29/22 Juanpablo Louis MD [address] [place] [address] PCP - General Internal Medicine 07/28/20 11/11/21 Charu Jimenez MD [address] [place] [address] PCP - General Family Medicine 11/12/21 03/28/22 Cortney Stone NP [address] [place] [address] PCP - General Internal Medicine 03/29/22 09/15/24 Unknown Pcp, Non Rmg PCP - Backup PCP 05/30/22 07/07/22 Christina Estevez MD [address] [place] [address] PCP - General Family Medicine 09/16/24 documented as of this encounter
--- OUTSIDE RECORDS SUMMARY | 2024-10-29 11:49 | XMS_ITS | Encounter Summary ---
Author Organization [facility] Address [address] [place] [address] Care Team Providers Care Rigging Loft Mechanic Name Role Phone Ulisses Chua DO Primary Care Provider [phone] Mirza Almanza VEGETABLE VENDOR Unavailable [phone] Juanpablo Louis MD Primary Care Provider [phone] Charu Jimenez MD Primary Care Provider Lori Cortney Melgar NP Primary Care Provider + [phone] Unknown Pcp, Non Rmg Unavailable Unavailable Christina Estevez MD Primary Care Provider [phone] Reason for Visit * Reason Comments Endoscopy Request (lower And/or Upper) Encounter Details Date Type Department Care Team (Late st Contact Info) Description 03/13/2020 Telephone [facility] [address] [place] [id number] Elvin Espinoza MD [address] [place] [address] Endoscopy Request (lower And/or Upper) Social History Tobacco Use Types Packs/Day Years [...] or suspected to have Coronavirus / COVID-19? No / Unsure 03/02/2020 8:45 AM EDT documented as of this encounter Miscellaneous Notes * Telephone Encounter - Mary Marie - 07/18/2020 12:21 PM EDT Records requested from [facility] * Telephone Encounter - Ulisses Chua DO - 07/17/2020 9:41 AM EDT Noted * Telephone Encounter - Lashonda Simmons, ALLIE - 07/17/2020 9:24 AM EDT FYI to PCP Msg to [facility]- please request records * Telephone Encounter - Micaela Collier - 07/15/2020 10:32 AM EDT Spoke with pt, states she had colonoscopy done a couple years ago at [facility]. Declined to schedule atthis time. Order removed. * Telephone Encounter - Shahrzad Nash - 03/13/2020 4:06 PM EDT Priority: Routine Class: Internal referral Scheduling Instructions: Colonoscopy Due Date by Criteria: Patient has no health maintenance due at this time Track Order? -> No Is an anticoagulant/antiplatelet on the medication list? -> No Timeframe for procedure? -> L10 (10 YEARS FROM LAST) Patient: WENDY FOY ([id number]) Sex: Female : 1950 Address: [address] [place] [address] [address] [address] Payor:[facility]IC[facility] Group Number:[id number] Plan:[facility] MEDICARE COMPLETE PPO Plan Number:[id number] Patient Order Date:03/09/2020 Ordering User:ULISSES CHUA [[id number]] Encounter Provider:Ulisses Chua DO [[id number]] Authorizing Provider: Ulisses Chua DO [[id number]] Department:[facility][[id number]] Primary Care Physician: ULISSES CHUA Department: [facility] documented in this encounter Plan of Treatment Upcoming Encounters Date Type Department Care Team (Latest Contact Info) Description 01/10/2025 8:00 AM EDT Office Visit [address] [address] Christina Estevez MD [address] [place] [address] medication refill follow up 03/18/2025 1:15 PM EDT Office Visit [facility] Cardiology [address] [address] Lolita Barnett MD [address] [place] [address] routine f/u 04/05/2025 9:15 AM EDT Radiology [facility]. [facility] [address] [place] [address] 05/02/2025 1:00 PM EDT Office Visit [facility] Cardiology [address] [facility] [address] [place] [address] Lolita Barnett MD [address] [place] [address] 1 year 06/07/2025 9:15 AM EDT CPE - Comprehensive Physical Exam [address] [place] [address] Christina Estevez MD [address] [place] [address] NPP documented as of this encounter Goals [...] on filedocumented in this encounter Care Teams Rigging Loft Mechanic Relationship Specialty Start Date End Date Ulisses Chua DO PCP - General Internal Medicine 01/18/20 07/27/20 Mirza Almanza NP PCP - Backup PCP Internal Medicine 07/28/20 05/29/22 Juanpablo Louis MD [address] [place] [address] PCP - General Internal Medicine 07/28/20 11/11/21 Charu Jimenez MD [address] [place] [address] PCP - General Family Medicine 11/12/21 03/28/22 Cortney Stone NP [address] [place] [address] PCP - General Internal Medicine 03/29/22 09/15/24 Unknown Pcp, Non Rmg PCP - Backup PCP 05/30/22 07/07/22 Christina Estevez MD [address] [place] [address] PCP - General Family Medicine 09/16/24 documented as of this encounter
--- OUTSIDE RECORDS SUMMARY | 2024-10-29 11:49 | XMS_ITS | Encounter Summary ---
Author Organization [facility] Address [address] [place] [address] Care Team Providers Care Identification Officer Name Role Phone Ulisses Newman DO Primary Care Provider [phone] Mirza Almanza GEOTHERMAL TECHNICIAN Unavailable [phone] Juanpablo Louis MD Primary Care Provider [phone] Charu Jimenez MD Primary Care Provider Lori vailable Cortney Stone NP Primary Care Provider + [phone] Unknown Pcp, Non Rmg Unavailable Unavailable Christina Estevez MD Primary Care Provider [phone] Encounter Details Date Type Department Care Team (Late st Contact Info) Description 03/21/2020 Orders Only [place] [facility] [address] [place] [address] Ulisses Newman DO [facility] [address] [place] [address] Social History Tobacco Use Types Packs/Day Years [...] Progress Notes * Lashonda Simmons RN - 03/21/2020 8:24 AM EDT The patients lab results are at an abnormal level by the protocol guidelines. Please review and advise. Add vitamin d level? * Mirza Almanza - 03/21/2020 8:24 AM EDT Patient has type 2 diabetes, no evidence of proteinuria. PTH is elevated, calcium level is normal. Please draw vitamin D level for further evaluation of elevated PTH. Please repeat PTH in 6 months. Patient also has chronic kidney disease stage III which can also cause elevated PTH. Chronic kidney disease is overall stable. Continue to monitor. LDL cholesterol is elevated at 118, needs to avoid animal fats to help lower this. Patient is not currently prescribed statin cholesterol medication, would advise this based on current recommendations for primary prevention, would recommend Lipitor 40 mg p.o. daily and repeat lipid panel and liver enzymes in [address] orders until patient is made aware. The 10-year ASCVD risk score (Marek DC Jr., et al., 2013) is: 18.2% Hemoglobin A1c is 5.7 indicates good control of diabetes. documented in this encounter Plan of Treatment Upcoming Encounters Date Type Department Care Team (Latest Contact Info) Description 01/10/2025 8:00 AM EDT Office Visit [facility] [address] [place] [address] Christina Estevez MD [address] [place] [address] medication refill follow up 03/18/2025 1:15 PM EDT Office Visit [facility] Cardiology [address] [facility] [address] [place] [address] Lolita Barnett MD [address] [place] [address] routine f/u 04/05/2025 9:15 AM EDT Radiology [facility]. Mammography [address] [place] [address] 05/02/2025 1:00 PM EDT Office Visit [facility] Cardiology [address] [facility] [address] [place] [address] Lolita Barnett MD [address] [place] [address] 1 year 06/07/2025 9:15 AM EDT CPE - Comprehensive Physical Exam [facility] [address] [place] [address] Christina Estevez MD [address] [place] [address] NPP documented as of this encounter Goals [...] of this encounter Procedures * Due to [place] MENA360 law, this organization might not be sharing negative HIV tests. Procedure Name Priority Date/Time Associated Diagnosis Comments PARATHYROID HORMONE (PTH), INTACT WITH CALCIUM, SERUM Routine 03/21/2020 8:24 AM EDT Screening for endocrine disorder HEMOGLOBIN A1C Routine 03/21/2020 8:24 AM EDT [...] without long-term current use of insulin (HCC) documented in this encounter Results * Due to [place] MENA360 law, this organization might not be sharing negative HIV tests. * (ABNORMAL) LIPID PANEL WITH REFLEX TO DIRECT LDL (03/21/2020 8:24 AM EDT) Cholesterol 190 <200 mg/dL [facility] HDL Cholesterol 52 > OR = 50 mg/dL [facility] Triglyceride 102 <150 mg/dL [facility] LDL Cholesterol 118(H) mg/dL (calc) [facility] Comment: Reference range: <100 Desirable range <100 mg/dL for primary prevention; ?? <70 mg/dL for patients with CHD or diabetic patients with > or = 2 CHD risk factors. LDL-C is now calculated using the Johnathon calculation, which is a validated novel method providing better accuracy than the Friedewald equation in the estimation of LDL-C. Gurdeep SS et al. NANDO. 2013;310(01): 6897-6519 (http://education.[facility]/faq/ZCP912) CHOL/HDL Ratio 3.7 <5.0 (calc) [facility] Cholesterol Non-HDL 138(H) <130 mg/dL (calc) [facility] Comment: For patients with diabetes plus 1 major ASCVD risk factor, treating to a non-HDL-C goal of <100 mg/dL (LDL-C of <70 mg/dL) is considered a therapeutic option. 03/21/2020 8:24 AM EDT 03/22/2020 1:09 AM EDT Narrative Resulting Agency Comment [id number] Ulisses Newman DO LABORATORY Final Result [facility] [address] [place] [address] * (ABNORMAL) BASIC METABOLIC PANEL WITH (GFR) (03/21/2020 8:24 AM EDT) Glucose 141(H) 65 - 99 mg/dL [facility] Comment: ? Fasting reference interval For someone without known diabetes, a glucose value >125 mg/dL indicates that they may have diabetes and this should be confirmed with a follow-up test. Urea Nitrogen Blood (BUN) 19 7 - 25 mg/dL [facility] Creatinine 1.02(H) 0.50 - 0.99 mg/dL [facility] Comment: For patients >49 years of age, the reference limit for Creatinine is approximately 13% higher for people identified as -Liberian. EGFR 57(L) > OR = 60 mL/min/1. 73m2 [facility] GFR () 66 > OR = 60 mL/min/1. 73m2 [facility] BUN/Creatinine Ratio 19 6 - 22 (calc) [facility] Sodium 137 135 - 146 mmol/L [facility] Potassium 3.9 3.5 - 5.3 mmol/L [facility] Chloride 100 98 - 110 mmol/L [facility] Carbon dioxide 26 20 - 32 mmol/L [facility] Calcium 9.5 8.6 - 10.4 mg/dL [facility] 03/21/2020 8:24 AM EDT 03/22/2020 1:09 AM EDT Narrative [facility] - 03/22/2020 5:43 AM EDT Please note that this estimated GFR [...] needs for GFR calculation. Resulting Agency Comment [id number] Ulisses Newman DO LABORATORY Final Result [facility] [address] [place] [address] * (ABNORMAL) PARATHYROID HORMONE (PTH), INTACT WITH CALCIUM, SERUM (03/21/2020 8:24 AM EDT) Parathyroid Hormone (PTH), Intact 67(H) 14 - 64 pg/mL [facility] Comment: Interpretive Guide ?Intact PTH ? Calcium ? ------- Normal Parathyroid ?Normal ? Normal Hypoparathyroidism ?Low or Low Normal ?Low Hyperparathyroidism ?? Primary ?Normal or High ? High ?? Secondary ?High ? Normal or Low ?? Tertiary ? High ? High Non-Parathyroid ?? Hypercalcemia ?Low or Low Normal ?High Calcium 9.5 8.6 - 10.4 mg/dL [facility] 03/21/2020 8:24 AM EDT 03/22/2020 1:09 AM EDT Narrative Resulting Agency Comment [id number] Ulisses Newman DO LABORATORY Final Result Performing Organization Address [facility] Co de Phone Number [facility] [address] [place] [address] * ALBUMIN (MICROALBUMIN), RANDOM URINE, WITH CREATININE (03/21/2020 8:24 AM EDT) Creatinine (Urine) 114 20 - 275 mg/dL [facility] Albumin (Urine) 0.5 mg/dL [facility] Comment: Reference Range Not established Albumin/Creatinine (Urine) 4 <30 mcg/mg creat [facility] Comment: The ADA defines abnormalities in albumin excretion as follows: Category ? Result (mcg/mg creatinine) Normal ?<30 Microalbuminuria ? 30-299 Clinical albuminuria ?? > OR = 300 The ADA recommends that at least two of three specimens collected within a 3-6 month period be abnormal before considering a patient to be within a diagnostic category. 03/21/2020 8:24 AM EDT 03/22/2020 1:09 AM EDT Narrative Resulting Agency Comment [id number] Ulisses Trent DO LABORATORY Final Result Performing Organization Address [facility] Co de Phone Number [facility] [address] [place] [address] * (ABNORMAL) HEMOGLOBIN A1C (03/21/2020 8:24 AM EDT) Hemoglobin A1C 5.7(H) <5.7 % of total Hgb [facility] [...] of diabetes for children. Estimated Average Glucose 126 mg/dL (calc) [facility] 03/21/2020 8:24 AM EDT 03/22/2020 1:09 AM EDT Narrative Resulting Agency Comment [id number] Ulisses Newman DO LABORATORY Final Result [facility] [address] [place] [address] documented in this encounter Visit Diagnoses Diagnosis Type 2 diabetes mellitus with complication, without long-term current use of insulin (HCC) Screening for endocrine disorder documented in this encounter Care Teams Identification Officer Relationship Specialty Start Date End Date Ulisses Newman DO PCP - General Internal Medicine 01/18/20 07/27/20 Mirza Almanza NP PCP - Backup PCP Internal Medicine 07/28/20 05/29/22 Juanpablo Louis MD [address] [place] [address] PCP - General Internal Medicine 07/28/20 11/11/21 Charu Jimenez MD [address] [place] [address] PCP - General Family Medicine 11/12/21 03/28/22 Cortney Stone GEOTHERMAL TECHNICIAN [address] [place] [address] PCP - General Internal Medicine 03/29/22 09/15/24 Unknown Pcp, Non Rmg PCP - Backup PCP 05/30/22 07/07/22 Christina Estevez MD [address] [place] [address] PCP - General Family Medicine 09/16/24 documented as of this encounter
--- OUTSIDE RECORDS SUMMARY | 2024-10-29 11:49 | XMS_ITS | Encounter Summary ---
Author Organization [facility] Address [address] [place] [address] Care Team Providers Care Paper Cleaner Name Role Phone Michael Cardona MD Primary Care Provider Unavaila ble Mingo Perez Primary Care Provider [phone] Ulisses Newman DO Primary Care Provider [phone] Mirza Almanza CIGAR TOBACCO REHANDLER Unavailable [phone] Juanpablo Louis MD Primary Care Provider [phone] Charu Jimenez MD Primary Care Provider Lori Cortney Melgar CIGAR TOBACCO REHANDLER Primary Care Provider + [phone] Unknown Pcp, Non Rmg Unavailable Unavailable Christina Estevez MD Primary Care Provider [phone] Encounter Details Date Type Department Care Team (Late st Contact Info) Description 11/25/2018 Orders Only [place] [facility] [address] [place] [address] Otoniel Churchill PA [address] [place] [address] Social History Tobacco Use Types Packs/Day Years [...] as of this encounter Progress Notes * Otoniel Churchill PA - 12/14/2018 7:09 AM EDT See TM 11/30/2018 documented in this encounter Plan of Treatment Upcoming Encounters Date Type Department Care Team (Latest Contact Info) Description 01/10/2025 8:00 AM EDT Office Visit [address] [address] Christina Estevez MD [address] [place] [address] medication refill follow up 03/18/2025 1:15 PM EDT Office Visit [facility] Cardiology [address] [facility] [address] [place] [address] Lolita Barnett MD [address] [place] [address] routine f/u 04/05/2025 9:15 AM EDT Radiology [address] [address] 05/02/2025 1:00 PM EDT Office Visit [facility] Cardiology [address] [facility] [address] [place] [address] Lolita Barnett MD [address] [place] [address] 1 year 06/07/2025 9:15 AM EDT CPE - Comprehensive Physical Exam [address] [address] Christina Estevez MD [address] [place] [address] NPP documented as of this encounter Goals [...] of this encounter Procedures * Due to [place] state law, this organization might not be sharing negative HIV tests. Procedure Name Priority Date/Time Associated Diagnosis Comments CULTURE, URINE, ROUTINE Routine 11/25/2018 12:19 PM EST Abnormal urine odor FERRITIN Routine 11/25/2018 12:19 PM EST Nonalcoholic fatty liver disease ALBUMIN (MICROALBUMIN), RANDOM URINE, WITH CREATININE Routine 11/25/2018 12:19 PM EST Type 2 diabetes mellitus with complication, without long-term current use of insulin (HCC) URINALYSIS, MICROSCOPIC Routine 11/25/2018 12:19 PM EST Abnormal urine odor URINALYSIS, DIPSTICK ONLY STAT (All results called to provider) 11/25/2018 12:19 PM EST Abnormal urine odor HEPATIC FUNCTION PANEL (ALT,AST,ALK PH,BILI'S,TP,ALB) Routine 11/25/2018 12:19 PM EST Nonalcoholic fatty liver disease BASIC METABOLIC PANEL WITH (GFR) Routine 11/25/2018 12:19 PM EST Abnormal results of kidney function studies documented in this encounter Results * Due to [place] state law, this organization might not be sharing negative HIV tests. * CULTURE, URINE, ROUTINE (11/25/2018 12:19 PM EST) Bacteria culture (Urine) SEE NOTE [facility] Comment: ??CULTURE, URINE, ROUTINE ??MICRO NUMBER: ?[id number] ??TEST STATUS: ? FINAL ??SPECIMEN SOURCE: ?? URINE, CLEAN CATCH ??SPECIMEN QUALITY: ??ADEQUATE ??RESULT: ?Multiple organisms present, each less than 10,000 ? CFU/mL. These organisms, commonly found on ? external and internal genitalia, are considered ? to be colonizers. No further testing performed. 11/25/2018 12:1 9 PM EST 11/25/2018 1:05 PM EST Narrative Resulting Agency Comment [id number] Otoniel [facility] LABORAT[facility] Final Result [facility] [address] [place] [address] * URINALYSIS, MICROSCOPIC (11/25/2018 12:19 PM EST) WBC (Urine) NONE SEEN < OR = 5 /HPF [facility] RBC (Urine Sed) NONE SEEN < OR = 2 /HPF [facility] Bacteria (Urine) NONE SEEN NONE SEEN /HPF [facility] Hyaline casts (Urine sed) NONE SEEN NONE SEEN /LPF [facility] 11/25/2018 12:1 9 PM EST 11/25/2018 1:05 PM EST Narrative Resulting Agency Comment [id number] Otoniel [facility] SAME DAY RESULT Final Result Performing Organization Address [facility] de Phone Number [facility] [address] [place] [address] * ALBUMIN (MICROALBUMIN), RANDOM URINE, WITH CREATININE (11/25/2018 12:19 PM EST) Creatinine (Urine) 233 20 - 275 mg/dL [facility] Albumin (Urine) 3.0 mg/dL [facility] Comment: Reference Range Not established Albumin/Creatinine (Urine) 13 <30 mcg/mg creat [facility] Comment: The ADA defines abnormalities in albumin excretion as follows: Category ? Result (mcg/mg creatinine) Normal ?<30 Microalbuminuria ? 30-299 Clinical albuminuria ?? > OR = 300 The ADA recommends that at least two of three specimens collected within a 3-6 month period be abnormal before considering a patient to be within a diagnostic category. 11/25/2018 12:1 9 PM EST 11/25/2018 1:05 PM EST Narrative Resulting Agency Comment [id number] [facility] Final Result Performing Organization Address [facility] de Phone Number [facility] [address] [place] [address] * FERRITIN (11/25/2018 12:19 PM EST) Ferritin 49 20 - 288 ng/mL [facility] 11/25/2018 12:1 9 PM EST 11/25/2018 1:05 PM EST Narrative Resulting Agency Comment [id number] O[facility] Final Result Performing Organization Address [facility] de Phone Number [facility] [address] [place] [address] * HEPATIC FUNCTION PANEL (ALT,AST,ALK PH,BILI'S,TP,ALB) (11/25/2018 12:19 PM EST) Protein Total (Serum) 6.3 6.1 - 8.1 g/dL [facility] Albumin 4.1 3.6 - 5.1 g/dL [facility] Globulin 2.2 1.9 - 3.7 g/dL (calc) [facility] Albumin/Globulin 1.9 1.0 - 2.5 (calc) [facility] Bilirubin Total 0.9 0.2 - 1.2 mg/dL [facility] Bilirubin Direct 0.1 < OR = 0.2 mg/dL [facility] Bilirubin Indirect 0.8 0.2 - 1.2 mg/dL (calc) [facility] Alkaline phosphatase 51 33 - 130 U/L [facility] AST (SGOT) 13 10 - 35 U/L [facility] ALT (SGPT) 13 6 - 29 U/L [facility] 11/25/2018 12:1 9 PM EST 11/25/2018 1:05 PM EST Narrative Resulting Agency Comment [id number] Result [facility] Otoniel [facility] Final Result Performing Organization Address [facility] de Phone Number [facility] [address] [place] [address] * (ABNORMAL) BASIC METABOLIC PANEL WITH (GFR) (11/25/2018 12:19 PM EST) Glucose 169(H) 65 - 99 mg/dL [facility] Comment: ? Fasting reference interval For someone without known diabetes, a glucose value >125 mg/dL indicates that they may have diabetes and this should be confirmed with a follow-up test. Urea Nitrogen Blood (BUN) 26(H) 7 - 25 mg/dL [facility] Creatinine 1.14(H) 0.50 - 0.99 mg/dL [facility] Comment: For patients >49 years of age, the reference limit for Creatinine is approximately 13% higher for people identified as -Macanese. EGFR 50(L) > OR = 60 mL/min/1. 73m2 [facility] GFR () 58(L) > OR = 60 mL/min/1. 73m2 [facility] BUN/Creatinine Ratio 23(H) 6 - 22 (calc) [facility] Sodium 136 135 - 146 mmol/L [facility] Potassium 3.6 3.5 - 5.3 mmol/L [facility] Chloride 98 98 - 110 mmol/L [facility] Carbon dioxide 27 20 - 32 mmol/L [facility] Calcium 8.9 8.6 - 10.4 mg/dL [facility] 11/25/2018 12:1 9 PM EST 11/25/2018 1:05 PM EST Narrative [facility] - 11/25/2018 6:28 PM EST Please note that this estimated GFR does [...] with more precise needs for GFR calculation. us [facility] Final Result [facility] [address] [place] [address] * (ABNORMAL) URINALYSIS, DIPSTICK ONLY (11/25/2018 12:19 [...] 9 PM EST 11/25/2018 1:05 PM EST us [facility] SAME DAY RESULT Final Result [facility] [address] [place] [address] documented in this encounter Visit Diagnoses Diagnosis Abnormal urine odor Other nonspecific finding on examination of urine Abnormal results of kidney function studies Nonspecific abnormal results of kidney function study Nonalcoholic fatty liver disease Other chronic nonalcoholic liver disease Type 2 diabetes mellitus with complication, without long-term current use of insulin (HCC) Chronic diarrhea Diarrhea documented in this encounter Care Teams Paper Cleaner Relationship Specialty Start Date End Date Michael Cardona MD PCP - General Internal Medicine 11/10/18 01/03/19 Mingo Perez [address] [address] PCP - General Internal Medicine 01/04/19 01/17/20 Ulisses Newman DO [address] [address] PCP - General Internal Medicine 01/18/20 07/27/20 Mirza Almanza NP [address] [address] PCP - Backup PCP Internal Medicine 07/28/20 05/29/22 Juanpablo Louis MD [address] [place] [address] PCP - General Internal Medicine 07/28/20 11/11/21 Charu Jimenez MD [address] [place] [address] PCP - General Family Medicine 11/12/21 03/28/22 Cortney Stone NP [address] [place] [address] PCP - General Internal Medicine 03/29/22 09/15/24 Unknown Pcp, Non Rmg PCP - Backup PCP 05/30/22 07/07/22 Christina Estevez MD [address] [place] [address] PCP - General Family Medicine 09/16/24 documented as of this encounter
--- OUTSIDE RECORDS SUMMARY | 2024-10-29 11:49 | XMS_ITS | Encounter Summary ---
Author Organization [facility] Address [address] [place] [address] Care Team Providers Care Software Deployment Engineer Name Role Phone Michael Cardona MD Primary Care Provider Unavaila ble Mingo Perez Primary Care Provider [phone] Ulisses Newman DO Primary Care Provider [phone] Mizra Almanza STAFFING ASSOCIATE Unavailable [phone] Juanpablo Louis MD Primary Care Provider [phone] Charu Jimenez MD Primary Care Provider Lori Cortney Melgar STAFFING ASSOCIATE Primary Care Provider + [phone] Unknown Pcp, Non Rmg Unavailable Unavailable Christina Estevez MD Primary Care Provider [phone] Encounter Details Date Type Department Care Team (Late st Contact Info) Description 12/11/2018 Orders Only [place] [facility] [address] [place] [phone] Michael Cardona MD Social History Tobacco Use Types Packs/Day Years [...] as of this encounter Progress Notes * Michael Cardona MD - 12/20/2018 11:08 PM EDT Please refer to my chart message for result comments and plan * Katja Martinez - 12/15/2018 3:31 PM EDT The patients lab results are at an abnormal level by the protocol guidelines. Please review and advise. documented in this encounter Plan of Treatment Upcoming Encounters Date Type Department Care Team (Latest Contact Info) Description 01/10/2025 8:00 AM EDT Office Visit [address] [address] Christina Estevez MD [address] [place] [address] medication refill follow up 03/18/2025 1:15 PM EDT Office Visit [facility] Cardiology [address] [address] Lolita Barnett MD [address] [place] [address] routine f/u 04/05/2025 9:15 AM EDT Radiology [facility]. Mammography [address] [place] [phone] 05/02/2025 1:00 PM EDT Office Visit [facility] Cardiology [address] [address] Lolita Barnett MD [address] [place] [address] 1 year 06/07/2025 9:15 AM EDT CPE - Comprehensive Physical Exam [address] [place] [address] Christina Estevez MD [address] [place] [address] NPP documented as of this encounter Goals [...] of this encounter Procedures * Due to [place] state law, this organization might not be sharing negative HIV tests. Procedure Name Priority Date/Time Associated Diagnosis Comments BASIC METABOLIC PANEL WITH (GFR) Routine 12/11/2018 9:02 AM EDT Abnormal kidney function documented in this encounter Results * Due to [place] state law, this organization might not be sharing negative HIV tests. * (ABNORMAL) BASIC METABOLIC PANEL WITH (GFR) (12/11/2018 9:02 AM EDT) Glucose 177(H) 65 - 99 mg/dL [facility] Comment: ? Fasting reference interval For someone without known diabetes, a glucose value >125 mg/dL indicates that they may have diabetes and this should be confirmed with a follow-up test. Urea Nitrogen Blood (BUN) 18 7 - 25 mg/dL [facility] Creatinine 0.99 0.50 - 0.99 mg/dL [facility] Comment: For patients >49 years of age, the reference limit for Creatinine is approximately 13% higher for people identified as -Zimbabwean. EGFR 59(L) > OR = 60 mL/min/1 .73m2 [facility] GFR () 69 > OR = 60 mL/min/1 .73m2 [facility] BUN/Creatinine Ratio NOT APPLICABLE 6 - 22 (calc) [facility] Sodium 136 135 - 146 mmol/L [facility] Potassium 3.5 3.5 - 5.3 mmol/L [facility] Chloride 98 98 - 110 mmol/L [facility] Carbon dioxide 29 20 - 32 mmol/L [facility] Calcium 9.4 8.6 - 10.4 mg/dL [facility] 12/11/2018 9:02 AM EDT 12/11/2018 3:31 PM EDT Narrative [facility] - 12/11/2018 6:19 PM EDT Please note that this estimated [...] needs for GFR calculation. Resulting Agency Comment [id number] us Michael Cardona MD LABORATORY Final Result [facility] [address] [place] [address] documented in this encounter Visit Diagnoses Diagnosis Abnormal kidney function Unspecified disorder of kidney and ureter documented in this encounter Care Teams Software Deployment Engineer Relationship Specialty Start Date End Date Michael Cardona MD PCP - General Internal Medicine 11/10/18 01/03/19 Mingo Perez [address] [address] PCP - General Internal Medicine 01/04/19 01/17/20 Ulisses Newman DO [address] [address] PCP - General Internal Medicine 01/18/20 07/27/20 Mirza Almanza NP [address] [address] PCP - Backup PCP Internal Medicine 07/28/20 05/29/22 Juanpablo Louis MD [address] [place] [address] PCP - General Internal Medicine 07/28/20 11/11/21 Charu Jimenez MD [address] [place] [address] PCP - General Family Medicine 11/12/21 03/28/22 Cortney Stone NP [address] [place] [address] PCP - General Internal Medicine 03/29/22 09/15/24 Unknown Pcp, Non g PCP - Backup PCP 05/30/22 07/07/22 Christina Estevez MD [address] [place] [address] PCP - General Family Medicine 09/16/24 documented as of this encounter
--- OUTSIDE RECORDS SUMMARY | 2024-10-29 11:49 | XMS_ITS | Encounter Summary ---
Author Organization [facility] Address [address] [place] [address] Care Team Providers Care Supervisor Home Energy Consultant Name Role Phone Ulisses Newman DO Primary Care Provider [phone] Mirza Almanza BUS INFO CONSULTANT Unavailable [phone] Juanpablo Louis MD Primary Care Provider [phone] Charu Jimenez MD Primary Care Provider Lori Cortney Melgar NP Primary Care Provider + [phone] Unknown Pcp, Non Rmg Unavailable Unavailable Christina Estevez MD Primary Care Provider [phone] Encounter Details Date Type Department Care Team (Late st Contact Info) Description 03/21/2020 Orders Only [facility] [address] [place] [phone] Otoniel Churchill PA [address] [place] [address] Social History Tobacco Use Types Packs/Day Years [...] Progress Notes * Otoniel Churchill PA - 03/21/2020 8:24 AM EDT FYI PCP. Sent [employer] message documented in this encounter Plan of Treatment Upcoming Encounters Date Type Department Care Team (Latest Contact Info) Description 01/10/2025 8:00 AM EDT Office Visit [address] [address] Christina Estevez MD [address] [place] [address] medication refill follow up 03/18/2025 1:15 PM EDT Office Visit [facility] [address] [facility] [address] [place] [address] Lolita Barnett MD [address] [place] [address] routine f/u 04/05/2025 9:15 AM EDT Radiology [facility]. [facility] [address] [place] [address] 05/02/2025 1:00 PM EDT Office Visit [facility] [address] [facility] [address] [place] [address] Lolita Barnett MD [address] [place] [address] 1 year 06/07/2025 9:15 AM EDT CPE - Comprehensive Physical Exam [address] [address] Christina Estevez MD [address] [place] [address] NPP documented as of this encounter Goals [...] of this encounter Procedures * Due to [place] state law, this organization might not be sharing negative HIV tests. Procedure Name Priority Date/Time Associated Diagnosis Comments VENIPUNCTURE Routine 03/21/2020 8:24 AM EDT Hypothyroidism, unspecified type documented in this encounter Results * Due to [place] state law, this organization might not be sharing negative HIV tests. * THYROID STIMULATING HORMONE (TSH) WITH FREE T4 REFLEX, SERUM (03/21/2020 8:24 AM EDT) TSH 1.11 0.40 - 4.50 mIU/L [facility] 03/21/2020 8:24 AM EDT 03/21/2020 7:00 PM EDT Narrative Resulting Agency Comment [id number] [facility] Final Result [facility] [address] [place] [address] documented in this encounter Visit Diagnoses Diagnosis Hypothyroidism, unspecified type documented in this encounter Care Teams Supervisor Home Energy Consultant Relationship Specialty Start Date End Date Ulisses Newman DO PCP - General Internal Medicine 01/18/20 07/27/20 Mirza Almanza NP PCP - Backup PCP Internal Medicine 07/28/20 05/29/22 Juanpablo Louis MD [address] [place] [address] PCP - General Internal Medicine 07/28/20 11/11/21 Charu Jimenez MD [address] [place] [address] PCP - General Family Medicine 11/12/21 03/28/22 Cortney Stone BUS INFO CONSULTANT [address] [place] [address] PCP - General Internal Medicine 03/29/22 09/15/24 Unknown Pcp, Non Rmg PCP - Backup PCP 05/30/22 07/07/22 Christina Estevez MD [address] [place] [address] PCP - General Family Medicine 09/16/24 documented as of this encounter
--- OUTSIDE RECORDS SUMMARY | 2024-10-29 11:49 | XMS_ITS | Encounter Summary ---
Author Organization [facility] Address [phone] [facility] [place] [address] Care Team Providers Care Belt Buckle Maker Name Role Phone Mirza Almanza NP Primary Care Provider [phone] Encounter Details Date Type Department Care Team (Late st Contact Info) Description 09/14/2021 Procedure Pass [facility] [address] [place] [address] Social History Tobacco Use Types Packs/Day Years [...] on filedocumented in this encounter Care Teams Belt Buckle Maker Relationship Specialty Start Date End Date Mizra Almanza NP [address] [place] [address] PCP - General Nurse Practitioner 08/10/20 documented as of this encounter Additional Source Comments The information contained in this document represents components of the legal health record. It is not the complete legal health record.[facility]
--- OUTSIDE RECORDS SUMMARY | 2024-10-29 11:49 | XMS_ITS | Encounter Summary ---
Author Organization [facility] Address [phone] [facility] [place] [address] Care Team Providers Care Maintenance Supervisor Mechanical Name Role Phone Mirza Almanza NP Primary Care Provider [phone] Encounter Details Date Type Department Care Team (Late st Contact Info) Description 07/31/2023 Procedure Pass [facility] [address] [facility] [address] [place] [address] Social History Tobacco Use Types Packs/Day Years Used Date Smoking Tobacco: Former Cigarettes Smokeless Tobacco: Never Alcohol Use Standard Drinks/Week Comments Yes 0 (1 standard drink = 0.6 oz pur e alcohol) social Education Answer Date Recorded Are you interested in more education? Not on jennifer e 01/24/2023 Are you concerned about learning? Not on file 01/24/2023 No 01/24/2023 No 01/24/2023 Digital Access Answer Date Recorded No 02/22/2023 No 02/22/2023 Reliable internet access at home? Not on file 02/22/2023 Device with a working camera? Not on file Intimate Partner Violence Answer Date R ecorded Are you denied basic needs s uch as food, clothing, or medical care? No 07/31/2023 In the past 12 months have y ou been in a relationship with a person who hurts, threatens, or tries to control you? No 07/31/2023 Are you denied basic needs s uch as food, clothing, or medical care? No 07/31/2023 In the past 12 months have y ou been in a relationship with a person who hurts, threatens, or tries to control you? No 07/31/2023 Sex and Gender Information Value Date Recorded Sex Assigned at Female 08/04/2020 5:06 PM EST Gender Identity Female 08/04/2020 5:06 PM EST Sexual Orientation Choose not to disclose 2019 5:06 PM EST documented as of this encounter Plan of Treatment Not on file documented as of this encounter Visit Diagnoses Not on filedocumented in this encounter Care Teams Maintenance Supervisor Mechanical Relationship Specialty Start Date End Date Mirza Almanza NP [address] [address] [email or web address] PCP - General Nurse Practitioner 08/10/20 documented as of this encounter Additional Source Comments The information contained in this document represents components of the legal health record. It is not the complete legal health record.[facility]
--- OUTSIDE RECORDS SUMMARY | 2024-10-29 11:49 | XMS_ITS | Encounter Summary ---
Author Organization [facility] Address [address] [place] [address] Care Team Providers Care Belt Operator Name Role Phone Christina Estevez MD Primary Care Provider [phone] Reason for Visit * Reason Comments Return Call Encounter Details Date Type Department Care Team ([facility] st Contact Info) Description 09/21/2024 Telephone [facility] Orthopedic Surgery [address] [address] Jamin Pagan PA [address] [place] [address] Return Call Social History Tobacco Use Types Packs/Day Years Used Date Smoking Tobacco: Former Cigarettes 2 17 0 03/02/1975 - 03/02/1992 Passive Smoke Exposure: Never Smokeless Tobacco: Never Alcohol Use Standard Drinks/Week Comments Yes 0 (1 standard drink = 0.6 oz pur e alcohol) rare PHQ-2 Answer Date Recorded PHQ-2 Score 0 01/07/2024 PHQ-9 Answer Date [facility] (Range 0-27) 0 [...] encounter Miscellaneous Notes * Telephone Encounter - Jamin Pagan PA - 10/06/2024 10:32 AM EST Noted. Thank you. * Telephone Encounter - Luis Alberto Farley LVN LPN - 10/05/2024 3:43 PM EST Noted in chart. Can book patient when she is recovered. * Telephone Encounter - WILFRIDO Agrawal - 10/05/2024 3:40 PM EST Pt had surgery today at [facility] to neck she's in recovery now will need to wait for her inj for her right shoulder please call pt john back if any questions * Telephone Encounter - Luis Alberto Farley LVN LPN - 10/05/2024 12:39 PM EST LVM to clarify exactly when the other provider is recommending an injection. * Telephone Encounter - Jamin Pagan PA - 10/05/2024 12:15 PM EST Just for clarification - is her spine surgeon requesting the injection be performed prior to her surgery on 10/13 or 3 months after her last injection on 08/24? * Telephone Encounter - Luis Alberto Farley LVN LPN - 10/04/2024 4:09 PM EST Patient states spine MD recommends the injection and she understands providers recommendation but wants to know if he will reconsider. * Telephone Encounter - Jamin Pagan PA - 10/04/2024 9:34 AM EST If we were to attempt a second injection, I'd recommend doing so after 4 weeks of PT if she does not appreciate any early response from rehab. * Telephone Encounter - Luis Alberto Farley LVN LPN - 09/23/2024 1:02 PM EST Spoke with patient, she reports no relief from injection. Recommended physical therapy but she declined due to spine surgery on 10/13. She was recommended conservative measures and a follow up to discuss alternatives but she wants to know if she can wait and retry the injections after 3 months. Informed her we can check with the provider when he is back in the office but due to lack of response tocurrent injection he may not recommend this until she tries PT as well. * Telephone Encounter - Flavia Matos - 09/21/2024 1:32 PM EST Angella Foy calls in complaining of pain. Where is your pain located? 1. Right shoulder * Have you had treatment in our office for this pain? Injection What was the plan from the last visit with our office? Proceed with a cortisone injection directed of the right shoulder subacromial space in accordance with procedure note. What home treatments have you been using? Ibuprofen and exercises Can I schedule you for our next available appointment today? The patient is requesting a call back to discuss pain relief options. documented in this encounter Plan of Treatment Upcoming Encounters Date Type Department Care Team (Latest Contact Info) Description 01/10/2025 8:00 AM EDT Office Visit [address] [address] Christina Estevez MD [address] [place] [address] medication refill follow up 03/18/2025 1:15 PM EDT Office Visit [facility] [address] [address] Lolita Barnett MD [address] [place] [address] routine f/u 04/05/2025 9:15 AM EDT Radiology [address] [address] 05/02/2025 1:00 PM EDT Office Visit [facility] [address] [address] Lolita Barnett MD [address] [place] [address] 1 year 06/07/2025 9:15 AM EDT CPE - Comprehensive Physical Exam [address] [address] Christina Estevez MD [address] [place] [address] NPP documented as of this encounter Goals [...] at . Any insurance accepted. Quit smoking resources-[email or web address] [email or web address] HEMOGLOBIN A1C % < 7 Result Component 6.3(03/22/20 24 7:57 AM EDT) No Lashonda Ambrosio CMA [...] filedocumented in this encounter Care Teams Belt Operator Relationship Specialty Start Date End Date Christina Estevez MD [address] [place] [address] PCP - General Family Medicine 09/16/24 documented as of this encounter
--- OUTSIDE RECORDS SUMMARY | 2024-10-29 11:49 | XMS_ITS | Encounter Summary ---
Author Organization [facility] Address [address] [place] [address] Care Team Providers Care Social Work Lecturer Name Role Phone Mirza Almanza OIL WELL SERVICE UNIT OPERATOR Unavailable [phone] Charu Jimenez MD Primary Care Provider Lori Cortney Melgar NP Primary Care Provider [phone] Unknown Pcp, Non Rmg Unavailable Unavailable Christina Estevez MD Primary Care Provider [phone] Encounter Details Date Type Department Care Team (Late st Contact Info) Description 03/08/2022 Orders Only [facility] [address] [place] [address] Charu Jimenez MD Social History Tobacco Use Types Packs/Day [...] Miscellaneous Notes * Result Encounter Note - Poly Ordoñez LPN - 03/08/2022 3:59 PM EDT Normal letter sent. documented in this encounter Plan of Treatment Upcoming Encounters Date Type Department Care Team (Latest Contact Info) Description 01/10/2025 8:00 AM EDT Office Visit [address] [address] Christina Estevez MD [address] [place] [address] medication refill follow up 03/18/2025 1:15 PM EDT Office Visit [facility] [address] [address] Lolita Barnett MD [address] [place] [address] routine f/u 04/05/2025 9:15 AM EDT Radiology [facility]. [address] [address] 05/02/2025 1:00 PM EDT Office Visit [facility] [address] [address] Lolita Barnett MD [address] [place] [address] 1 year 06/07/2025 9:15 AM EDT CPE - Comprehensive Physical Exam [address] [address] Christina Estevez MD [address] [place] [address] NPP documented as of this encounter Goals [...] at . Any insurance accepted. Quit smoking resources-http://[email or web address] HEMOGLOBIN A1C % < 7 Result Component [...] this encounter Procedures * Due to [place] law, this organization might not be sharing negative HIV tests. Procedure Name Priority Date/Time Associated Diagnosis Comments VENIPUNCTURE Routine 03/08/2022 4:01 PM EDT Type 2 diabetes mellitus without complication, unspecified whether intermediate teacher insulin use (HCC) documented in this encounter Results * Due to [place] law, this organization might not be sharing negative HIV tests. * HEMOGLOBIN A1C (03/08/2022 4:01 PM EDT) Hemoglobin A1C 5.5 <5.7 % of total Hgb [facility] Comment: For the purpose of screening for the presence of diabetes: <5.7% ? Consistent with the absence of diabetes 5.7-6.4% ?Consistent with increased risk for diabetes ?(prediabetes) > or =6.5% ??Consistent with diabetes This assay result is consistent with a decreased risk of diabetes. Currently, no consensus exists regarding use of hemoglobin A1c for diagnosis of diabetes in children. According to [place] Diabetes Association (ADA) guidelines, hemoglobin A1c <7.0% represents optimal control in non- diabetic patients. Different metrics may apply to specific patient populations. Standards of Medical Care in Diabetes(ADA). Estimated Average Glucose 119 mg/dL (calc) [facility] 03/08/2022 4:01 PM EDT 03/09/2022 12:21 AM EDT Narrative Resulting Agency Comment [id number] us Charu Jimenez MD LABORATORY Final Resu lt [facility] [address] [place] [address] documented in this encounter Visit Diagnoses Diagnosis Type 2 diabetes mellitus without complication, unspecified whether intermediate teacher insulin use (HCC) documented in this encounter Care Teams Social Work Lecturer Relationship Specialty Start Date End Date Mirza Almanza NP PCP - Backup PCP Internal Medicine 07/28/20 05/29/22 Charu Jimenez MD PCP - General Family Medicine 11/12/21 03/28/22 Cortney Stone NP [address] [place] [address] PCP - General Internal Medicine 03/29/22 09/15/24 Unknown Pcp, Non Rmg PCP - Backup PCP 05/30/22 07/07/22 Christina Estevez MD [address] [place] [address] PCP - General Family Medicine 09/16/24 documented as of this encounter
--- OUTSIDE RECORDS SUMMARY | 2024-10-29 11:49 | XMS_ITS | Encounter Summary ---
Author Organization [facility] Address [address] [place] [address] Care Team Providers Care Anesthesia Technician Name Role Phone Ulisses Newman DO Primary Care Provider [phone] Mirza Almanza BIOMEDICAL SCIENTIST Unavailable [phone] Juanpablo Louis MD Primary Care Provider [phone] Charu Jimenez MD Primary Care Provider Lori Cortney Melgar NP Primary Care Provider + [phone] Unknown Pcp, Non Rmg Unavailable Unavailable Christina Estevez MD Primary Care Provider [phone] Encounter Details Date Type Department Care Team (Late st Contact Info) Description 03/10/2020 Orders Only [facility] [address] [place] [address] Mirza Almanza, JULIETA [facility] [address] [address] Medications Social History Tobacco Use Types Packs/Day Years [...] Description 01/10/2025 8:00 AM EDT Office Visit [address] [address] Christina Estevez MD [address] [place] [address] medication refill follow up 03/18/2025 1:15 PM EDT Office Visit [facility] [address] [facility] [address] [place] [address] Lolita Barnett MD [address] [place] [address] routine f/u 04/05/2025 9:15 AM EDT Radiology [address] [address] 05/02/2025 1:00 PM EDT Office Visit [facility] [address] [address] Lolita Barnett MD [address] [place] [address] 1 year 06/07/2025 9:15 AM EDT CPE - Comprehensive Physical Exam [address] [address] Christina Estevez MD [address] [place] [address] NPP documented as of this encounter Goals [...] on filedocumented in this encounter Care Teams Anesthesia Technician Relationship Specialty Start Date End Date Ulisses Newman DO PCP - General Internal Medicine 01/18/20 07/27/20 Mirza Almanza NP PCP - Backup PCP Internal Medicine 07/28/20 05/29/22 Juanpablo Louis MD [address] [place] [address] PCP - General Internal Medicine 07/28/20 11/11/21 Charu Jimenez MD [address] [place] [address] PCP - General Family Medicine 11/12/21 03/28/22 Cortney Stone NP [address] [place] [address] PCP - General Internal Medicine 03/29/22 09/15/24 Unknown Pcp, Non Rmg PCP - Backup PCP 05/30/22 07/07/22 Christina Estevez MD [address] [place] [address] PCP - General Family Medicine 09/16/24 documented as of this encounter
--- OUTSIDE RECORDS SUMMARY | 2024-10-29 11:50 | XMS_ITS | Encounter Summary ---
Author Organization [facility] Address [address] [place] [address] Care Team Providers Care Deputy Probation Officer Name Role Phone Mirza Almanza CARBON FURNACE OPERATOR HELPER Unavailable [phone] Juanpablo Louis MD Primary Care Provider [phone] Charu Jimenez MD Primary Care Provider Lori noahilaCortney Garcia NP Primary Care Provider [phone]- [phone] Unknown Pcp, Non [facility]mg Unavailable Unavailable Christina Estevez MD Primary Care Provider [phone] Encounter Details Date Type Department Care Team ([facility] st Contact Info) Description 10/18/2021 Orders Only [facility] Cardiology [address] [address] Lolita Barnett MD [address] [place] [address] Social History Tobacco Use Types Packs/Day Years [...] Miscellaneous Notes * Result Encounter Note - Angela Marin - 10/18/2021 8:26 AM EST Patient called and states that she is always mildly anemic and that Dr Barnett is aware She states no issue bleeding at all.Patient asking if she can take on naproxen\diclofenac or IBU for arthritis pain * Result Encounter Note - Angela Marin - 10/18/2021 8:26 AM EST Patient told per Dr Torre may take on naproxen today . She will call Friday and follow up labs withPCP * Result Encounter Note - Vandana Torre MD - 10/18/2021 8:26 AM EST Noted. documented in this encounter Plan of Treatment Upcoming Encounters Date Type Department Care Team (Latest Contact Info) Description 01/10/2025 8:00 AM EDT Office Visit [address] [address] Christina Estevez MD [address] [place] [address] medication refill follow up 03/18/2025 1:15 PM EDT Office Visit [facility] Cardiology [address] 123 [facility] [address] [place] [address] Lolita Barnett MD [address] [place] [address] routine f/u 04/05/2025 9:15 AM EDT Radiology [facility]. Mammography [address] [place] [address] 05/02/2025 1:00 PM EDT Office Visit [facility] Cardiology [address] 123 [facility] [address] [place] [address] Lolita Barentt MD [address] [place] [address] 1 year 06/07/2025 9:15 AM EDT CPE - Comprehensive Physical Exam [facility] [address] [place] [address] Christina Estevez MD [address] [place] [address] NPP documented as of this encounter Goals [...] at . Any insurance accepted. Quit smoking resources-http://Truly.org HEMOGLOBIN A1C % < 7 Result Component [...] of this encounter Procedures * Due to [place] [employer] law, this organization might not be sharing negative HIV tests. Procedure Name Priority Date/Time Associated Diagnosis Comments PROTHROMBIN TIME (PT) (INR), BLOOD Routine 10/18/2021 8:26 AM EST SOB (shortness of breath) CORONARY ARTERY DISEASE WITH STABLE Angina xx0.14xx CBC INCLUDES DIFFERENTIAL AND PLATELET COUNT Routine 10/18/2021 8:26 AM EST SOB (shortness of breath) CORONARY ARTERY DISEASE WITH STABLE Angina xx0.14xx VENIPUNCTURE Routine 10/18/2021 8:26 AM EST SOB (shortness of breath) CORONARY ARTERY DISEASE WITH STABLE Angina xx0.14xx documented in this encounter Results * Due to [place] Contracts [employer] law, this organization might not be sharing negative HIV tests. * PROTHROMBIN TIME (PT) (INR), BLOOD (10/18/2021 8:26 AM EST) INR 1.0 [facility] Comment: Reference Range ? 0.9-1.1 Moderate-intensity Warfarin Therapy 2.0-3.0 Higher-intensity Warfarin Therapy ?? 3.0-4.0 PT 10.5 9.0 - 11.5 sec [facility] Comment: For additional information, please refer to http://education.Partly/faq/JNF326 (This link is being provided for informational/ educational purposes only.) 10/18/2021 8:26 AM EST 10/18/2021 2:06 PM EST Narrative Resulting Agency Comment [id number] Lolita Barnett MD LAB SAME DAY RESULT Final Result [facility] [address] [place] [address] * (ABNORMAL) CBC INCLUDES DIFFERENTIAL AND PLATELET COUNT (10/18/2021 8:26 AM EST) Pathologist [facility] WBC 4.9 3.8 - 10.8 Thousand/u L [facility] RBC 3.86 3.80 - 5.10 Million/uL [facility] Hemoglobin 12.0 11.7 - 15.5 g/dL [facility] Hematocrit 34.9(L) 35.0 - 45.0 % [facility] MCV 90.4 80.0 - 100.0 fL [facility] MCH 31.1 27.0 - 33.0 pg [facility] MCHC 34.4 32.0 - 36.0 g/dL [facility] RDW 11.3 11.0 - 15.0 % [facility] PLT 172 140 - 400 Thousand/u L [facility] MPV 9.9 7.5 - 12.5 fL [facility] Neutrophils # 3724 1500 - 7800 cells/uL [facility] Lymphocytes # 789(L) 850 - 3900 cells/uL [facility] Monocytes # 260 200 - 950 cells/uL [facility] Eosinophils # 98 15 - 500 cells/uL [facility] Basophils # 29 0 - 200 cells/uL [facility] Neutrophils % 76 % [facility] Lymphocytes % 16.1 % [facility] Monocytes % 5.3 % [facility] Eosinophils % 2.0 % [facility] Basophils % 0.6 % [facility] 10/18/2021 8:26 AM EST 10/18/2021 2:06 PM EST Narrative Resulting Agency Comment [id number] Lolita Barnett MD LAB SAME DAY RESULT Final Result [facility] [address] [place] [address] * (ABNORMAL) BASIC METABOLIC PANEL WITH (GFR) (10/18/2021 8:26 AM EST) Glucose 124(H) 65 - 99 mg/dL [facility] Comment: ? Fasting reference interval For someone without known diabetes, a glucose value between 100 and 125 mg/dL is consistent with prediabetes and should be confirmed with a follow-up test. Urea Nitrogen Blood (BUN) 21 7 - 25 mg/dL [facility] Creatinine 0.95 0.50 - 0.99 mg/dL [facility] Comment: For patients >49 years of age, the reference limit for Creatinine is approximately 13% higher for people identified as -Citizen Of [place]. EGFR 61 > OR = 60 mL/min/1 .73m2 [facility] GFR () 71 > OR = 60 mL/min/1 .73m2 [facility] BUN/Creatinine Ratio NOT APPLICABLE 6 - 22 (calc) [facility] Sodium 136 135 - 146 mmol/L [facility] Potassium 3.8 3.5 - 5.3 mmol/L [facility] Chloride 100 98 - 110 mmol/L [facility] Carbon dioxide 30 20 - 32 mmol/L [facility] Calcium 9.1 8.6 - 10.4 mg/dL [facility] 10/18/2021 8:26 AM EST 10/18/2021 2:06 PM EST Narrative [facility] - 10/18/2021 3:16 PM EST Please note that this estimated [...] needs for GFR calculation. Resulting Agency Comment [id number] Lolita Barnett MD LABORATORY Final Result [facility] [address] [place] [address] documented in this encounter Visit Diagnoses Diagnosis SOB (shortness of breath) Shortness of breath Coronary Artery Disease with Stable Angina (I25.119) documented in this encounter Care Teams Deputy Probation Officer Relationship Specialty Start Date End Date Mirza Almanza NP PCP - Backup PCP Internal Medicine 07/28/20 05/29/22 Juanpablo Louis MD [address] [place] [address] PCP - General Internal Medicine 07/28/20 11/11/21 Charu Jimenez MD [address] [place] [address] PCP - General Family Medicine 11/12/21 03/28/22 Cortney Stone NP [address] [place] [address] PCP - General Internal Medicine 03/29/22 09/15/24 Unknown Pcp, Non Rmg PCP - Backup PCP 05/30/22 07/07/22 Christina Estevez MD [address] [place] [address] PCP - General Family Medicine 09/16/24 documented as of this encounter
--- OUTSIDE RECORDS SUMMARY | 2024-10-29 11:50 | XMS_ITS | Encounter Summary ---
Author Organization [facility] Address [address] [place] [address] Care Team Providers Care Administrative Coordinator Name Role Phone Tasha Alexander MD Primary Care Provider [phone] Reason for Visit * Reason Onset Date Comments Refill Request 10/25/2024 Encounter Details Date Type Department Care Team (Late st Contact Info) Description 10/25/2024 Refill [facility] [address] [place] [phone] Tasha Alexander MD [address] [place] [address] Refill Request Social History Tobacco Use Types Packs/Day Years Used Date Smoking Tobacco: Former Cigarettes 2 17 0 03/02/1975 - 03/02/1992 Passive Smoke Exposure: Never Smokeless Tobacco: Never Alcohol Use Standard Drinks/Week Comments Yes 0 (1 standard drink = 0.6 oz pur e alcohol) rare PHQ-2 Answer Date Recorded PHQ-2 Score 0 01/07/2024 PHQ-9 Answer Date Recorded [facility] PHQ-9 SEVERITY SCORE (Range 0-27) 0 01/07/2024 [...] encounter Miscellaneous Notes * Telephone Encounter - Figueroa Ratliff - 10/25/2024 8:42 AM EST -CONCERN FOR PROVIDER REVIEW- Please review and sign if appropriate. Otherwise, please route to your Care Team to reach out to the patient Requested medication is NOT on the Active Medication List Pt reported that she was told to stop this until she had her spine surgery and would restart on themedication after her surgery. -CONCERN FOR PROVIDER REVIEW- Please review KILN PLACER/MassPAT data to determine if refill pattern is acceptable before signing If pill count or other monitoring is indicated, please route to your Care Team Next Refill Due: 10/25/24 Adjust prescription start date if desired. Pharmacy Confirmed? Verified pharmacy with patient. When is the medication needed? within 48 hours, will send routine message Past and Future Appointments in Auth Provider Departments: Recent Visits Date Type Provider Dept 08/06/24 Office Visit Cortney Stone, SENIOR ABAP DEVELOPER [facility] 01/27/24 Office Visit Cortney Stone, SENIOR ABAP DEVELOPER [facility] 01/07/24 CPE - Comprehensive Physical Exam Cortney Stone, SENIOR ABAP DEVELOPER [facility] 10/30/23 Office Visit Cortney Stone, SENIOR ABAP DEVELOPER [facility] 10/23/23 Office Visit Cortney Stoen, SENIOR ABAP DEVELOPER [facility] 09/10/23 Office Visit Cortney Stone, SENIOR ABAP DEVELOPER [facility] 06/20/23 Office Visit Cortney Stone, SENIOR ABAP DEVELOPER [facility] 03/21/23 Office Visit Cortney Stone, SENIOR ABAP DEVELOPER [facility] 03/19/23 Appointment Cortney Stone, SENIOR ABAP DEVELOPER [facility] 01/16/23 Office Visit Cortney Stone, SENIOR ABAP DEVELOPER [facility] Showing recent visits within past 720 days in an active department and meeting all other requirements Future Appointments Date Type Provider Dept 01/10/25 Appointment Tasha Alexander MD [facility] 06/07/25 Appointment Tasha Alexander MD [facility]ps [facility] Showing future appointments within next 450 days in an active department and meeting all other requirements Requested Medication Details Requested Gabapentinoids: Gabapentin (NEURONTIN) 300 MG capsule, Take one capsule (300 mg total) by mouth in the morning and at bedtime. KILN PLACER: KILN PLACER website checked this encounter? Yes Max Fill Guidance: Prescription should be prepared [...] the maximum fill guidance. Visit Needs: None CPE Needs: None. Patient is not overdue for CPE based on age group or has a upcoming, scheduled CPE. Last Billed CPE Details: Date: 03/09/2020 Department: P [facility] Provider: LAYTON CHUA Visit Type: Video Visit Next Scheduled CPE Details: Date: 06/07/2025 Department: [facility] Provider: TASHA ALEXANDER Visit Type: Physical Exam Lab Needs: None Pertinent Labs: Lab Results Component Value Date CREATININE 0.97 05/21/2024 GFR 62 05/21/2024 Estimated Creatinine Clearance: 49.3 mL/min (by C-G formula based on SCr of 0.97 mg/dL). Pertinent Lab Results and Recommendations Pended medication order(s) and sent to provider. Patient expects medication renewal unless notifiedotherwise. documented in this encounter Plan of Treatment Upcoming Encounters Date Type Department Care Team (Latest Contact Info) Description 01/10/2025 8:00 AM EDT Office Visit [address] [phone] Tasha Alexander MD [address] [place] [address] medication refill follow up 03/18/2025 1:15 PM EDT Office Visit [facility] Cardiology [address] [facility] [address] [place] [address] Lolita Barnett MD [address] [place] [address] routine f/u 04/05/2025 9:15 AM EDT Radiology [facility]. Mammography [address] [place] [address] 05/02/2025 1:00 PM EDT Office Visit [facility] Cardiology [address] 123 [facility] [address] [place] [address] Lolita Barnett MD [address] [place] [address] 1 year 06/07/2025 9:15 AM EDT CPE - Comprehensive Physical Exam [address] [address] Tasha Alexander MD [address] [place] [address] NPP documented as of this encounter Goals [...] at . Any insurance accepted. Quit smoking resources-http://[employer].org HEMOGLOBIN A1C % < 7 Result Component [...] of this encounter Visit Diagnoses Diagnosis Chronic cough Cough Chronic neck pain Cervicalgia documented in this encounter Care Teams Administrative Coordinator Relationship Specialty Start Date End Date Tasha Alexander MD [address] [place] [address] PCP - General Family Medicine 09/16/24 documented as of this encounter
--- OUTSIDE RECORDS SUMMARY | 2024-10-29 11:50 | XMS_ITS | Encounter Summary ---
Author Organization [facility] Address [address] [place] [address] Care Team Providers Care High Density Finishing Operator Name Role Phone Mirza Almanza PILOT TEACHER Unavailable [phone] Juanpablo Louis MD Primary Care Provider [phone] Charu Jimenez MD Primary Care Provider Lori noahilaCortney Garcia NP Primary Care Provider [phone] Unknown Pcp, Non Rmg Unavailable Unavailable Christina Estevez MD Primary Care Provider [phone] Encounter Details Date Type Department Care Team ([facility] st Contact Info) Description 09/14/2021 Orders Only [facility] Cardiology [address] [facility] [address] [place] [address] Lolita Barnett MD [address] [place] [address] Social History Tobacco Use Types Packs/Day Years [...] Encounter Note - Lolita Barnett MD - 09/14/2021 9:00 AM EST The results of Your test are Stable and acceptable -- as always if you have any questions/problems please let me know - documented in this encounter Plan of Treatment Upcoming Encounters Date Type Department Care Team (Latest Contact Info) Description 01/10/2025 8:00 AM EDT Office Visit [address] [address] Christina Estevez MD [address] [place] [address] medication refill follow up 03/18/2025 1:15 PM EDT Office Visit [facility] Cardiology [address] [facility] [address] [place] [address] Lolita Barnett MD [address] [place] [address] routine f/u 04/05/2025 9:15 AM EDT Radiology [address] [address] 05/02/2025 1:00 PM EDT Office Visit [facility] Cardiology [address] [facility] [address] [place] [address] Lolita Barnett MD [address] [place] [address] 1 year 06/07/2025 9:15 AM EDT CPE - Comprehensive Physical Exam [address] [address] Christina Estevez MD [address] [place] [address] NPP documented as of this encounter Goals [...] at . Any insurance accepted. Quit smoking resources-http://makesmoIntellitacticstory.org HEMOGLOBIN A1C % < 7 Result Component [...] this encounter Procedures * Due to [place] [employer] law, this organization might not be sharing negative HIV tests. Procedure Name Priority Date/Time Associated Diagnosis Comments THYROID STIMULATING HORMONE (TSH) WITH FREE T4 REFLEX, SERUM Routine 09/14/2021 9:04 AM EST SOB (shortness of breath) B-TYPE NATRIURETIC PEPTIDE (BNP) ([facility]) Same Day Results 09/14/2021 9:04 AM EST SOB (shortness of breath) VENIPUNCTURE Routine 09/14/2021 9:04 AM EST SOB (shortness of breath) documented in this encounter Results * Due to [place] [employer] law, this organization might not be sharing negative HIV tests. * THYROID STIMULATING HORMONE (TSH) WITH FREE T4 REFLEX, SERUM (09/14/2021 9:04 AM EST) TSH 0.66 0.40 - 4.50 mIU/L [facility] 09/14/2021 9:04 AM EST 09/14/2021 7:38 PM EST Narrative Resulting Agency Comment [id number] Lolita Barnett MD LABORATORY Final Result [facility] [address] [place] [address] * B-TYPE NATRIURETIC PEPTIDE (BNP) ([facility]) (09/14/2021 9:04 AM EST) Natriuretic peptide.B 13 <100 pg/mL [facility] Comment: BNP levels increase with age in the general population with the highest values seen in individuals greater than 75 years of age. Reference: J. Am. Claudia. Cardiol. 2002; 40:976-982. 09/14/2021 9:04 AM EST 09/14/2021 7:38 PM EST Narrative Resulting Agency Comment [id number] Lolita Barnett MD LAB SAME DAY RESULT Final Result [facility] [address] [place] [address] * (ABNORMAL) BASIC METABOLIC PANEL WITH (GFR) (09/14/2021 9:04 AM EST) Glucose 116(H) 65 - 99 mg/dL [facility] Comment: ? Fasting reference interval For someone without known diabetes, a glucose value between 100 and 125 mg/dL is consistent with prediabetes and should be confirmed with a follow-up test. Urea Nitrogen Blood (BUN) 16 7 - 25 mg/dL [facility] Creatinine 0.97 0.50 - 0.99 mg/dL [facility] Comment: For patients >49 years of age, the reference limit for Creatinine is approximately 13% higher for people identified as -[place] Citizen. EGFR 60 > OR = 60 mL/min/1 .73m2 [facility] GFR () 69 > OR = 60 mL/min/1 .73m2 [facility] BUN/Creatinine Ratio NOT APPLICABLE 6 - 22 (calc) [facility] Sodium 136 135 - 146 mmol/L [facility] Potassium 3.7 3.5 - 5.3 mmol/L [facility] Chloride 98 98 - 110 mmol/L [facility] Carbon dioxide 28 20 - 32 mmol/L [facility] Calcium 9.7 8.6 - 10.4 mg/dL [facility] 09/14/2021 9:04 AM EST 09/14/2021 7:38 PM EST Narrative [facility] - 09/14/2021 9:41 PM EST Please note that this estimated [...] needs for GFR calculation. Resulting Agency Comment [id number] us Lolita Barnett MD LABORATORY Final Result [facility] [address] [place] [address] documented in this encounter Visit Diagnoses Diagnosis SOB (shortness of breath) Shortness of breath documented in this encounter Care Teams High Density Finishing Operator Relationship Specialty Start Date End Date Mirza Almanza NP PCP - Backup PCP Internal Medicine 07/28/20 05/29/22 Juanpablo Louis MD [address] [place] [address] PCP - General Internal Medicine 07/28/20 11/11/21 Charu Jimenez MD [address] [place] [address] PCP - General Family Medicine 11/12/21 03/28/22 Cortney Stone NP [address] [place] [address] PCP - General Internal Medicine 03/29/22 09/15/24 Unknown Pcp, Non Rmg PCP - Backup PCP 05/30/22 07/07/22 Christina Estevez MD [address] [place] [address] PCP - General Family Medicine 09/16/24 documented as of this encounter
--- OUTSIDE RECORDS SUMMARY | 2024-10-29 11:50 | XMS_ITS | Encounter Summary ---
Author Organization [facility] Address [address] [place] [address] Care Team Providers Care Electrical Equipment Assembler Name Role Phone Mirza Almanza ASSISTANT ART DIRECTOR Unavailable [phone] Juanpablo Louis MD Primary Care Provider [phone] Charu Jimenez MD Primary Care Provider Lori Cortney Melgar NP Primary Care Provider [phone] Unknown Pcp, Non Rmg Unavailable Unavailable Christina Estevez MD Primary Care Provider [phone] Encounter Details Date Type Department Care Team (Late st Contact Info) Description 06/11/2021 Telephone [facility] [address] [place] [phone] Mirza Almanza, JULIETA Sanders Primary Care [facility] [address] [address] Social History Tobacco Use Types Packs/Day Years [...] Miscellaneous Notes * Telephone Encounter - Mary Pemberton - 06/11/2021 9:18 AM EDT Patient is getting MRI done at [facility] Order was faxed to [facility] for patient * Telephone Encounter - Kyra Cordoba - 06/11/2021 8:08 AM EDT This pt declined to schedule her MRI ABDOMEN (KIDNEYS) W AND W/O CONTRAST FC with [facility]. She has an appt at [facility] on next Friday. Order will be held until 07/11/21 documented in this encounter Plan of Treatment Upcoming Encounters Date Type Department Care Team (Latest Contact Info) Description 01/10/2025 8:00 AM EDT Office Visit [facility] [address] [place] [phone] Christina Estevez MD [address] [place] [address] medication refill follow up 03/18/2025 1:15 PM EDT Office Visit [facility] Cardiology [address] [address] Lolita Barnett MD [address] [place] [address] routine f/u 04/05/2025 9:15 AM EDT Radiology [facility]. Mammography [address] [place] [address] 05/02/2025 1:00 PM EDT Office Visit [facility] Cardiology [address] [address] Lolita Barnett MD [address] [place] [address] 1 year 06/07/2025 9:15 AM EDT CPE - Comprehensive Physical Exam [facility] [address] [place] [address] Christina Estevez MD [address] [place] [address] NPP documented as of this encounter Goals [...] at . Any insurance accepted. Quit smoking resources-http://makesMicroEnsure.org HEMOGLOBIN A1C % < 7 Result Component [...] on filedocumented in this encounter Care Teams Electrical Equipment Assembler Relationship Specialty Start Date End Date Mirza Almanza NP PCP - Backup PCP Internal Medicine 07/28/20 05/29/22 Juanpablo Louis MD [address] [place] [address] PCP - General Internal Medicine 07/28/20 11/11/21 Charu Jimenez MD [address] [place] [address] PCP - General Family Medicine 11/12/21 03/28/22 Cortney Stone NP [address] [place] [address] PCP - General Internal Medicine 03/29/22 09/15/24 Unknown Pcp, Non Rmg PCP - Backup PCP 05/30/22 07/07/22 Christina Estevez MD [address] [place] [address] PCP - General Family Medicine 09/16/24 documented as of this encounter
--- OUTSIDE RECORDS SUMMARY | 2024-10-29 11:50 | XMS_ITS | Encounter Summary ---
Author Organization [facility] Address [address] [place] [address] Care Team Providers Care Installer Helper Name Role Phone Mirza Almanza SQL DATABASE DEVELOPER Unavailable [phone] Juanpablo Louis MD Primary Care Provider [phone] Charu Jimenez MD Primary Care Provider Lori Cortney Melgar NP Primary Care Provider [phone]- [phone] Unknown Pcp, Non Rmg Unavailable Unavailable Christina Estevez MD Primary Care Provider [phone] Encounter Details Date Type Department Care Team (Late st Contact Info) Description 03/28/[address] [facility] [address] [place] [phone] Alondra Garcia MD [address] [place] [address] Social History Tobacco Use Types Packs/Day Years [...] have Coronavirus / COVID-19? No / Unsure 03/02/2021 8:52 AM EDT documented as of this encounter Miscellaneous Notes * Result Encounter Note - Alondra Garcia MD - 03/28/2021 8:50 AM EDT Angella Kamara, Your renal function was improved on the last check. Alondra Thao documented in this encounter Plan of Treatment Upcoming Encounters Date Type Department Care Team (Latest Contact Info) Description 01/10/2025 8:00 AM EDT Office Visit [address] [address] Christina Estevez MD 5 [place] [address] medication refill follow up 03/18/2025 1:15 PM EDT Office Visit [facility] [address] [place] [address] Lolita Barnett MD [address] [place] [address] routine f/u 04/05/2025 9:15 AM EDT Radiology [facility]. [facility] [address] [place] [address] 05/02/2025 1:00 PM EDT Office Visit [facility] [address] [address] Lolita Barnett MD [address] [place] [address] 1 year 06/07/2025 9:15 AM EDT CPE - Comprehensive Physical Exam [facility] [address] [place] [address] Christina Estevez MD 5 [place] [address] NPP documented as of this encounter Goals [...] of this encounter Procedures * Due to [place] iCents.[employer] law, this organization might not be sharing negative HIV tests. Procedure Name Priority Date/Time Associated Diagnosis Comments VENIPUNCTURE Routine 03/28/2021 8:50 AM EDT Arthralgia, unspecified joint documented in this encounter Results * Due to [place] iCents.[employer] law, this organization might not be sharing negative HIV tests. * (ABNORMAL) COMPREHENSIVE METABOLIC PANEL WITH GFR (03/28/2021 8:50 AM EDT) Glucose 154(H) 65 - 99 mg/dL [facility] [...] approximately 13% higher for people identified as -Stateless. EGFR 48(L) > OR = 60 mL/min/1. [...] needs for GFR calculation. Resulting Agency Comment [id number] Alondra Garcia MD LABORATORY Final Result [facility] [address] [place] [address] documented in this encounter Visit Diagnoses Diagnosis Arthralgia, unspecified joint documented in this encounter Care Teams Installer Helper Relationship Specialty Start Date End Date Mirza Almanza NP PCP - Backup PCP Internal Medicine 07/28/20 05/29/22 Juanpablo Louis MD [address] [place] [address] PCP - General Internal Medicine 07/28/20 11/11/21 Charu Jimenez MD [address] [place] [address] PCP - General Family Medicine 11/12/21 03/28/22 Cortney Stone NP [address] [place] [address] PCP - General Internal Medicine 03/29/22 09/15/24 Unknown Pcp, Non [facility] PCP - Backup PCP 05/30/22 07/07/22 Christina Estevez MD [address] [place] [address] PCP - General Family Medicine 09/16/24 documented as of this encounter
--- OUTSIDE RECORDS SUMMARY | 2024-10-29 11:50 | XMS_ITS | Encounter Summary ---
Author Organization [facility] Address [address] [place] [address] Care Team Providers Care Media Operator Name Role Phone Mirza Almanza AGRICULTURAL EQUIPMENT TEST ENGINEER Unavailable [phone] Juanpablo Louis MD Primary Care Provider [phone] Charu Jimenez MD Primary Care Provider Lori Cortney Melgar NP Primary Care Provider + [phone] Unknown Pcp, Non Rmg Unavailable Unavailable Christina Estevez MD Primary Care Provider [phone] Encounter Details Date Type Department Care Team (Late st Contact Info) Description 07/31/2021 Orders Only [facility] [address] [place] [address] Mirza Almanza, JULIETA [facility] [address] [address] Social History Tobacco Use Types Packs/Day Years [...] Description 01/10/2025 8:00 AM EDT Office Visit [address] [address] Christina Estevez MD [address] [place] [address] medication refill follow up 03/18/2025 1:15 PM EDT Office Visit [facility] [address] [address] Lolita Barnett MD [address] [place] [address] routine f/u 04/05/2025 9:15 AM EDT Radiology [facility]. [address] [address] 05/02/2025 1:00 PM EDT Office Visit [facility] Card[facility] [address] [address] Lolita Barnett MD [address] [place] [address] 1 year 06/07/2025 9:15 AM EDT CPE - Comprehensive Physical Exam [address] [address] Christina Estevez MD [address] [place] [address] NPP documented as of this encounter Goals [...] at . Any insurance accepted. Quit smoking resources-http://makesSeeker Wirelesstory.org HEMOGLOBIN A1C % < 7 Result Component [...] is ideal. documented as of this encounter Results * Due to [place] state law, this organization might not be sharing negative HIV tests. * MAMMOGRAPHY BILAT 3D MARKELL (DX: SCREENING [...] architectural distortion are seen in either breast(s). Mirza Almanza NP IMG MAMMO ORDERABLES Final Result documented in this encounter Visit Diagnoses Diagnosis Breast cancer screening by mammogram Breast cancer screening by mammogram documented in this encounter Care Teams Media Operator Relationship Specialty Start Date End Date Mirza Almanza NP PCP - Backup PCP Internal Medicine 07/28/20 05/29/22 Juanpablo Louis MD [address] [place] [address] PCP - General Internal Medicine 07/28/20 11/11/21 Charu Jimenez MD [address] [place] [address] PCP - General Family Medicine 11/12/21 03/28/22 Cortney Stone NP [address] [facility] [place] [address] PCP - General Internal Medicine 03/29/22 09/15/24 Unknown Pcp, Non [facility] PCP - Backup PCP 05/30/22 07/07/22 Christina Estevez MD 5 [place] [address] PCP - General Family Medicine 09/16/24 documented as of this encounter
--- OUTSIDE RECORDS SUMMARY | 2024-10-29 11:50 | XMS_ITS | Encounter Summary ---
Author Organization [facility] Address [address] [place] [address] Care Team Providers Care Piercing Machine Operator Name Role Phone Ulisses Newman DO Primary Care Provider [phone] Mirza Almanza MOTHERCRAFT NURSE Unavailable [phone] Juanpablo Louis MD Primary Care Provider [phone] Charu Jimenez MD Primary Care Provider Lori Cortney Melgar NP Primary Care Provider + [phone] Unknown Pcp, Non Rmg Unavailable Unavailable Christina Estevez MD Primary Care Provider [phone] Encounter Details Date Type Department Care Team (Late st Contact Info) Description 04/14/2020 Telephone CALL CENTER [facility] [address] [place] [address] Vibha Casanova CRNP [address] [place] [address] Social History Tobacco Use Types Packs/Day Years [...] have Coronavirus / COVID-19? No / Unsure 04/17/2020 8:53 AM EDT documented as of this encounter Miscellaneous Notes * Telephone Encounter - Ulisses Newman DO - 04/17/2020 12:20 PM EDT Noted * Telephone Encounter - Sabra Mckenzie - 04/14/2020 3:57 PM EDT Patient requesting to have MRI BRAIN W/O CONTRAST FC at [facility] in [place], Order will be Pulledfrom EPIC on 05/15/2020 sh documented in this encounter Plan of Treatment Upcoming Encounters Date Type Department Care Team (Latest Contact Info) Description 01/10/2025 8:00 AM EDT Office Visit [facility] [address] [place] [address] Christina Estevez MD [address] [place] [address] medication refill follow up 03/18/2025 1:15 PM EDT Office Visit [facility] [address] [address] Lolita Barnett MD [address] [place] [address] routine f/u 04/05/2025 9:15 AM EDT Radiology [facility]. Mammography [address] [place] [address] 05/02/2025 1:00 PM EDT Office Visit [facility] [address] [address] Lolita Barnett MD [address] [place] [address] 1 year 06/07/2025 9:15 AM EDT CPE - Comprehensive Physical Exam [facility] [address] [place] [phone] Christina Estevez MD [address] [place] [address] NPP documented as of this encounter Goals [...] on filedocumented in this encounter Care Teams Piercing Machine Operator Relationship Specialty Start Date End Date Ulisses Newman DO PCP - General Internal Medicine 01/18/20 07/27/20 Mirza Almanza NP PCP - Backup PCP Internal Medicine 07/28/20 05/29/22 Juanpablo Louis MD [address] [place] [address] PCP - General Internal Medicine 07/28/20 11/11/21 Charu Jimenez MD [address] [place] [address] PCP - General Family Medicine 11/12/21 03/28/22 Cortney Stone NP [address] [place] [address] PCP - General Internal Medicine 03/29/22 09/15/24 Unknown Pcp, Non [facility]mg PCP - Backup PCP 05/30/22 07/07/22 Christina Estevez MD [address] [place] [address] PCP - General Family Medicine 09/16/24 documented as of this encounter
--- OUTSIDE RECORDS SUMMARY | 2024-10-29 11:50 | XMS_ITS | Encounter Summary ---
Author Organization [facility] Address [address] [place] [address] Care Team Providers Care Hoop Flaring Machine Operator Helper Name Role Phone Cortney Stone NP Primary Care Provider [phone] Christina Estevez MD Primary Care Provider [phone] Encounter Details Date Type Department Care Team (Late st Contact Info) Description 12/05/2023 Orders Only [facility] [address] [place] [address] Cortney Stone, JULIETA [address] [place] [address] Social History Tobacco Use Types Packs/Day Years Used Date Smoking Tobacco: Former Cigarettes 2 17 0 03/02/1975 - 03/02/1992 Passive Smoke Exposure: Never Smokeless Tobacco: Never Alcohol Use Standard Drinks/Week Comments Yes 0 (1 standard drink = 0.6 oz pur e alcohol) rare PHQ-2 Answer Date Recorded PHQ-2 Score 0 09/05/2022 Intimate Partner Violence Answer Date R ecorded [...] Miscellaneous Notes * Result Encounter Note - Janessa Gould - 12/05/2023 8:21 AM EST The patients lab results are at a stable level by the protocol guidelines. Okay to send stable letter? Per Epic pt is currently on simvastatin 40 mg nightly The 10-year ASCVD risk score (Jose D QUESADA, et al., 2019) is: 33.1% * Result Encounter Note - Cortney Stone NP - 12/05/2023 8:21 AM EST Normal/stable, mychart message sent. documented in this encounter Plan of Treatment Upcoming Encounters Date Type Department Care Team (Latest Contact Info) Description 01/10/2025 8:00 AM EDT Office Visit [facility] [address] [place] [address] Christina Estevez MD [address] [place] [address] medication refill follow up 03/18/2025 1:15 PM EDT Office Visit [facility] Cardiology [address] [address] Lolita Barnett MD [address] [place] [address] routine f/u 04/05/2025 9:15 AM EDT Radiology [facility]. Mammography [address] [place] [address] 05/02/2025 1:00 PM EDT Office Visit [facility] [address] [address] Lolita Barnett MD [address] [place] [address] 1 year 06/07/2025 9:15 AM EDT CPE - Comprehensive Physical Exam [facility] [address] [place] [phone] Christina Estevez MD [address] [place] [address] NPP documented as of this encounter Goals [...] at . Any insurance accepted. Quit smoking resources-http://Networked Insights.org HEMOGLOBIN A1C % < 7 Result Component [...] this encounter Procedures * Due to [place] [employer] law, this organization might not be sharing negative HIV tests. Procedure Name Priority Date/Time Associated Diagnosis Comments HEMOGLOBIN A1C Routine 12/05/2023 8:33 AM EST Diabetes mellitus without complication ALBUMIN (MICROALBUMIN), RANDOM URINE, WITH CREATININE Routine 12/05/2023 8:33 AM EST Diabetes mellitus without complication LIPID PANEL WITH REFLEX TO DIRECT LDL Routine 12/05/2023 8:33 AM EST Diabetes mellitus without complication documented in this encounter Results * Due to [place] [place] law, this organization might not be sharing negative HIV tests. * ALBUMIN (MICROALBUMIN), RANDOM URINE, WITH CREATININE (12/05/2023 8:33 AM EST) Creatinine (Urine) 144 20 - 275 mg/dL [...] 7:30 PM EST Narrative Resulting Agency Comment [id number] Cortney Stone NP LABORATORY Final Resu lt Performing Organization Address City/State/[facility] Co de Phone Number [facility] [address] [place] [address] * (ABNORMAL) LIPID PANEL WITH REFLEX TO DIRECT LDL (12/05/2023 8:33 AM EST) Cholesterol 153 <200 mg/dL [facility] HDL Cholesterol 49(L) > OR = 50 mg/dL [facility] Triglyceride 119 <150 mg/dL [facility] LDL Cholesterol 82 mg/dL (calc) [facility] Comment: Reference range: <100 Desirable range <100 mg/dL for primary prevention; ?? <70 mg/dL for patients with CHD or diabetic patients with > or = 2 CHD risk factors. LDL-C is now calculated using the Gurdeep-West calculation, which is a validated novel method providing better accuracy than the Friedewald equation in the estimation of LDL-C. Gurdeep MARQUEZ et al. NANDO. 2013;310(19): 9800-8282 (http://education.Museum of Science.[employer]/faq/XUM254) CHOL/HDL Ratio 3.1 <5.0 (calc) [facility] Cholesterol Non-HDL 104 <130 mg/dL (calc) [facility] Comment: For patients with diabetes plus 1 major ASCVD risk factor, treating to a non-HDL-C goal of <100 mg/dL (LDL-C of <70 mg/dL) is considered a therapeutic option. 12/05/2023 8:33 AM EST 12/05/2023 7:30 PM EST Narrative Resulting Agency Comment [id number] Cortney Stone NP LABORATORY Final Resu lt Performing Organization Address City/[facility]/ZIP Co de Phone Number [facility] [address] [place] [address] * (ABNORMAL) HEMOGLOBIN A1C (12/05/2023 8:33 AM EST) Hemoglobin A1C 6.3(H) <5.7 % of total [...] Average Glucose 147 mg/dL (calc) [facility] 12/05/2023 8:33 AM EST 12/05/2023 7:30 PM EST Narrative Resulting Agency Comment [id number] us Cortney Stone NP LABORATORY Final Resu lt Performing Organization Address [facility] Co de Phone Number [facility] [address] [place] [address] documented in this encounter Visit Diagnoses Diagnosis Diabetes mellitus without complication (HCC) Type II or unspecified type diabetes mellitus without mention of complication, not stated as uncontrolled documented in this encounter Care Teams Hoop Flaring Machine Operator Helper Relationship Specialty Start Date End Date Cortney Stone NP [address] [place] [address] PCP - General Internal Medicine 03/29/22 09/15/24 Christina Estevez MD [address] [place] [address] PCP - General Family Medicine 09/16/24 documented as of this encounter
--- OUTSIDE RECORDS SUMMARY | 2024-10-29 11:50 | XMS_ITS | Encounter Summary ---
Author Organization [facility] Address [address] [place] [address] Care Team Providers Care Filter Washer And Presser Name Role Phone Cortney Stone NP Primary Care Provider [phone] Christina Estevez MD Primary Care Provider [phone] Encounter Details Date Type Department Care Team ([facility] st Contact Info) Description 09/05/2023 Orders Only [facility] Cardiology [address] [address] Lolita Barnett MD [address] [place] [address] Social History Tobacco Use Types Packs/Day Years [...] Encounter Note - Lolita Barnett MD - 09/05/2023 3:16 PM EST Application Securityt message sent * Result Encounter Note - Lolita Barnett MD - 09/05/2023 3:16 PM EST Please call patient inform her her BNP levels and proBNP levels are completely normal. Less likely that she is having shortness of breath due to heart issues it is more likely pulmonary issues and she should follow-up with the donor recruiter or with her PCP * Result Encounter Note - Joslyn Bobby - 09/05/2023 3:16 PM EST See TE 09/11/23 documented in this encounter Plan of Treatment Upcoming Encounters Date Type Department Care Team (Latest Contact Info) Description 01/10/2025 8:00 AM EDT Office Visit [address] [address] Christina Estevez MD [address] [place] [address] medication refill follow up 03/18/2025 1:15 PM EDT Office Visit [facility] [address] [facility] [address] [place] [address] Lolita Barnett MD [address] [place] [address] routine f/u 04/05/2025 9:15 AM EDT Radiology [facility]. [facility] [address] [place] [address] 05/02/2025 1:00 PM EDT Office Visit [facility] [address] 123 [facility] [address] [place] [address] Lolita Barnett MD [address] [place] [address] 1 year 06/07/2025 9:15 AM EDT CPE - Comprehensive Physical Exam [facility] [address] [place] [address] Christina Estevez MD [address] [place] [address] NPP documented as of this encounter Goals [...] at . Any insurance accepted. Quit smoking resources-http://enMarkit.org HEMOGLOBIN A1C % < 7 Result Component [...] of this encounter Procedures * Due to [place] law, this organization might not be sharing negative HIV tests. Procedure Name Priority Date/Time Associated Diagnosis Comments CBC INCLUDES DIFFERENTIAL AND PLATELET COUNT Routine 09/05/2023 3:16 PM EST SOB (shortness of breath) Hyperlipidemia, unspecified hyperlipidemia type B-TYPE NATRIURETIC PEPTIDE (BNP) ([facility]) Same Day Results 09/05/2023 3:16 PM EST SOB (shortness of breath) Hyperlipidemia, unspecified hyperlipidemia type PROBNP, N TERMINAL Routine 09/05/2023 3: 16 PM EST SOB (shortness of breath) Hyperlipidemia, unspecified hyperlipidemia type BASIC METABOLIC PANEL WITH (GFR) Routine 09/05/2023 3:16 PM EST SOB (shortness of breath) Hyperlipidemia, unspecified hyperlipidemia type documented in this encounter Results * Due to [place] law, this organization might not be sharing negative HIV tests. * (ABNORMAL) BASIC METABOLIC PANEL WITH (GFR) (09/05/2023 3:16 PM EST) Glucose 126(H) 65 - 99 mg/dL [facility] Comment: ? Fasting reference interval For someone without known diabetes, a glucose value >125 mg/dL indicates that they may have diabetes and this should be confirmed with a follow-up test. Urea Nitrogen Blood (BUN) 19 7 - 25 mg/dL [facility] Creatinine 1.15(H) 0.60 - 1.00 mg/dL [facility] EGFR 51(L) > OR = 60 mL/min/1.7 3m2 [facility] BUN/Creatinine Ratio 17 6 - 22 (calc) [facility] Sodium 137 135 - 146 mmol/L [facility] Potassium 3.7 3.5 - 5.3 mmol/L [facility] Chloride 99 98 - 110 mmol/L [facility] Carbon dioxide 30 20 - 32 mmol/L [facility] Calcium 9.3 8.6 - 10.4 mg/dL [facility] 09/05/2023 3:16 PM EST 09/05/2023 9:24 PM EST Narrative [facility] - 09/06/2023 2:37 AM EST Please note that this estimated GFR [...] needs for GFR calculation. Resulting Agency Comment [id number] Lolita Barnett MD LABORATORY Final Result [facility] [address] [place] [address] * B-TYPE NATRIURETIC PEPTIDE (BNP) ([facility]) (09/05/2023 3:16 PM EST) Natriuretic peptide.B 14 <100 pg/mL [facility] Comment: BNP levels increase with age in the general population with the highest values seen in individuals greater than 75 years of age. Reference: J. Am. Claudia. Cardiol. 2002; 40:976-982. 09/05/2023 3:16 PM EST 09/05/2023 9:24 PM EST Narrative Resulting Agency Comment [id number] Lolita Barnett MD LAB SAME DAY RESULT Final Result [facility] [address] [place] [address] * (ABNORMAL) CBC INCLUDES DIFFERENTIAL AND PLATELET COUNT (09/05/2023 3:16 PM EST) WBC 6.1 3.8 - 10.8 Thousand/u L [facility] RBC 3.73(L) 3.80 - 5.10 Million/uL [facility] Hemoglobin 12.6 11.7 - 15.5 g/dL [facility] Hematocrit 34.6(L) 35.0 - 45.0 % [facility] MCV 92.8 80.0 - 100.0 fL [facility] MCH 33.8(H) 27.0 - 33.0 pg [facility] MCHC 36.4(H) 32.0 - 36.0 g/dL [facility] RDW 11.7 11.0 - 15.0 % [facility] PLT 198 140 - 400 Thousand/u L [facility] MPV 9.8 7.5 - 12.5 fL [facility] Neutrophils # 4142 1500 - 7800 cells/uL [facility] Lymphocytes # 1366 850 - 3900 cells/uL [facility] Monocytes # 342 200 - 950 cells/uL [facility] Eosinophils # 201 15 - 500 cells/uL [facility] Basophils # 49 0 - 200 cells/uL [facility] Neutrophils % 67.9 % [facility] Lymphocytes % 22.4 % [facility] Monocytes % 5.6 % [facility] Eosinophils % 3.3 % [facility] Basophils % 0.8 % [facility] 09/05/2023 3:16 PM EST 09/05/2023 9:24 PM EST Narrative Resulting Agency Comment [id number] Lolita Barnett MD LAB SAME DAY RESULT Final Result [facility] [address] [place] [address] * PROBNP, N TERMINAL (09/05/2023 3:16 PM EST) Natriuretic peptide.B prohormone 94 <125 pg/mL [facility] 09/05/2023 3:16 PM EST 09/05/2023 9:24 PM EST Narrative Resulting Agency Comment [id number] Lolita Barnett MD LABORATORY Final Result [facility] [address] [place] [address] documented in this encounter Visit Diagnoses Diagnosis SOB (shortness of breath) Shortness of breath Hyperlipidemia, unspecified hyperlipidemia type documented in this encounter Care Teams Filter Washer And Presser Relationship Specialty Start Date End Date Cortney Stone NP [address] [place] [address] PCP - General Internal Medicine 03/29/22 09/15/24 Christina Estevez MD [address] [place] [address] PCP - General Family Medicine 09/16/24 documented as of this encounter
--- OUTSIDE RECORDS SUMMARY | 2024-10-29 11:50 | XMS_ITS | Encounter Summary ---
Author Organization [facility] Address [address] [place] [address] Care Team Providers Care Lens Blank Gauger Name Role Phone Cortney Stone NP Primary Care Provider [phone] Christina Estevez MD Primary Care Provider [phone] Encounter Details Date Type Department Care Team (Late st Contact Info) Description 10/30/2023 Orders Only [facility] Neurology [address] [facility] [address] [place] [address] Vibha Casanova CRNP [address] [place] [address] Social History Tobacco Use Types Packs/Day Years [...] Miscellaneous Notes * Result Encounter Note - Roslyn Norman RN - 10/30/2023 2:47 PM EST Mychart sent documented in this encounter Plan of Treatment Upcoming Encounters Date Type Department Care Team (Latest Contact Info) Description 01/10/2025 8:00 AM EDT Office Visit [address] [address] Christina Estevez MD [address] [place] [phone] medication refill follow up 03/18/2025 1:15 PM EDT Office Visit [facility] Cardiology [address] [facility] [address] [place] [address] Lolita Barnett MD [address] [place] [address] routine f/u 04/05/2025 9:15 AM EDT Radiology [address] [address] 05/02/2025 1:00 PM EDT Office Visit [facility] Cardiology [address] [facility] [address] [place] [address] Lolita Barnett MD [address] [place] [address] 1 year 06/07/2025 9:15 AM EDT CPE - Comprehensive Physical Exam [address] [address] Christina Estevez MD [address] [place] [phone] NPP documented as of this encounter Goals [...] at . Any insurance accepted. Quit smoking resources-http://makesmoPhlebotek Phlebotomy Solutionstory.org HEMOGLOBIN A1C % < 7 Result Component [...] of this encounter Procedures * Due to [place] We[employer] law, this organization might not be sharing negative HIV tests. Procedure Name Priority Date/Time Associated Diagnosis Comments CREATINE KINASE (CK), SERUM Routine 10/30/2023 2:47 PM EST SOB (shortness of breath) on exertion documented in this encounter Results * Due to [place] [employer] law, this organization might not be sharing negative HIV tests. * CREATINE KINASE (CK), SERUM (10/30/2023 2:47 PM EST) CPK 37 29 - 143 U/L [facility] 10/30/2023 2:47 PM EST 10/30/2023 11:19 PM EST Narrative Resulting Agency Comment [id number] us Vib[facility] SAME DAY RESULT Final R esult Performing Organization Address City/State/[facility] Co de Phone Number [facility] [address] [place] [address] documented in this encounter Visit Diagnoses Diagnosis SOB (shortness of breath) on exertion Shortness of breath documented in this encounter Care Teams Lens Blank Gauger Relationship Specialty Start Date End Date Cortney Stone NP [address] [place] [phone] PCP - General Internal Medicine 03/29/22 09/15/24 Christina Estevez MD [address] [place] [id number] PCP - General Family Medicine 09/16/24 documented as of this encounter
--- OUTSIDE RECORDS SUMMARY | 2024-10-29 11:50 | XMS_ITS | Encounter Summary ---
Author Organization [facility] Address [address] [place] [address] Care Team Providers Care Director Of Instructional Technology Name Role Phone Mirza Almanza READY TO WEAR DEPARTMENT MANAGER Unavailable [phone] Juanpablo Louis MD Primary Care Provider [phone] Charu Jimenez MD Primary Care Provider Lori Cortney Melgar NP Primary Care Provider + [phone] Unknown Pcp, Non [facility] Unavailable Unavailable Christina Estevez MD Primary Care Provider [phone] Reason for Visit * Reason Comments E-prescribing Refill Request Encounter Details Date Type Department Care Team ([facility] st Contact Info) Description 04/03/2021 Refill [facility] [address] [place] [phone] Mirza Almanza NP [facility] [address] [address] E-prescribing Refill Request Social History Tobacco Use [...] encounter Miscellaneous Notes * Telephone Encounter - Jessica Dewey - 04/03/2021 9:13 AM EDT Any special requests or concerns? none Faxed/E-prescribed medication renewal request(s) for Angella Foy 70 y.o. female received from pharmacy. Verified and Confirmed pharmacy for patient. Last CPE with this specialty: 03/09/2020 Last OV with this specialty: 03/02/2021 Next OV: Future Appointments Date Time Provider Department Phone 04/13/21 1:15 PM Lolita Barnett MD [facility] Cardiology [address] 06/27/21 7:45 AM Alondra Garcia MD [facility] [phone] 07/09/21 8:20 AM Mirza Almanza NP [facility] [phone] Pertinent lab results: Lab Results Component Value Date SODIUM 136 03/28/2021 POTASSIUM 3.9 03/28/2021 CHLOR 101 03/28/2021 CO2 28 03/28/2021 BUN 20 03/28/2021 CREATININE 1.16 (H) 03/28/2021 GFR 48 (L) 03/28/2021 GLUCOSE 154 (H) 03/28/2021 PALOMO 9.3 03/28/2021 An open order for Basic does not exist. Lab Results Component Value Date MICROALBUMIN 0.8 11/10/2020 ALBCRRU 6 11/10/2020 An open order for MALB does not exist. Lab Results Component Value Date CHOLESTEROL 151 12/18/2020 HDL 51 12/18/2020 LDL 80 12/18/2020 TRIGLYCERIDE 103 12/18/2020 An open order for Lipids does not exist. Lab Results Component Value Date A1C 5.6 11/10/2020 An open order for A1C exists. Lipid, Basic, MALB yearly and A1C every 6 months recommended as minimum for chronic therapy. Based on last lab testing intervals, 3 month supply suggested for diabetic medications. Allergies: Indomethacin and Sulfa antibiotics BP Readings from Last 1 Encounters: 03/21/21 114/68 Patient Active Problem List Diagnosis Date Noted ??? S/P lumbar laminectomy 01/05/2021 Had initial surgery 2017 and another surgery in 2018. She has another disc protrusion now. Had done outside of [facility]. No records. ??? Chronic, continuous use of opioids 01/05/2021 ??? Other chest pain 09/20/2020 Cath 03/2020 Showed only 30 % prox stenosis in rca .. other vessels clear ??? Chronic kidney disease, stage 3a (HCC) 11/26/2018 11/26/2018 -- GFR 41, Cr 1.26 in January 2018; improved to 53 and 1.09 respectively as of August 2018.Will monitor Lab Results Component Value Date GFR 50 (L) 11/25/2018 Lab Results Component Value Date CREATININE 1.16 (H) 12/25/2018 CREATININE 0.99 12/11/2018 CREATININE 1.14 (H) 11/25/2018 11/25/2018 -- Labs pending 11/19/2018 -- Noted in previous labs. Will recheck and f/up accordingly ??? Cognitive deficits 11/19/2018 11/25/2018 -- We reviewed the below findings in some detail. We agree that a referral to our neurology department for ongoing management is prudent. Consult placed today 11/19/2018 -- States she has noticed some progressive memory loss and word- finding difficulties overthe past year. She was previous PCP for same in January 2018. She had an MRI through [facility] which is reviewed below. She saw neuro there in March 2018. She scored 26/30 on MOCA and there was some cogwheeling on exam. She had neuropsych eval with Dr. Catalina Medrano on 09/08/2018 (please refer to Neuropsych appt note in CareEverywhere). Plan to discuss further at upcoming visit, will need to refer to neuro Brain MRI [facility] 03/06/2018: FINDINGS: Few T2 and FLAIR hyperintensities [...] digits backward (742) she said 242 . Shecould not attend to a task of hearing letters. She culminated when a letter was not stated and thenmissed the last one. She did well on serial sevens except for one mistake. She was able to repeat 2sentences correctly and name 11 words that started with F in 1 minute. However, after 7 she could not think of any when I told her to look around the room she brightly said phone . She did not catchher mistake. She correctly abstracted onto examples and she was oriented ??6, but when asked the year she first [...] to touch her nose. This was especially difficultwhen she was using her left hand. Also, [...] time following my commands and understanding it. [facility] neuro consult note 06/30/2018: She scored 23/30 [...] with her incorrect answer. She was able torepeat 2 and 3 digits backward, but not [...] and said when they were back in [place] and then when keep the kids went [...] not sure that this is Alzheimer's dementia. ??? Headache 11/19/2018 11/25/2018 -- See Cognitive deficits 11/19/2018 -- States headaches started around the same time as cognitive decline. She saw Dr. Catalina Torres, [facility] neuro, for same. She had been advised to continue OTC analgesics as they were mostly effective. At a f/up visit in June, neuro advised against daily preventive meds since they could accelerate confusion and cognitive decline. Will need neuro eval moving forward [facility] neuro consult note 03/31/2018: She also has been noticing headache in the past 7-8 months. It seems to start in the back of the head and then it comes around but stays mostly on the left side. It is a pressure sensation, there issometimes nausea, but no vomiting. There is no photophobia or phonophobia and she can function. However she is getting at least one headache a day. She rarely takes medicine, but if she wanted to shewould take ibuprofen. However it does not help. They will last a couple of hours. Sometimes they are there when she wakes up in the morning and other times they are there at the end of the day beforeshe falls asleep. ??? Hypothyroidism 11/19/2018 11/25/2018 -- Reviewed as below. Will check TSH at upcoming CPE 11/19/2018 -- Currently on levothyroxine. TSH was checked by Dr. Perez in August 2018 at 0.90. Will monitor and recheck at upcoming CPE ??? Lumbar spinal stenosis 11/19/2018 11/25/2018 -- Reviewed as below. She reports [...] L3-L4, L4-L5 laminotomy, partial faeen involving the inferiorendplate of L2 and superior endplate of L3 [...] level degenerative disc disease worst at L3-L4. ??? Moderate vulvar dysplasia s/p vulvectomy 11/19/2018 11/25/2018 -- Reviewed as below. She states that her lichen sclerosus was related to this. She had avulvectomy through Dr. Moore, [facility], and the [facility] and states sx are well controlled. She continues to follow every 6 months for monitoring 11/19/2018 -- Noted by previous PCP. Unclear if this is related to lichen sclerosus. Will f/up with patient at next visit ??? Spondylolisthesis of cervical region 11/19/2018 11/25/2018 -- Reviewed as below. She states the aforementioned injections were largely beneficial. She never had surgeries on her neck. She does still continue to struggle with neck pain. She is amenable to a referral to ortho surg/spine center to discuss injections again 11/19/2018 -- Chronic issue. Xrays and MRIs from [facility] show same. She had bilateral C3-4 intra-articular [...] degeneration and anterior spurring. There is posterior discosteophyte formation and uncovertebral spurring. There is severe [...] evident within the limitations of respiratory motion. ??? History of bilateral knee replacement 11/19/2018 11/25/2018 -- Reviewed as below. Stable, will monitor 11/19/2018 -- Left knee in 2004 and right knee in [address] Rosa ??? Mood disorder (HCC) 11/19/2018 11/25/2018 -- Reviewed as below. She cites some mild sx d/t family passing and her recent health concerns. She never actually used the Xanax. Encouraged to avoid as this can worsen confusion/dementia.Will monitor 11/19/2018 -- Depression and anxiety per previous PCP. On Prozac 10mg and Xanax 1mg qd prn. Xanax last filled on 09/11/2018 for #30 01/05/21: Stable on Prozac. Continue to monitor. No SI/HI. ??? Essential hypertension 11/19/2018 11/25/2018 -- Remains stable. Will monitor 11/19/2018 -- On atenolol-chlorthalidone for same. Well controlled today. Will monitor BP Readings from Last 3 Encounters: 11/25/18 112/66 11/19/18 102/65 10/11/18 139/79 No results found for: SODIUM, POTASSIUM, CHLOR, CO2, BUN, CREATININE, GLUCOSE, PALOMO ??? Type 2 diabetes mellitus (HCC) 11/19/2018 11/25/2018 -- Stable as noted. She had eye exam with Dr. White. She is due for microalbumin, ordered today. She continues to follow with opt/ophth for routine eye exams 11/19/2018 -- Noted by previous PCP. Last A1c through Dr. Perez was 02/19/2018, stable at 6.1. Reche[place] [facility] [place]. She had a diabetic eye exam on 12/30/2017, will need to clarify with which provider No results found for: A1C No results found for: GLUCOSE 01/05/21: Stable on metformin. Continue to monitor. Lab Results Component Value Date A1C 5.6 11/10/2020 ??? Gastroesophageal reflux disease 11/19/2018 11/25/2018 -- As below. Remains on omeprazole with good control. 11/19/2018 -- Noted by previous PCP. She had a barium swallow with video fluoroscopy in 2012 which was normal. She had an EGD in 2008 which was also normal Barium swallow [facility] 09/02/2013: FINDINGS: The oral and pharyngeal phases [...] barium swallow examination with video fluoroscopy. EGD [facility] 09/11/2009: Findings: The examined esophagus was normal. Z line at 37 cm. The stomach was normal. The examined duodenum was normal. Impression: Normal esophagus, ... stomach, ... examined duodenum ??? History of abnormal mammogram 11/19/2018 11/25/2018 -- Was re-examined by Dr. Moore, [...] Benign breast tissue, no specific pathologic change. ??? Osteopenia of right hip 11/19/2018 11/25/2018 -- Reviewed as below, she is amenable to DEXA. Order placed 11/19/2018 -- Seen on R hip xray from [facility] on 09/08/2017. Will discuss DEXA at further visits ??? Right shoulder pain 11/19/2018 01/24/2019 -- She does continue to have ongoing pains. Will refer to ortho for further management 11/19/2018 -- Noted by previous PCP. She had an xray in 2016 which was normal. She had a subacromialinjection with Dr. Amor Reno on 08/03/2018. Since [...] soft tissue calcification.?The subjacent ribs appear intact. ??? Osteopenia of right foot 11/19/2018 11/25/2018 -- As below. DEXA ordered today 11/19/2018 -- Seen on xray from [facility]. Reinforces need for DEXA R foot xray [facility] 08/19/2013: FINDINGS: Mild osteopenia and soft tissue swelling. Hallux valgus associated with the degenerative changes. Slightly progressive arthritic changes of the second and?the first tarsometatarsal region ,?more pronounced in the second tarsometatarsalregion with the narrowing sclerosis and spurs and probable mild erosions and/or cystic changes in the medial cuneiform and mid cuneiform. Associated soft tissue swelling dorsally. No acute fractures dislocations or stress related changes. Mild valgus flatfoot ??? Hallux valgus of right foot 11/19/2018 11/25/2018 -- As below 11/19/2018 -- Seen on xrays from [facility]. Apparently she was offered surgical correction but declined as it would require 4-6 weeks on a roller R foot xray [facility] 08/19/2013: FINDINGS: Mild osteopenia and soft tissue swelling. Hallux valgus associated with the degenerative changes. Slightly progressive arthritic changes of the second and?the first tarsometatarsal region ,?more pronounced in the second tarsometatarsalregion with the narrowing sclerosis and spurs and probable mild erosions and/or cystic changes in the medial cuneiform and mid cuneiform. Associated soft tissue swelling dorsally. No acute fractures dislocations or stress related changes. Mild valgus flatfoot ??? Primary osteoarthritis involving multiple joints 11/19/2018 01/24/2019 -- Stable, will monitor 11/19/2018 -- Multiple scans over the years showing OA in knees, R hip, R foot ??? Globus sensation 11/19/2018 11/25/2018 -- No outright complaints today, will [...] was observed. No gastroesophageal reflux was visualized. ??? Hiatal hernia 11/19/2018 11/25/2018 -- No outright complaints today, will follow 11/19/2018 -- Seen on barium swallow from 2008 ??? Nonalcoholic fatty liver disease 11/19/2018 11/25/2018 -- Ferritin WNL. Will monitor 11/19/2018 -- Seen on ultrasound from 2006. Will need to check ferritin r/o WEIR. LFTs from previousPCP in Aug 2018 were normal U/S abdomen [facility] 2006: FINDINGS: There is diffuse fatty infiltration of the liver with some fatty sparing. There are no gallstones. The common bile duct is normal caliber. The pancreas appears normal. One notes an echogenic focus inthe right kidney consistent with the previously described angiomyolipoma. ??? Screening for colon cancer 11/19/2018 11/25/2018 -- Reviewed as below 11/19/2018 -- She had a colonoscopy 08/04/2018 at [facility] as part of w/up for chronic diarrhea which was normal and rec'd f/up in 10 yrs Colonoscopy [facility] 08/04/2018: Findings: The colon (entire examined portion) appeared normal. Biopsies were taken with a cold forceps for histology from right and left visually normal colon. Verification of patient identification for the specimen was done by the physician, nurse and technician test systems using the patient's name, date and medical record number. Estimated blood loss: none. The exam was otherwise without abnormality on direct and retroflexion views. Impression - The entire examined colon is normal. Biopsied. - The examination was otherwise normal on direct and retroflexion views. Recommendation: - Repeat colonoscopy in 10 years for screening purposes, if average risk and no concerns on the bx's. ??? Positive MARITZA (antinuclear antibody) 11/19/2018 11/25/2018 -- Not likely contributing to her overall clinical presentation, will follow 11/19/2018 -- She had MARITZA through Dr. Perez on 03/31/2018, positive 1:40 with centromere pattern. Will review further and consider rheum referral ??? Mixed hyperlipidemia due to type 2 diabetes mellitus (HCC) 11/19/2018 11/25/2018 -- We did discuss her overall CV risk factors. At this time she declines further meds. Will wait until CPE to recheck lipids and recalculate score and f/up accordingly 11/19/2018 -- Lipids from March 2017 elevated. Improved at recent check in August 2018 with LDL just above goal at 112. The 10-year ASCVD risk score (Marek MAYRA Jr, et al., 2013) is: 12.6%. Not presently on a statin. Will need to discuss further moving forward Lab Results Component Value Date CHOLESTEROL 179 09/13/2018 HDL 42 09/13/2018 LDL 112 09/13/2018 01/05/21: Stable on Zocor. Lab Results Component Value Date CHOLESTEROL 151 12/18/2020 HDL 51 12/18/2020 LDL 80 12/18/2020 CHOLNONHDL 100 12/18/2020 TRIGLYCERIDE 103 12/18/2020 Current Outpatient Medications on File Prior to Visit Medication Sig Dispense Refill ??? Triamcinolone Acetonide (Nasacort Allergy 24HR) 55 MCG/ACT nasal inhaler two sprays 1 (one) time each day ??? Azelastine HCl (ASTELIN) 0.1 % nasal spray Administer two sprays into each nostril 2 (two) times a day each nostril 1 Bottle 11 ??? Omeprazole (PriLOSEC) [address] capsule Take one capsule (40 mg total) by mouth 1 (one) time each day 90 capsule 3 ??? Famotidine-Ca Carb-Mag Hydrox (PEPCID COMPLETE) 10-800-165 MG chewable tablet Chew one tablet every night 30 tablet 5 ??? MetFORMIN HCl (GLUCOPHAGE-XR) 500 MG 24 hr tablet Take one tablet (500 mg total) by mouth 2 (two) times a day with meals 60 tablet 5 ??? HYDROcodone-Acetaminophen (NORCO) 5-325 MG per tablet Take one tablet by mouth every 6 (six) hours if needed for moderate pain 30 tablet 0 ??? Hydroxychloroquine Sulfate (PLAQUENIL) 200 MG tablet TAKE ONE TABLET (200 MG TOTAL) BY MOUTH 2 (TWO) TIMES A DAY 60 tablet 2 ??? Fluoxetine HCl (PROzac) 20 MG capsule Take one capsule (20 mg total) by mouth 1 (one) time eachday in the morning 90 capsule 1 ??? Diclofenac Sodium (VOLTAREN) 75 MG EC tablet TAKE ONE TABLET (75 MG TOTAL) BY MOUTH 2 (TWO) TIMES A DAY IF NEEDED FOR PAIN 90 tablet 0 ??? Ezetimibe (Zetia) 10 MG tablet Take one tablet (10 mg total) by mouth 1 (one) time each day 90 tablet 3 ??? Simvastatin (ZOCOR) 20 MG tablet Take one tablet (20 mg total) by mouth every night 30 tablet 11 ??? Cyclobenzaprine HCl (FLEXERIL) 10 MG tablet Take 10 mg by mouth 2 (two) times a day if needed for muscle spasms ??? Acetaminophen 500 MG Cap Take 2 tablets by mouth 1 (one) time each day ??? Ibuprofen (Advil) 200 MG Cap Take 2 capsules by mouth 1 (one) time each day EVERY 4 TO 6 HOURS NEEDED ??? Clobetasol Propionate (TEMOVATE) 0.05 % ointment APPLY TWICE A DAY TO VULVA. ??? Atenolol-Chlorthalidone (TENORETIC) 50-25 MG per tablet Take one tablet by mouth 1 (one) time each day 90 tablet 3 ??? Levothyroxine Sodium (Synthroid) 100 MCG tablet Take one tablet (100 mcg total) by mouth 1 (one) time each day 90 tablet 3 ??? Naproxen (Naprosyn) 500 MG tablet Take one tablet (500 mg total) by mouth 2 (two) times a day 60 tablet 11 documented in this encounter Plan of Treatment Upcoming Encounters Date Type Department Care Team (Latest Contact Info) Description 01/10/2025 8:00 AM EDT Office Visit [address] [address] Christina Estevez MD [address] [place] [address] medication refill follow up 03/18/2025 1:15 PM EDT Office Visit [facility] Cardiology [address] [facility] [address] [place] [address] Lolita Barnett MD [address] [place] [address] routine f/u 04/05/2025 9:15 AM EDT Radiology [facility] [address] [place] [address] 05/02/2025 1:00 PM EDT Office Visit [facility] Cardiology [address] [facility] [address] [place] [address] Lolita Barnett MD [address] [place] [address] 1 year 06/07/2025 9:15 AM EDT CPE - Comprehensive Physical Exam [facility] [address] [place] [address] Christina Estevez MD [address] [place] [address] NPP documented as of this encounter Goals [...] at . Any insurance accepted. Quit smoking resources-http://[employer].org HEMOGLOBIN A1C % < 7 Result Component [...] on filedocumented in this encounter Care Teams Director Of Instructional Technology Relationship Specialty Start Date End Date Mirza Almanza NP PCP - Backup PCP Internal Medicine 07/28/20 05/29/22 Juanpablo Louis MD [address] [place] [address] PCP - General Internal Medicine 07/28/20 11/11/21 Charu Jimenez MD [address] [place] [address] PCP - General Family Medicine 11/12/21 03/28/22 Cortney Stone NP [address] [place] [address] PCP - General Internal Medicine 03/29/22 09/15/24 Unknown Pcp, Non [facility] PCP - Backup PCP 05/30/22 07/07/22 Christina Estevez MD [address] [place] [address] PCP - General Family Medicine 09/16/24 documented as of this encounter
--- OUTSIDE RECORDS SUMMARY | 2024-10-29 11:50 | XMS_ITS | Encounter Summary ---
Author Organization [facility] Address [address] [place] [address] Care Team Providers Care Roundhouse Worker Name Role Phone Cortney Stone NP Primary Care Provider [phone] Christina Estevez MD Primary Care Provider [phone] Encounter Details Date Type Department Care Team (Late st Contact Info) Description 10/30/2023 Orders Only [facility] [address] [place], [place] [phone] Cortney Stone, JULIETA [address] [place] [address] Social History Tobacco Use Types Packs/Day Years [...] Encounter Note - Cortney Stone NP - 10/30/2023 2:47 PM EST Normal/stable, mychart message sent. documented in this encounter Plan of Treatment Upcoming Encounters Date Type Department Care Team (Latest Contact Info) Description 01/10/2025 8:00 AM EDT Office Visit [address] [address] Christina Estevez MD [address] [place] [address] medication refill follow up 03/18/2025 1:15 PM EDT Office Visit [facility] Cardiology [address] [facility] [address] [place] [address] Lolita Barnett MD [address] [place] [address] routine f/u 04/05/2025 9:15 AM EDT Radiology [facility]. [facility] [address] [place] [address] 05/02/2025 1:00 PM EDT Office Visit [facility] Cardiology [address] [facility] [address] [place] [address] Lolita Barnett MD [address] [place] [address] 1 year 06/07/2025 9:15 AM EDT CPE - Comprehensive Physical Exam [address] [address] Christina Estevez MD [address] [place] [address] NPP documented as of this encounter Goals [...] at . Any insurance accepted. Quit smoking resources-http://makesAppRedeem.org HEMOGLOBIN A1C % < 7 Result Component [...] of this encounter Procedures * Due to [place] [employer] law, this organization might not be sharing negative HIV tests. Procedure Name Priority Date/Time Associated Diagnosis Comments BASIC METABOLIC PANEL WITH (GFR) STAT (All results called to provider) 10/30/2023 2:47 PM EST Chronic cough documented in this encounter Results * Due to [place] [employer] law, this organization might not be sharing negative HIV tests. * (ABNORMAL) BASIC METABOLIC PANEL WITH (GFR) (10/30/2023 2:47 PM EST) Glucose 162(H) 65 - 99 mg/dL [facility] Comment: ? Fasting reference interval For someone without known diabetes, a glucose value >125 mg/dL indicates that they may have diabetes and this should be confirmed with a follow-up test. Urea Nitrogen Blood (BUN) 23 7 - 25 mg/dL [facility] Creatinine 1.17(H) 0.60 - 1.00 mg/dL [facility] EGFR 50(L) > OR = 60 mL/min/1.7 3m2 [facility] BUN/Creatinine Ratio 20 6 - 22 (calc) [facility] Sodium 136 135 - 146 mmol/L [facility] Potassium 3.7 3.5 - 5.3 mmol/L [facility] Chloride 100 98 - 110 mmol/L [facility] Carbon dioxide 26 20 - 32 mmol/L [facility] Calcium 9.2 8.6 - 10.4 mg/dL [facility] 10/30/2023 2:47 PM EST 10/30/2023 4:38 PM EST Narrative [facility] - 10/30/2023 5:03 PM EST Please note that this estimated [...] needs for GFR calculation. Resulting Agency Comment [id number] us Cortney Stone NP LABORATORY Final Resu lt [facility] [address] [place] [address] documented in this encounter Visit Diagnoses Diagnosis Chronic cough Cough documented in this encounter Care Teams Roundhouse Worker Relationship Specialty Start Date End Date Cortney Stone NP [address] [place] [address] PCP - General Internal Medicine 03/29/22 09/15/24 Christina Estevez MD [address] [place] [address] PCP - General Family Medicine 09/16/24 documented as of this encounter
--- OUTSIDE RECORDS SUMMARY | 2024-10-29 11:50 | XMS_ITS | Encounter Summary ---
Author Organization [facility] Address [address] [place] [address] Care Team Providers Care Vegetable Packer Name Role Phone Mirza Almanza NURSE WOUND CARE Unavailable [phone] Juanpablo Louis MD Primary Care Provider [phone] Charu Jimenez MD Primary Care Provider Lori Cortney Melgar NP Primary Care Provider + [phone] Unknown Pcp, Non Rmg Unavailable Unavailable Christina Estevez MD Primary Care Provider [phone] Encounter Details Date Type Department Care Team (Late st Contact Info) Description 06/05/2021 Orders Only [facility] [address] [place] [address] Mirza Almanza, JULIETA [facility] [address] [address] Social History Tobacco Use Types Packs/Day Years [...] Result Encounter Note - Shahrzad Farias - 06/05/2021 12:20 PM EDT Patients labs are abnormal please review and advise. Patient has preliminary labs pending * Result Encounter Note - Mirza Almanza - 06/05/2021 12:20 PM EDT Hemoglobin A1c is pending. Patient does have type 2 diabetes, blood glucose on BMP is elevated, will evaluate A1c when it results. She does have chronic kidney disease, which has been overall stable.Continue to monitor. Her sodium is mildly low, I would repeat a sodium level in a month. * Result Encounter Note - Lang Bragg RN - 06/05/2021 12:20 PM EDT Hemoglobin A1c is back and WNL Any updates in regards to above recommendations prior to us notify patient * Result Encounter Note - Shahrzad Farias - 06/05/2021 12:20 PM EDT Patients labs are abnormal please review and advise. * Result Encounter Note - Mirza Almanza - 06/05/2021 12:20 PM EDT No changes to previous recommendations as stated below. documented in this encounter Plan of Treatment Upcoming Encounters Date Type Department Care Team (Latest Contact Info) Description 01/10/2025 8:00 AM EDT Office Visit [address] [address] Christina Estevez MD [address] [place] [address] medication refill follow up 03/18/2025 1:15 PM EDT Office Visit [facility]iology [address] [address] Lolita Barnett MD [address] [place] [address] routine f/u 04/05/2025 9:15 AM EDT Radiology [facility]. Mammography [address] [place] [address] 05/02/2025 1:00 PM EDT Office Visit [facility] Cardiology [address] [address] Lolita Barnett MD [address] [place] [address] 1 year 06/07/2025 9:15 AM EDT CPE - Comprehensive Physical Exam [address] [address] Christina Estevez MD [address] [place] [address] NPP documented as of this encounter Goals [...] at . Any insurance accepted. Quit smoking resources-http://Bouf.org HEMOGLOBIN A1C % < 7 Result Component [...] this encounter Procedures * Due to [place] state law, this organization might not be sharing negative HIV tests. Procedure Name Priority Date/Time Associated Diagnosis Comments HEMOGLOBIN A1C Routine 06/05/2021 12:20 PM EDT Type 2 diabetes mellitus without complication, unspecified whether retirement insulin use (HCC) VENIPUNCTURE Routine 06/05/2021 12:20 PM EDT Abnormal finding on radiology exam documented in this encounter Results * Due to [place] state law, this organization might not be sharing negative HIV tests. * HEMOGLOBIN A1C (06/05/2021 12:20 PM EDT) Hemoglobin A1C 5.3 <5.7 % of total Hgb [facility] [...] diagnosis of diabetes in children. According to [place] Diabetes Association (ADA) guidelines, hemoglobin A1c <7.0% represents optimal control in non- diabetic patients. Different metrics may apply to specific patient populations. Standards of Medical Care in Diabetes(ADA). Estimated Average Glucose 111 mg/dL (calc) [facility] 06/05/2021 12:2 0 PM EDT 06/05/2021 3:14 PM EDT Narrative Resulting Agency Comment [id number] Mirza Almanza NP LABORATORY Final Resul t [facility] [address] [place] [address] * (ABNORMAL) BASIC METABOLIC PANEL WITH (GFR) (06/05/2021 12:20 PM EDT) Glucose 143(H) 65 - 99 mg/dL [facility] Comment: ? Fasting reference interval For someone without known diabetes, a glucose value >125 mg/dL indicates that they may have diabetes and this should be confirmed with a follow-up test. Urea Nitrogen Blood (BUN) 19 7 - 25 mg/dL [facility] Creatinine 1.21(H) 0.50 - 0.99 mg/dL [facility] Comment: For patients >49 years of age, the reference limit for Creatinine is approximately 13% higher for people identified as -Nigerian. EGFR 46(L) > OR = 60 mL/min/1. 73m2 [facility] GFR () 53(L) > OR = 60 mL/min/1. 73m2 [facility] BUN/Creatinine Ratio 16 6 - 22 (calc) [facility] Sodium 130(L) 135 - 146 mmol/L [facility] Potassium 3.9 3.5 - 5.3 mmol/L [facility] Chloride 95(L) 98 - 110 mmol/L [facility] Carbon dioxide 27 20 - 32 mmol/L [facility] Calcium 9.3 8.6 - 10.4 mg/dL [facility] 06/05/2021 12:2 0 PM EDT 06/05/2021 3:14 PM EDT Narrative [facility] - 06/06/2021 6:24 AM EDT Please note that this estimated [...] needs for GFR calculation. 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 (HCC) documented in this encounter Care Teams Vegetable Packer Relationship Specialty Start Date End Date Mirza Almanza NP PCP - Backup PCP Internal Medicine 07/28/20 05/29/22 Juanpablo Louis MD [address] [place] [address] PCP - General Internal Medicine 07/28/20 11/11/21 Charu Jimenez MD [address] [place] [address] PCP - General Family Medicine 11/12/21 03/28/22 Cortney Stone NP [address] [place] [address] PCP - General Internal Medicine 03/29/22 09/15/24 Unknown Pcp, Non Rmg PCP - Backup PCP 05/30/22 07/07/22 Christina Estevez MD [address] [place] [address] PCP - General Family Medicine 09/16/24 documented as of this encounter
--- OUTSIDE RECORDS SUMMARY | 2024-10-29 11:50 | XMS_ITS | Encounter Summary ---
Author Organization [facility] Address [address] [place] [address] Care Team Providers Care Automatic Transmission Mechanic Name Role Phone Cortney Stone NP Primary Care Provider [phone] Christina Estevez MD Primary Care Provider [phone] Encounter Details Date Type Department Care Team ([facility] st Contact Info) Description 10/16/2023 Orders Only [facility] Neurology [address] [facility] [address] [place] [address] Vibha Casanova CRNP [address] [place] [address] Social History Tobacco Use Types Packs/Day Years [...] Encounter Note - Roslyn Norman RN - 10/16/2023 10:12 AM EST Mychart sent documented in this encounter Plan of Treatment Upcoming Encounters Date Type Department Care Team (Latest Contact Info) Description 01/10/2025 8:00 AM EDT Office Visit [address] [address] Christina Estevez MD [address] [place] [address] medication refill follow up 03/18/2025 1:15 PM EDT Office Visit [facility] Cardiology [address] [facility] [address] [place] [address] Lolita Barnett MD [address] [place] [address] routine f/u 04/05/2025 9:15 AM EDT Radiology [address] [address] 05/02/2025 1:00 PM EDT Office Visit [facility] Cardiology [address] [facility] [address] [place] [address] Lolita Barnett MD [address] [place] [address] 1 year 06/07/2025 9:15 AM EDT CPE - Comprehensive Physical Exam [address] [address] Christina Estevez MD [address] [place] [address] NPP documented as of this encounter Goals [...] at . Any insurance accepted. Quit smoking resources-http://makesmoYilu Caifu ([place]) Information Technologytory.org HEMOGLOBIN A1C % < 7 Result Component [...] this encounter Procedures * Due to [place] [employer] law, this organization might not be sharing negative HIV tests. Procedure Name Priority Date/Time Associated Diagnosis Comments IMMUNOFIXATION, SERUM Routine 10/16/2023 10:23 AM EST Neuropathy SJOGRENS SYNDROME ANTIBODIES (SSA AND SSB) Routine 10/16/2023 10:23 AM EST Neuropathy MYASTHENIA GRAVIS PANEL 1 Routine 10/16/2023 10:23 AM EST SOB (shortness of breath) on exertion VITAMIN B12 (CYANOCOBALAMIN), SERUM Routine 10/16/2023 10:23 AM EST Neuropathy documented in this encounter Results * Due to [place] [employer] law, this organization might not be sharing negative HIV tests. * VITAMIN B12 (CYANOCOBALAMIN), SERUM (10/16/2023 10:23 AM EST) Vitamin B12 (Cobalamins) 676 200 - 1100 pg/mL [facility] 10/16/2023 10:2 3 AM EST 10/16/2023 6:19 PM EST Narrative Resulting Agency Comment [id number] us Vibha [facility] LAB[facility]AT[facility] Final Resul t [facility] [address] [place] [address] * IMMUNOFIXATION, SERUM (10/16/2023 10:23 AM EST) Interpretation SEE NOTE [facility] Comment:Normal pattern. No m onoclonal proteins detected. 10/16/2023 10:2 3 AM EST 10/16/2023 6:19 PM EST Narrative Resulting Agency Comment [id number] us Vibha [facility] Final Resul t Performing Organization Address [facility] de Phone Number [facility] [address] [place] [address] * SJOGRENS SYNDROME ANTIBODIES (SSA AND SSB) (10/16/2023 10:23 AM EST) Sjogrens syndrome-A extractable nuclear Ab <1.0 NEG <1.0 NEG AI [facility] Sjogrens syndrome-B extractable nuclear Ab <1.0 NEG <1.0 NEG AI [facility] 10/16/2023 10:2 3 AM EST 10/16/2023 6:19 PM EST Narrative Resulting Agency Comment [id number] us Vibha [facility] Final Resul t Performing Organization Address [facility] de Phone Number [facility] [address] [place] [address] * MYASTHENIA GRAVIS PANEL 1 (10/16/2023 10:23 AM EST) Striated Muscle AB NEGATIVE NEGATIVE [facility] Comment: This test was developed and its analytical performance characteristics have been determined by [email or web address]. It has not been cleared or approved [...] 6:19 PM EST Narrative Resulting Agency Comment [id number] us Vibha [facility] Final Resul t [facility] [address] [place] [address] documented in this encounter Visit Diagnoses Diagnosis SOB (shortness of breath) on exertion Shortness of breath Neuropathy Mononeuritis of unspecified site documented in this encounter Care Teams Automatic Transmission Mechanic Relationship Specialty Start Date End Date Cortney Stone ICE CREAM MAKER [address] [place] [address] PCP - General Internal Medicine 03/29/22 09/15/24 Christina Estevez MD [address] [place] [address] PCP - General Family Medicine 09/16/24 documented as of this encounter
--- OUTSIDE RECORDS SUMMARY | 2024-10-29 11:50 | XMS_ITS | Encounter Summary ---
Author Organization [facility] Address [address] [place] [address] Care Team Providers Care Topographical Surveyor Name Role Phone Cortney Stone NP Primary Care Provider + [phone] Encounter Details Date Type Department Care Team (Late st Contact Info) Description 05/24/2024 Orders Only [facility] Interventional Radiology [address] [place] [address] Skyler Hensley MD [address] [place] [address] Social History Tobacco Use Types Packs/Day Years Used Date Smoking Tobacco: Former Smokeless Tobacco: Never Comments:: Alcohol Use Standard Drinks/Week Comments Not Currently 0 (1 standard drink = 0.6 oz pur e alcohol) Comments No Sex and Gender Information Value Date Recorded Sex Assigned at Female 07/01/2024 9:28 AM EDT Legal Sex Female 4:10 AM EDT Gender Identity Female 07/01/2024 9:28 AM EDT Sexual Orientation Straight 07/01/2024 9 :28 AM EDT documented as of this encounter Plan of Treatment Not on file documented as of this encounter Visit Diagnoses Not on filedocumented in this encounter Care Teams Topographical Surveyor Relationship Specialty Start Date End Date Cortney Stone NP [address] [place] [address] PCP - General 05/27/24 documented as of this encounter
--- OUTSIDE RECORDS SUMMARY | 2024-10-29 11:50 | XMS_ITS | Encounter Summary ---
Author Organization [facility] Address [address] [place] [address] Care Team Providers Care Christmas Bell Ringer Name Role Phone Cortney Stone NP Primary Care Provider [phone] Christina Estevez MD Primary Care Provider [phone] Encounter Details Date Type Department Care Team (Late st Contact Info) Description 09/03/2023 Orders Only [facility] [address] [place], [place] [phone] Cortney Stone, JULIETA [address] [place] [address] Social History Tobacco Use Types Packs/Day Years [...] Encounter Note - Cortney Stone NP - 09/03/2023 7:35 AM EST Normal/stable, mychart message sent. documented in this encounter Plan of Treatment Upcoming Encounters Date Type Department Care Team (Latest Contact Info) Description 01/10/2025 8:00 AM EDT Office Visit [address] [address] Christina Estevez MD [address] [place] [address] medication refill follow up 03/18/2025 1:15 PM EDT Office Visit [facility] Cardiology [address] [facility] [address] [place] [address] Lolita Barnett MD [address] [place] [address] routine f/u 04/05/2025 9:15 AM EDT Radiology [facility]. [address] [address] 05/02/2025 1:00 PM EDT Office Visit [facility] Cardiology [address] [facility] [address] [place] [address] Lolita Barnett MD [address] [place] [address] 1 year 06/07/2025 9:15 AM EDT CPE - Comprehensive Physical Exam [address] [address] Christina Estevez MD [address] [place] [address] NPP documented as of this encounter Goals [...] at . Any insurance accepted. Quit smoking resources-http://makesFancred.org HEMOGLOBIN A1C % < 7 Result Component [...] of this encounter Procedures * Due to [place] [employer] law, this organization might not be sharing negative HIV tests. Procedure Name Priority Date/Time Associated Diagnosis Comments HEMOGLOBIN A1C Routine 09/03/2023 7:45 AM EST [...] (HCC) BASIC METABOLIC PANEL WITH (GFR) Routine 09/03/2023 7:45 AM EST Type 2 diabetes mellitus without complication, without long-term current use of insulin (HCC) documented in this encounter Results * Due to [place] [employer] law, this organization might not be sharing negative HIV tests. * (ABNORMAL) BASIC METABOLIC PANEL WITH (GFR) (09/03/2023 7:45 AM EST) Glucose 130(H) 65 - 99 mg/dL [facility] Comment: ? Fasting reference interval For someone without known diabetes, a glucose value >125 mg/dL indicates that they may have diabetes and this should be confirmed with a follow-up test. Urea Nitrogen Blood (BUN) 21 7 - 25 mg/dL [facility] Creatinine 1.03(H) 0.60 - 1.00 mg/dL [facility] EGFR 58(L) > OR = 60 mL/min/1.7 3m2 [facility] BUN/Creatinine Ratio 20 6 - 22 (calc) [facility] Sodium 137 135 - 146 mmol/L [facility] Potassium 3.9 3.5 - 5.3 mmol/L [facility] Chloride 100 98 - 110 mmol/L [facility] Carbon dioxide 24 20 - 32 mmol/L [facility] Calcium 9.6 8.6 - 10.4 mg/dL [facility] 09/03/2023 7:45 AM EST 09/03/2023 6:03 PM EST Narrative [facility] - 09/03/2023 10:17 PM EST Please note that this estimated [...] needs for GFR calculation. Resulting Agency Comment [id number] Cortney Stone PHLEBOTOMY MANAGER LABORATORY Final Resu lt [facility] [address] [place] [address] * ALBUMIN (MICROALBUMIN), RANDOM URINE, WITH CREATININE (09/03/2023 7:45 AM EST) Creatinine (Urine) 124 20 - 275 mg/dL [facility] Albumin (Urine) 0.4 mg/dL [facility] Comment: Reference Range Not established Albumin/Creatinine (Urine) 3 <30 mcg/mg creat [facility] Comment: The [...] patient to be within a diagnostic category. 09/03/2023 7:45 AM EST 09/03/2023 6:03 PM EST Narrative Resulting Agency Comment [id number] Cortney Stone PHLEBOTOMY MANAGER LABORATORY Final Resu lt Performing Organization Address [facility] Co de Phone Number [facility] [address] [place] [address] * (ABNORMAL) LIPID PANEL WITH REFLEX TO DIRECT LDL (09/03/2023 7:45 AM EST) Cholesterol 180 <200 mg/dL [facility] HDL Cholesterol 48(L) > OR = 50 mg/dL [facility] Triglyceride 107 <150 mg/dL [facility] LDL Cholesterol 111(H) mg/dL (calc) [facility] Comment: Reference range: [...] LDL-C. Gurdeep SS et al. NANDO. 2013;310(19): 6188-2132 (http://education.VesLabs/faq/UKX977) CHOL/HDL Ratio 3.8 <5.0 (calc) [facility] Cholesterol Non-HDL 132(H) <130 mg/dL (calc) [facility] Comment: For patients with diabetes plus 1 major ASCVD risk factor, treating to a non-HDL-C goal of <100 mg/dL (LDL-C of <70 mg/dL) is considered a therapeutic option. 09/03/2023 7:45 AM EST 09/03/2023 6:03 PM EST Narrative Resulting Agency Comment [id number] us Cortney Stone PHLEBOTOMY MANAGER LABORATORY Final Resu lt Performing Organization Address [facility] Co de Phone Number [facility] [address] [place] [address] * (ABNORMAL) HEMOGLOBIN A1C (09/03/2023 7:45 AM EST) Hemoglobin A1C 6.0(H) <5.7 % of total Hgb [facility] [...] of diabetes for children. Estimated Average Glucose 136 mg/dL (calc) [facility] 09/03/2023 7:4 5 AM EST 09/03/2023 6:03 PM EST Narrative Resulting Agency Comment [id number] us Cortney Stone NP LABORATORY Final Resu lt [facility] [address] [place] [address] documented in this encounter Visit Diagnoses Diagnosis Type 2 diabetes mellitus without complication, without long-term current use of insulin (HCC) documented in this encounter Care Teams Christmas Bell Ringer Relationship Specialty Start Date End Date Cortney Stone NP [address] [place] [address] PCP - General Internal Medicine 03/29/22 09/15/24 Christina Estevez MD [address] [place] [address] PCP - General Family Medicine 09/16/24 documented as of this encounter
--- OUTSIDE RECORDS SUMMARY | 2024-10-29 11:50 | XMS_ITS | Encounter Summary ---
Author Organization [facility] Address [address] [place] [address] Care Team Providers Care Senior Patient Account Representative Name Role Phone Mirza Almanza OTR REFRIGERATED CDL TRUCK DRIVER Unavailable [phone] Juanpablo Louis MD Primary Care Provider [phone] Charu Jimenez MD Primary Care Provider Lori noahilaCortney Garcia NP Primary Care Provider [phone] Unknown Pcp, Non [facility]mg Unavailable Unavailable Christina Estevez MD Primary Care Provider [phone] Encounter Details Date Type Department Care Team (Late st Contact Info) Description 03/21/2021 Orders Only [facility] [address] [place] [phone] Alondra Garcia MD [address] [place] [address] Social History Tobacco Use Types Packs/Day Years [...] Encounter Note - Alondra Garcia MD - 03/21/2021 8:14 AM EDT Hi, Ms. Foy, Your kidney function tests are abnormal; could you have this repeated? I have put the order in, just go to the lab when you have a chance. I am cc'ing your PCP. Alondra Thao documented in this encounter Plan of Treatment Upcoming Encounters Date Type Department Care Team (Latest Contact Info) Description 01/10/2025 8:00 AM EDT Office Visit [facility] [address] [place] [phone] Christina Estevez MD [address] [place] [address] medication refill follow up 03/18/2025 1:15 PM EDT Office Visit [facility] Cardiology [address] [phone] Lolita Barnett MD [address] [place] [address] routine f/u 04/05/2025 9:15 AM EDT Radiology [facility]. Mammography [address] [place] [address] 05/02/2025 1:00 PM EDT Office Visit [facility] Cardiology [address] [address] Lolita Barnett MD [address] [place] [address] 1 year 06/07/2025 9:15 AM EDT CPE - Comprehensive Physical Exam [facility] [address] [place] [address] Christina Estevez MD [address] [place] [address] NPP documented as of this encounter Goals [...] at . Any insurance accepted. Quit smoking resources-http://Jangl [email or web address] HEMOGLOBIN A1C % < 7 Result Component [...] of this encounter Procedures * Due to [place] [employer] law, this organization might not be sharing negative HIV tests. Procedure Name Priority Date/Time Associated Diagnosis Comments CBC INCLUDES DIFFERENTIAL AND PLATELET COUNT Routine 03/21/2021 8:14 AM EDT Arthralgia, unspecified joint VENIPUNCTURE Routine 03/21/2021 8:14 AM EDT Arthralgia, unspecified joint documented in this encounter Results * Due to [place] [employer] law, this organization might not be sharing negative HIV tests. * CBC INCLUDES DIFFERENTIAL AND PLATELET COUNT (03/21/2021 8:14 AM EDT) WBC 4.7 3.8 - 10.8 Thousand/u L [facility] RBC 3.90 3.80 - 5.10 Million/uL [facility] Hemoglobin 12.2 11.7 - 15.5 g/dL [facility] Hematocrit 35.4 35.0 - 45.0 % [facility] MCV 90.8 80.0 - 100.0 fL [facility] MCH 31.3 27.0 - 33.0 pg [facility] MCHC 34.5 32.0 - 36.0 g/dL [facility] RDW 11.7 11.0 - 15.0 % [facility] PLT 156 140 - 400 Thousand/u L [facility] MPV 9.8 7.5 - 12.5 fL [facility] Neutrophils # 3299 1500 - 7800 cells/uL [facility] Lymphocytes # 874 850 - 3900 cells/uL [facility] Monocytes # 291 200 - 950 cells/uL [facility] Eosinophils # 183 15 - 500 cells/uL [facility] Basophils # 52 0 - 200 cells/uL [facility] Neutrophils % 70.2 % [facility] Lymphocytes % 18.6 % [facility] Monocytes % 6.2 % [facility] Eosinophils % 3.9 % [facility] Basophils % 1.1 % [facility] 03/21/2021 8:14 AM EDT 03/21/2021 11:10 AM EDT Narrative Resulting Agency Comment [id number] Alondra Garcia MD LAB SAME DAY RESULT Final Result [facility] [address] [place] [address] * (ABNORMAL) COMPREHENSIVE METABOLIC PANEL WITH GFR (03/21/2021 8:14 AM EDT) Glucose 88 65 - 99 mg/dL [facility] Comment:Fasting reference in terval Urea Nitrogen Blood (BUN) 25 7 - 25 mg/dL [facility] Creatinine 1.32(H) 0.50 - 0.99 mg/dL [facility] Comment: For patients >49 years of age, the reference limit for Creatinine is approximately 13% higher for people identified as -[place]. EGFR 41(L) > OR = 60 mL/min/1. 73m2 [facility] GFR () 48(L) > OR = 60 mL/min/1. 73m2 [facility] BUN/Creatinine Ratio 19 6 - 22 (calc) [facility] Sodium 139 135 - 146 mmol/L [facility] Potassium 4.0 3.5 - 5.3 mmol/L [facility] Chloride 101 98 - 110 mmol/L [facility] Carbon dioxide 28 20 - 32 mmol/L [facility] Calcium 9.5 8.6 - 10.4 mg/dL [facility] Protein Total (Serum) 6.5 6.1 - 8.1 g/dL [facility] Albumin 4.3 3.6 - 5.1 g/dL [facility] Globulin 2.2 1.9 - 3.7 g/dL (calc) [facility] Albumin/Globulin 2.0 1.0 - 2.5 (calc) [facility] Bilirubin Total 1.4(H) 0.2 - 1.2 mg/dL [facility] Alkaline phosphatase 49 37 - 153 U/L [facility] AST (SGOT) 16 10 - 35 U/L [facility] ALT (SGPT) 14 6 - 29 U/L [facility] 03/21/2021 8:14 AM EDT 03/21/2021 11:10 AM EDT Narrative [facility] - 03/22/2021 10:53 AM EDT Please note that this estimated [...] needs for GFR calculation. Resulting Agency Comment [id number] Alondra Garcia MD LABORATORY Final Result [facility] [address] [place] [address] documented in this encounter Visit Diagnoses Diagnosis Arthralgia, unspecified joint documented in this encounter Care Teams Senior Patient Account Representative Relationship Specialty Start Date End Date Mirza Almanza NP PCP - Backup PCP Internal Medicine 07/28/20 05/29/22 Juanpablo Louis MD [address] [place] [id number] PCP - General Internal Medicine 07/28/20 11/11/21 Charu Jimenez MD [address] [place] [address] PCP - General Family Medicine 11/12/21 03/28/22 Cortney Stone NP [address] [place] [address] PCP - General Internal Medicine 03/29/22 09/15/24 Unknown Pcp, Non Rmg PCP - Backup PCP 05/30/22 07/07/22 Christina Estevez MD [address] [place] [address] PCP - General Family Medicine 09/16/24 documented as of this encounter
--- OUTSIDE RECORDS SUMMARY | 2024-10-29 11:50 | XMS_ITS | Encounter Summary ---
Author Organization [facility] Address [address] [place] [address] Care Team Providers Care Model Maker Fiberglass Name Role Phone Cortney Stone NP Primary Care Provider [phone] Christina Estevez MD Primary Care Provider [phone] Encounter Details Date Type Department Care Team (Late st Contact Info) Description 11/22/2022 Orders Only [facility] [address] [place], [place] [phone] Cortney Stone NP [address] [place] [address] Social History Tobacco Use Types Packs/Day Years Used Date Smoking Tobacco: Former Cigarettes 2 17 0 03/02/1975 - 03/02/1992 Smokeless Tobacco: Never Alcohol Use Standard Drinks/Week Comments No 0 (1 standard drink = 0.6 oz pur e alcohol) PHQ-2 Answer Date Recorded PHQ-2 Score 0 09/05/2022 Comments No Sex and Gender Information Value Date Recorded Sex Assigned at Female 03/06/2020 2:59 PM EDT Legal Sex Female 1:41 PM EST Gender Identity Female 03/06/2020 2:59 PM EDT Sexual Orientation Not on file documented as of this encounter Miscellaneous Notes * Result Encounter Note - Cortney Stone NP - 11/22/2022 7:38 AM EST Normal/stable, mychart message sent. documented in this encounter Plan of Treatment Upcoming Encounters Date Type Department Care Team (Latest Contact Info) Description 01/10/2025 8:00 AM EDT Office Visit [address] [address] Christina Estevez MD [address] [place] [address] medication refill follow up 03/18/2025 1:15 PM EDT Office Visit [facility] [address] [phone] Lolita Barnett MD [address] [place] [address] routine f/u 04/05/2025 9:15 AM EDT Radiology [facility] [address] [place] [address] 05/02/2025 1:00 PM EDT Office Visit [facility] [address] [address] Lolita Barnett MD [address] [place] [address] 1 year 06/07/2025 9:15 AM EDT CPE - Comprehensive Physical Exam [address] [phone] Christina Estevez MD [address] [place] [address] NPP documented as of this encounter Goals [...] at . Any insurance accepted. Quit smoking resources-http://[email or web address] [email or web address].org HEMOGLOBIN A1C % < 7 Result Component [...] of this encounter Procedures * Due to [place] [employer] Law law, this organization might not be sharing negative HIV tests. Procedure Name Priority Date/Time Associated Diagnosis Comments HEMOGLOBIN A1C Routine 11/22/2022 7:58 AM EST [...] 7:58 AM EST Diabetes mellitus without complication BASIC METABOLIC PANEL WITH (GFR) Routine 11/22/2022 7:58 AM EST Diabetes mellitus without complication documented in this encounter Results * Due to [place] Dragon Law law, this organization might not be sharing negative HIV tests. * (ABNORMAL) BASIC METABOLIC PANEL WITH (GFR) (11/22/2022 7:58 AM EST) Glucose 115(H) 65 - 99 mg/dL [facility] Comment: ? Fasting reference interval For someone without known diabetes, a glucose value between 100 and 125 mg/dL is consistent with prediabetes and should be confirmed with a follow-up test. Urea Nitrogen Blood (BUN) 29(H) 7 - 25 mg/dL [facility] Creatinine 0.97 0.60 - 1.00 mg/dL [facility] EGFR 63 > OR = 60 mL/min/1.7 3m2 [facility] Comment: The eGFR is based on the CKD-EPI 202 equation. To calculate the new eGFR from a previous Creatinine or Cystatin C result, go to https://www.kidney.org/professionals/ kdoqi/gfr%5Fcalculator BUN/Creatinine Ratio 30(H) 6 - 22 (calc) [facility] Sodium 137 135 - 146 mmol/L [facility] Potassium 4.3 3.5 - 5.3 mmol/L [facility] Chloride 99 98 - 110 mmol/L [facility] Carbon dioxide 29 20 - 32 mmol/L [facility] Calcium 9.5 8.6 - 10.4 mg/dL [facility] 11/22/2022 7:58 AM EST 11/22/2022 7:58 PM EST Narrative [facility] - 11/22/2022 10:13 PM EST Please note that this estimated [...] needs for GFR calculation. Resulting Agency Comment [id number] Cortney Stone NP LABORATORY Final Resu lt Performing Organization Address [facility] de Phone Number [facility] [address] [place] [address] * ALBUMIN (MICROALBUMIN), RANDOM URINE, WITH CREATININE (11/22/2022 7:58 AM EST) Pathologist [facility] Creatinine (Urine) 62 20 - 275 mg/dL [facility] Albumin (Urine) 0.6 mg/dL [facility] Comment: Reference Range Not established Albumin/Creatinine (Urine) 10 <30 mcg/mg creat [facility] Comment: The [...] patient to be within a diagnostic category. 11/22/2022 7:58 AM EST 11/22/2022 7:58 PM EST Narrative Resulting Agency Comment [id number] Cortney Stone MUSICAL ENGINEER LABORATORY Final Resu lt Performing Organization Address [facility] de Phone Number [facility] [address] [place] [address] * LIPID PANEL WITH REFLEX TO DIRECT LDL (11/22/2022 7:58 AM EST) Cholesterol 138 <200 mg/dL [facility] HDL Cholesterol 52 > OR = 50 mg/dL [facility] Triglyceride 68 <150 mg/dL [facility] LDL Cholesterol 72 mg/dL (calc) [facility] Comment: Reference range: <100 Desirable range <100 mg/dL for primary prevention; ?? <70 mg/dL for patients with CHD or diabetic patients with > or = 2 CHD risk factors. LDL-C is now calculated using the Gurdeep-Brett calculation, which is a validated novel method providing better accuracy than the Friedewald equation in the estimation of LDL-C. Gurdeep SS et al. NANDO. 2013;310(19): 1566-1553 (http://education.Tradyo/faq/XED682) CHOL/HDL Ratio 2.7 <5.0 (calc) [facility] Cholesterol Non-HDL 86 <130 mg/dL (calc) [facility] Comment: For patients with diabetes plus 1 major ASCVD risk factor, treating to a non-HDL-C goal of <100 mg/dL (LDL-C of <70 mg/dL) is considered a therapeutic option. 11/22/2022 7:58 AM EST 11/22/2022 7:58 PM EST Narrative Resulting Agency Comment [id number] Cortney Stone NP LABORATORY Final Resu lt [facility] [address] [place] [address] * (ABNORMAL) HEMOGLOBIN A1C (11/22/2022 7:58 AM EST) Hemoglobin A1C 5.7(H) <5.7 % of total [...] Average Glucose 126 mg/dL (calc) [facility] 11/22/2022 7:58 AM EST 11/22/2022 7:58 PM EST Narrative Resulting Agency Comment [id number] us Cortney Stone NP LABORATORY Final Resu lt Performing Organization Address [facility] Co de Phone Number [facility] [address] [place] [address] * VITAMIN B12 (CYANOCOBALAMIN), SERUM (11/22/2022 7:58 AM EST) Vitamin B12 (Cobalamins) 416 200 - 1100 pg/mL [facility] 11/22/2022 7:58 AM EST 11/22/2022 7:58 PM EST Narrative Resulting Agency Comment [id number] us Cortney Stone MUSICAL ENGINEER LABORATORY Final Resu lt Performing Organization Address [facility] de Phone Number [facility] [address] [place] [address] documented in this encounter Visit Diagnoses Diagnosis Type 2 diabetes mellitus without complication, without long-term current use of insulin (HCC) Diabetes mellitus without complication (HCC) Type II or unspecified type diabetes mellitus without mention of complication, not stated as uncontrolled documented in this encounter Care Teams Model Maker Fiberglass Relationship Specialty Start Date End Date Cortney Stone NP [address] [place] [id number] PCP - General Internal Medicine 03/29/22 09/15/24 Christina Estevez MD [address] [place] [address] PCP - General Family Medicine 09/16/24 documented as of this encounter
--- OUTSIDE RECORDS SUMMARY | 2024-10-29 11:50 | XMS_ITS | Referral Summary ---
Author Organization [facility] Address [address] [place] [address] Care Team Providers Care Environmental Protection Forester Name Role Phone Chase Cortney RENDON Primary Care Provider + [phone] Allergies Active Allergy Reactions Criticality Noted Date Comments Indomethacin Unknown Sulfa (Sulfonamide Antibiotics) Unknown Medications blood glucose diagnostic meterIndications :Type 2 diabetes mellitus without complication, without long-term current use of insulin ([facility]) ([facility]) Use to test blood glucose 3 times daily 1 each 7 Active multivitamin (DAILY VITAMIN) tablet Active codeine-guaiFENe sin (CHERATUSSIN AC) 20-200 mg/10 mL liquidIndication s:Cough Take 5 mL (10 mg of codeine total) by mouth every 4 hours as needed for cough. [phone] 118 mL 1 7 Active Additional Information Patient not taking.Reported on 07/02/2024 OneTouch Delica lancets 33 gaugeIndications :Type 2 diabetes mellitus without complication, without long-term current use of insulin ([facility]) ([facility]) Use to test blood glucose 3 times daioy 100 each 5 8 Active OneTouch Ultra test stripsIndication s:Type 2 diabetes mellitus without complication, without long-term current use of insulin ([facility]) ([facility]) Use to test 3 times daily. 100 strip 5 8 Active blood glucose diagnostic (ONETOUCH ULTRA2) meterIndications :Type 2 diabetes mellitus without complication, without long-term current use of insulin ([facility]) ([facility]) Dispense 1 kit, use as directed 1 each 8 Active clonazePAM (KlonoPIN) 1 mg tabletIndication s:Insomnia, unspecified type,Anxiety Take 1 tablet (1 mg total) by mouth 2 times a day. 60 tablet 1 8 Active Additional Information Patient not taking.Reported on 07/02/2024 multivitamin capsule Take 1 capsule by mouth daily. Active fluticasone propionate (FLONASE) 50 mcg/actuation nasal spray 9 Active ipratropium (ATROVENT) 0.03% nasal spray Administer 2 sprays into each nostril 3 times a day. 1 Bottle 3 9 Active Additional Information Patient not taking.Reported on 07/02/2024 ALPRAZolam (XANAX) 1 mg tabletIndication s:Anxiety Take 0.5 tab in the morning and 1 tab in the evening 45 tablet 1 9 Active Additional Information Patient not taking.Reported on 07/02/2024 diclofenac (VOLTAREN) 75 mg EC tabletIndication s:Pain TAKE 1 TABLET (75 MG TOTAL) BY MOUTH 2 TIMES A DAY. 60 tablet 4 9 Active naproxen (NAPROSYN) 500 mg tabletIndication s:Arthralgia, unspecified joint Take 1 tablet (500 mg total) by mouth 2 times a day. 60 tablet 4 9 Active Additional Information Patient not taking.Reported on 07/02/2024 predniSONE (DELTASONE) 10 mg tablet Take 1 tablet (10 mg total) by mouth daily. Take 3 tablets for 3 days, then 2 tablets for 3 days, then 1 tablet for 3 days. 18 tablet 1 9 Active Additional Information Patient not taking.Reported on 07/02/2024 omeprazole (PriLOSEC) 40 mg capsuleIndicatio ns:Gastroesophag eal reflux disease, esophagitis presence not specified Take 1 capsule (40 mg total) by mouth daily. 90 capsule 3 9 Active levothyroxine (SYNTHROID, LEVOTHROID) 100 mcg tabletIndication s:Essential hypertension Take 1 tablet (100 mcg total) by mouth daily. 90 tablet 3 9 Active FLUoxetine (PROzac) 20 mg tabletIndication s:Depression, unspecified depression type Take 1 tablet (20 mg total) by mouth daily. 30 tablet 5 9 Active atenolol-chlorth alidone (TENORETIC) 50-25 mg per tabletIndication s:Hypertension, unspecified type Take 1 tablet by mouth daily. 90 tablet 3 9 Active Additional Information Patient not taking.Reported on 07/02/2024 HYDROcodone-acet aminophen (NORCO) 5-325 mg tabletIndication s:Pain in both lower extremities Take 1 tablet by mouth every 4 hours as needed for pain. 180 tablet 9 Active Additional Information Patient not taking.Reported on 07/02/2024 amoxicillin (AMOXIL) 500 mg tabletIndication s:Status post joint replacement Take 4 tablets once one hour before dental work 16 tablet 3 9 Active metFORMIN ER (GLUCOPHAGE XR) 500 mg tabletIndication s:Type 2 diabetes mellitus without complication, without long-term current use of insulin (CMS/HCC) (HCC) TAKE ONE TABLET BY MOUTH TWICE A DAY 60 tablet 11 9 Active cyclobenzaprine (FLEXERIL) 10 mg tabletIndication s:Muscle spasm TAKE 1 TABLET (10 MG TOTAL) BY MOUTH 2 TIMES A DAY NEEDED FOR MUSCLE SPASMS. 60 tablet 1 0 Active Additional Information Patient not taking.Reported on 07/02/2024 ibuprofen (MOTRIN) 800 mg tabletIndication s:Pain in both lower extremities Take 1 tablet (800 mg total) by mouth every 8 hours as needed for pain. 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 Vulvar lesion 09/12/2016 Spondylolisthesis, cervical region 04/11/2016 Abnormal MRI, cervical spine 03/27/2016 Neck pain 03/19/2016 Presence of total knee joint prosthesis, right 0 11/07/2015 Aftercare following joint replacement 10/25/2015 Pre-operative exam 09/26/2015 Chest pain 05/01/2015 Chest pressure 04/28/2015 Back skin lesion 10/05/2014 Decreased hearing 09/27/2014 Trigger thumb of left hand 04/13/2014 Osteoarthritis of knee 12/20/2013 Difficulty In Walking Involving An Ankle/Foot Katerina int 08/19/2013 Acquired hallux valgus of right foot 08/19/2013 Osteoarthritis, unspecified osteoarthritis type, unspecified site 08/19/2013 Asthma 05/24/2013 Parotitis 02/19/2012 Foot pain Right 09/12/2010 Overview (06/18/2017): PREVIOUS RIGHT FOOT INJURY 9 YRS AGO Joint pain, knee Right 03/22/2010 Viral infection 06/15/2009 Cough 04/21/2009 Depression 12/13/2008 Anxiety 11/10/2008 Benign essential hypertension 11/06/2005 Reflux esophagitis 11/06/2005 Type 2 diabetes mellitus 11/06/2005 Social History Tobacco Use Types Packs/Day Years [...] Orientation Straight 07/01/2024 9: 28 AM EDT Last Filed Vital Signs Vital Sign Reading Time Taken Comments Blood Pressure 131/60 07/02/2024 1:22 PM EDT Pulse 67 07/02/2024 1:22 PM EDT Temperature 36.4 ??C (97.6 ??F) 07/02/2024 12:48 PM E DT Respiratory Rate 18 07/02/2024 1:22 PM EDT Oxygen Saturation 99% 07/02/2024 1:22 PM EDT Inhaled Oxygen Concentration - - Weight 80.7 kg (178 lb) 08/05/2019 10:04 AM EST Height 157.5 cm (5' 2 ) 07/02/2024 12:48 PM EDT Body Mass Index 31.53 08/05/2019 10:04 AM EST Plan of Treatment Not on file Procedures * Due to [place] law, this organization might not be sharing negative HIV tests. Procedure Name Priority Date/Time Associated Diagnosis Comments COMPREHENSIVE METABOLIC PANEL Routine 09/01/2019 10:53 AM EST Healthcare maintenance [facility]ERARDO BILATERAL SCREENING DIGITAL MAMMOGRAM Routine 07/06/2019 9:39 AM EDT Screening breast examination HEMOGLOBIN A1C Routine 05/04/2019 2:21 PM EDT Hyperglycemia COLONOSCOPY 08/04/2018 8:07 AM EST HM DIABETES EYE EXAM Routine 12/30/2017 MICROALBUMIN, RANDOM URINE WITH CREATININE Routine 09/12/2014 2:[address] CHEST WO CONTRAST Routine 09/19/2009 4:23 PM EST from Last 3 Months or Most Recently Relevant to Health Maintenance Results * Due to [place] law, this organization might not be sharing negative HIV tests. * (ABNORMAL) Comprehensive Metabolic Panel (09/01/2019 10:53 AM EST) Glucose 100 65 - 139 mg/dL 09/01/2019 9:43 PM EST [facility] Comment: ? Non-fasting reference interval BUN 26(H) 7 - 25 mg/dL 09/01/2019 9:43 PM [employer] Creatinine 1.12(H) 0.50 - 0.99 mg/dL 09/01/2019 9:43 PM [employer] Comment: For patients >49 years of age, the reference limit for Creatinine is approximately 13% higher for people identified as -[place]. eGFR Non- 51(L) > OR = 60 mL/min/1. 73m2 09/01/2019 9:43 PM EST [facility] eGFR 59(L) > OR = 60 mL/min/1. 73m2 09/01/2019 9:43 PM [employer] Bun/Creatinine Ratio 23(H) 6 - 22 (calc) 09/01/2019 9:43 PM EST [employer] [facility] Sodium 134(L) 135 - 146 mmol/L 09/01/2019 9:43 PM EST [employer] [facility] Potassium 4.1 3.5 - 5.3 mmol/L 09/01/2019 9:43 PM EST [employer] [facility] Chloride 98 98 - 110 mmol/L 09/01/2019 9:43 PM EST [employer] [facility] Carbon Dioxide 28 20 - 32 mmol/L 09/01/2019 9:43 PM EST [employer] [facility] Calcium 9.2 8.6 - 10.4 mg/dL 09/01/2019 9:43 PM EST [employer] [facility] Protein, Total 6.5 6.1 - 8.1 g/dL 09/01/2019 9:43 PM EST [employer] [facility] Albumin 4.2 3.6 - 5.1 g/dL 09/01/2019 9:43 PM EST [employer] [facility] Globulin 2.3 1.9 - 3.7 g/dL (calc) 09/01/2019 9:43 PM EST [employer] [facility] Albumin/Globulin Ratio 1.8 1.0 - 2.5 (calc) 09/01/2019 9:43 PM EST [employer] [facility] Bilirubin, Total 1.2 0.2 - 1.2 mg/dL 09/01/2019 9:43 PM EST [employer] [facility] Alkaline Phosphatase 48 33 - 130 U/L 09/01/2019 9:43 PM EST [employer] [facility] AST 18 10 - 35 U/L 09/01/2019 9:43 PM EST [employer] [facility] ALT 14 6 - 29 U/L 09/01/2019 9:43 PM [employer] [facility] Blood specimen (specimen) Structure of peripheral vein / Unknown 09/01/2019 10:53 AM EST 09/01/2019 5:18 PM EST Narrative [facility] - 09/03/2019 1:57 PM EST FASTING:NO us Mingo Perez MD LAB BLOOD ORDERABLES Final Result [facility] [address] [facility] [address], [place] [address], [facility] [address] [place] [address] * [facility] Bilateral Screening Digital Mammogram (07/06/2019 9:39 AM EDT) Anatomical Region Laterality Modality Breast Bilateral Mammography Narrative 07/06/2019 1:23 PM EDT EXAMINATION EVERARDO Bilateral Screening Digital Mammogram. INDICATION Angella Foy is a 68 y.o. female and is seen for: [facility] Bilateral Screening Digital Mammogram. R2 CAD was used in the interpretation of this study. Comparison is made to prior examinations dating back to 2013 Bilateral Breast Findings: The breasts are almost entirely fatty. ??Right micromarker. ??No significant masses, calcifications or other abnormalities are seen. IMPRESSION No evidence of malignancy. Routine Screening Mammogram in 1 Year is recommended for bilateral breast(s). OVERALL ASSESSMENT - BI-RADS?? ATLAS category (overall): 2 Benign The patient was entered into a reminder system with a target date for their next mammogram. Barrett Moore MD IMG BI PROCEDURES Final Result * (ABNORMAL) Hemoglobin A1c (05/04/2019 2:21 PM EDT) Hemoglobin A1C 5.8(H) <5.7 % of total Hgb 05/05/2019 6:21 AM EDT [facility] Comment: For someone without known diabetes, a [...] A1c for diagnosis of diabetes for children. eAG (MG/DL) 120 (calc) 05/05/2019 6:21 AM EDT [facility] eAG (MMOL/L) 6.6 (calc) 05/05/2019 6:21 AM EDT [facility] Blood specimen (specimen) Structure of peripheral vein / Unknown 05/04/2019 2:21 PM EDT 05/05/2019 1:28 AM EDT Narrative [facility] - 05/05/2019 6:35 AM EDT FASTING:NO us Mingo Perez MD LAB BLOOD ORDERABLES Final Result [facility] [address] [facility] [address], [place] [address], [place] [phone] [facility] [address] [place] [address] * COLONOSCOPY (08/04/2018 8:07 AM EST) Narrative Procedure Note Luan Quiroz MD - 08/04/2018 8:07 AM EST Gastroenterology Patient Name: Angella Foy Procedure Date: 08/04/2018 8:07 AM Date of : 1950 Admit Type: Outpatient Age: 67 Room: Room 3 Gender: Female Note Status: Finalized Attending MD: Luan Quiroz MD Procedure: Colonoscopy Indications: Chronic diarrhea (intermittant, states severe at times) Comorbidities Providers: Luan Quiroz MD Referring MD: Mingo Perez MD (Referring MD) Requesting Provider: Medicines: Midazolam 4 mg IV, Fentanyl 100 micrograms IV Complications: No immediate complications. Estimated Blood Loss: Estimated blood loss: none. Procedure: After I obtained informed consent, the scope was passed under direct vision. Throughout the procedure, the patient's blood pressure, pulse, and oxygen saturations were monitored continuously. The Colonoscope was introduced through the anus and advanced to theterminal ileum. The colonoscopy was performed withoutdifficulty. The patient tolerated the procedure well. The qualityof the bowel preparation was good. The bowel preparationused was Miralax. Retroflexion was performed. Findings: The colon (entire examined portion) appeared normal. Biopsies weretaken with a cold forceps for histology from right and left visually normal colon. Verification of patient identification for the specimen wasdone by the physician, nurse and aviation maintenance technician using the patient's name, date and medical record number. Estimated blood loss: none. The exam was otherwise without abnormality on direct and retroflexion views. Impression: - The entire examined colon is normal. Biopsied. - The examination was otherwise normal on direct and retroflexion views. Recommendation: - Repeat colonoscopy in 10 years for screeningpurposes, if average risk and no concerns on the bx's. Luan Quiroz MD 08/04/2018 8:50:38 AM This report has been signed electronically. Number of Addenda: 0 Note Initiated On: 08/04/2018 8:07 AM Luan Quiroz MD [employer] PROCEDURES Final Result * Eye Exam, Diabetic (12/30/2017) Mingo Perez MD [facility] nal Result * Microalbumin/Creatinine Urine, Random (09/12/2014 2:50 PM EST) Creatinine, Random Urine 187 20 - 320 mg/dL [facility] Microalbumin 0.5 mg/dL [employer] [facility] Comment: Reference Range Not established Microalbumin/Crea tinine Ratio, Random Urine 3 <30 mcg/mg creat [facility] Comment: . The ADA defines abnormalities in albumin excretion as follows: . Category ? Result (mcg/mg creatinine) . Normal ?<30 Microalbuminuria ? 30-299 Clinical albuminuria ?? > OR = 300 . The ADA recommends that at least two of three specimens collected within a 3-6 month period be abnormal before considering a patient to be within a diagnostic category. 09/12/2014 2:50 PM EST 09/12/2014 11:35 PM EST Narrative [facility] - 09/13/2014 7:51 PM EST Report Comments: Received Date: [id number] FASTING:NO us Mingo Perez MD LAB URINE ORDERABLES Final Result [facility] [address] [place] [address],[address] FLOOR,[place] [address] * CT Chest WO Contrast (09/19/2009 4:23 PM EST) Anatomical Region Laterality Modality Body Computed Tomogra phy 09/19/2009 3:45 PM EST Impressions 09/19/2009 4:[address] of the thorax, showing interval resolution of the areas of groundglass opacity, suggestive of pneumonitis, since the last CT. No acute process on the current study. COMMUNICATION: Per this written report. Narrative 09/19/2009 4:53 PM EST EXAMINATION: CT Chest Without Intravenous Contrast. INDICATION: Right lung pneumonitis. ?? TECHNIQUE: Routine helical CT of the chest was performed without use of intravenous contrast. ??One and 5mm Axial images were obtained at 1 and 5mm ??intervals from apices through diaphragms. COMPARISON: 06/27/2009 FINDINGS: Lung windows show interval resolution of the small focal areas of ground glass opacity present described in the right lung. Similarly, the mild bronchial thickening was present on the last CT has also disappeared. Today's CT shows essentially normal parenchyma, without nodules masses or areas of consolidation.. Mediastinal windows show infra-centimetric nodes, but no significant adenopathy. ??There are no pleural or pericardial effusions. ?? Bone windows show no significant abnormality. Images of the upper abdomen show no significant abnormality. Procedure Note Samir Alcala P - 05/30/2017 EXAMINATION: CT Chest Without Intravenous Contrast. INDICATION: Right lung pneumonitis. TECHNIQUE: Routine helical CT of the chest was performed without use of intravenous contrast. One and 5mm Axial images were obtained at 1 and 5mm intervals from apices through diaphragms. COMPARISON: 06/27/2009 FINDINGS: Lung windows show interval resolution of the small focal areas of ground glass opacity present described in the right lung. Similarly, the mild bronchial thickening was present on the last CT has also disappeared. Today's CT shows essentially normal parenchyma, without nodules masses or areas of consolidation.. Mediastinal windows show infra-centimetric nodes, but no significant adenopathy. There are no pleural or pericardial effusions. Bone windows show no significant abnormality. Images of the upper abdomen show no significant abnormality. IMPRESSION: Noncontrast CT of the thorax, showing interval resolution of the areas of groundglass opacity, suggestive of pneumonitis, since the last CT. No acute process on the current study. COMMUNICATION: Per this written report. 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
--- OUTSIDE RECORDS SUMMARY | 2024-10-29 11:50 | XMS_ITS | Encounter Summary ---
Author Organization [facility] Address [address] [place] [address] Care Team Providers Care Desktop Administrator Name Role Phone Mirza Almanza DIRECTOR OF PERSONNEL Unavailable [phone] Juanpablo Louis MD Primary Care Provider [phone] Charu Jimenez MD Primary Care Provider Lori Cortney Melgar NP Primary Care Provider + [phone] Unknown Pcp, Non [facility] Unavailable Unavailable Christina Estevez MD Primary Care Provider [phone] Encounter Details Date Type Department Care Team (Late st Contact Info) Description 09/14/2021 Orders Only [facility] [address] [place] [address] Mirza Almanza, JULIETA [facility] [address] [address] Social History Tobacco Use Types Packs/Day Years [...] Result Encounter Note - Shahrzad Farias - 09/14/2021 9:00 AM EST Labs normal letter sent documented in this encounter Plan of Treatment Upcoming Encounters Date Type Department Care Team (Latest Contact Info) Description 01/10/2025 8:00 AM EDT Office Visit [address] [address] Christina Estevez MD [address] [place] [phone] medication refill follow up 03/18/2025 1:15 PM EDT Office Visit [facility] Cardiology [address] [address] Lolita Barnett MD [address] [place] [address] routine f/u 04/05/2025 9:15 AM EDT Radiology [facility]. [address] [address] 05/02/2025 1:00 PM EDT Office Visit [facility] Cardiology [address] [address] Lolita Barnett MD [address] [place] [phone] 1 year 06/07/2025 9:15 AM EDT CPE - Comprehensive Physical Exam [address] [address] Christina Estevez MD [address] [place] [address] NPP documented as of this encounter Goals [...] at . Any insurance accepted. Quit smoking resources-[email or web address] HEMOGLOBIN A1C % < 7 Result Component [...] this encounter Procedures * Due to [place] law, this organization might not be sharing negative HIV tests. Procedure Name Priority Date/Time Associated Diagnosis Comments HEMOGLOBIN A1C Routine 09/14/2021 9:04 AM EST Type 2 diabetes mellitus without complication, without long-term current use of insulin ([facility]) documented in this encounter Results * Due to [place] law, this organization might not be sharing negative HIV tests. * HEMOGLOBIN A1C (09/14/2021 9:04 AM EST) Hemoglobin A1C 5.3 <5.7 % of total [...] diagnosis of diabetes in children. According to [place] [employer] (ADA) guidelines, hemoglobin A1c <7.0% represents optimal control in non- diabetic patients. Different metrics may apply to specific patient populations. Standards of Medical Care in Diabetes(ADA). Estimated Average Glucose 111 mg/dL (calc) [facility] 09/14/2021 9:04 AM EST 09/14/2021 7:40 PM EST Narrative Resulting Agency Comment [id number] us Mirza Almanza NP LABORATORY Final Resul t [facility] [address] [place] [address] documented in this encounter Visit Diagnoses Diagnosis Type 2 diabetes mellitus without complication, without long-term current use of insulin (HCC) documented in this encounter Care Teams Desktop Administrator Relationship Specialty Start Date End Date Mirza Almanza NP PCP - Backup PCP Internal Medicine 07/28/20 05/29/22 Juanpablo Louis MD [address] [place] [address] PCP - General Internal Medicine 07/28/20 11/11/21 Charu Jimenez MD [address] [place] [address] PCP - General Family Medicine 11/12/21 03/28/22 Cortney Stone NP [address] [place] [phone] PCP - General Internal Medicine 03/29/22 09/15/24 Unknown Pcp, Non [facility] PCP - Backup PCP 05/30/22 07/07/22 Christina Estevez MD [address] [place] [address] PCP - General Family Medicine 09/16/24 documented as of this encounter
--- OUTSIDE RECORDS SUMMARY | 2024-10-29 11:50 | XMS_ITS | Encounter Summary ---
Author Organization [facility] Address [address] [place] [address] Care Team Providers Care Mud Tank Operator Name Role Phone Mirza Almanza FORESTRY SCIENTIST Unavailable [phone] Charu Jimenez MD Primary Care Provider Lori noahilaCortney Garcia NP Primary Care Provider [phone] Unknown Pcp, Non Rmg Unavailable Unavailable Christina Estevez MD Primary Care Provider Encounter Details Date Type Department Care Team (Late st Contact Info) Description 11/19/2021 Orders Only Population [facility] [address] [place] [address] Juanpablo Louis MD [address] [place] [address] Social History Tobacco Use Types Packs/Day Years [...] Miscellaneous Notes * Result Encounter Note - Nazia Ayers RN - 11/19/2021 7:40 AM EST The patients lab results are at an abnormal but at a stable level by the protocol guidelines. The result letter was completed and sent to patient. documented in this encounter Plan of Treatment Upcoming Encounters Date Type Department Care Team (Latest Contact Info) Description 01/10/2025 8:00 AM EDT Office Visit [address] [address] Christina Estevez MD [address] [place] [address] medication refill follow up 03/18/2025 1:15 PM EDT Office Visit [facility] Cardiology [address] [place] [address] Lolita Barnett MD [address] [place] [address] routine f/u 04/05/2025 9:15 AM EDT Radiology [address] [address] 05/02/2025 1:00 PM EDT Office Visit [facility] Cardiology [address] [place] [address] Lolita Barnett MD [address] [place] [address] 1 year 06/07/2025 9:15 AM EDT CPE - Comprehensive Physical Exam [address] [address] Christina Estevez MD [address] [place] [address] NPP documented as of this encounter Goals [...] at . Any insurance accepted. Quit smoking resources-http://makesmoBGS Internationaltory.org HEMOGLOBIN A1C % < 7 Result Component [...] this encounter Procedures * Due to [place] ISH law, this organization might not be sharing negative HIV tests. Procedure Name Priority Date/Time Associated Diagnosis Comments VENIPUNCTURE Routine 11/19/2021 7:40 AM EST Diabetes mellitus without complication ALBUMIN (MICROALBUMIN), RANDOM URINE, WITH CREATININE Routine 11/19/2021 7:40 AM EST Diabetes mellitus without complication LIPID PANEL WITH REFLEX TO DIRECT LDL Routine 11/19/2021 7:40 AM EST Diabetes mellitus without complication BASIC METABOLIC PANEL WITH (GFR) Routine 11/19/2021 7:40 AM EST Diabetes mellitus without complication documented in this encounter Results * Due to [place] ISH law, this organization might not be sharing negative HIV tests. * ALBUMIN (MICROALBUMIN), RANDOM URINE, WITH CREATININE (11/19/2021 7:40 AM EST) Creatinine (Urine) 62 20 - 275 mg/dL [facility] Albumin (Urine) 0.2 mg/dL [facility] Comment: Reference Range [...] patient to be within a diagnostic category. 11/19/2021 7:40 AM EST 11/19/2021 11:13 PM EST Narrative Resulting Agency Comment [id number] Juanpablo Louis MD LABORATORY Final Result Performing Organization Address [facility] de Phone Number [facility] [address] [place] [address] * LIPID PANEL WITH REFLEX TO DIRECT LDL (11/19/2021 7:40 AM EST) Cholesterol 134 <200 mg/dL [facility] HDL Cholesterol 54 > OR = 50 mg/dL [facility] Triglyceride 77 <150 mg/dL [facility] LDL Cholesterol 64 mg/dL (calc) [facility] Comment: Reference range: [...] LDL-C. Gurdeep MARQUEZ et al. NANDO. 2013;310(19): 2957-6649 (http://education.Netadmin/faq/HSE664) CHOL/HDL Ratio 2.5 <5.0 (calc) [facility] Cholesterol Non-HDL 80 <130 mg/dL (calc) [facility] Comment: For patients with diabetes plus 1 major ASCVD risk factor, treating to a non-HDL-C goal of <100 mg/dL (LDL-C of <70 mg/dL) is considered a therapeutic option. 11/19/2021 7:40 AM EST 11/19/2021 11:13 PM EST Narrative Resulting Agency Comment [id number] Juanpablo Louis MD LABORATORY Final Result Performing Organization Address [facility] Co de Phone Number [facility] [address] [place] [address] * (ABNORMAL) BASIC METABOLIC PANEL WITH (GFR) (11/19/2021 7:40 AM EST) Glucose 128(H) 65 - 99 mg/dL [facility] Comment: ? Fasting reference interval For someone without known diabetes, a glucose value >125 mg/dL indicates that they may have diabetes and this should be confirmed with a follow-up test. Urea Nitrogen Blood (BUN) 21 7 - 25 mg/dL [facility] Creatinine 0.87 0.50 - 0.99 mg/dL [facility] Comment: For patients >49 years of age, the reference limit for Creatinine is approximately 13% higher for people identified as -Lao. EGFR 68 > OR = 60 mL/min/1 .73m2 [facility] GFR () 79 > OR = 60 mL/min/1 .73m2 [facility] BUN/Creatinine Ratio NOT APPLICABLE 6 - 22 (calc) [facility] Sodium 139 135 - 146 mmol/L [facility] Potassium 4.0 3.5 - 5.3 mmol/L [facility] Chloride 105 98 - 110 mmol/L [facility] Carbon dioxide 27 20 - 32 mmol/L [facility] Calcium 9.6 8.6 - 10.4 mg/dL [facility] 11/19/2021 7:40 AM EST 11/19/2021 11:13 PM EST Narrative [facility] - 11/20/2021 1:10 AM EST Please note that this estimated [...] needs for GFR calculation. Resulting Agency Comment [id number] Juanpablo Louis MD LABORATORY Final Result [facility] [address] [place] [address] * HEMOGLOBIN A1C (11/19/2021 7:40 AM EST) Hemoglobin A1C 5.3 <5.7 % [...] diagnosis of diabetes in children. According to [place] Diabetes Association (ADA) guidelines, hemoglobin A1c <7.0% represents optimal control in non- diabetic patients. Different metrics may apply to specific patient populations. Standards of Medical Care in Diabetes(ADA). Estimated Average Glucose 111 mg/dL (calc) [facility] 11/19/2021 7:40 AM EST 11/19/2021 11:13 PM EST Narrative Resulting Agency Comment [id number] Juanpablo Louis MD LABORATORY Final Result [facility] [address] [place] [address] documented in this encounter Visit Diagnoses Diagnosis Diabetes mellitus without complication (HCC) Type II or unspecified type diabetes mellitus without mention of complication, not stated as uncontrolled documented in this encounter Care Teams Mud Tank Operator Relationship Specialty Start Date End Date Mirza Almanza NP PCP - Backup PCP Internal Medicine 07/28/20 05/29/22 Charu Jimenez MD PCP - General Family Medicine 11/12/21 03/28/22 Cortney Stone NP [address] [place] [address] PCP - General Internal Medicine 03/29/22 09/15/24 Unknown Pcp, Non Rmg PCP - Backup PCP 05/30/22 07/07/22 Christina Estevez MD [address] [place] [address] PCP - General Family Medicine 09/16/24 documented as of this encounter
--- OUTSIDE RECORDS SUMMARY | 2024-10-29 11:50 | XMS_ITS | Encounter Summary ---
Author Organization [facility] Address [address] [place] [address] Care Team Providers Care Supervisor Instant Potato Processing Name Role Phone Cortney Stone NP Primary Care Provider [phone] Christina Estevez MD Primary Care Provider [phone] Encounter Details Date Type Department Care Team (Late st Contact Info) Description 10/16/2023 Orders Only [facility] [address] [place], [place] [phone] Cortney Stone, JULIETA [address] [place] [address] Social History Tobacco Use Types Packs/Day Years [...] Encounter Note - Cortney Stone NP - 10/16/2023 10:12 AM EST Normal/stable, mychart message sent. documented in this encounter Plan of Treatment Upcoming Encounters Date Type Department Care Team (Latest Contact Info) Description 01/10/2025 8:00 AM EDT Office Visit [address] [address] Christina Estevez MD [address] [place] [address] medication refill follow up 03/18/2025 1:15 PM EDT Office Visit [facility] Cardiology [address] [facility] [address] [place] [address] Lolita Barnett MD [address] [place] [address] routine f/u 04/05/2025 9:15 AM EDT Radiology [facility]. [address] [address] 05/02/2025 1:00 PM EDT Office Visit [facility] Cardiology [address] [facility] [address] [place] [address] Lolita Barnett MD [address] [place] [address] 1 year 06/07/2025 9:15 AM EDT CPE - Comprehensive Physical Exam [address] [address] Christina Estevez MD [address] [place] [address] NPP documented as of this encounter Goals [...] at . Any insurance accepted. Quit smoking resources-http://makesEthical Ocean.org HEMOGLOBIN A1C % < 7 Result Component [...] of this encounter Procedures * Due to [place] Grata law, this organization might not be sharing negative HIV tests. Procedure Name Priority Date/Time Associated Diagnosis Comments THYROID STIMULATING HORMONE (TSH) WITH FREE T4 REFLEX, SERUM Routine 10/16/2023 10:12 AM EST Hypothyroidism, unspecified type documented in this encounter Results * Due to [place] Grata law, this organization might not be sharing negative HIV tests. * THYROID STIMULATING HORMONE (TSH) WITH FREE T4 REFLEX, SERUM (10/16/2023 10:12 AM EST) TSH 0.76 0.40 - 4.50 mIU/L [facility] 10/16/2023 10:1 2 AM EST 10/16/2023 6:19 PM EST Narrative Resulting Agency Comment [id number] us Cortney Stone ACCOUNT[facility] Final Resu lt [facility] [address] [place] [address] documented in this encounter Visit Diagnoses Diagnosis Hypothyroidism, unspecified type documented in this encounter Care Teams Supervisor Instant Potato Processing Relationship Specialty Start Date End Date Cortney Stone NP [address] [place] [address] PCP - General Internal Medicine 03/29/22 09/15/24 Christina Estevez MD [address] [place] [address] PCP - General Family Medicine 09/16/24 documented as of this encounter
--- OUTSIDE RECORDS SUMMARY | 2024-10-29 11:50 | XMS_ITS | Encounter Summary ---
Author Organization [facility] Address [address] [place] [address] Care Team Providers Care Disability Advocate Name Role Phone Cortney Stone NP Primary Care Provider [phone] Christina Estevez MD Primary Care Provider [phone] Encounter Details Date Type Department Care Team (Late st Contact Info) Description 01/20/2024 Orders Only [facility] [address] [place], [place] [phone] Cortney Stone NP [address] [place] [address] Social History Tobacco Use Types Packs/Day Years Used Date Smoking Tobacco: Former Cigarettes 2 17 0 03/02/1975 - 03/02/1992 Passive Smoke Exposure: Never Smokeless Tobacco: Never Alcohol Use Standard Drinks/Week Comments Yes 0 (1 standard drink = 0.6 oz pur e alcohol) rare PHQ-2 Answer Date Recorded PHQ-2 Score 0 01/07/2024 PHQ-9 Answer Date Recorded [facility] PHQ-9 SEVERITY SCORE (Range 0-27) 0 [...] Encounter Note - Cortney Stone NP - 01/20/2024 2:06 PM EDT Patient is on chronic narcotics. Prescribed medication is not present in urine. Please confirm when she last took dose when she completed urine sample. May need to do a pill count. Thanks! * Result Encounter Note - Hamida Yusuf RN - 01/20/2024 2:06 PM EDT TM initiated 01/26/24 documented in this encounter Plan of Treatment Upcoming Encounters Date Type Department Care Team (Latest Contact Info) Description 01/10/2025 8:00 AM EDT Office Visit [facility] [address] [place] [address] Christina Estevez MD [address] [place] [address] medication refill follow up 03/18/2025 1:15 PM EDT Office Visit [facility] Cardiology [address] [facility] [address] [place] [address] Lolita Barnett MD [address] [place] [address] routine f/u 04/05/2025 9:15 AM EDT Radiology [facility]. [facility] [address] [place] [address] 05/02/2025 1:00 PM EDT Office Visit [facility] Cardiology [address] [facility] [address] [place] [address] Lolita Barnett MD [address] [place] [address] 1 year 06/07/2025 9:15 AM EDT CPE - Comprehensive Physical Exam [facility] [address] [place] [phone] Christina Estevez MD [address] [place] [address] NPP documented as of this encounter Goals [...] at . Any insurance accepted. Quit smoking resources-http://momondo.org HEMOGLOBIN A1C % < 7 Result Component [...] of this encounter Procedures * Due to [place] Local[employer] law, this organization might not be sharing negative HIV tests. Procedure Name Priority Date/Time Associated Diagnosis Comments PAIN MANAGEMENT PROFILE WITH FENTANYL, URINE (PAINM2+) Routine 01/20/2024 2:06 PM EDT Chronic neck pain documented in this encounter Results * Due to [place] [employer] law, this organization might not be sharing negative HIV tests. * (ABNORMAL) PAIN MANAGEMENT PROFILE WITH FENTANYL, URINE (PAINM2+) (01/20/2024 2:06 PM EDT) Fentanyl Screen (Urine) NEGATIVE <0.5 ng/mL [facility] Comment:See Note 1 COMMENT SEE NOTE [facility] Comment:See Note 2 Creatinine (Urine) 18.0(L) > or = 20.0 mg/dL [facility] Comment:Verified by repeat a nalysis. Specific gravity (Urine) 1.008 > or = 1.003 [facility] pH (Urine) 5.0 4.5 - 9.0 [facility] OXIDANT NEGATIVE [...] <100 ng/mL [facility] Opiates (Urine) NEGATIVE CONFIRMED <100 ng/mL [facility] Codeine (Urine) NEGATIVE <50 ng/mL [facility] Comment:See Note 1 Hydrocodone (Urine) NEGATIVE <50 ng/mL [facility] Comment:See Note 1 Hydromorphone (Urine) NEGATIVE <50 ng/mL [facility] Comment:See Note 1 Morphine (Urine) NEGATIVE <50 ng/mL [facility] Comment:See Note 1 Norhydrocodone (Urine) NEGATIVE <50 ng/mL [facility] Comment:See Note 1 Oxycodone (Urine) NEGATIVE <100 ng/mL [facility] Phencyclidine (Urine) NEGATIVE <25 ng/mL [facility] COMMENT SEE NOTE [facility] Comment: See Note 2 Note 1 This test was developed and its analytical performance characteristics have been determined by [facility]. It has not been cleared or approved [...] interpreting these drug results, please contact a [facility] Toxicology Specialist: [phone] ( ), M-F, 8am-6pm EST. 01/20/2024 2:06 PM EDT 01/20/2024 10:25 PM EDT Narrative Resulting Agency Comment [id number] us Cortney Stone CLINICAL APPEALS REVIEWER [facility] Final Resu lt [facility] [address] [place] [address] documented in this encounter Visit Diagnoses Diagnosis Chronic neck pain Cervicalgia documented in this encounter Care Teams Disability Advocate Relationship Specialty Start Date End Date Cortney Stone NP [address] [place] [address] PCP - General Internal Medicine 03/29/22 09/15/24 Christina Estevez MD [address] [place] [address] PCP - General Family Medicine 09/16/24 documented as of this encounter
--- OUTSIDE RECORDS SUMMARY | 2024-10-29 11:50 | XMS_ITS | Encounter Summary ---
Author Organization [facility] Address [address] [place] [address] Care Team Providers Care Investigation Clerk Name Role Phone Tasha Alexander MD Primary Care Provider [phone] Reason for Visit * Reason Onset Date Comments E-prescribing Refill Request New Patient Visit 10/20/2024 Records 10/20/2024 Encounter Details Date Type Department Care Team (Late st Contact Info) Description 10/20/2024 Refill [facility] [address] [place] [address] Tasha Alexander MD [address] [place] [address] E-prescribing Refill Request; New Patient Visit ; Records Social History Tobacco Use Types Packs/Day Years Used Date Smoking Tobacco: Former Cigarettes 2 17 0 03/02/1975 - 03/02/1992 Passive Smoke Exposure: Never Smokeless Tobacco: Never Alcohol Use Standard Drinks/Week Comments Yes 0 (1 standard drink = 0.6 oz pur e alcohol) rare PHQ-2 Answer Date Recorded PHQ-2 Score 0 01/07/2024 PHQ-9 Answer Date [facility]-9 SEVERITY SCORE (Range 0-27) 0 [...] encounter Miscellaneous Notes * Telephone Encounter - Charu Cardoza - 10/26/2024 11:55 AM EST Replied back to notify pt. * Addendum Note - Tasha Alexander MD - 10/26/2024 9:52 AM ESTAddended by: TASHA ALEXANDER on: 10/26/2024 09:52 AM Modules accepted: Orders * Telephone Encounter - Tasha Alexander MD - 10/26/2024 9:52 AM EST I ordered liver functions and hemoglobin A1c, that should be it for now * Telephone Encounter - Charu Cardoza - 10/25/2024 10:05 AM EST Pt called to follow up on this, asking if she needs any labs done prior to this appointment. She's aware I'll have Dr. Alexander review this and then we'll get back to her. Routing to Dr. Alexander, do you want her to have any labs before this appointment? * Telephone Encounter - Charu Cardoza - 10/25/2024 8:36 AM EST Booked: Future Appointments Date Time Provider Department Phone 01/10/25 8:00 AM Tasha Alexander MD [facility] [phone] 03/18/25 1:15 PM Lolita Barnett MD [facility] Cardiology [address] 04/05/25 9:15 AM CAREER TECHNOLOGY TEACHER MAMMOGRAPHY ROOM2 [facility] [phone] 05/02/25 1:00 PM Lolita Barnett MD [facility] Cardiology [address] 06/07/25 9:15 AM Tasha Alexander MD [facility] [phone] Replied with date/time, and also mailed reminder letter. * Telephone Encounter - Charu Cardoza - 10/22/2024 11:03 AM EST Insurance verified. Pt transferred from Dr. Stone/[facility]. Last AWV: 01/07/2024 NPP is already booked on 06/07/2025. Pt has recently used her [employer]. Sent MCM to book. * Telephone Encounter - Tasha Alexander MD - 10/22/2024 10:16 AM EST PSS - Can you reach out to book a new patient visit (nonurgent)? * Telephone Encounter - Yas Millard, Pharmacy Navigator - 10/22/2024 9:54 AM EST None Pharmacy Confirmed? The most recent pharmacy on file was used. When is the medication needed? within 48 hours, will send routine message Past and Future Appointments in Auth Provider Departments: Recent Visits Date Type Provider Dept 08/06/24 Office Visit Cortney Stone NP [facility] 07/07/24 Office Visit Praveena Sahu NP [facility] 01/27/24 Office Visit Cortney Stone NP [facility] 01/07/24 CPE - Comprehensive Physical Exam Cortney Stone NP [facility] 10/30/23 Office Visit Cortney Stone, JULIETA [facility] 10/23/23 Office Visit Cortney Stone, JULIETA [facility] 09/10/23 Office Visit Cortney Stone, JULIETA [facility] 06/20/23 Office Visit Cortney Stone, JULIETA [facility] 03/21/23 Office Visit Cortney Stone, JULIETA [facility] 03/19/23 Appointment Cortney Stone, JULIETA p Int Med Showing recent visits within past 720 days in an active department and meeting all other requirements Future Appointments Date Type Provider Dept 06/07/25 Appointment Tasha Alexander MD [facility] Showing future appointments within next 450 days in an active department and meeting all other requirements Requested Medication Details Requested NSAIDs: Diclofenac Sodium (VOLTAREN) 75 MG EC tablet [Pharmacy Med Name: DICLOFENAC SODIUM 75MG DR TABLETS], TAKE 1 TABLET BY MOUTH TWICE DAILY [...] Last Billed CPE Details: Date: 03/09/2020 Department: [facility] Provider: LAYTON CHUA Visit Type: Video Visit Next Scheduled CPE Details: Date: 06/07/2025 Department: [facility] Provider: TASHA ALEXANDER Visit Type: Physical Exam Lab Needs: None Pertinent Labs: Lab Results Component Value Date CREATININE 0.97 05/21/2024 GFR 62 05/21/2024 Estimated Creatinine Clearance: 49.3 mL/min (by C-G formula based on SCr of 0.97 mg/dL). Pertinent Lab Results and Recommendations Lab Results Component Value Date SODIUM 138 05/21/2024 POTASSIUM 4.1 05/21/2024 CHLOR 104 05/21/2024 CO2 28 05/21/2024 BUN 22 05/21/2024 CREATININE 0.97 05/21/2024 GFR 62 05/21/2024 GLUCOSE 138 (H) 05/21/2024 PALOMO 9.1 05/21/2024 Pended medication order(s) and sent to provider. Patient expects medication renewal unless notifiedotherwise. documented in this encounter Plan of Treatment Upcoming Encounters Date Type Department Care Team (Latest Contact Info) Description 01/10/2025 8:00 AM EDT Office Visit [address] [address] Tasha Alexander MD [address] [place] [address] medication refill follow up 03/18/2025 1:15 PM EDT Office Visit [facility] Cardiology [address] [facility] [address] [place] [address] Lolita Barnett MD [address] [place] [address] routine f/u 04/05/2025 9:15 AM EDT Radiology [address] [address] 05/02/2025 1:00 PM EDT Office Visit [facility] Cardiology [address] [facility] [address] [place] [address] Lolita Barnett MD [address] [place] [address] 1 year 06/07/2025 9:15 AM EDT CPE - Comprehensive Physical Exam [address] [address] Tasha Alexander MD [address] [place] [address] NPP Scheduled Orders Name Type Priority Associated Diagnoses Orde r Schedule HEPATIC FUNCTION PANEL (ALT,AST,ALK PH,BILI'S,TP,ALB) Lab Routine Nonalcoholic fatty liver disease Expected: 10/26/2024 (Approximate), Expires: 10/26/2025 HEMOGLOBIN A1C Lab Routine Type 2 diabetes mellitus without complication, without long-term current use of insulin Expected: 10/26/2024 (Approximate), Expires: 10/26/2025 documented as of this encounter Goals Goal [...] at . Any insurance accepted. Quit smoking resources-http://[email or web address] Systemstory.org HEMOGLOBIN A1C % < 7 Result Component [...] as of this encounter Visit Diagnoses Diagnosis Nonalcoholic fatty liver disease Other chronic nonalcoholic liver disease Type 2 diabetes mellitus without complication, without long-term current use of insulin (HCC) documented in this encounter Care Teams Investigation Clerk Relationship Specialty Start Date End Date Tasha Alexander MD [address] [place] [address] PCP - General Family Medicine 09/16/24 documented as of this encounter
--- OUTSIDE RECORDS SUMMARY | 2024-10-29 11:50 | XMS_ITS | Encounter Summary ---
Author Organization [facility] Address [address] [place] [address] Care Team Providers Care Egg Breaking Machine Operator Name Role Phone Cortney Stone NP Primary Care Provider [phone] Christina Estevez MD Primary Care Provider [phone] Reason for Visit * Reason Onset Date Comments Refill Request 08/02/2022 Encounter Details Date Type Department Care Team (Late st Contact Info) Description 08/02/[address] [facility] [address] [address] Cortney Stone, JULIETA [address] [place] [address] Refill Request Social History Tobacco Use Types [...] encounter Miscellaneous Notes * Telephone Encounter - Cortney Stone NP - 08/02/2022 12:08 PM EDT On clopidogrel. Further rx not recommended. * Telephone Encounter - Elly Causey - 08/02/2022 9:44 AM EDT Concerns for Provider Review: None Pharmacy Confirmed? Verified pharmacy with patient. When is the medication needed? within 48 hours, will send routine message Past Appointments: Last CPE: 03/09/2020 Last appointment in this department: 03/08/2022 Future Appointments Date Time Provider Department Phone 08/08/22 9:00 AM [facility] [phone] 09/05/22 2:00 PM Cortney Stone NP [facility] [phone] 01/24/23 8:30 AM [facility] [facility] [phone] 06/20/23 9:00 AM Lolita Barnett MD [facility] Cardiology [address] Pertinent lab results: Lab Results Component Value Date SODIUM 135 03/08/2022 POTASSIUM 3.7 03/08/2022 CHLOR 99 03/08/2022 CO2 27 03/08/2022 BUN 24 03/08/2022 CREATININE 1.08 (H) 03/08/2022 GFR 52 (L) 03/08/2022 GLUCOSE 110 (H) 03/08/2022 PALOMO 9.4 03/08/2022 An overdue or due soon order for a Basic, Potassium or Creatinine exists. An open order for Basic exists. Be cautious using NSAIDS when GFR is less than 60 No labs suggested for any medication orders signed or pended in this encounter. Refresh if any orders changed. BP Readings from Last 1 Encounters: 05/27/22 118/69 Pended medication order(s) and sent to provider. Patient expects medication renewal unless notifiedotherwise. Outstanding Lab Orders (Orders in bold are overdue or due now and should be done as soon as possible) Test Expected Date Ordering Provider CBC INCLUDES DIFFERENTIAL AND PLATELET COUNT 05/27/2022 Lolita Barnett MD ALANINE AMINOTRANSFERASE (ALT), SERUM 05/27/2022 Lolita Barnett MD BASIC METABOLIC PANEL WITH (GFR) 05/27/2022 Lolita Barnett MD THYROID STIMULATING HORMONE (TSH) WITH FREE T4 REFLEX, SERUM 05/27/2022 Lolita Barnett MD LIPID PANEL WITH REFLEX TO DIRECT LDL 07/29/2022 Lolita Barnett MD Outstanding Radiology Orders Test Ordered Date Ordering Provider MAMMOGRAM SCREENING TOMOSYNTHESIS, BILATERAL FC 01/22/2022 Charu Jimenez MD documented in this encounter Plan of Treatment Upcoming Encounters Date Type Department Care Team (Latest Contact Info) Description 01/10/2025 8:00 AM EDT Office Visit [address] [address] Christina Estevez MD [address] [place] [address] medication refill follow up 03/18/2025 1:15 PM EDT Office Visit [facility] Cardiology [address] [facility] [address] [place] [address] Lolita Barnett MD [address] [place] [address] routine f/u 04/05/2025 9:15 AM EDT Radiology [facility]. Mammography [address] [place] [phone] 05/02/2025 1:00 PM EDT Office Visit [facility] Cardiology [address] [facility] [address] [place] [address] Lolita Barnett MD [address] [place] [address] 1 year 06/07/2025 9:15 AM EDT CPE - Comprehensive Physical Exam [address] [address] Christina Estevez MD [address] [place] [address] NPP documented as of this encounter Goals [...] at . Any insurance accepted. Quit smoking resources-http://makesmoSnacksquare.org HEMOGLOBIN A1C % < 7 Result Component [...] on filedocumented in this encounter Care Teams Egg Breaking Machine Operator Relationship Specialty Start Date End Date Cortney Stone NP [address] [place] [address] PCP - General Internal Medicine 03/29/22 09/15/24 Christina Estevez MD [address] [place] [address] PCP - General Family Medicine 09/16/24 documented as of this encounter
--- OUTSIDE RECORDS SUMMARY | 2024-10-29 11:50 | XMS_ITS | Clinical Summary ---
Author Organization [facility] Address [address] [place] [address] Care Team Providers Care Arc Welding Machine Operator Name Role Phone Chase Cortney NP Primary Care Provider + [phone] Allergies Active Allergy Reactions Criticality Noted Date Comments Indomethacin Unknown Sulfa (Sulfonamide Antibiotics) Unknown Medications blood glucose diagnostic meterIndications :Type 2 diabetes mellitus without complication, without long-term current use of insulin ([facility]) Use to test blood glucose 3 times daily 1 each 7 Active multivitamin (DAILY VITAMIN) tablet Active codeine-guaiFENe sin (CHERATUSSIN AC) 20-200 mg/10 mL liquidIndication s:Cough Take 5 mL (10 mg of codeine total) by mouth every 4 hours as needed for cough. [phone] 118 mL 1 7 Active Additional Information Patient not taking.Reported on 07/02/2024 OneTouch Delica lancets 33 gaugeIndications :Type 2 diabetes mellitus without complication, without long-term current use of insulin ([facility]) Use to test blood glucose 3 times daioy 100 each 5 8 Active OneTouch Ultra test stripsIndication s:Type 2 diabetes mellitus without complication, without long-term current use of insulin ([facility] ([facility]) Use to test 3 times daily. 100 strip 5 8 Active blood glucose diagnostic (ONETOUCH ULTRA2) meterIndications :Type 2 diabetes mellitus without complication, without long-term current use of insulin ([facility] ([facility]) Dispense 1 kit, use as directed [...] (07/02/2018): Added automatically from request for surgery [id number] Speech and language deficits 03/31/2018 Memory deficit [...] esophagitis 11/06/2005 Type 2 diabetes mellitus 11/06/2005 Family History Medical History Relation Name Comments Other Father Family History of congestive heart failure Other Mother Family History of cancer Other Other Family History of malignant neoplasm of female breast Relation Name Status Comments Father Mother Other Social History Tobacco Use Types Packs/Day Years [...] 08/05/2019 10:04 AM EST Plan of Treatment Health Maintenance Due Date Last Done Comments Cologuard 1950 FOBT / Fit Test 1950 Hepatitis C Screening 1950 Sigmoidoscopy 1950 Pneumococcal Vaccine: 65+ Years (1 of 2 - PCV) 1958 DTaP,Tdap,and Td Vaccines (1 - Tdap) 1974 Osteoporosis Screening 2002 Zoster Vaccines (1 of 2) 2002 CT Lung Cancer Screening (Baseline) 09/19/2010 09/19/2009, 06/27/2009 RSV Vaccine (60+ years old and patients) (1 - Risk 60-74 years 1-dose series) 2012 Urine Microalbumin 09/12/2015 09/12/2014, 07/07/2013 Ophthalmology Exam 12/30/2018 12/30/2017, 0 12/31/2016, 01/05/2016, Additional history exists COVID-19 Vaccine ( season) 2024 08/06/2022, 02/12/2022, 07/03/2021, Additional history exists Influenza Vaccine (#1) 2024 , 08/03/2021, 06/27/2020 Hemoglobin A1C 09/21/2024 03/22/2024, 0612/2023, 12/05/2023, Additional history exists Alcohol/Substance Use Screening 09/29/2024 Depression Evaluation 09/29/2024 Health Care Proxy Review 09/29/2024 Social Drivers of Health Annual Screening 09/29/2024 Mammogram 01/24/2025 01/24/2023, 10/0 04/2019, 07/01/2018, Additional history exists Basic Metabolic Panel 05/21/2025 05/21/2024 , 04/09/2024, 09/01/2019, Additional history exists Colon Cancer Screening 08/04/2028 Colonoscopy 08/04/2028 08/04/2018 CT Lung Cancer Screening (12 months, previous LungRADS 1 or 2) Discontinued 09/19/2009, 06/27/2009 Hepatitis B Vaccines Aged Out No long er eligible based on patient's age to complete this topic Procedures * Due to [place] [employer] law, this organization might not be sharing [...] to Health Maintenance Results * Due to [place] [employer] law, this organization might not be sharing negative HIV tests. * (ABNORMAL) Comprehensive Metabolic Panel (09/01/2019 10:53 AM EST) Glucose 100 65 - 139 mg/dL 09/01/2019 9:43 PM [employer] Comment: ? Non-fasting reference interval BUN 26(H) 7 - 25 mg/dL 09/01/2019 9:43 PM [employer] Creatinine 1.12(H) 0.50 - 0.99 mg/dL 09/01/2019 9:43 PM [employer] Comment: For patients >49 years of age, the reference limit for Creatinine is approximately 13% higher for people identified as -Gh[place]ian. eGFR Non- 51(L) > OR = 60 mL/min/1. 73m2 09/01/2019 9:43 PM [employer] eGFR 59(L) > OR = 60 mL/min/1. 73m2 09/01/2019 9:43 PM EST [employer] [facility] Bun/Creatinine Ratio 23(H) 6 - 22 (calc) 09/01/2019 9:43 PM [employer] [facility] Sodium 134(L) 135 - 146 mmol/L 09/01/2019 9:43 PM EST [employer] [facility] Potassium 4.1 3.5 - 5.3 mmol/L 09/01/2019 9:43 PM [employer] [facility] Chloride 98 98 - 110 mmol/L 09/01/2019 9:43 PM EST [employer] [facility] Carbon Dioxide 28 20 - 32 mmol/L 09/01/2019 9:43 PM EST [employer] [facility] Calcium 9.2 8.6 - 10.4 mg/dL 09/01/2019 9:43 PM [employer] [facility] Protein, Total 6.5 6.1 - 8.1 g/dL 09/01/2019 9:43 PM [employer] [facility] Albumin 4.2 3.6 - 5.1 g/dL 09/01/2019 9:43 PM [employer] [facility] Globulin 2.3 1.9 - 3.7 g/dL (calc) 09/01/2019 9:43 PM [employer] [facility] Albumin/Globulin Ratio 1.8 1.0 - 2.5 (calc) 09/01/2019 9:43 PM [employer] [facility] Bilirubin, Total 1.2 0.2 - 1.2 mg/dL 09/01/2019 9:43 PM [employer] [facility] Alkaline Phosphatase 48 33 - 130 U/L 09/01/2019 9:43 PM [employer] [facility] AST 18 10 - 35 U/L 09/01/2019 9:43 PM [employer] [facility] ALT 14 6 - 29 U/L 09/01/2019 9:43 PM [employer] [facility] Blood specimen (specimen) Structure of peripheral vein / Unknown 09/01/2019 10:53 AM EST 09/01/2019 5:18 PM EST Narrative [facility] - 09/03/2019 1:57 PM EST FASTING:NO us Mingo Perez MD LAB BLOOD ORDERABLES Final Result [facility] [address] [facility] 3rd Floor, [place] [address], [place] [phone] [employer] [address] [place] [phone] * EVERARDO Bilateral Screening Digital Mammogram (07/06/2019 9:39 AM EDT) Anatomical Region Laterality Modality Breast Bilateral Mammography Narrative 07/06/2019 1:23 PM EDT EXAMINATION EVERARDO Bilateral Screening Digital Mammogram. INDICATION Angella Foy is a 68 y.o. female and is seen for: EVERARDO Bilateral Screening Digital Mammogram. R2 CAD was [...] of total Hgb 05/05/2019 6:21 AM EDT [employer] Comment: For someone without known diabetes, a [...] (MG/DL) 120 (calc) 05/05/2019 6:21 AM EDT [employer] eAG (MMOL/L) 6.6 (calc) 05/05/2019 6:21 AM EDT [employer] Blood specimen (specimen) Structure of peripheral vein / Unknown 05/04/2019 2:21 PM EDT 05/05/2019 1:28 AM EDT Narrative [facility] - 05/05/2019 6:35 AM EDT FASTING:NO Mingo Perez MD LAB BLOOD ORDERABLES Final Result [facility] [address] [facility] [address], [place] [address], [place] [phone] [facility] [address] [place] [address] * COLONOSCOPY (08/04/2018 8:07 AM EST) Narrative [...] specimen wasdone by the physician, nurse and field evidence technician using the patient's name, date and [...] Quiroz MD [employer] PROCEDURES Final Result * HM Eye Exam, Diabetic (12/30/2017) Mingo Perez MD [facility] nal Result * Microalbumin/Creatinine Urine, Random (09/12/2014 2:50 PM EST) Creatinine, Random Urine 187 20 - 320 mg/dL [facility] Microalbumin 0.5 mg/dL [id number] Comment: Reference Range Not established Microalbumin/Crea tinine Ratio, Random Urine 3 <30 mcg/mg creat [employer] Comment: . The ADA defines abnormalities in [...] PM EST 09/12/2014 11:35 PM EST Narrative [employer] - 09/13/2014 7:51 PM EST Report Comments: Received Date: [id number] FASTING:NO us Mingo Perez MD LAB URINE ORDERABLES Final Result [employer] [address] [place] [address],[address] FLOOR,[place] [address] * CT Chest WO Contrast (09/19/2009 4:23 [...] Most Recently Relevant to Health Maintenance Insurance [facility] [place] [address] Advance Directives Documents on File Type Date Recorded Patient Metal Melter Expl anation Advance Directive 10/12/2015 12:00 AM Adva nce Care Directives Health Care Proxy 10/06/2015 12:00 AM Candace Care Proxy Care Teams Arc Welding Machine Operator Relationship Specialty Start Date End Date Cortney Stone NP [address] [place] [address] PCP - General 05/27/24
--- OUTSIDE RECORDS SUMMARY | 2024-10-29 11:50 | XMS_ITS | Encounter Summary ---
Author Organization [facility] Address [address] [place] [address] Care Team Providers Care Glassware Selector Name Role Phone Mirza Almanza PAYROLL PROCESSOR Unavailable [phone] Juanpablo Louis MD Primary Care Provider [phone] Charu Jimenez MD Primary Care Provider Lori Cortney Melgar NP Primary Care Provider + [phone] Unknown Pcp, Non Rmg Unavailable Unavailable Christina Estevez MD Primary Care Provider [phone] Encounter Details Date Type Department Care Team (Late st Contact Info) Description 07/16/2021 Orders Only [facility] [address] [place] [address] Mirza Almanza, JULIETA [facility] [address] [address] Social History Tobacco Use Types Packs/Day Years [...] Miscellaneous Notes * Result Encounter Note - MarquesantonioMirza - 07/16/2021 8:49 AM EDT MyChart information sent documented in this encounter Plan of Treatment Upcoming Encounters Date Type Department Care Team (Latest Contact Info) Description 01/10/2025 8:00 AM EDT Office Visit [address] [address] Christina Estevez MD [address] [place] [address] medication refill follow up 03/18/2025 1:15 PM EDT Office Visit [facility] Cardiology [address] [address] Lolita Barnett MD [address] [place] [address] routine f/u 04/05/2025 9:15 AM EDT Radiology [address] [address] 05/02/2025 1:00 PM EDT Office Visit [facility] Cardiology [address] [address] Lolita Barnett MD [address] [place] [address] 1 year 06/07/2025 9:15 AM EDT CPE - Comprehensive Physical Exam [address] [address] Christina Estevez MD [address] [place] [address] NPP documented as of this encounter Goals [...] at . Any insurance accepted. Quit smoking resources-http://makesmoGI Dynamicstory.org HEMOGLOBIN A1C % < 7 Result Component [...] this encounter Procedures * Due to [place] [employer] law, this organization might not be sharing negative HIV tests. Procedure Name Priority Date/Time Associated Diagnosis Comments VENIPUNCTURE Routine 07/16/2021 8:49 AM EDT Hyponatremia documented in this encounter Results * Due to [place] [employer] law, this organization might not be sharing negative HIV tests. * (ABNORMAL) BASIC METABOLIC PANEL WITH (GFR) (07/16/2021 8:49 AM EDT) Glucose 125(H) 65 - 99 mg/dL [facility] Comment: [...] approximately 13% higher for people identified as -Latvian. EGFR 49(L) > OR = 60 mL/min/1. 73m2 [facility] GFR () 57(L) > OR = 60 mL/min/1. 73m2 [facility] BUN/Creatinine Ratio 16 6 - 22 (calc) [facility] Sodium 135 135 - 146 mmol/L [facility] Potassium 3.7 3.5 - 5.3 mmol/L [facility] Chloride 99 98 - 110 mmol/L [facility] Carbon dioxide 29 20 - 32 mmol/L [facility] Calcium 9.5 8.6 - 10.4 mg/dL [facility] 07/16/2021 8:49 AM EDT 07/16/2021 9:17 PM EDT Narrative [facility] - 07/17/2021 1:36 AM EDT Please note that this estimated [...] needs for GFR calculation. Resulting Agency Comment [id number] Mirza Almanza NP LABORATORY Final Resul t [facility] [address] [place] [address] documented in this encounter Visit Diagnoses Diagnosis Hyponatremia Hyposmolality and/or hyponatremia documented in this encounter Care Teams Glassware Selector Relationship Specialty Start Date End Date Mirza Almanza NP PCP - Backup PCP Internal Medicine 07/28/20 05/29/22 Juanpablo Louis MD [address] [place] [address] PCP - General Internal Medicine 07/28/20 11/11/21 Charu Jimenez MD [address] [place] [address] PCP - General Family Medicine 11/12/21 03/28/22 Cortney Stone NP [address] [place] [address] PCP - General Internal Medicine 03/29/22 09/15/24 Unknown Pcp, Non Rmg PCP - Backup PCP 05/30/22 07/07/22 Christina Estevez MD [address] [place] [address] PCP - General Family Medicine 09/16/24 documented as of this encounter
--- OUTSIDE RECORDS SUMMARY | 2024-10-29 11:51 | XMS_ITS | Encounter Summary ---
Author Organization [facility] Address [address] [place] [address] Care Team Providers Care Academic Affairs Coordinator Name Role Phone Mirza Almanza DUMPSTER OPERATOR Unavailable [phone] Juanpablo Louis MD Primary Care Provider [phone] Charu Jimenez MD Primary Care Provider Lori Cortney Melgar NP Primary Care Provider [phone] Unknown Pcp, Non Rmg Unavailable Unavailable Christina Estevez MD Primary Care Provider [phone] Encounter Details Date Type Department Care Team (Late st Contact Info) Description 11/10/2020 Orders Only [facility] [address] [place] [phone] Alondra Garcia MD [address] [place] [address] Social History Tobacco Use Types Packs/Day Years [...] have Coronavirus / COVID-19? No / Unsure 11/07/2020 7:57 AM EST documented as of this encounter Plan of Treatment Upcoming Encounters Date Type Department Care Team (Latest Contact Info) Description 01/10/2025 8:00 AM EDT Office Visit [address] [address] Christina Estevez MD [address] [place] [address] medication refill follow up 03/18/2025 1:15 PM EDT Office Visit [facility] Cardiology [address] [address] Lolita Barnett MD [address] [place] [address] routine f/u 04/05/2025 9:15 AM EDT Radiology [facility]. [address] [address] 05/02/2025 1:00 PM EDT Office Visit [facility] Cardiology [address] [address] oLlita Barnett MD [address] [place] [address] 1 year 06/07/2025 9:15 AM EDT CPE - Comprehensive Physical Exam [address] [address] Christina Estevez MD [address] [place] [address] NPP documented as of this encounter Goals Goal Patient Goal Type Associated Problems Recent Progress Patient-Stated? Author Blood Pressure < 140/90 Blood Pressure 134/79(11/08 /2024 2:38 PM EST) Lashonda Alex CMA Note: [...] of this encounter Procedures * Due to [place] state law, this organization might not be sharing negative HIV tests. Procedure Name Priority Date/Time Associated Diagnosis Comments CULTURE, BLOOD X 2 SETS/4 BOTTLES Routine 11/10/2020 7:57 AM EST Arthralgia, unspecified joint HLA-B27 ANITGEN Routine 11/10/2020 7:57 AM EST Arthralgia, unspecified joint RHEUMATOID ARTHRITIS DIAGNOSTIC PANEL Routine 11/10/2020 7:57 AM EST Arthralgia, unspecified joint C-REACTIVE PROTEIN (CRP) - INFLAMMATION Routine 11/10/2020 7:57 AM EST Arthralgia, unspecified joint ERYTHROCYTE SEDIMENTATION RATE (ESR) Routine 11/10/2020 7:57 AM EST Arthralgia, unspecified joint documented in this encounter Results * Due to [place] state law, this organization might not be sharing negative HIV tests. * CULTURE, BLOOD X 2 SPECIMENS (11/10/2020 7:57 AM EST) Bacteria culture SEE NOTE [facility] Comment: ??CULTURE, BLOOD ??Micro Number: ?[id number] ??Test Status: ? Final ??Specimen Source: ?? BLOOD ??Specimen Quality: ??Adequate ??Result: ?No growth after 5 days ??TRANSPORT MEDIA: ?? Aerobic and anaerobic bottle received. Bacteria culture SEE NOTE [facility] Comment: ??CULTURE, BLOOD NO.2 ??Micro Number: ?[id number] ??Test Status: ? Final ??Specimen Source: ?? BLOOD ??Specimen Quality: ??Adequate ??Result: ?No growth after 5 days ??TRANSPORT MEDIA: ?? Aerobic and anaerobic bottle received. 11/10/2020 7:57 AM EST 11/10/2020 2:52 PM EST Narrative Resulting Agency Comment [id number] Alondra Garcia MD LABORATORY Final Result Performing Organization Address [facility] Phone Number [facility] [address] [place] [address] * HLA-B27 ANITGEN (11/10/2020 7:57 AM EST) HLA-B27 Negative Negative [facility] 11/10/2020 7:57 AM EST 11/10/2020 2:52 PM EST Narrative Resulting Agency Comment [id number] Alondra Garcia MD LABORATORY Final Result [facility] [address] [place] [address] * (ABNORMAL) RHEUMATOID ARTHRITIS DIAGNOSTIC PANEL (11/10/2020 [...] 2:52 PM EST Narrative Resulting Agency Comment [id number] Alondra Garcia MD LABORATORY Final Result Performing Organization Address [facility] de Phone Number [facility] [address] [place] [address] * ERYTHROCYTE SEDIMENTATION RATE (ESR), [place] (11/10/2020 7:57 AM EST) Pathologist [facility] Sedimentation Rate [place] (ESR) 9 < OR = 30 mm/h [facility] 11/10/2020 7:57 AM EST 11/10/2020 2:52 PM EST Narrative Resulting Agency Comment [id number] Alondra Garcia MD LAB SAME DAY RESULT Final Result Performing Organization Address [facility] de Phone Number [facility] [address] [place] [address] * C-REACTIVE PROTEIN (CRP) - INFLAMMATION (11/10/2020 7:57 AM EST) C reactive protein 0.8 <8.0 mg/L [facility] 11/10/2020 7:57 AM EST 11/10/2020 2:52 PM EST Narrative Resulting Agency Comment [id number] Alondra Garcia MD LABORATORY Final Result [facility] [address] [place] [address] documented in this encounter Visit Diagnoses Diagnosis Arthralgia, unspecified joint documented in this encounter Care Teams Academic Affairs Coordinator Relationship Specialty Start Date End Date Mirza Almanza NP PCP - Backup PCP Internal Medicine 07/28/20 05/29/22 Juanpablo Louis MD [address] [place] [address] PCP - General Internal Medicine 07/28/20 11/11/21 Charu Jimenez MD [address] [place] [address] PCP - General Family Medicine 11/12/21 03/28/22 Cortney Sotne DUMPSTER OPERATOR [address] [place] [address] PCP - General Internal Medicine 03/29/22 09/15/24 Unknown Pcp, Non Rmg PCP - Backup PCP 05/30/22 07/07/22 Christina Estevez MD [address] [place] [address] PCP - General Family Medicine 09/16/24 documented as of this encounter
--- OUTSIDE RECORDS SUMMARY | 2024-10-29 11:51 | XMS_ITS | Encounter Summary ---
Author Organization [facility] Address [address] [place] [address] Care Team Providers Care Power Chisel Operator Name Role Phone Mirza Almanza TRACE CLERK Unavailable [phone] Juanpablo Louis MD Primary Care Provider [phone] Charu Jimenez MD Primary Care Provider Lori noahilaCortney Garcia NP Primary Care Provider [phone] Unknown Pcp, Non Rmg Unavailable Unavailable Christina Estevez MD Primary Care Provider [phone] Encounter Details Date Type Department Care Team ([facility] st Contact Info) Description 12/18/2020 Orders Only [facility] [address] [address] Lolita Barnett MD [address] [place] [address] Social History Tobacco Use Types Packs/Day Years [...] have Coronavirus / COVID-19? Unable to assess 12/08/2020 1:43 PM EST documented as of this encounter Miscellaneous Notes * Result Encounter Note - Lolita Barnett MD - 12/18/2020 8:05 AM EDT The results of Your test are Stable and acceptable -- as always if you have any questions/problems please let me know - documented in this encounter Plan of Treatment Upcoming Encounters Date Type Department Care Team (Latest Contact Info) Description 01/10/2025 8:00 AM EDT Office Visit [address] [address] Christina Estevez MD [address] [place] [address] medication refill follow up 03/18/2025 1:15 PM EDT Office Visit [facility] [address] [address] Lolita Barnett MD [address] [place] [address] routine f/u 04/05/2025 9:15 AM EDT Radiology [facility]. [address] [address] 05/02/2025 1:00 PM EDT Office Visit [facility] [address] [address] Lolita Barnett MD [address] [place] [address] 1 year 06/07/2025 9:15 AM EDT CPE - Comprehensive Physical Exam [address] [address] Christina Estevez MD [address] [place] [address] NPP documented as of this encounter Goals [...] of this encounter Procedures * Due to [place] state law, this organization might not be sharing negative HIV tests. Procedure Name Priority Date/Time Associated Diagnosis Comments VENIPUNCTURE Routine 12/18/2020 8:05 AM EDT Mixed hyperlipidemia due to type 2 diabetes mellitus (HCC) LIPID PANEL WITH REFLEX TO DIRECT LDL Routine 12/18/2020 8:05 AM EDT Mixed hyperlipidemia due to type 2 diabetes mellitus (HCC) documented in this encounter Results * Due to [place] state law, this organization might not be sharing negative HIV tests. * LIPID PANEL WITH REFLEX TO DIRECT LDL (12/18/2020 8:05 AM EDT) Cholesterol 151 <200 mg/dL [facility] HDL Cholesterol 51 > OR = 50 mg/dL [facility] Triglyceride 103 <150 mg/dL [facility] LDL Cholesterol 80 mg/dL (calc) [facility] Comment: Reference range: [...] LDL-C. Gurdeep SS et al. NANDO. 2013;310(19): 2361-1346 (http://education.Dynadec/faq/IOU508) CHOL/HDL Ratio 3.0 <5.0 (calc) [facility] Cholesterol Non-HDL 100 <130 mg/dL (calc) [facility] Comment: For patients with diabetes plus 1 major ASCVD risk factor, treating to a non-HDL-C goal of <100 mg/dL (LDL-C of <70 mg/dL) is considered a therapeutic option. 12/18/2020 8:05 AM EDT 12/18/2020 10:01 AM EDT Narrative Resulting Agency Comment [id number] Lolita Barnett MD LABORATORY Final Result [facility] [address] [place] [address] * ALANINE AMINOTRANSFERASE (ALT), SERUM (12/18/2020 8:05 AM EDT) ALT (SGPT) 11 6 - 29 U/L [facility] 12/18/2020 8:05 AM EDT 12/18/2020 10:01 AM EDT Narrative Resulting Agency Comment [id number] Lolita Barnett MD LAB SAME DAY RESULT Final Result [facility] [address] [place] [address] documented in this encounter Visit Diagnoses Diagnosis Mixed hyperlipidemia due to type 2 diabetes mellitus (HCC) documented in this encounter Care Teams Power Chisel Operator Relationship Specialty Start Date End Date Mirza Almanza, JULIETA PCP - Backup PCP Internal Medicine 07/28/20 05/29/22 Juanpablo Louis MD [address] [place] [address] PCP - General Internal Medicine 07/28/20 11/11/21 Charu Jimenez MD [address] [place] [address] PCP - General Family Medicine 11/12/21 03/28/22 Cortney Stone TRACE CLERK [address] [place] [address] PCP - General Internal Medicine 03/29/22 09/15/24 Unknown Pcp, Non Rmg PCP - Backup PCP 05/30/22 07/07/22 Christina Estevez MD [address] [place] [address] PCP - General Family Medicine 09/16/24 documented as of this encounter
--- OUTSIDE RECORDS SUMMARY | 2024-10-29 11:51 | XMS_ITS | Encounter Summary ---
Author Organization [facility] Address [address] [place] [address] Care Team Providers Care Machine Bander And Cellophaner Name Role Phone Mirza Almanza REPAIRER CYLINDER HEADS Unavailable [phone] Juanpablo Louis MD Primary Care Provider [phone] Charu Jimenez MD Primary Care Provider Lori Cortney Melgar NP Primary Care Provider + [phone] Unknown Pcp, Non Rmg Unavailable Unavailable Christina Estevez MD Primary Care Provider [phone] Encounter Details Date Type Department Care Team (Late st Contact Info) Description 01/05/2021 Orders Only [facility] [address] [place] [address] Mirza Almanza, JULIETA [facility] [address] [address] Social History Tobacco Use Types Packs/Day Years Used Date Smoking Tobacco: Former Cigarettes 2 17 Smokeless Tobacco: Never Alcohol Use Standard Drinks/Week [...] have Coronavirus / COVID-19? No / Unsure 01/05/2021 9:04 AM EDT documented as of this encounter Miscellaneous Notes * Result Encounter Note - Poly Ordoñez LPN - 01/05/2021 11:50 AM EDT Pt was seen by you for medication management. HYDROcodone-Acetaminophen (NORCO) 5-325 MG per tablet Route: Take one tablet by mouth every 6 (six)hours if needed for moderate pain - Oral Last narcotic fill date found on director of science prior to her ov with you was09/06/2020 and then in September velma received a qty of 5 from oral surgeon. Not sure when she last used the medication. But had not been filled for several months. This was done as she has not had a Urine Drug Screen in the last year. * Result Encounter Note - Mirza Almanza - 01/05/2021 11:50 AM EDT . documented in this encounter Plan of Treatment Upcoming Encounters Date Type Department Care Team (Latest Contact Info) Description 01/10/2025 8:00 AM EDT Office Visit [facility] [address] [place] [address] Christina Estevez MD [address] [place] [address] medication refill follow up 03/18/2025 1:15 PM EDT Office Visit [facility] [address] [facility] [address] [place] [address] Lolita Banrett MD [address] [place] [address] routine f/u 04/05/2025 9:15 AM EDT Radiology [facility]. Mammography [address] [place] [address] 05/02/2025 1:00 PM EDT Office Visit [facility] [address] [facility] [address] [place] [address] Lolita Barnett MD [address] [place] [address] 1 year 06/07/2025 9:15 AM EDT CPE - Comprehensive Physical Exam [facility] [address] [place] [address] Christina Estevez MD [address] [place] [address] NPP documented as of this encounter Goals [...] this encounter Procedures * Due to [place] [employer] law, this organization might not be sharing negative HIV tests. Procedure Name Priority Date/Time Associated Diagnosis Comments PAIN MANAGEMENT PROFILE WITH FENTANYL, URINE (PAINM2+) Routine 01/05/2021 11:50 AM EDT Spinal stenosis of lumbar region without neurogenic claudication Spondylolisthesis of cervical region Protrusion of cervical intervertebral disc Neural foraminal stenosis of cervical spine Primary osteoarthritis involving multiple joints documented in this encounter Results * Due to [place] [employer] law, this organization might not be sharing negative HIV tests. * PAIN MANAGEMENT PROFILE WITH FENTANYL, URINE (PAINM2+) (01/05/2021 11:50 AM EDT) Fentanyl Screen (Urine) NEGATIVE <0.5 ng/mL [facility] Comment:See Note 1 COMMENT SEE NOTE [facility] Comment:See Note 2 Creatinine (Urine) 220.3 > or = 20.0 mg/dL [facility] pH (Urine) 5.7 4.5 - 9.0 [facility] OXIDANT NEGATIVE [...] analytical performance characteristics have been determined by [employer]. It has not been cleared or approved [...] interpreting these drug results, please contact a [employer] Toxicology Specialist: [phone] ( ), M-F, 8am-6pm EST. 01/05/2021 11:5 0 AM EDT 01/05/2021 3:40 PM EDT Narrative Resulting Agency Comment [id number] Mirza Almanza NP LABORATORY Final Resul t Performing Organization Address City/State[facility] Co [facility] Phone Number [facility] [address] [place] [address] documented in this encounter Visit Diagnoses Diagnosis Spinal stenosis of lumbar region without neurogenic claudication Spinal stenosis, lumbar region, without neurogenic claudication Spondylolisthesis of cervical region Acquired spondylolisthesis Protrusion of cervical intervertebral disc Neural foraminal stenosis of cervical spine Spinal stenosis in cervical region Primary osteoarthritis involving multiple joints documented in this encounter Care Teams Machine Bander And Cellophaner Relationship Specialty Start Date End Date Mirza Almanza NP PCP - Backup PCP Internal Medicine 07/28/20 05/29/22 Juanpablo Louis MD [address] [place] [address] PCP - General Internal Medicine 07/28/20 11/11/21 Charu Jimenez MD [address] [place] [address] PCP - General Family Medicine 11/12/21 03/28/22 Cortney Stone NP [address] [place] [address] PCP - General Internal Medicine 03/29/22 09/15/24 Unknown Pcp, Non Rmg PCP - Backup PCP 05/30/22 07/07/22 Christina Estevez MD [address] [place] [address] PCP - General Family Medicine 09/16/24 documented as of this encounter
--- OUTSIDE RECORDS SUMMARY | 2024-10-29 11:51 | XMS_ITS | Encounter Summary ---
Author Organization [facility] Address [address] [place] [address] Care Team Providers Care Sketcher Name Role Phone Ulisses Newman DO Primary Care Provider [phone] Mirza Almanza LIFE INSURANCE AGENT Unavailable [phone] Juanpablo Louis MD Primary Care Provider [phone] Charu Jimenez MD Primary Care Provider Lori noahilaCortney Garica NP Primary Care Provider + [phone] Unknown Pcp, Non Rmg Unavailable Unavailable Christina Estevez MD Primary Care Provider [phone] Encounter Details Date Type Department Care Team (Late st Contact Info) Description 05/16/2020 Orders Only [facility] [address] [address] Lolita Barnett MD [address] [place] [address] Social History Tobacco Use Types Packs/Day Years [...] have Coronavirus / COVID-19? No / Unsure 04/25/2020 3:48 PM EDT documented as of this encounter Progress Notes * Lolita Barnett MD - 05/16/2020 12:42 PM EDT Your cholesterol is stable. But your triglycerides and your LDL cholesterol is borderline elevated.So would recommend diet and exercise and following up with your primary care physician Message sent via my chart documented in this encounter Plan of Treatment Upcoming Encounters Date Type Department Care Team (Latest Contact Info) Description 01/10/2025 8:00 AM EDT Office Visit [facility] [address] [place] [address] Christina Estevez MD [address] [place] [address] medication refill follow up 03/18/2025 1:15 PM EDT Office Visit [facility] [address] [place] [address] Lolita Barnett MD [address] [place] [address] routine f/u 04/05/2025 9:15 AM EDT Radiology [facility] [address] [place] [address] 05/02/2025 1:00 PM EDT Office Visit [facility] [address] [address] Lolita Barnett MD [address] [place] [address] 1 year 06/07/2025 9:15 AM EDT CPE - Comprehensive Physical Exam [facility] [address] [place] [address] Christina Estevez MD [address] [place] [address] NPP documented as of this encounter Goals [...] Priority Date/Time Associated Diagnosis Comments VENIPUNCTURE Routine 05/16/2020 12:42 PM EDT Hyperlipidemia, unspecified hyperlipidemia type LIPID PANEL WITH REFLEX TO DIRECT LDL Routine 05/16/2020 12:42 PM EDT Hyperlipidemia, unspecified hyperlipidemia type documented in this encounter Results * Due to [place] state law, this organization might not be sharing negative HIV tests. * (ABNORMAL) LIPID PANEL WITH REFLEX TO DIRECT LDL (05/16/2020 12:42 PM EDT) Cholesterol 176 <200 mg/dL [facility] HDL Cholesterol 40(L) > OR = 50 mg/dL [facility] Triglyceride 215(H) <150 mg/dL [facility] Comment: If a non-fasting specimen was collected, consider repeat triglyceride testing on a fasting specimen if clinically indicated. Teresa et al. J. of Clin. Lipidol. 2015;9:129-169. LDL Cholesterol 102(H) mg/dL (calc) [facility] Comment: Reference range: [...] LDL-C. Gurdeep SS et al. NANDO. 2013;310(19): 4968-7529 (http://education.IsoPlexis/faq/ILG548) CHOL/HDL Ratio 4.4 <5.0 (calc) [facility] Cholesterol Non-HDL 136(H) <130 mg/dL (calc) [facility] Comment: For patients with diabetes plus 1 major ASCVD risk factor, treating to a non-HDL-C goal of <100 mg/dL (LDL-C of <70 mg/dL) is considered a therapeutic option. 05/16/2020 12:4 2 PM EDT 05/16/2020 2:30 PM EDT Narrative Resulting Agency Comment [id number] Lolita Barnett MD LABORATORY Final Result [facility] [address] [place] [address] * ALANINE AMINOTRANSFERASE (ALT), SERUM (05/16/2020 12:42 PM EDT) ALT (SGPT) 13 6 - 29 U/L [facility] 05/16/2020 12:4 2 PM EDT 05/16/2020 2:30 PM EDT Narrative Resulting Agency Comment [id number] Lolita Barnett MD LAB SAME DAY RESULT Final Result [facility] [address] [place] [address] documented in this encounter Visit Diagnoses Diagnosis Hyperlipidemia, unspecified hyperlipidemia type documented in this encounter Care Teams Sketcher Relationship Specialty Start Date End Date Ulisses Newman DO PCP - General Internal Medicine 01/18/20 07/27/20 Mirza Almanza NP PCP - Backup PCP Internal Medicine 07/28/20 05/29/22 Juanpablo Louis MD [address] [place] [address] PCP - General Internal Medicine 07/28/20 11/11/21 Charu Jimenez MD [address] [place] [address] PCP - General Family Medicine 11/12/21 03/28/22 Cortney Stone NP [address] [place] [address] PCP - General Internal Medicine 03/29/22 09/15/24 Unknown Pcp, Non Rmg PCP - Backup PCP 05/30/22 07/07/22 Christina Estevez MD [address] [place] [address] PCP - General Family Medicine 09/16/24 documented as of this encounter
--- OUTSIDE RECORDS SUMMARY | 2024-10-29 11:51 | XMS_ITS | Encounter Summary ---
Author Organization [facility] Address [address] [place] [address] Care Team Providers Care Senior Technical Trainer Name Role Phone Cortney Stone NP Primary Care Provider [phone] Christina Estevez MD Primary Care Provider [phone] Encounter Details Date Type Department Care Team (Late st Contact Info) Description 02/12/2023 Orders Only [facility] [address] [place] [address] Cortney Stone NP [address] [place] [address] Social History Tobacco Use Types Packs/Day Years [...] Description 01/10/2025 8:00 AM EDT Office Visit [address] [place] [address] Christina Estevez MD [address] [place] [address] medication refill follow up 03/18/2025 1:15 PM EDT Office Visit [facility] [address] [address] Lolita Barnett MD [address] [place] [address] routine f/u 04/05/2025 9:15 AM EDT Radiology [facility]. [address] [address] 05/02/2025 1:00 PM EDT Office Visit [facility] [address] [address] Lolita Barnett MD [address] [place] [address] 1 year 06/07/2025 9:15 AM EDT CPE - Comprehensive Physical Exam [address] [address] Christina Estevez MD [address] [place] [address] NPP documented as of this encounter Goals [...] at . Any insurance accepted. Quit smoking resources-http://Accellion.org HEMOGLOBIN A1C % < 7 Result Component [...] of this encounter Results * Due to [place] state law, this organization might not be sharing negative HIV tests. * (ABNORMAL) PAIN MANAGEMENT PROFILE WITH FENTANYL, URINE (PAINM2+) (02/13/2023 11:51 AM EDT) Fentanyl Screen (Urine) NEGATIVE <0.5 ng/mL [facility] Comment:See Note 1 COMMENT SEE NOTE [facility] Comment:See Note 2 Creatinine (Urine) 39.3 > or = 20.0 mg/dL [facility] [...] [facility] Comment:See Note 1 Hydrocodone (Urine) 316(H) <50 ng/mL [facility] Comment:See Note 1 Hydromorphone (Urine) NEGATIVE <50 ng/mL [facility] Comment:See Note 1 Morphine (Urine) NEGATIVE <50 ng/mL [facility] Comment:See Note 1 Norhydrocodone (Urine) 420(H) <50 ng/mL [facility] Comment:See Note 1 Oxycodone (Urine) NEGATIVE <100 ng/mL [facility] Phencyclidine (Urine) NEGATIVE <25 ng/mL [facility] COMMENT SEE NOTE [facility] Comment: See Note 2 Note 1 This test was developed and its analytical performance characteristics have been determined by [employer]. It has not been cleared or approved [...] interpreting these drug results, please contact a [employer] Toxicology Specialist: [phone] ( ), M-F, 8am-6pm EST. 02/13/2023 11:5 1 AM EDT 02/14/2023 12:52 AM EDT Narrative Resulting Agency Comment [id number] Cortney Stone NP LABORATORY Final Resu lt [facility] [address] [place] [address] documented in this encounter Visit Diagnoses Diagnosis Spondylolisthesis of cervical region Acquired spondylolisthesis documented in this encounter Care Teams Senior Technical Trainer Relationship Specialty Start Date End Date Cortney Stone NP [address] [place] [address] PCP - General Internal Medicine 03/29/22 09/15/24 Christina Estevez MD [address] [place] [address] PCP - General Family Medicine 09/16/24 documented as of this encounter
--- OUTSIDE RECORDS SUMMARY | 2024-10-29 11:51 | XMS_ITS | Encounter Summary ---
Author Organization [facility] Address [address] [place] [address] Care Team Providers Care Outreach Assistant Name Role Phone Cortney Stone NP Primary Care Provider [phone] Christina Estevez MD Primary Care Provider [phone] Encounter Details Date Type Department Care Team (Late st Contact Info) Description 02/13/2023 Orders Only [facility] [address] [place], [place] [id number] Cortney Stone NP [address] [place] [address] Social History Tobacco Use Types Packs/Day Years [...] Encounter Note - Cortney Stone NP - 02/13/2023 11:51 AM EDT As expected. documented in this encounter Plan of Treatment Upcoming Encounters Date Type Department Care Team (Latest Contact Info) Description 01/10/2025 8:00 AM EDT Office Visit [address] [address] Christina Estevez MD [address] [place] [address] medication refill follow up 03/18/2025 1:15 PM EDT Office Visit [facility] [address] [facility] [address] [place] [address] Lolita Barnett MD [address] [place] [address] routine f/u 04/05/2025 9:15 AM EDT Radiology [facility]. [address] [address] 05/02/2025 1:00 PM EDT Office Visit [facility] [address] [address] Lolita Barnett MD [address] [place] [address] 1 year 06/07/2025 9:15 AM EDT CPE - Comprehensive Physical Exam [address] [address] Christina Estevez MD [address] [place] [address] NPP documented as of this encounter Goals [...] at . Any insurance accepted. Quit smoking resources-http://[email or web address].org HEMOGLOBIN A1C % < 7 Result Component [...] of this encounter Procedures * Due to [place] [employer] law, this organization might not be sharing negative HIV tests. Procedure Name Priority Date/Time Associated Diagnosis Comments PAIN MANAGEMENT PROFILE WITH FENTANYL, URINE (PAINM2+) Routine 02/13/2023 11:51 AM EDT Spondylolisthesis of cervical region documented in this encounter Results * Due to [place] [employer] law, this organization might not be sharing [...] analytical performance characteristics have been determined by [email or web address]. It has not been cleared or approved [...] interpreting these drug results, please contact a [email or web address] Toxicology Specialist: [phone] ( ), M-F, 8am-6pm EST. 02/13/2023 11:5 1 AM EDT 02/14/2023 12:52 AM EDT Narrative Resulting Agency Comment [id number] Cortney Stone NP LABORATORY Final Resu lt [facility] [address] [place] [address] documented in this encounter Visit Diagnoses Diagnosis Spondylolisthesis of cervical region Acquired spondylolisthesis documented in this encounter Care Teams Outreach Assistant Relationship Specialty Start Date End Date Cortney Stone NP [address] [place] [address] PCP - General Internal Medicine 03/29/22 09/15/24 Christina Estevez MD [address] [place] [address] PCP - General Family Medicine 09/16/24 documented as of this encounter
--- OUTSIDE RECORDS SUMMARY | 2024-10-29 11:51 | XMS_ITS | Encounter Summary ---
Author Organization [facility] Address [address] [place] [address] Care Team Providers Care Youth Court Judge Name Role Phone Cortney Stone NP Primary Care Provider [phone] Christina Estevez MD Primary Care Provider [phone] Encounter Details Date Type Department Care Team ([facility] st Contact Info) Description 08/08/2022 Orders Only [facility] Cardiology [address] [address] Lolita Barnett MD [address] [place] [address] Social History Tobacco Use Types Packs/Day Years [...] Encounter Note - Lolita Barnett MD - 08/08/2022 8:41 AM EST The results of Your test are Stable and acceptable -- as always if you have any questions/problems please let me know - documented in this encounter Plan of Treatment Upcoming Encounters Date Type Department Care Team (Latest Contact Info) Description 01/10/2025 8:00 AM EDT Office Visit [address] [address] Christina Estevez MD [address] [place] [address] medication refill follow up 03/18/2025 1:15 PM EDT Office Visit [facility] Cardiology [address] [address] Lolita Barnett MD [address] [place] [address] routine f/u 04/05/2025 9:15 AM EDT Radiology [address] [address] 05/02/2025 1:00 PM EDT Office Visit [facility] Cardiology [address] [address] Lolita Barnett MD [address] [place] [address] 1 year 06/07/2025 9:15 AM EDT CPE - Comprehensive Physical Exam [address] [address] Christina Estevez MD [address] [place] [address] NPP documented as of this encounter Goals Goal Patient Goal Type Associated Problems Recent Progress Patient-Stated? Author Blood Pressure < 140/90 Blood Pressure 134/79(08/06 2:38 PM EST) Lashonda Alex, GEORGE Note: Above is your goal for blood [...] at . Any insurance accepted. Quit smoking resources-http://makesZyantetory.org HEMOGLOBIN A1C % < 7 Result Component [...] this encounter Procedures * Due to [place] [employer] law, this organization might not be sharing negative HIV tests. Procedure Name Priority Date/Time Associated Diagnosis Comments CBC INCLUDES DIFFERENTIAL AND PLATELET COUNT Routine 08/08/2022 8:41 AM EST Shortness of breath ALANINE AMINOTRANSFERASE (ALT), SERUM Routine 08/08/2022 8:41 AM EST Hyperlipidemia, unspecified hyperlipidemia type THYROID STIMULATING HORMONE (TSH) WITH FREE T4 REFLEX, SERUM Routine 08/08/2022 8:41 AM EST Hyperlipidemia, unspecified hyperlipidemia type LIPID PANEL WITH REFLEX TO DIRECT LDL Routine 08/08/2022 8:41 AM EST Hyperlipidemia, unspecified hyperlipidemia type BASIC METABOLIC PANEL WITH (GFR) Routine 08/08/2022 8:41 AM EST Hyperlipidemia, unspecified hyperlipidemia type documented in this encounter Results * Due to [place] [employer] law, this organization might not be sharing negative HIV tests. * THYROID STIMULATING HORMONE (TSH) WITH FREE T4 REFLEX, SERUM (08/08/2022 8:41 AM EST) TSH 1.14 0.40 - 4.50 mIU/L [facility] 08/08/2022 8:41 AM EST 08/09/2022 12:56 AM EST Narrative Resulting Agency Comment [id number] Loliat Barnett MD LABORATORY Final Result [facility] [address] [place] [address] * (ABNORMAL) BASIC METABOLIC PANEL WITH (GFR) (08/08/2022 8:41 AM EST) Glucose 117(H) 65 - 99 mg/dL [facility] Comment: ? Fasting reference interval For someone without known diabetes, a glucose value between 100 and 125 mg/dL is consistent with prediabetes and should be confirmed with a follow-up test. Urea Nitrogen Blood (BUN) 17 7 - 25 mg/dL [facility] Creatinine 0.92 0.50 - 1.05 mg/dL [facility] EGFR 67 > OR = 60 mL/min/1. 73m2 [facility] Comment: The eGFR is based on the CKD-EPI 2020 equation. To calculate the new eGFR from a previous Creatinine or Cystatin C result, go to https://www.kidney.org/professionals/ kdoqi/gfr%5Fcalculator BUN/Creatinine Ratio NOT APPLICABLE 6 (calc) [facility] Sodium 138 135 - 146 mmol/L [facility] Potassium 4.1 3.5 - 5.3 mmol/L [facility] Chloride 102 98 - 110 mmol/L [facility] Carbon dioxide 29 20 - 32 mmol/L [facility] Calcium 9.1 8.6 - 10.4 mg/dL [facility] 08/08/2022 8:41 AM EST 08/09/2022 12:56 AM EST Narrative [facility] - 08/09/2022 6:16 AM EST Please note that this estimated [...] needs for GFR calculation. Resulting Agency Comment [id number] us Lolita Barnett MD LABORATORY Final Result [facility] [address] [place] [address] * ALANINE AMINOTRANSFERASE (ALT), SERUM (08/08/2022 8:41 AM EST) ALT (SGPT) 9 6 - 29 U/L [facility] 08/08/2022 8:41 AM EST 08/09/2022 12:56 AM EST Narrative Resulting Agency Comment [id number] us Lolita Barnett MD LAB SAME DAY RESULT Final Result [facility] [address] [place] [address] * CBC INCLUDES DIFFERENTIAL AND PLATELET COUNT (08/08/2022 8:41 AM EST) WBC 4.3 3.8 - 10.8 Thousand/u L [facility] RBC 3.90 3.80 - 5.10 Million/uL [facility] Hemoglobin 12.2 11.7 - 15.5 g/dL [facility] Hematocrit 36.3 35.0 - 45.0 % [facility] MCV 93.1 80.0 - 100.0 fL [facility] MCH 31.3 27.0 - 33.0 pg [facility] MCHC 33.6 32.0 - 36.0 g/dL [facility] RDW 12.1 11.0 - 15.0 % [facility] PLT 164 140 - 400 Thousand/u L [facility] MPV 9.6 7.5 - 12.5 fL [facility] Neutrophils # 3036 1500 - 7800 cells/uL [facility] Lymphocytes # 856 850 - 3900 cells/uL [facility] Monocytes # 280 200 - 950 cells/uL [facility] Eosinophils # 99 15 - 500 cells/uL [facility] Basophils # 30 0 - 200 cells/uL [facility] Neutrophils % 70.6 % [facility] Lymphocytes % 19.9 % [facility] Monocytes % 6.5 % [facility] Eosinophils % 2.3 % [facility] Basophils % 0.7 % [facility] 08/08/2022 8:41 AM EST 08/09/2022 12:56 AM EST Narrative Resulting Agency Comment [id number] Lolita Barnett MD LAB SAME DAY RESULT Final Result Performing Organization Address City/State/[facility] Co de Phone Number [facility] [address] [place] [address] * LIPID PANEL WITH REFLEX TO DIRECT LDL (08/08/2022 8:41 AM EST) Cholesterol 131 <200 mg/dL [facility] HDL Cholesterol 50 > OR = 50 mg/dL [facility] Triglyceride 98 <150 mg/dL [facility] LDL Cholesterol 63 mg/dL (calc) [facility] Comment: Reference range: [...] LDL-C. Gurdeep SS et al. NANDO. 2013;310(19): 7000-4126 (http://education.[employer]link (air taxi)/faq/ISF652) CHOL/HDL Ratio 2.6 <5.0 (calc) [facility] Cholesterol Non-HDL 81 <130 mg/dL (calc) [facility] Comment: For patients with diabetes plus 1 major ASCVD risk factor, treating to a non-HDL-C goal of <100 mg/dL (LDL-C of <70 mg/dL) is considered a therapeutic option. 08/08/2022 8:41 AM EST 08/09/2022 12:56 AM EST Narrative Resulting Agency Comment [id number] us Lolita Barnett MD LABORATORY Final Result Performing Organization Address City/State/[facility] Co de Phone Number [facility] [address] [place] [address] documented in this encounter Visit Diagnoses Diagnosis Hyperlipidemia, unspecified hyperlipidemia type Shortness of breath documented in this encounter Care Teams Youth Court Judge Relationship Specialty Start Date End Date Cortney Stone NP [address] [place] [address] PCP - General Internal Medicine 03/29/22 09/15/24 Christina Estevez MD [address] [place] [address] PCP - General Family Medicine 09/16/24 documented as of this encounter
--- OUTSIDE RECORDS SUMMARY | 2024-10-29 11:51 | XMS_ITS | Encounter Summary ---
Author Organization [facility] Address [address] [place] [address] Care Team Providers Care Fish Worm Grower Name Role Phone Cortney Stone NP Primary Care Provider [phone] Christina Estevez MD Primary Care Provider [phone] Reason for Visit * Reason Onset Date Comments Refill Request 02/12/2023 Encounter Details Date Type Department Care Team (Late st Contact Info) Description 02/12/2023 Refill [facility] [address] [place] [address] Cortney Stone NP [address] [place] [address] Refill Request Social History Tobacco Use Types [...] Miscellaneous Notes * Telephone Encounter - Cortney Sotne NP - 02/12/2023 10:01 AM EDT Not due until 02/17. Rx adjusted as such. * Telephone Encounter - Shirin Stearns - 02/12/2023 9:05 AM EDT Images from the original note were not included. Concerns for Provider Review: Please send to new pharmacy [facility] / [facility] data below: Next refill due: 02/17/2023 Provider: If unable to view snippet at legible size, please enlarge the progress notes section's width to your liking in order to view the attached snippet appropriately. Provider, please review details below to determine if the refill pattern is acceptable. If a pill count or other monitoring is indicated, please have your care team reach out to the patient. Pharmacy Confirmed? The most recent pharmacy on file was used. When is the medication needed? within 48 hours, will send routine message Past and Future Appointments in Auth Provider Departments: Recent Visits Date Type Provider Dept 01/16/23 Office Visit Cortney Stone NP [facility] 09/05/22 CPE - Comprehensive Physical Exam Cortney Stone NP [facility] 12/24/21 Office Visit Charu Jimenez MD [facility] Showing recent visits within past 720 days in an active department and meeting all other requirements Future Appointments Date Type Provider Dept 07/22/23 Appointment Cortney Stone NP [facility] Showing future appointments within next 400 days in an active department and meeting all other requirements Requested Medication Details Requested Off-Protocol Medications: amLODIPine Besylate (NORVASC) 2.5 MG tablet, Take one tablet (2.5 mg total) by mouth 1 (one) time each day, 90 tablets, 3 Refills Pertinent lab results: No labs suggested for any medication orders signed or pended in this encounter. Refresh if any orders changed. BP Readings from Last 1 Encounters: 01/16/23 118/78 Outstanding Radiology Orders Test Ordered Date Ordering Provider MAMMOGRAM SCREENING TOMOSYNTHESIS, BILATERAL FC 01/24/2023 Cortney Stone NP Pended medication order(s) and sent to provider. Patient expects medication renewal unless notifiedotherwise. documented in this encounter Plan of Treatment Upcoming Encounters Date Type Department Care Team (Latest Contact Info) Description 01/10/2025 8:00 AM EDT Office Visit [address] [address] Christina Estevez MD [address] [place] [address] medication refill follow up 03/18/2025 1:15 PM EDT Office Visit [facility] Cardiology [address] [address] Lolita Barnett MD [address] [place] [address] routine f/u 04/05/2025 9:15 AM EDT Radiology [facility] [address] [place] [address] 05/02/2025 1:00 PM EDT Office Visit [facility] Cardiology [address] [address] Lolita Barnett MD [address] [place] [address] 1 year 06/07/2025 9:15 AM EDT CPE - Comprehensive Physical Exam [address] [address] Christina Estevez MD [address] [place] [address] NPP documented as of this encounter Goals [...] at . Any insurance accepted. Quit smoking resources-http://Veebowtory.org HEMOGLOBIN A1C % < 7 Result Component [...] on filedocumented in this encounter Care Teams Fish Worm Grower Relationship Specialty Start Date End Date Cortney Stone NP [address] [place] [address] PCP - General Internal Medicine 03/29/22 09/15/24 Christina Estevez MD [address] [place] [address] PCP - General Family Medicine 09/16/24 documented as of this encounter
--- OUTSIDE RECORDS SUMMARY | 2024-10-29 11:51 | XMS_ITS | Encounter Summary ---
Author Organization [facility] Address [address] [place] [address] Care Team Providers Care Tape Cutter Name Role Phone Mirza Almanza MAIL CARRIERS SUPERVISOR Unavailable [phone] Juanpablo Loius MD Primary Care Provider [phone] Charu Jimenez MD Primary Care Provider Lori noahilaCortney Garcia NP Primary Care Provider [phone]- [phone] Unknown Pcp, Non Rmg Unavailable Unavailable Christina Estevez MD Primary Care Provider [phone] Encounter Details Date Type Department Care Team ([facility] st Contact Info) Description 11/10/[address] Orders [address] [facility] Cardiology [address] [address] Lolita Barnett MD [address] [place] [address] Social History Tobacco Use Types Packs/Day Years [...] AM EST documented as of this encounter Miscellaneous Notes * Result Encounter Note - Lolita Barnett MD - 11/10/2020 7:57 AM EST The results of Your test are Stable and acceptable -- as always if you have any questions/problems please let me know - documented in this encounter Plan of Treatment Upcoming Encounters Date Type Department Care Team (Latest Contact Info) Description 01/10/2025 8:00 AM EDT Office Visit [address] [address] Christina Estevez MD [address] [place] [address] medication refill follow up 03/18/2025 1:15 PM EDT Office Visit [facility] Cardiology [address] [address] Lolita Barnett MD [address] [place] [address] routine f/u 04/05/2025 9:15 AM EDT Radiology [facility]. [address] [address] 05/02/2025 1:00 PM EDT Office Visit [facility] Cardiology [address] [facility] [address] [place] [address] Lolita Barnett MD [address] [place] [address] 1 year 06/07/2025 9:15 AM EDT CPE - Comprehensive Physical Exam [address] [address] Christina Estevez MD [address] [place] [address] NPP documented as of this encounter Goals [...] Procedure Name Priority Date/Time Associated Diagnosis Comments ALANINE AMINOTRANSFERASE (ALT), SERUM Routine 11/10/2020 7:57 AM EST Hyperlipidemia, unspecified hyperlipidemia type VENIPUNCTURE Routine 11/10/2020 7:57 AM EST Hyperlipidemia, unspecified hyperlipidemia type documented in this encounter Results * Due to [place] state law, this organization might not be sharing negative HIV tests. * ALANINE AMINOTRANSFERASE (ALT), SERUM (11/10/2020 7:57 AM EST) ALT (SGPT) 10 6 - 29 U/L [facility] 11/10/2020 7:57 AM EST 11/10/2020 1:50 PM EST Narrative Resulting Agency Comment [id number] us Lolita Barnett MD LAB SAME DAY RESULT Final Result Performing Organization Address [facility] de Phone Number [facility] [address] [place] [address] * HEMOGLOBIN A1C (11/10/2020 7:57 AM EST) Hemoglobin A1C 5.6 <5.7 % of total Hgb [facility] [...] diagnosis of diabetes in children. According to [place] Diabetes Association (ADA) guidelines, hemoglobin A1c <7.0% represents optimal control in non- diabetic patients. Different metrics may apply to specific patient populations. Standards of Medical Care in Diabetes(ADA). Estimated Average Glucose 122 mg/dL (calc) [facility] 11/10/2020 7:57 AM EST 11/10/2020 1:50 PM EST Narrative Resulting Agency Comment [id number] us Lolita Barnett MD LABORATORY Final Result Performing Organization Address [facility] de Phone Number [facility] [address] [place] [address] documented in this encounter Visit Diagnoses Diagnosis Hyperlipidemia, unspecified hyperlipidemia type documented in this encounter Care Teams Tape Cutter Relationship Specialty Start Date End Date Mirza Almanza NP PCP - Backup PCP Internal Medicine 07/28/20 05/29/22 Juanpablo Louis MD [address] [place] [address] PCP - General Internal Medicine 07/28/20 11/11/21 Charu Jimenez MD [address] [place] [address] PCP - General Family Medicine 11/12/21 03/28/22 Cortney Stone NP [address] [place] [address] PCP - General Internal Medicine 03/29/22 09/15/24 Unknown Pcp, Non Rmg PCP - Backup PCP 05/30/22 07/07/22 Christina Estevez MD [address] [place] [address] PCP - General Family Medicine 09/16/24 documented as of this encounter
--- OUTSIDE RECORDS SUMMARY | 2024-10-29 11:51 | XMS_ITS | Encounter Summary ---
Author Organization [facility] Address [address] [place] [address] Care Team Providers Care Electric Screw Driver Operator Name Role Phone Cortney Stone NP Primary Care Provider [phone] Christina Estevez MD Primary Care Provider [phone] Reason for Referral * CONSULT AND TREATMENT (Routine) - Authorized Specialty Diagnoses / Procedures Referred By Contac t Referred To Contact Ophthalmology Diagnoses Cataract, unspecified cataract type, unspecified laterality Procedures Dr. Durga Casanova Cortney Stone NP [address] [place] [address] Phone: tel: fax: Durga Casanova [address] [place] [address] Phone: tel: fax: Referral ID Status Reason Start Date Expiration Date Visits Requested Visits Authorized [id number] Authorized Patient Preference 11/18/2022 11/18/2023 6 6 Encounter Details Date Type Department Care Team (Late st Contact Info) Description 11/15/2022 Orders Only [facility] [address] [place] [address] Cortney Stone NP [address] [place] [address] Social History Tobacco Use Types Packs/Day Years [...] Description 01/10/2025 8:00 AM EDT Office Visit [facility] [address] [place] [address] Christina Estevez MD [address] [place] [address] medication refill follow up 03/18/2025 1:15 PM EDT Office Visit [facility] Cardiology [address] [place] [address] Lolita Barnett MD [address] [place] [address] routine f/u 04/05/2025 9:15 AM EDT Radiology [facility]. Mammography [address] [place] [address] 05/02/2025 1:00 PM EDT Office Visit [facility] Cardiology [address] [place] [address] Lolita Barnett MD [address] [place] [address] 1 year 06/07/2025 9:15 AM EDT CPE - Comprehensive Physical Exam [facility] [address] [place] [phone] Christina Estevez MD [address] [place] [address] NPP Scheduled Referrals Name Type Priority Associated Diagnoses Orde r Schedule CONSULT OPHTHALMOLOGY NON-FC Referral Routine Cataract, unspecified cataract type, unspecified laterality Ordered: 11/15/2022 documented as of this encounter Goals Goal [...] at . Any insurance accepted. Quit smoking resources-http://[email or web address].org HEMOGLOBIN A1C % < 7 Result Component [...] as of this encounter Visit Diagnoses Diagnosis Cataract, unspecified cataract type, unspecified laterality documented in this encounter Care Teams Electric Screw Driver Operator Relationship Specialty Start Date End Date Cortney Stone NP [address] [place] [address] PCP - General Internal Medicine 03/29/22 09/15/24 Christina Estevez MD [address] [place] [address] PCP - General Family Medicine 09/16/24 documented as of this encounter
--- OUTSIDE RECORDS SUMMARY | 2024-10-29 11:51 | XMS_ITS | Encounter Summary ---
Author Organization [facility] Address [address] [place] [address] Care Team Providers Care Lead Electrical Engineer Name Role Phone Mirza Almanza BIOLOGY ADJUNCT INSTRUCTOR Unavailable [phone] Juanpablo Louis MD Primary Care Provider [phone] Charu Jimenez MD Primary Care Provider Lori noahilaCortney Garcia NP Primary Care Provider [phone]- [phone] Unknown Pcp, Non Rmg Unavailable Unavailable Christina Esteevz MD Primary Care Provider [phone] Encounter Details Date Type Department Care Team ([facility] st Contact Info) Description 10/13/2020 Orders Only [facility] Cardiology [address] [address] Lolita Barentt MD [address] [place] [address] Social History Tobacco Use Types Packs/Day Years [...] Progress Notes * Lolita Barnett MD - 10/13/2020 8:08 AM EST Please call patient cholesterol is elevated. Especially LDL cholesterol. Her ASCVD score is increased. So would recommend a small dose of statin like simvastatin at 20 mg a day and repeat lipid paneland ALT in 2 months. Should be fasting * Muna Alaniz RN - 10/13/2020 8:08 AM EST Called and left a message for the patient to call the office back. Awaiting patient call. * Muna Alaniz RN - 10/13/2020 8:08 AM EST Called and spoke with patient. Relayed message per MD. Patient stated her labs were fasting. Patient has previously taken Atorvastatin with significant myalgias. Patient has been taking Zetia 10 mg PO daily. Patient is extremely hesitant to try another statin but agreeable to try simvastatin. Rx refill request was pended and sent to MD for review. Patient does not want to take medication for longer than 1 month. Labs ordered for 1 month. Advised patient to call the office back with any further questions or concerns. Patient verbalized understanding and agreed with plan. documented in this encounter Plan of Treatment Upcoming Encounters Date Type Department Care Team (Latest Contact Info) Description 01/10/2025 8:00 AM EDT Office Visit [facility] [address] [place] [phone] Christina Estevez MD [address] [place] [address] medication refill follow up 03/18/2025 1:15 PM EDT Office Visit [facility] Cardiology [address] [place] [address] Lolita Barnett MD [address] [place] [address] routine f/u 04/05/2025 9:15 AM EDT Radiology [facility]. Mammography [address] [place] [address] 05/02/2025 1:00 PM EDT Office Visit [facility] Cardiology [address] 123 [facility] [address] [place] [address] Lolita Barnett MD [address] [place] [address] 1 year 06/07/2025 9:15 AM EDT CPE - Comprehensive Physical Exam [address] [address] Christina Estevez MD [address] [place] [address] NPP documented as of this encounter Goals [...] encounter Procedures * Due to [place] law, this organization might not be sharing negative HIV tests. Procedure Name Priority Date/Time Associated Diagnosis Comments VENIPUNCTURE Routine 10/13/2020 8:08 AM EST Hyperlipidemia, unspecified hyperlipidemia type documented in this encounter Results * Due to [place] law, this organization might not be sharing negative HIV tests. * ALANINE AMINOTRANSFERASE (ALT), SERUM (11/10/2020 7:57 AM EST) ALT (SGPT) 10 6 - 29 U/L [facility] 11/10/2020 7:57 AM EST 11/10/2020 1:50 PM EST Narrative Resulting Agency Comment [id number] Lolita Barnett MD LAB SAME DAY RESULT Final Result Performing Organization Address City/State/[facility] Co de Phone Number [facility] [address] [place] [address] * (ABNORMAL) LIPID PANEL WITH REFLEX TO DIRECT LDL (10/13/2020 8:08 AM EST) Cholesterol 177 <200 mg/dL [facility] HDL Cholesterol 47(L) > OR = 50 mg/dL [facility] Triglyceride 140 <150 mg/dL [facility] LDL Cholesterol 105(H) mg/dL (calc) [facility] Comment: Reference range: [...] LDL-C. Gurdeep SS et al. NANDO. 2013;310(19): 1299-8839 (http://education.Recommendo.Saygus/faq/MYH267) CHOL/HDL Ratio 3.8 <5.0 (calc) [facility] Cholesterol Non-HDL 130(H) <130 mg/dL (calc) [facility] Comment: For patients with diabetes plus 1 major ASCVD risk factor, treating to a non-HDL-C goal of <100 mg/dL (LDL-C of <70 mg/dL) is considered a therapeutic option. 10/13/2020 8:08 AM EST 10/13/2020 8:36 AM EST Narrative Resulting Agency Comment [id number] Lolita Barnett MD LABORATORY Final Result Performing Organization Address City/State/[facility] Co de Phone Number [facility] [address] [place] [address] documented in this encounter Visit Diagnoses Diagnosis Hyperlipidemia, unspecified hyperlipidemia type documented in this encounter Care Teams Lead Electrical Engineer Relationship Specialty Start Date End Date Mirza Almanza NP PCP - Backup PCP Internal Medicine 07/28/20 05/29/22 Juanpablo Louis MD [address] [place] [address] PCP - General Internal Medicine 07/28/20 11/11/21 Charu Jimenez MD [address] [place] [address] PCP - General Family Medicine 11/12/21 03/28/22 Cortney Stone NP [address] [place] [address] PCP - General Internal Medicine 03/29/22 09/15/24 Unknown Pcp, Non Rmg PCP - Backup PCP 05/30/22 07/07/22 Christina Estevez MD [address] [place] [address] PCP - General Family Medicine 09/16/24 documented as of this encounter
--- OUTSIDE RECORDS SUMMARY | 2024-10-29 11:51 | XMS_ITS | Encounter Summary ---
Author Organization [facility] Address [address] [place] [address] Care Team Providers Care Manager Transition Name Role Phone Mirza Almanza PLANT DIRECTOR Unavailable [phone] Juanpablo Louis MD Primary Care Provider [phone] Charu Jimenez MD Primary Care Provider Lori vailable Cortney Stone NP Primary Care Provider [phone]- [phone] Unknown Pcp, Non Rmg Unavailable Unavailable Christina Estevez MD Primary Care Provider [phone] Encounter Details Date Type Department Care Team (Late st Contact Info) Description 10/13/2020 Orders Only [facility] [address] [place] [address] Ulisses Newman DO [facility] [address] [place] [address] Social History Tobacco Use Types Packs/Day Years [...] Progress Notes * Lashonda Simmons RN - 10/13/2020 8:08 AM EST The patients lab results are at a normal/stable level by the protocol guidelines. A [employer] messagewas sent to the patient. documented in this encounter Plan of Treatment Upcoming Encounters Date Type Department Care Team (Latest Contact Info) Description 01/10/2025 8:00 AM EDT Office Visit [address] [address] Christina Estevez MD [address] [place] [address] medication refill follow up 03/18/2025 1:15 PM EDT Office Visit [facility] Cardiology [address] [address] Lolita Barnett MD [address] [place] [address] routine f/u 04/05/2025 9:15 AM EDT Radiology [facility]. [address] [address] 05/02/2025 1:00 PM EDT Office Visit [facility] Cardiology [address] [place] [address] Lolita Barnett MD [address] [place] [address] 1 year 06/07/2025 9:15 AM EDT CPE - Comprehensive Physical Exam [address] [address] Christina Estevez MD [address] [place] [address] NPP documented as of this encounter Goals [...] of this encounter Procedures * Due to [place] state law, this organization might not be sharing negative HIV tests. Procedure Name Priority Date/Time Associated Diagnosis Comments ALANINE AMINOTRANSFERASE (ALT), SERUM Routine 10/13/2020 8:08 AM EST Mixed hyperlipidemia due to type 2 diabetes mellitus (HCC) ASPARTATE AMINOTRANSFERASE (AST), SERUM Routine 10/13/2020 8:08 AM EST Mixed hyperlipidemia due to type 2 diabetes mellitus (HCC) documented in this encounter Results * Due to [place] state law, this organization might not be sharing negative HIV tests. * ASPARTATE AMINOTRANSFERASE (AST), SERUM (10/13/2020 8:08 AM EST) AST (SGOT) 14 10 - 35 U/L [facility] 10/13/2020 8:08 AM EST 10/13/2020 8:36 AM EST Narrative Resulting Agency Comment [id number] Mirza Almanza PLANT DIRECTOR LAB SAME DAY RESULT Final R esult Performing Organization Address City/[facility]/ZIP Co de Phone Number [facility] [address] [place] [address] * ALANINE AMINOTRANSFERASE (ALT), SERUM (10/13/2020 8:08 AM EST) ALT (SGPT) 11 6 - 29 U/L [facility] 10/13/2020 8:08 AM EST 10/13/2020 8:36 AM EST Narrative Resulting Agency Comment [id number] Mirza Almanza PLANT DIRECTOR LAB SAME DAY RESULT Final R esult Performing Organization Address City/[facility]/ZIP Co de Phone Number [facility] [address] [place] [address] documented in this encounter Visit Diagnoses Diagnosis Mixed hyperlipidemia due to type 2 diabetes mellitus (HCC) documented in this encounter Care Teams Manager Transition Relationship Specialty Start Date End Date Mirza Almanza NP PCP - Backup PCP Internal Medicine 07/28/20 05/29/22 Juanpablo Louis MD [address] [place] [address] PCP - General Internal Medicine 07/28/20 11/11/21 Charu Jimenez MD [address] [place] [address] PCP - General Family Medicine 11/12/21 03/28/22 Cortney Stone NP [address] [place] [address] PCP - General Internal Medicine 03/29/22 09/15/24 Unknown Pcp, Non Rmg PCP - Backup PCP 05/30/22 07/07/22 Christina Estevez MD [address] [place] [address] PCP - General Family Medicine 09/16/24 documented as of this encounter
--- OUTSIDE RECORDS SUMMARY | 2024-10-29 11:51 | XMS_ITS | Encounter Summary ---
Author Organization [facility] Address [address] [place] [address] Care Team Providers Care Building Rental Superintendent Name Role Phone Mirza Almanza ESTATE PLANNER Unavailable [phone] Juanpablo Louis MD Primary Care Provider [phone] Charu Jimenez MD Primary Care Provider Lori vailaCortney Garcia NP Primary Care Provider [phone] Unknown Pcp, Non Rmg Unavailable Unavailable Christina Estevez MD Primary Care Provider [phone] Encounter Details Date Type Department Care Team (Late st Contact Info) Description 11/10/2020 Orders Only [facility] [address] [place] [address] Juanpablo Louis MD [address] [place] [address] Social History Tobacco Use Types Packs/Day Years [...] Miscellaneous Notes * Result Encounter Note - Juany Oliveira RN - 11/10/2020 7:57 AM EST Stable letter sent documented in this encounter Plan of Treatment Upcoming Encounters Date Type Department Care Team (Latest Contact Info) Description 01/10/2025 8:00 AM EDT Office Visit [address] [address] Christina Estevez MD [address] [place] [address] medication refill follow up 03/18/2025 1:15 PM EDT Office Visit [facility] Cardiology [address] [facility] [address] [place] [address] Lolita Barnett MD [address] [place] [address] routine f/u 04/05/2025 9:15 AM EDT Radiology [facility]. Mammography [address] [place] [address] 05/02/2025 1:00 PM EDT Office Visit [facility] Cardiology [address] 123 [facility] [address] [place] [address] Lolita Barnett MD [address] [place] [address] 1 year 06/07/2025 9:15 AM EDT CPE - Comprehensive Physical Exam [address] [address] Christina Estevez MD [address] [place] [address] NPP documented as of this encounter Goals [...] Procedure Name Priority Date/Time Associated Diagnosis Comments ALBUMIN (MICROALBUMIN), RANDOM URINE, WITH CREATININE Routine 11/10/2020 7:57 AM EST Diabetes mellitus without complication LIPID PANEL WITH REFLEX TO DIRECT LDL Routine 11/10/2020 7:57 AM EST Diabetes mellitus without complication BASIC METABOLIC PANEL WITH (GFR) Routine 11/10/2020 7:57 AM EST Diabetes mellitus without complication documented in this encounter Results * Due to [place] state law, this organization might not be sharing negative HIV tests. * ALBUMIN (MICROALBUMIN), RANDOM URINE, WITH CREATININE (11/10/2020 7:57 AM EST) Creatinine (Urine) 132 20 - 275 mg/dL [facility] Albumin (Urine) 0.8 mg/dL [facility] Comment: Reference Range Not established Albumin/Creatinine (Urine) 6 <30 mcg/mg creat [facility] Comment: The ADA defines abnormalities in albumin excretion as follows: Category ? Result (mcg/mg creatinine) Normal ?<30 Microalbuminuria ? 30-299 Clinical albuminuria ?? > OR = 300 The ADA recommends that at least two of three specimens collected within a 3-6 month period be abnormal before considering a patient to be within a diagnostic category. 11/10/2020 7:57 AM EST 11/10/2020 1:50 PM EST Narrative Resulting Agency Comment [id number] Juanpablo Louis MD LABORATORY Final Result Performing Organization Address City/State/[facility] Co de Phone Number [facility] [address] [place] [address] * (ABNORMAL) LIPID PANEL WITH REFLEX TO DIRECT LDL (11/10/2020 7:57 AM EST) Cholesterol 136 <200 mg/dL [facility] HDL Cholesterol 48(L) > OR = 50 mg/dL [facility] Triglyceride 123 <150 mg/dL [facility] LDL Cholesterol 68 mg/dL (calc) [facility] Comment: Reference range: [...] of LDL-C. Gurdeep SS et al. NANDO. 2013;310(38): 2310-6440 (http://education.PayByGroup/faq/FLR909) CHOL/HDL Ratio 2.8 <5.0 (calc) [facility] Cholesterol Non-HDL 88 <130 mg/dL (calc) [facility] Comment: For patients with diabetes plus 1 major ASCVD risk factor, treating to a non-HDL-C goal of <100 mg/dL (LDL-C of <70 mg/dL) is considered a therapeutic option. 11/10/2020 7:57 AM EST 11/10/2020 1:50 PM EST Narrative Resulting Agency Comment [id number] Juanpablo Louis MD LABORATORY Final Result Performing Organization Address City/State/[facility] Co de Phone Number [facility] [address] [place] [address] * (ABNORMAL) BASIC METABOLIC PANEL WITH (GFR) (11/10/2020 7:57 AM EST) Glucose 137(H) 65 - 99 mg/dL [facility] Comment: ? Fasting reference interval For someone without known diabetes, a glucose value >125 mg/dL indicates that they may have diabetes and this should be confirmed with a follow-up test. Urea Nitrogen Blood (BUN) 23 7 - 25 mg/dL [facility] Creatinine 0.90 0.50 - 0.99 mg/dL [facility] Comment: For patients >49 years of age, the reference limit for Creatinine is approximately 13% higher for people identified as -Togolese. EGFR 66 > OR = 60 mL/min/1 .73m2 [facility] GFR () 76 > OR = 60 mL/min/1 .73m2 [facility] BUN/Creatinine Ratio NOT APPLICABLE 6 - 22 (calc) [facility] Sodium 137 135 - 146 mmol/L [facility] Potassium 3.9 3.5 - 5.3 mmol/L [facility] Chloride 101 98 - 110 mmol/L [facility] Carbon dioxide 27 20 - 32 mmol/L [facility] Calcium 10.0 8.6 - 10.4 mg/dL [facility] 11/10/2020 7:57 AM EST 11/10/2020 1:50 PM EST Narrative [facility] - 11/10/2020 5:34 PM EST Please note that this estimated [...] needs for GFR calculation. Resulting Agency Comment [id number] Juanpablo Louis MD LABORATORY Final Result Performing Organization Address City/State/[facility] Co de Phone Number [facility] [address] [place] [address] documented in this encounter Visit Diagnoses Diagnosis Diabetes mellitus without complication (HCC) Type II or unspecified type diabetes mellitus without mention of complication, not stated as uncontrolled documented in this encounter Care Teams Building Rental Superintendent Relationship Specialty Start Date End Date Mirza Almanza NP PCP - Backup PCP Internal Medicine 07/28/20 05/29/22 Juanpablo Louis MD [address] [place] [address] PCP - General Internal Medicine 07/28/20 11/11/21 Charu Jimenez MD [address] [place] [address] PCP - General Family Medicine 11/12/21 03/28/22 Cortney Stone NP [address] [place] [address] PCP - General Internal Medicine 03/29/22 09/15/24 Unknown Pcp, Non Rmg PCP - Backup PCP 05/30/22 07/07/22 Christina Estevez MD [address] [place] [address] PCP - General Family Medicine 09/16/24 documented as of this encounter
--- OUTSIDE RECORDS SUMMARY | 2024-10-29 11:51 | XMS_ITS | Encounter Summary ---
Author Organization [facility] Address [address] [place] [address] Care Team Providers Care Casino Duty Manager Name Role Phone Cortney Stone NP Primary Care Provider [phone] Christina Estevez MD Primary Care Provider [phone] Reason for Visit * Reason Comments E-prescribing Refill Request Encounter Details Date Type Department Care Team (Late st Contact Info) Description 01/01/2023 Refill [facility] [address] [place] [phone] Jamal Bergman MD [address] [place] [address] E-prescribing Refill Request Social History Tobacco Use [...] Description 01/10/2025 8:00 AM EDT Office Visit [address] [address] Christina Estevez MD [address] [place] [address] medication refill follow up 03/18/2025 1:15 PM EDT Office Visit [facility] Cardiology [address] [address] Lolita Barnett MD [address] [place] [address] routine f/u 04/05/2025 9:15 AM EDT Radiology [address] [address] 05/02/2025 1:00 PM EDT Office Visit [facility] Cardiology [address] [address] Lolita Barnett MD [address] [place] [address] 1 year 06/07/2025 9:15 AM EDT CPE - Comprehensive Physical Exam [address] [address] Christina Estevez MD [address] [place] [address] NPP documented as of this encounter Goals [...] at . Any insurance accepted. Quit smoking resources-http://[email or web address].history.org HEMOGLOBIN A1C % < 7 Result Component [...] on filedocumented in this encounter Care Teams Casino Duty Manager Relationship Specialty Start Date End Date Cortney Stone NP [address] [place] [address] PCP - General Internal Medicine 03/29/22 09/15/24 Christina Estevez MD [address] [place] [address] PCP - General Family Medicine 09/16/24 documented as of this encounter
--- OUTSIDE RECORDS SUMMARY | 2024-10-29 11:51 | XMS_ITS | Encounter Summary ---
Author Organization [facility] Address [address] [place] [address] Care Team Providers Care Clinical Field Specialist Name Role Phone Ulisses Newman DO Primary Care Provider [phone] Mirza Almanza REAL ESTATE AGENCY LICENSEE Unavailable [phone] Juanpablo Louis MD Primary Care Provider [phone] Charu Jimenez MD Primary Care Provider Lori vailable Cortney Stone NP Primary Care Provider + [phone] Unknown Pcp, Non Rmg Unavailable Unavailable Christina Estevez MD Primary Care Provider [phone] Encounter Details Date Type Department Care Team (Late st Contact Info) Description 06/27/2020 Orders Only [facility] [address] [facility] [place] [address] Ulisses Newman DO [facility] [address] [place] [address] Social History Tobacco Use Types Packs/Day Years [...] have Coronavirus / COVID-19? No / Unsure 06/27/2020 10:52 AM EDT documented as of this encounter Progress Notes * Lashonda Simmons, ALLIE - 06/27/2020 11:56 AM EDT The patients lab results are at an abnormal level by the protocol guidelines. Please review and advise. * Ulisses Newman DO - 06/27/2020 11:56 AM EDT Everything here is normal. There is nothing here that would indicate easy bruising. * Nazia Ayers RN - 06/27/2020 11:56 AM EDT Letter sent via my chart documented in this encounter Plan of Treatment Upcoming Encounters Date Type Department Care Team (Latest Contact Info) Description 01/10/2025 8:00 AM EDT Office Visit [address] [address] Christina Estevez MD [address] [place] [address] medication refill follow up 03/18/2025 1:15 PM EDT Office Visit [facility] Cardiology [address] [place] [address] [address] [place] [address] Lolita Barnett MD [address] [place] [address] routine f/u 04/05/2025 9:15 AM EDT Radiology [facility]. Mammography [address] [place] [address] 05/02/2025 1:00 PM EDT Office Visit [facility] Cardiology [address] 123 [facility] [address] [place] [address] Lolita Barnett MD [address] [place] [address] 1 year 06/07/2025 9:15 AM EDT CPE - Comprehensive Physical Exam [facility] [address] [place] [address] Christina Estevez MD [address] [place] [address] NPP documented as of this encounter Goals [...] this encounter Procedures * Due to [place] [employer] law, this organization might not be sharing negative HIV tests. Procedure Name Priority Date/Time Associated Diagnosis Comments HEPATITIS C AB WITH REFLEX TO RNA PCR, SERUM Routine 06/27/2020 12:00 PM EDT Need for hepatitis C screening test VENIPUNCTURE Routine 06/27/2020 12:00 PM EDT Abnormal bruising PROTHROMBIN TIME (PT) (INR), BLOOD Routine 06/27/2020 12:00 PM EDT Abnormal bruising documented in this encounter Results * Due to [place] [employer] law, this organization might not be sharing negative HIV tests. * HEPATITIS C AB WITH REFLEX TO RNA PCR, SERUM (06/27/2020 12:00 PM EDT) Hepatitis C virus Ab NON-REACT SIMIN NON-REACT SIMIN [facility] Hepatitis C virus Ab Signal/Cutoff 0.01 <1.00 [facility] Comment: HCV antibody was non-reactive. There is no laboratory evidence of HCV infection. In most cases, no further action is required. However, if recent HCV exposure is suspected, a test for HCV RNA (test code 20431) is suggested. For additional information please refer to http://education.[employer].SpoonRocket/faq/STL80j1 (This link is being provided for informational/ educational purposes only.) 06/27/2020 12:0 0 PM EDT 06/27/2020 5:11 PM EDT Narrative Resulting Agency Comment [id number] Ulisses Newman DO LABORATORY Final Result [facility] [address] [place] [address] * PROTHROMBIN TIME (PT) (INR), BLOOD (06/27/2020 12:00 PM EDT) INR 1.0 [facility] Comment: Reference Range ? 0.9-1.1 Moderate-intensity Warfarin Therapy 2.0-3.0 Higher-intensity Warfarin Therapy ?? 3.0-4.0 PT 10.6 9.0 - 11.5 sec [facility] Comment: For more information on this test, go to: http://[employer]rapeutics/faq/UHZ361 06/27/2020 12:0 0 PM EDT 06/27/2020 5:11 PM EDT Narrative Resulting Agency Comment [id number] Ulisses Trent DO LAB SAME DAY RESULT Final Resu lt Performing Organization Address [facility] de Phone Number [facility] [address] [place] [address] * (ABNORMAL) ACTIVATED PARTIAL THROMBOPLASTIN TIME (APTT), PLASMA (06/27/2020 12:00 PM EDT) Thromboplastin Time 36(H) 22 - 34 sec [facility] Comment: This test has not been validated for monitoring unfractionated heparin therapy. For testing that is validated for this type of therapy, please refer to the Heparin Anti-Xa assay (test code 37226). For additional information, please refer to http://[employer].NexJ Systems/faq/TXN706 (This link is being provided for informational/educational purposes only.) 06/27/2020 12:0 0 PM EDT 06/27/2020 5:11 PM EDT Narrative Resulting Agency Comment [id number] Ulisses Newman DO LAB SAME DAY RESULT Final Resu lt Performing Organization Address [facility] de Phone Number [facility] [address] [place] [address] documented in this encounter Visit Diagnoses Diagnosis Abnormal bruising Other symptoms involving skin and integumentary tissues Need for hepatitis C screening test Special screening examination for other specified viral diseases documented in this encounter Care Teams Clinical Field Specialist Relationship Specialty Start Date End Date Ulisses Newman DO PCP - General Internal Medicine 01/18/20 07/27/20 Mirza Almanza NP PCP - Backup PCP Internal Medicine 07/28/20 05/29/22 Juanpablo Louis MD [address] [place] [address] PCP - General Internal Medicine 07/28/20 11/11/21 Charu Jimenez MD [address] [place] [address] PCP - General Family Medicine 11/12/21 03/28/22 Cortney Stone NP [address] [place] [address] PCP - General Internal Medicine 03/29/22 09/15/24 Unknown Pcp, Non Rmg PCP - Backup PCP 05/30/22 07/07/22 Christina Estevez MD [address] [place] [address] PCP - General Family Medicine 09/16/24 documented as of this encounter
--- OUTSIDE RECORDS SUMMARY | 2024-10-29 11:51 | XMS_ITS | Encounter Summary ---
Author Organization [facility] Address [address] [place] [address] Care Team Providers Care Kiss Mixer Name Role Phone Ulisses Newman DO Primary Care Provider [phone] Mirza Almanza PRODUCT SAFETY LEAD Unavailable [phone] Juanpablo Louis MD Primary Care Provider [phone] Charu Jimenez MD Primary Care Provider Lori Cortney Melgar NP Primary Care Provider + [phone] Unknown Pcp, Non Rmg Unavailable Unavailable Christina Estevez MD Primary Care Provider [phone] Reason for Visit * Reason Comments Prior Authorization Request Encounter Details Date Type Department Care Team (Late st Contact Info) Description 04/10/2020 Telephone [facility] Neurology [address] [facility] [address] [place] [address] Vibha Casanova CRNP [address] [place] [address] Prior Authorization Request Social History Tobacco Use Types Packs/Day [...] have Coronavirus / COVID-19? No / Unsure 04/12/2020 9:46 AM EDT documented as of this encounter Miscellaneous Notes * Telephone Encounter - Cheri Zabala - 04/11/2020 3:41 PM EDT Resending back to Neurology for processing as Referral Mgmt. Does not process auths for testing; Neurology is responsible for processing * Telephone Encounter - Meghan Mireles - 04/10/2020 11:40 AM EDT Please authorize for an MRI Brain w/o contrast CPT Code 29559 to be done at [facility] documented in this encounter Plan of Treatment Upcoming Encounters Date Type Department Care Team (Latest Contact Info) Description 01/10/2025 8:00 AM EDT Office Visit [facility] [address] [place] [address] Christina Estevez MD [address] [place] [address] medication refill follow up 03/18/2025 1:15 PM EDT Office Visit [facility] Cardiology [address] [facility] [address] [place] [address] Lolita Barnett MD [address] [place] [address] routine f/u 04/05/2025 9:15 AM EDT Radiology [facility] [address] [place] [address] 05/02/2025 1:00 PM EDT Office Visit [facility] Cardiology [address] [facility] [address] [place] [address] Lolita Barnett MD [address] [place] [address] 1 year 06/07/2025 9:15 AM EDT CPE - Comprehensive Physical Exam [facility] [address] [place] [address] Christina Estevez MD [address] [place] [address] NPP documented as of this encounter Goals [...] on filedocumented in this encounter Care Teams Kiss Mixer Relationship Specialty Start Date End Date Ulisses Newman DO PCP - General Internal Medicine 01/18/20 07/27/20 Mirza Almanza NP PCP - Backup PCP Internal Medicine 07/28/20 05/29/22 Juanpablo Louis MD [address] [place] [address] PCP - General Internal Medicine 07/28/20 11/11/21 Charu Jimenez MD [address] [place] [address] PCP - General Family Medicine 11/12/21 03/28/22 Cortney Stone NP [address] [place] [address] PCP - General Internal Medicine 03/29/22 09/15/24 Unknown Pcp, Non Rmg PCP - Backup PCP 05/30/22 07/07/22 Christina Estevez MD [address] [place] [address] PCP - General Family Medicine 09/16/24 documented as of this encounter
--- OUTSIDE RECORDS SUMMARY | 2024-10-29 11:51 | XMS_ITS | Encounter Summary ---
Author Organization [facility] Address [address] [place] [address] Care Team Providers Care Manager Sales Training Name Role Phone Mirza Almanza LOGISTICS PROJECT MANAGER Unavailable [phone] Juanpablo Louis MD Primary Care Provider [phone] Charu Jimenez MD Primary Care Provider Lori Cortney Melgar NP Primary Care Provider + [phone] Unknown Pcp, Non Rmg Unavailable Unavailable Christina Estevez MD Primary Care Provider [phone] Encounter Details Date Type Department Care Team (Late st Contact Info) Description 10/13/2020 Orders Only [facility] [address] [place] [address] Mirza Almanza, JULIETA [facility] [address] [address] Social History Tobacco Use Types Packs/Day Years [...] normal/stable level by the protocol guidelines. A [employer] messagewas sent to the patient. documented in this encounter Plan of Treatment Upcoming Encounters Date Type Department Care Team (Latest Contact Info) Description 01/10/2025 8:00 AM EDT Office Visit [address] [address] Christina Estevez MD [address] [place] [address] medication refill follow up 03/18/2025 1:15 PM EDT Office Visit [facility] Cardiology [address] [address] Lolita Barnett MD [address] [place] [address] routine f/u 04/05/2025 9:15 AM EDT Radiology [address] [address] 05/02/2025 1:00 PM EDT Office Visit [facility] Cardiology [address] [address] Lolita Barnett MD [address] [place] [address] 1 year 06/07/2025 9:15 AM EDT CPE - Comprehensive Physical Exam [address] [address] Christina Estevez MD [address] [place] [address] NPP documented as of this encounter Goals [...] of this encounter Procedures * Due to [place] law, this organization might not be sharing negative HIV tests. Procedure Name Priority Date/Time Associated Diagnosis Comments HEMOGLOBIN A1C Routine 10/13/2020 8:08 AM EST Type 2 diabetes mellitus without complication, without long-term current use of insulin (HCC) documented in this encounter Results * Due to [place] law, this organization might not be sharing negative HIV tests. * HEMOGLOBIN A1C (10/13/2020 8:08 AM EST) Hemoglobin A1C 5.6 <5.7 % [...] diagnosis of diabetes in children. According to [place] Diabetes Association (ADA) guidelines, hemoglobin A1c <7.0% represents optimal control in non- diabetic patients. Different metrics may apply to specific patient populations. Standards of Medical Care in Diabetes(ADA). Estimated Average Glucose 122 mg/dL (calc) [facility] 10/13/2020 8:08 AM EST 10/13/2020 8:36 AM EST Narrative Resulting Agency Comment [id number] Mirza Almanza NP LABORATORY Final Resul t Performing Organization Address City/State/[facility] Co de Phone Number [facility] [address] [place] [address] documented in this encounter Visit Diagnoses Diagnosis Type 2 diabetes mellitus without complication, without long-term current use of insulin (HCC) documented in this encounter Care Teams Manager Sales Training Relationship Specialty Start Date End Date Mirza Almanza NP PCP - Backup PCP Internal Medicine 07/28/20 05/29/22 Juanpablo Louis MD [address] [place] [address] PCP - General Internal Medicine 07/28/20 11/11/21 Charu Jimenez MD [address] [place] [address] PCP - General Family Medicine 11/12/21 03/28/22 Cortney Stone NP [address] [place] [address] PCP - General Internal Medicine 03/29/22 09/15/24 Unknown Pcp, Non Rmg PCP - Backup PCP 05/30/22 07/07/22 Christina Estevez MD [address] [place] [address] PCP - General Family Medicine 09/16/24 documented as of this encounter
--- OUTSIDE RECORDS SUMMARY | 2024-10-29 11:51 | XMS_ITS | Encounter Summary ---
Author Organization [facility] Address [address] [place] [address] Care Team Providers Care Dancer Or Choreographer Name Role Phone Cortney Stone NP Primary Care Provider [phone] Christina Estevez MD Primary Care Provider [phone] Reason for Visit * Reason Comments Cataract Surgery Encounter Details Date Type Department Care Team (Late st Contact Info) Description 12/19/2022 Telephone [facility]. Ophthalmology [address] [place] [phone] Bartolo Petit MD [address] [place] [address] Cataract Surgery Social History Tobacco Use Types Packs/Day Years [...] encounter Miscellaneous Notes * Telephone Encounter - Matthew Montes De Oca - 12/19/2022 4:46 PM EDT She is all set. Marylin Montes De Oca COA * Telephone Encounter - Mary Nugent - 12/19/2022 8:39 AM EDT Pt calling because she haven't received a call for her Cat Sx, Pt indicates Dr Petit gave her 2 day in January for the Sx but don't see it schedule in the system. Please assist, Thank you. documented in this encounter Plan of Treatment Upcoming Encounters Date Type Department Care Team (Latest Contact Info) Description 01/10/2025 8:00 AM EDT Office Visit [address] [address] Christina Estevez MD [address] [place] [address] medication refill follow up 03/18/2025 1:15 PM EDT Office Visit [facility] Cardiology [address] [address] Lolita Barnett MD [address] [place] [address] routine f/u 04/05/2025 9:15 AM EDT Radiology [address] [address] 05/02/2025 1:00 PM EDT Office Visit [facility] Cardiology [address] 123 [facility] [address] [place] [address] Lolita Barnett MD [address] [place] [address] 1 year 06/07/2025 9:15 AM EDT CPE - Comprehensive Physical Exam [address] [address] Christina Estevez MD [address] [place] [address] NPP documented as of this encounter Goals [...] at . Any insurance accepted. Quit smoking resources-http://[email or web address] HEMOGLOBIN A1C % < 7 Result Component [...] on filedocumented in this encounter Care Teams Dancer Or Choreographer Relationship Specialty Start Date End Date Cortney Stone NP [address] [place] [address] PCP - General Internal Medicine 03/29/22 09/15/24 Christina Estevez MD [address] [place] [address] PCP - General Family Medicine 09/16/24 documented as of this encounter
--- OUTSIDE RECORDS SUMMARY | 2024-10-29 11:51 | XMS_ITS | Encounter Summary ---
Author Organization [facility] Address [address] [place] [address] Care Team Providers Care Campground Caretaker Name Role Phone Cortney Stone NP Primary Care Provider [phone] Christina Estevez MD Primary Care Provider [phone] Reason for Visit * Reason Comments E-prescribing Refill Request Encounter Details Date Type Department Care Team ([facility] st Contact Info) Description 08/30/2022 Refill [facility] [address] [place] [address] Mirza Almanza NP [facility] [address] [address] E-prescribing Refill Request Social History Tobacco Use [...] Miscellaneous Notes * Telephone Encounter - Mary Carpenter - 08/30/2022 11:29 AM EST Concerns for Provider Review: Patient is overdue for lab monitoring related to the requested medication. Prepared a limited supply: 90 day quantity, no refills. Notified patient via letter. Confirmed lab orders in place. No provider action required. Pharmacy Confirmed? The most recent pharmacy on file was used. When is the medication needed? within 48 hours, will send routine message Past Appointments: Last CPE: 03/09/2020 Last appointment in this department: 03/08/2022 Future Appointments Date Time Provider Department Phone 09/05/22 2:00 PM Cortney Stone NP [facility] [phone] 01/24/23 8:30 AM ACCESS TECH MAMMOGRAPHY [id number] [facility]. Mammography [phone] 06/20/23 9:00 AM Lolita Barnett MD [facility] Cardiology [address] Pertinent lab results: Lab Results Component Value Date SODIUM 138 08/08/2022 POTASSIUM 4.1 08/08/2022 CHLOR 102 08/08/2022 CO2 29 08/08/2022 BUN 17 08/08/2022 CREATININE 0.92 08/08/2022 GFR 67 08/08/2022 GLUCOSE 117 (H) 08/08/2022 PALOMO 9.1 08/08/2022 An overdue or due soon order for a Basic, Potassium or Creatinine exists. An open order for Basic exists. Lab Results Component Value Date VITB12 871 04/07/2020 An overdue or due soon open order for Vitamin B12 exists. Lab Results Component Value Date MICROALBUMIN 0.2 11/19/2021 ALBCRRU 3 11/19/2021 An overdue or due soon open order for MALB exists. Lab Results Component Value Date CHOLESTEROL 131 08/08/2022 HDL 50 08/08/2022 LDL 63 08/08/2022 TRIGLYCERIDE 98 08/08/2022 An overdue or due soon open order for Lipids exists. Lab Results Component Value Date A1C 5.5 03/08/2022 An overdue or due soon open order for A1C exists. Lipid, Basic, MALB yearly and A1C every 6 months recommended as minimum for chronic therapy. Based on last lab testing intervals, 3 month supply suggested for diabetic medications. Note that lab testing is due now. Please place orders if needed and/or remind the patient to go to the lab. BP Readings from Last 1 Encounters: 05/27/22 118/69 Pended medication order(s) and sent to provider. Patient expects medication renewal unless notifiedotherwise. Outstanding Lab Orders (Orders in bold are overdue or due now and should be done as soon as possible) Test Expected Date Ordering Provider HEMOGLOBIN A1C 08/28/2022 Cortney Stone NP LIPID PANEL WITH REFLEX TO DIRECT LDL 08/28/2022 Cortney Stone NP ALBUMIN (MICROALBUMIN), RANDOM URINE, WITH CREATININE 08/28/2022 Cortney Stone NP BASIC METABOLIC PANEL WITH (GFR) 08/28/2022 Cortney Stone NP VITAMIN B12 (CYANOCOBALAMIN), SERUM 08/30/2022 Mirza Almanza NP Outstanding Radiology Orders Test Ordered Date Ordering Provider MAMMOGRAM SCREENING TOMOSYNTHESIS, BILATERAL FC 01/22/2022 Charu Jimenez MD documented in this encounter Plan of Treatment Upcoming Encounters Date Type Department Care Team (Latest Contact Info) Description 01/10/2025 8:00 AM EDT Office Visit [facility] [address] [place] [address] Christina Estevez MD [address] [place] [address] medication refill follow up 03/18/2025 1:15 PM EDT Office Visit [facility] Cardiology [address] [facility] [address] [place] [address] Lolita Barnett MD [address] [place] [address] routine f/u 04/05/2025 9:15 AM EDT Radiology [facility]. Mammography [address] [place] [address] 05/02/2025 1:00 PM EDT Office Visit [facility] Cardiology [address] [facility] [address] [place] [address] Lolita Barnett MD [address] [place] [address] 1 year 06/07/2025 9:15 AM EDT CPE - Comprehensive Physical Exam [facility] [place] [address] [place] [address] Christina Estevez MD [address] [place] [address] NPP documented as of this encounter Goals [...] at . Any insurance accepted. Quit smoking resources-http://[email or web address] HEMOGLOBIN A1C % < 7 Result Component [...] as of this encounter Visit Diagnoses Diagnosis Diabetes Type 2 associated with hyperlipidemia (HCC) documented in this encounter Care Teams Campground Caretaker Relationship Specialty Start Date End Date Cortney Stone NP [address] [place] [address] PCP - General Internal Medicine 03/29/22 09/15/24 Christina Estevez MD [address] [place] [address] PCP - General Family Medicine 09/16/24 documented as of this encounter
--- OUTSIDE RECORDS SUMMARY | 2024-10-29 11:51 | XMS_ITS | Encounter Summary ---
Author Organization [facility] Address [address] [place] [address] Care Team Providers Care Utilities Service Investigator Name Role Phone Cortney Stone NP Primary Care Provider [phone] Christina Estevez MD Primary Care Provider [phone] Reason for Visit * Reason Comments Surgery Encounter Details Date Type Department Care Team (Late st Contact Info) Description 02/20/2023 Telephone [facility]. Ophthalmology [address] [place] [phone] Bartolo Petit MD [address] [place] [address] Surgery Social History Tobacco Use Types Packs/Day [...] encounter Miscellaneous Notes * Telephone Encounter - Kina Holguin Tech - 02/21/2023 1:19 PM EDT Left patient a voicemail that you would like her to come in on Friday, please call back line if she calls back. * Telephone Encounter - Bartolo Petit MD - 02/21/2023 11:18 AM EDT THanks for helping with this Jane B * Telephone Encounter - Bartolo Petit MD - 02/21/2023 7:35 AM EDT I probably need to see her early (few spots open) on instead of . Can that work? Sherice Coulter! B * Telephone Encounter - Matthew Montes De Oca - 02/20/2023 2:06 PM EDT I rebooked her for February 27 at 9:50am. She was concerned about the contact lens staying in a couple more days. I reassured her that it was ok. I will let Dr. Petit know, if it is a concern, I'll call her back. Marylin Montes De Oca COA * Telephone Encounter - Chelsi Phillips - 02/20/2023 1:28 PM EDT Good Afternoon, The pt would like to reschedule her appointment on 02/25/23 to something earlier in the day. Please advise documented in this encounter Plan of Treatment Upcoming Encounters Date Type Department Care Team (Latest Contact Info) Description 01/10/2025 8:00 AM EDT Office Visit [address] [address] Christina Estevez MD [address] [place] [address] medication refill follow up 03/18/2025 1:15 PM EDT Office Visit [facility] Cardiology [address] [address] Lolita Barnett MD [address] [place] [address] routine f/u 04/05/2025 9:15 AM EDT Radiology [facility]. Mammography [address] [place] [address] 05/02/2025 1:00 PM EDT Office Visit [facility] Cardiology [address] [address] Lolita Barnett MD [address] [place] [address] 1 year 06/07/2025 9:15 AM EDT CPE - Comprehensive Physical Exam [address] [address] Christina Estevez MD [address] [place] [address] NPP documented as of this encounter Goals [...] at . Any insurance accepted. Quit smoking resources-http://Wonder Technologiestory.org HEMOGLOBIN A1C % < 7 Result Component [...] on filedocumented in this encounter Care Teams Utilities Service Investigator Relationship Specialty Start Date End Date Cortney Stone NP [address] [place] [address] PCP - General Internal Medicine 03/29/22 09/15/24 Christina Estevez MD [address] [place] [address] PCP - General Family Medicine 09/16/24 documented as of this encounter
--- OUTSIDE RECORDS SUMMARY | 2024-10-29 11:51 | XMS_ITS | Encounter Summary ---
Author Organization [facility] Address [address] [place] [address] Care Team Providers Care Contour Band Saw Operator Vertical Name Role Phone Cortney Stone NP Primary Care Provider [phone] Christina Estevez MD Primary Care Provider [phone] Encounter Details Date Type Department Care Team (Late st Contact Info) Description 10/02/2022 Orders Only [facility] [address] [place] [phone] Fernando Hinton, CAROLANN Medications Social History Tobacco Use Types Packs/Day [...] 01/10/2025 8:00 AM EDT Office Visit [address] [phone] Christina Estevez MD [address] [place] [address] medication refill follow up 03/18/2025 1:15 PM EDT Office Visit [facility] Cardiology [address] 123 [facility] [address] [place] [address] Lolita Barnett MD [address] [place] [address] routine f/u 04/05/2025 9:15 AM EDT Radiology [facility]. Mammography [address] [place] [address] 05/02/2025 1:00 PM EDT Office Visit [facility] Cardiology [address] [address] Lolita Barnett MD [address] [place] [address] 1 year 06/07/2025 9:15 AM EDT CPE - Comprehensive Physical Exam [facility] [address] [place] [address] Christina Estevez MD [address] [place] [address] NPP documented as of this encounter Goals [...] at . Any insurance accepted. Quit smoking resources-http://StackIQ.org HEMOGLOBIN A1C % < 7 Result Component [...] on filedocumented in this encounter Care Teams Contour Band Saw Operator Vertical Relationship Specialty Start Date End Date Cortney Stone NP [address] [place] [address] PCP - General Internal Medicine 03/29/22 09/15/24 Christina Estevez MD [address] [place] [address] PCP - General Family Medicine 09/16/24 documented as of this encounter
--- OUTSIDE RECORDS SUMMARY | 2024-10-29 11:51 | XMS_ITS | Encounter Summary ---
Author Organization [facility] Address [address] [place] [address] Care Team Providers Care Engineering Administrator Name Role Phone Cortney Stone NP Primary Care Provider [phone] Christina Estevez MD Primary Care Provider [phone] Reason for Visit * Reason Comments E-prescribing Refill Request Encounter Details Date Type Department Care Team ([facility] st Contact Info) Description 08/07/2022 Refill [facility] [address] [place] [address] Mirza Almanza NP [facility] [address] [address] E-prescribing Refill Request Social History Tobacco Use [...] Telephone Encounter - Cortney Stone NP - 08/08/2022 6:52 AM EST Ibuprofen 600mg sent in place. * Telephone Encounter - Mary Carpenter - 08/07/2022 3:33 PM EST Concerns for Provider Review: None Pharmacy Confirmed? The most recent pharmacy on file was used. When is the medication needed? within 48 hours, will send routine message Past Appointments: Last CPE: 03/09/2020 Last appointment in this department: 03/08/2022 Future Appointments Date Time Provider Department Phone 08/08/22 9:00 AM [facility] [phone] 09/05/22 2:00 PM Cortney Stone NP [facility] [phone] 01/24/23 8:30 AM [facility] MAMMOGRAPHY [address] Mammography [phone] 06/20/23 9:00 AM Lolita Barnett MD [facility] Cardiology [address] Pertinent lab results: [...] Description 01/10/2025 8:00 AM EDT Office Visit [address] [address] Christina Estevez MD [address] [place] [address] medication refill follow up 03/18/2025 1:15 PM EDT Office Visit [facility] Cardiology [address] [facility] [address] [place] [address] Lolita Barnett MD [address] [place] [address] routine f/u 04/05/2025 9:15 AM EDT Radiology [facility]. Mammography [address] [place] [address] 05/02/2025 1:00 PM EDT Office Visit [facility] Cardiology [address] [facility] [address] [place] [address] Lolita Barnett MD [address] [place] [address] 1 year 06/07/2025 9:15 AM EDT CPE - Comprehensive Physical Exam [address] [address] Christina Estevez MD [address] [place] [address] NPP documented as of this encounter Goals [...] at . Any insurance accepted. Quit smoking resources-http://makesmoBlackSquare.org HEMOGLOBIN A1C % < 7 Result Component 6.3(03/22/20 7:57 AM EDT) No Kasierski, Lashonda, TEXTILE CONVERTER Note: Above is your goal for sugar [...] on filedocumented in this encounter Care Teams Engineering Administrator Relationship Specialty Start Date End Date Cortney Stone NP [address] [place] [address] PCP - General Internal Medicine 03/29/22 09/15/24 Christina Estevez MD [address] [place] [address] PCP - General Family Medicine 09/16/24 documented as of this encounter
--- OUTSIDE RECORDS SUMMARY | 2024-10-29 11:51 | XMS_ITS | Encounter Summary ---
Author Organization [facility] Address [address] [place] [address] Care Team Providers Care Insurance Application Investigator Name Role Phone Mirza Almanza DIRECTOR OF PARTNERSHIPS Unavailable [phone] Juanpablo Louis MD Primary Care Provider [phone] Charu Jimenez MD Primary Care Provider Lori [place] Melgar NP Primary Care Provider [phone]- [phone] Unknown Pcp, Non Rmg Unavailable Unavailable Christina Estevez MD Primary Care Provider [phone] Encounter Details Date Type Department Care Team (Late st Contact Info) Description 08/28/2020 Orders Only [facility] Cardiology [address] [address] Lolita Barnett MD [address] [place] [address] Social History Tobacco Use Types Packs/Day Years [...] have Coronavirus / COVID-19? No / Unsure 08/30/2020 1:00 PM EST documented as of this encounter Progress Notes * Lolita Barnett MD - 08/28/2020 12:37 PM EST Please inform patient triglycerides are high. Was this a fasting blood work or not. If this was nota fasting blood work then triglycerides can be high. If this was a fasting blood work then would recommend decreasing carbohydrates and fats in the diet and following up with a lipid panel in 6 months * Mary Jefferson RN - 08/28/2020 12:37 PM EST Patient was not fasting. * Lolita Barnett MD - 08/28/2020 12:37 PM EST Would recommend a low carbohydrate and fat in the diet. And please go for a fasting blood work in 3months * Venus Jimenez RN - 08/28/2020 12:37 PM EST Left vm for patient to call us back * Venus Jimenez RN - 08/28/2020 12:37 PM EST Spoke with patient informed of lipid results Advised to start a low carb/fat diet and repeat labs in 3 months. Patient understands and agrees with plan documented in this encounter Miscellaneous Notes * Result Encounter Note - Regina Curran - 08/28/2020 12:37 PM EST Called and left a message for the patient to please call the office. * Result Encounter Note - Muna Alaniz RN - 08/28/2020 12:37 PM EST Called and spoke with patient. Relayed message per MD. Patient will have labs done this upcoming week. Labs were ordered. Patient also stated that MD had advised that patient should have a stress test. MD please advise. Okay to wait for Dr. Barnett to return. Advised patient to call the office back with any further questions or concerns. Patient verbalized understanding and agreed with plan. documented in this encounter Plan of Treatment Upcoming Encounters Date Type Department Care Team (Latest Contact Info) Description 01/10/2025 8:00 AM EDT Office Visit [address] [address] Christina Estevez MD 5 [place] [address] medication refill follow up 03/18/2025 1:15 PM EDT Office Visit [facility] Cardiology [address] [place] [address] Lolita Barnett MD [address] [place] [address] routine f/u 04/05/2025 9:15 AM EDT Radiology [facility]. Mammography [address] [place] [address] 05/02/2025 1:00 PM EDT Office Visit [facility] Cardiology [address] [place] [address] Lolita Barnett MD [address] [place] [address] 1 year 06/07/2025 9:15 AM EDT CPE - Comprehensive Physical Exam 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 * ALANINE AMINOTRANSFERASE (ALT), SERUM (12/18/2020 8:05 AM EDT) ALT (SGPT) 11 6 - 29 U/L [facility] 12/18/2020 8:05 AM EDT 12/18/2020 10:01 AM EDT Narrative Resulting Agency Comment [id number] Lolita Barnett MD LAB SAME DAY RESULT Final Result [facility] [address] [place] [address] * LIPID PANEL WITH REFLEX TO DIRECT [...] LDL-C. Gurdeep MARQUEZ et al. NANDO. 2013;310(19): 8592-4154 (http://education.[employer]/faq/OSJ546) CHOL/HDL Ratio 3.0 <5.0 (calc) [facility] Cholesterol Non-HDL 100 <130 mg/dL (calc) [facility] Comment: For patients with diabetes plus 1 major ASCVD risk factor, treating to a non-HDL-C goal of <100 mg/dL (LDL-C of <70 mg/dL) is considered a therapeutic option. 12/18/2020 8:05 AM EDT 12/18/2020 10:01 AM EDT Narrative Resulting Agency Comment [id number] Lolita Barnett MD LABORATORY Final Result Performing Organization Address City/[facility]/ZIP Co de Phone Number [facility] [address] [place] [address] * (ABNORMAL) LIPID PANEL WITH REFLEX TO DIRECT LDL (08/28/2020 12:37 PM EST) Cholesterol 170 <200 mg/dL [facility] HDL Cholesterol 44(L) > OR = 50 mg/dL [facility] Triglyceride 239(H) <150 mg/dL [facility] Comment: If a non-fasting specimen was collected, consider repeat triglyceride testing on a fasting specimen if clinically indicated. Teresa et al. J. of Clin. Lipidol. 2015;9:129-169. LDL Cholesterol 93 mg/dL (calc) [facility] Comment: Reference range: [...] LDL-C. Gurdeep SS et al. NANDO. 2013;310(19): 3050-0313 (http://education.[employer]iver [employer]/faq/UNL394) CHOL/HDL Ratio 3.9 <5.0 (calc) [facility] Cholesterol Non-HDL 126 <130 mg/dL (calc) [facility] Comment: For patients with diabetes plus 1 major ASCVD risk factor, treating to a non-HDL-C goal of <100 mg/dL (LDL-C of <70 mg/dL) is considered a therapeutic option. 08/28/2020 12:3 7 PM EST 08/29/2020 1:52 AM EST Narrative Resulting Agency Comment [id number] Lolita Barnett MD LABORATORY Final Result Performing Organization Address City/[facility] Co de Phone Number [facility] [address] [place] [address] documented in this encounter Visit Diagnoses Diagnosis Mixed hyperlipidemia due to type 2 diabetes mellitus (HCC)- Primary documented in this encounter Care Teams Insurance Application Investigator Relationship Specialty Start Date End Date Mirza Almanza NP PCP - Backup PCP Internal Medicine 07/28/20 05/29/22 Juanpablo Louis MD [address] [place] [address] PCP - General Internal Medicine 07/28/20 11/11/21 Charu Jimenez MD [address] [place] [address] PCP - General Family Medicine 11/12/21 03/28/22 Cortney Stone NP [address] [place] [address] PCP - General Internal Medicine 03/29/22 09/15/24 Unknown Pcp, Non Rmg PCP - Backup PCP 05/30/22 07/07/22 Christina Estevez MD [address] [place] [address] PCP - General Family Medicine 09/16/24 documented as of this encounter
--- OUTSIDE RECORDS SUMMARY | 2024-10-29 11:51 | XMS_ITS | Encounter Summary ---
Author Organization [facility] Address [address] [place] [address] Care Team Providers Care Plate Embosser Name Role Phone Ulisses Newman DO Primary Care Provider [phone] Mirza Almanza OPTICAL INSTRUMENT INSPECTOR Unavailable [phone] Juanpablo Louis MD Primary Care Provider [phone] Charu Jimenez MD Primary Care Provider Lori [place] Melgar NP Primary Care Provider + [phone] Unknown Pcp, Non Rmg Unavailable Unavailable Christina Estevez MD Primary Care Provider [phone] Reason for Visit * Reason Comments Polysomnogram Encounter Details Date Type Department Care Team (Late st Contact Info) Description 04/10/2020 Telephone [facility] Neurology [address] [facility] [address] [place] [phone] Vibha Casanova CRNP [address] [place] [address] Polysomnogram Social History Tobacco Use Types Packs/Day Years [...] encounter Miscellaneous Notes * Telephone Encounter - Meghan Mireles - 04/11/2020 8:44 AM EDT Faxed order to [facility]'s for a home study. * Telephone Encounter - Vibha Casanova CRNP - 04/11/2020 8:36 AM EDT Can we just change it to a home study? I believe she prefers a home study over inpatient. Please let me know if we can do this. Thanks * Telephone Encounter - Meghan Mireles - 04/11/2020 8:32 AM EDT The type of insurance she has there is no authorization for a home sleep study. She will need an authorization for the in lab but they are not booking those tests right now due to covid. * Telephone Encounter - Vibha Casanova CRNP - 04/10/2020 1:10 PM EDT Will her insurance cover in pt study or do I need to change to home study? * Telephone Encounter - Meghan Mireles - 04/10/2020 12:04 PM EDT Vibha put an order into the system for an In-Lab sleep study. At this time [facility]'s is not performing In-Lab sleep tests. They will be taking a look at this at the end of March to see if they will be doing the testing then. Patients need to be tested for Covid before they have a sleep study. Home studies are still happening at this time however. documented in this encounter Plan of Treatment Upcoming Encounters Date Type Department Care Team (Latest Contact Info) Description 01/10/2025 8:00 AM EDT Office Visit [address] [address] Christina Estevez MD [address] [place] [address] medication refill follow up 03/18/2025 1:15 PM EDT Office Visit [facility] Cardiology [address] [facility] [address] [place] [address] Lolita Barnett MD [address] [place] [address] routine f/u 04/05/2025 9:15 AM EDT Radiology [facility]. [address] [address] 05/02/2025 1:00 PM EDT Office Visit [facility] Cardiology [address] [address] Lolita Barnett MD [address] [place] [address] 1 year 06/07/2025 9:15 AM EDT CPE - Comprehensive Physical Exam [address] [address] Christina Estevez MD [address] [place] [address] NPP documented as of this encounter Goals [...] on filedocumented in this encounter Care Teams Plate Embosser Relationship Specialty Start Date End Date Ulisses Newman DO PCP - General Internal Medicine 01/18/20 07/27/20 Mirza Almanza NP PCP - Backup PCP Internal Medicine 07/28/20 05/29/22 Juanpablo Louis MD [address] [place] [address] PCP - General Internal Medicine 07/28/20 11/11/21 Charu Jimenez MD [address] [place] [address] PCP - General Family Medicine 11/12/21 03/28/22 Cortney Stone NP [address] [place] [address] PCP - General Internal Medicine 03/29/22 09/15/24 Unknown Pcp, Non Rmg PCP - Backup PCP 05/30/22 07/07/22 Christina Estevez MD [address] [place] [address] PCP - General Family Medicine 09/16/24 documented as of this encounter
--- OUTSIDE RECORDS SUMMARY | 2024-10-29 11:51 | XMS_ITS | Encounter Summary ---
Author Organization [facility] Address [address] [place] [address] Care Team Providers Care Bench Precision Assembler Name Role Phone Cortney Stone NP Primary Care Provider [phone] Chrsitina Estevez MD Primary Care Provider [phone] Encounter Details Date Type Department Care Team (Late st Contact Info) Description 11/05/2022 Orders Only [facility] [address] [place] [address] Cortney Stone NP [address] [place] [address] Social History Tobacco Use Types Packs/Day Years [...] 01/10/2025 8:00 AM EDT Office Visit [address] [place] [address] Christina Estevez MD [address] [place] [address] medication refill follow up 03/18/2025 1:15 PM EDT Office Visit [facility] Cardiology [address] [address] Lolita Barnett MD [address] [place] [address] routine f/u 04/05/2025 9:15 AM EDT Radiology [facility]. [address] [address] 05/02/2025 1:00 PM EDT Office Visit [facility] Cardiology [address] [address] Lolita Barnett MD [address] [place] [address] 1 year 06/07/2025 9:15 AM EDT CPE - Comprehensive Physical Exam [address] [address] Christina Estevez MD [address] [place] [address] NPP documented as of this encounter Goals [...] at . Any insurance accepted. Quit smoking resources-http://V[employer] Centraltory.org HEMOGLOBIN A1C % < 7 Result Component [...] of this encounter Results * Due to [place] state law, this organization might not be sharing negative HIV tests. * VITAMIN B12 (CYANOCOBALAMIN), SERUM (11/22/2022 7:58 AM EST) Vitamin B12 (Cobalamins) 416 200 - 1100 pg/mL [facility] 11/22/2022 7:58 AM EST 11/22/2022 7:58 PM EST Narrative Resulting Agency Comment [id number] Cortney Stone NP LABORATORY Final Resu lt [facility] [address] [place] [address] documented in this encounter Visit Diagnoses Diagnosis Type 2 diabetes mellitus without complication, without long-term current use of insulin (HCC) documented in this encounter Care Teams Bench Precision Assembler Relationship Specialty Start Date End Date Cortney Stone NP [address] [place] [address] PCP - General Internal Medicine 03/29/22 09/15/24 Christina Estevez MD [address] [place] [address] PCP - General Family Medicine 09/16/24 documented as of this encounter
--- OUTSIDE RECORDS SUMMARY | 2024-10-29 11:51 | XMS_ITS | Encounter Summary ---
Author Organization [facility] Address [address] [place] [address] Care Team Providers Care Branch Examiner Name Role Phone Ulisses Newman DO Primary Care Provider [phone] Mirza Almanza NUT GRINDER Unavailable [phone] Juanpablo Louis MD Primary Care Provider [phone] Charu Jimenez MD Primary Care Provider Lori vailable Cortney Stone NP Primary Care Provider + [phone] Unknown Pcp, Non [facility]mg Unavailable Unavailable Christina Estevez MD Primary Care Provider [phone] Encounter Details Date Type Department Care Team (Late st Contact Info) Description 07/19/2020 Orders Only [facility] [address] [place] [address] Ulisses Newman DO [facility] [address] [place] [address] Social History Tobacco Use Types Packs/Day Years [...] 01/10/2025 8:00 AM EDT Office Visit [address] [address] Christina Estevez MD [address] [place] [phone] medication refill follow up 03/18/2025 1:15 PM EDT Office Visit [facility] Cardiology [address] [facility] [address] [place] [address] Lolita Barnett MD [address] [place] [address] routine f/u 04/05/2025 9:15 AM EDT Radiology [address] [address] 05/02/2025 1:00 PM EDT Office Visit [facility] Cardiology [address] [facility] [address] [place] [address] Lolita Barnett MD [address] [place] [id number] 1 year 06/07/2025 9:15 AM EDT CPE - Comprehensive Physical Exam [address] [phone] Christina Estevez MD [address] [place] [address] NPP documented as of this encounter Goals [...] Routine 07/19/2020 9:13 AM EDT Cold intolerance THYROID STIMULATING HORMONE (TSH) WITH FREE T4 REFLEX, SERUM Routine 07/19/2020 9:13 AM EDT Hypothyroidism, unspecified type IRON PROFILE (IRON/TIBC), SERUM Routine 07/19/2020 9:13 AM EDT Cold intolerance VENIPUNCTURE Routine 07/19/2020 9:13 AM EDT Cold intolerance documented in this encounter Results * Due to [place] state law, this organization might not be sharing negative HIV tests. * THYROID STIMULATING HORMONE (TSH) WITH FREE T4 REFLEX, SERUM (07/19/2020 9:13 AM EDT) TSH 1.19 0.40 - 4.50 mIU/L [facility] 07/19/2020 9:13 AM EDT 07/19/2020 10:04 AM EDT Narrative Resulting Agency Comment [id number] us Ulisses Newman DO LABORATORY Final Result Performing Organization Address City/State/[facility] Co de Phone Number [facility] [address] [place] [address] * CBC INCLUDES DIFFERENTIAL AND PLATELET COUNT (07/19/2020 9:13 AM EDT) WBC 5.2 3.8 - 10.8 Thousand/u L [facility] RBC 3.94 3.80 - 5.10 Million/uL [facility] Hemoglobin 12.3 11.7 - 15.5 g/dL [facility] Hematocrit 35.1 35.0 - 45.0 % [facility] MCV 89.1 80.0 - 100.0 fL [facility] MCH 31.2 27.0 - 33.0 pg [facility] MCHC 35.0 32.0 - 36.0 g/dL [facility] RDW 11.7 11.0 - 15.0 % [facility] PLT 189 140 - 400 Thousand/u L [facility] MPV 9.7 7.5 - 12.5 fL [facility] Neutrophils # 3536 1500 - 7800 cells/uL [facility] Lymphocytes # 1160 850 - 3900 cells/uL [facility] Monocytes # 302 200 - 950 cells/uL [facility] Eosinophils # 161 15 - 500 cells/uL [facility] Basophils # 42 0 - 200 cells/uL [facility] Neutrophils % 68 % [facility] Lymphocytes % 22.3 % [facility] Monocytes % 5.8 % [facility] Eosinophils % 3.1 % [facility] Basophils % 0.8 % [facility] 07/19/2020 9:13 AM EDT 07/19/2020 10:04 AM EDT Narrative Resulting Agency Comment [id number] us Ulisses Newman DO LAB SAME DAY RESULT Final Resu lt Performing Organization Address City/[facility]/ZIP Co de Phone Number [facility] [address] [place] [phone] * IRON PROFILE (IRON/TIBC), SERUM (07/19/2020 9:13 AM EDT) Iron 86 45 - 160 mcg/dL [facility] Iron binding capacity 305 250 - 450 mcg/dL (calc) [facility] Iron saturation 28 16 - 45 % (calc) [facility] 07/19/2020 9:13 AM EDT 07/19/2020 10:04 AM EDT Narrative Resulting Agency Comment [id number] us Ulisses Newman DO LABORATORY Final Result Performing Organization Address [facility] Co de Phone Number [facility] [address] [place] [address] * FERRITIN (07/19/2020 9:13 AM EDT) Ferritin 45 16 - 288 ng/mL [facility] 07/19/2020 9:13 AM EDT 07/19/2020 10:04 AM EDT Narrative Resulting Agency Comment [id number] us Ulisses Newman DO LABORATORY Final Result Performing Organization Address City/[facility] Co de Phone Number [facility] [address] [place] [address] documented in this encounter Visit Diagnoses Diagnosis Cold intolerance Other general symptoms Hypothyroidism, unspecified type documented in this encounter Care Teams Branch Examiner Relationship Specialty Start Date End Date Ulisses Newman DO PCP - General Internal Medicine 01/18/20 07/27/20 Mirza Almanza NP PCP - Backup PCP Internal Medicine 07/28/20 05/29/22 Juanpablo Louis MD [address] [place] [id number] PCP - General Internal Medicine 07/28/20 11/11/21 Charu Jimenez MD [address] [place] [phone] PCP - General Family Medicine 11/12/21 03/28/22 Cortney Stone NUT GRINDER [address] [place] [id number] PCP - General Internal Medicine 03/29/22 09/15/24 Unknown Pcp, Non Rmg PCP - Backup PCP 05/30/22 07/07/22 Christina Estevez MD [address] [place] [id number] PCP - General Family Medicine 09/16/24 documented as of this encounter
== END 2024-10-29 12:11 | disposition home or self-care (01) ==
PROVIDERS: Visit Provider Neurological Surgery
DX: Z98.1 Arthrodesis status (principal); M43.12 Spondylolisthesis, cervical region
CPT/HCPCS: 99024

== ENCOUNTER → 2024-10-29 11:54 | Outpatient (BNV) | payer OTHER, SELFPAY | PROVIDERS: Visit Provider Radiology Diagnostic Radiology | DX: M50.30 Other cervical disc degeneration, unspecified cervical region (principal) | CPT/HCPCS: 72040 ==

== ENCOUNTER 2024-12-17 09:08 | Outpatient (AMB) | payer OTHER, SELFPAY ==
--- NOTE | 2024-12-17 09:31 | A.SPINEOV_ITS ---
Intake Visit Reasons: 2nd post op Intake Note: Mrs. Foy is here today for her 2nd post op. Cost Accounting Analyst Required: No Allergies Sulfa (Sulfonamide Antibiotics) Allergy (Intermediate, Verified 12/17/24 09:31) Swelling indomethacin [From Indocin] Allergy (Unknown, Verified 12/17/24 09:31) happened long ago-reaction unknown Assessment & Plan Assessment & Plan (1) Status post cervical spinal fusion: Code(s): Z98.1 - Arthrodesis status Category: Surgical Plan Mrs Foy is 2-1/2 months out from her C3-4, C4-5 anterior cervical diskectomy and fusion. She reports that she is very happy that she had the surgery. She can hold her neck up straight or now, her neck pain has almost completely gone. She still does have a little bit of pain going down her right arm. Her incision is healed up beautifully and her strength is normal. Her x-rays done at her last visit show excellent orthodox of the natural curvature of the cervical spine with good placement of the hardware. At this point she has no specific restrictions. She can follow up with us on an as-needed basis as she appears to be completely recovered. Elvin Tompkins MD, PhD [facility] Coding Level of Care Code Global (41339) Diagnoses Status post cervical spinal fusion Z98.1
== END 2024-12-17 09:52 | disposition home or self-care (01) ==
LOC: HO.HNS 09:08
PROVIDERS: Visit Provider Physician Assistant
DX: Z98.1 Arthrodesis status (principal)
CPT/HCPCS: 99024